=== PATIENT | female | born 1940 | race Caucasian/White ===

== ENCOUNTER → 2018-03-08 07:13 | Outpatient (CLI) | payer MEDICARE, OTHER, SELFPAY ==
--- NOTE | 2018-03-08 07:26 | CT_ITS ---
STUDY: CT CHEST WITHOUT CONTRAST REASON FOR EXAM: Female, 77 years old. COPD. Pulmonary hypertension. Elevated right hemidiaphragm. RADIATION DOSAGE (If Supplied By Facility): CTDIvol = ( 20.17 ) mGy, DLP = ( 654.20 ) mGycm TECHNIQUE: Transaxial imaging was performed without the administration of intravenous contrast material. Multiplanar coronal and sagittal images were reformatted. Individualized dose optimization techniques were used for this CT. COMPARISON: None. FINDINGS: Surgical clips are seen in the right axillary region most likely secondary to prior right axillary lymph node dissection. There are small benign-appearing left axillary lymph nodes. There is a 9.3 mm x 13.3 mm calcified nodule in the lateral aspect of the right breast. There is elevation of the right hemidiaphragm. Calcified granuloma in the right lower lobe. Increased markings in the right lower lobe suggestive of atelectasis or scarring. There is no demonstrated pleural abnormality. There are calcifications of the coronary arteries. There are multiple small lymph nodes within the mediastinum, which are normal in size and morphology most compatible with reactive lymph hyperplasia. Calcified subcarinal lymph nodes. Calcified bilateral hilar lymph nodes. Normal unenhanced pulmonary arteries. There is atherosclerotic calcification of the aortic arch with tortuosity and elongation of the aortic arch and descending thoracic aorta. There are multi-level degenerative changes of the thoracic spine. There is no demonstrated abnormality of the visualized upper abdomen. CT/Chest without Contrast IMPRESSION: Elevation of the right hemidiaphragm. Increased markings at the right lung base suggestive of linear atelectasis and/or scarring. No acute abnormality is seen. Electronically Signed: Rakesh Desai MD at 12:54 EDT Tel [phone], Service support ,
--- NOTE | 2018-03-08 07:50 | RAD_ITS ---
STUDY: SNIFF STUDY. REASON FOR EXAM: Female, 77 years old. Elevation of the right hemidiaphragm. FLUOROSCOPY TIME (if supplied): (0:25) minutes/seconds. 2 images were obtained. TECHNIQUE: Under fluoroscopic visualization, the patient performed inspiration and expiration maneuvers. COMPARISON: None. FINDINGS: There is elevation of the right hemidiaphragm. There is no movement of the right hemidiaphragm. Degenerative changes of the thoracic vertebrae. RAD/Chest Sniff Test Fluoro Only IMPRESSION: Right diaphragmatic paralysis. Electronically Signed: Rakesh Desai MD at 13:36 EDT Tel [phone], Service support ,
--- NOTE | 2018-03-08 08:00 | RAD_ITS ---
STUDY: X-RAY CHEST REASON FOR EXAM: Female, 77 years old. ELEVATED RIGHT HEMIDIAPHRAGM; COPD TECHNIQUE: Single AP portable view of the chest. COMPARISON: None. FINDINGS: There is persistent elevation of the right hemidiaphragm suggesting phrenic nerve paralysis. Calcified granulomas are seen in the right and left lung bases. There is no demonstrated pleural abnormality. Normal size heart. Normal mediastinum and parish. Normal visualized pulmonary arteries. There is atherosclerotic calcification of the aortic arch with tortuosity. There are diffuse degenerative changes and dextroscoliosis of the visualized thoracic spine. There is degenerative osteoarthritis of the bilateral shoulders. There is no demonstrated abnormality of the visualized soft tissue structures of the upper abdomen. RAD/Chest 1 View IMPRESSION: Degenerative changes, as described above. There is persistent elevation of the right hemidiaphragm suggesting phrenic nerve paralysis. Calcified granulomas are seen in the right and left lung bases. Electronically Signed: Yury Batista MD at 11:43 EDT Tel , Service support ,
[2018-03-08 08:56] LABS: Base Excess 4 mmol/L (-2 to +2); Bicarbonate 27.9 mmol/L (22-26); Blood Gas Specimen Type ART; O2 Delivery Device Room Air; PO2 57 mmHG (75-100); SITE L Brachial; SO2 90 % (95-99); Time Given 842; Total Carbon Dioxide 29 mmol/L; pCO2 41.9 mmHg (35-45); pH 7.43 (7.35-7.45)
== END ==
PROVIDERS: Family Provider Family Medicine; PCP Family Medicine; Referring Provider Internal Medicine Pulmonary Disease; Visit Provider Internal Medicine Pulmonary Disease
DX: J44.9 Chronic obstructive pulmonary disease, unspecified (principal); I27.20 Pulmonary hypertension, unspecified; J98.6 Disorders of diaphragm
CPT/HCPCS: 36600; 71045; 71250; 76000; 82803

== ENCOUNTER → 2018-06-14 13:19 | Outpatient (CLI) | payer MEDICARE, OTHER, SELFPAY | PROVIDERS: Family Provider Family Medicine; PCP Family Medicine; Referring Provider Internal Medicine Pulmonary Disease; Visit Provider Internal Medicine Pulmonary Disease | DX: R05 Cough (principal) | CPT/HCPCS: 87070; 87077; 87205 ==

== ENCOUNTER 2021-09-03 09:17 | Inpatient (IN) | payer MEDICARE, OTHER, SELFPAY ==
[2021-09-03] VITALS (15 sets, daily range): BP systolic 119–163; BP diastolic 50–104; PULSE 56–79; RESP 17–24; TEMP 36.6–37.3; O2SAT 89–97; BMI 51.5; BMI 49.9
--- NOTE | 2021-09-03 10:03 | EKG12_ITS ---
Test Reason : SOB Blood Pressure : / mmHG Vent. Rate : 061 BPM Atrial Rate : 061 BPM P-R Int : 182 ms QRS Dur : 082 ms QT Int : 400 ms P-R-T Axes : -04 008 082 degrees QTc Int : 402 ms Normal sinus rhythm Normal ECG Confirmed by ALFREDO DEVLIN, RIP ([id number]), scientific editor MILLER PEREZ ([id number]) on 09/05/2021 2:12:35 PM Referred By: AROLDO Confirmed By:JUAN FUENTES MD
--- NOTE | 2021-09-03 10:05 | NURSING ---
NO OLD EKGS
--- NOTE | 2021-09-03 10:06 | EX.ED.DYSGE1 ---
HPI History of Present Illness Chief Complaint: Shortness of Breath Informant: patient Narrative Narrative: 81-year-old female presenting shortness of breath. Patient states she has been progressively short of breath and worsened with exertion. She has increased lower extremity swelling. She normally wears home O2 4 L. She states she is very short of breath even with her home O2. She denies chest pain. She complains of subjective fever. Denies cough. Prior similar symptoms: Yes PFSH PFSH Allergy/AdvReac Type Severity Reaction Status Date / Time Unable to Assess Allergy Verified 09/03/21 09:23 Social History Smoking Status: Unknown if ever smoked ROS ROS ED Constitutional Constitutional ED: Denies fever(s) Eyes Eyes: Denies change in vision ENT ENT ED: Denies rhinorrhea or sore throat Cardiovascular Cardiovascular: Denies chest pain or palpitations Respiratory/Chest Respiratory/Chest: Reports dyspnea; Denies cough Gastrointestinal Gastrointestinal: Denies abdominal pain, diarrhea, nausea or vomiting Genitourinary Genitourinary ED: Denies dysuria Musculoskeletal Musculoskeletal: Denies myalgias Integumentary Denies rash Neurologic Neurologic: Denies headache(s) Psychiatric Psychiatric: Denies suicidal thoughts EXAM Physical Exam Const Vital Signs: 09/03/21 09:20 09/03/21 10:21 09/03/21 10:30 Temperature 99.1 F Temperature Source Oral Pulse Rate 79 Respiratory Rate 24 H Respiratory Effort Short of Breath Respiratory Depth Normal Respiratory Pattern Normal Blood Pressure 156/50 H Blood Pressure Mean 85 Pulse Ox 93 92 Oxygen Delivery Method Nasal Cannula Nasal Cannula Nasal Cannula Oxygen Flow Rate (L/min) 3 4 09/03/21 11:36 09/03/21 12:54 09/03/21 13:05 Temperature 98 F Temperature Source Temporal Pulse Rate 56 L 66 76 Respiratory Rate 24 H 21 H 17 Respiratory Effort Respiratory Depth Respiratory Pattern Blood Pressure 157/71 H 151/98 H 119/104 H Blood Pressure Mean 99 115 109 Pulse Ox 95 96 97 Oxygen Delivery Method Nasal Cannula Nasal Cannula Nasal Cannula Oxygen Flow Rate (L/min) 4 6 4 Positive well nourished and well developed General Appearance ED: well developed HEENT Reports normocephalic and head/scalp atraumatic Eyes PERRL and EOMs intact bilaterally Neck supple General: Negative for tenderness Chest Wall inspection of chest normal Resp normal respiratory effort Auscultation: diminished lung sounds Cardio regular rate and regular rhythm GI non-tender and non-distended Palpation: soft; Negative for guarding or rebound tenderness present no CVA tenderness Extremity normal to inspection Neuro oriented x3 Sensorium / Orientation: alert Psych mental status grossly normal MDM MDM MDM Narrative Medical decision making narrative: CBC normal except hemoglobin 10.5. Chemistries show potassium 5.4, BUN 37, creatinine 1.75, glucose 249. Troponin is negative. BNP 167.9. Chest x-ray read by myself and radiology shows mild degree of vascular congestion with increased markings at the lung bases slightly worse on the left side suggestive of bibasilar atelectasis and/or early infiltrates with blunting of both costophrenic angles worse on the left side. Attempted to ambulate the patient on her 4 L nasal cannula oxygen and her oxygen saturation decreased to 78%. Lasix IV was given. Discussed with hospitalist for admission. Lab Data Attestation: I reviewed the patient's lab results. Labs: Laboratory Results - last 24 hr 09/03/21 09/03/21 09/03/21 10:20 10:20 10:20 WBC 6.9 RBC 3.44 L Hgb 10.5 L Hct 35.4 L MCV 102.9 H MCH 30.5 MCHC 29.7 L RDW Std Deviation 52.9 H RDW Coeff of Lucas 14.0 Plt Count 214 MPV 10.5 Immature Gran % (Auto) 3.200 H Neut % (Auto) 83.0 H Lymph % (Auto) 6.8 L [place] % (Auto) 5.0 Eos % (Auto) 1.6 Baso % (Auto) 0.4 Absolute Neuts (auto) 5.8 Absolute Lymphs (auto) 0.47 L Nucleated RBC % 0 Differential Comment COMMENT Sodium 140 Potassium 5.4 H Chloride 106 Carbon Dioxide 34.0 H Anion Gap 0 L BUN 37 H Creatinine 1.75 H Estim Creat Clear Calc 19.35 Est GFR (MDRD) Af Amer 36 L Est GFR (MDRD) Non-Af 30 L BUN/Creatinine Ratio 21.1 H Glucose 249 H Calcium 8.7 Troponin I High Sens 24 B-Natriuretic Peptide 167.9 H Radiography Chest X-Ray - ED: 1 View, Read by ED Physician and Read by Radiologist Diagnostic Testing: Clinical Impression(s) from Imaging Studies Chest X-Ray 03/30/22 10:30 IMPRESSION: Mild degree of vascular congestion with increased markings at the lung bases slightly worse on the left side suggestive of bibasilar atelectasis and/or early infiltrates with blunting of both costophrenic angles worse on the left side. Electronically Signed: Rakesh Desai MD at 11:15 EDT , EKG Initial EKG: Attestation: I personally reviewed and interpreted this EKG as follows: Interpretation: Sinus Rhythm and No Acute Injury Pattern Discharge Plan Triage Chief Complaint: Shortness of Breath ED Provider: Mary Gao Dx/Rx/DC Orders Clinical Impression: Acute exacerbation of CHF (congestive heart failure) Primary Care Provider: Mitchell Lane Referrals: Mitchell Lane MD [Primary Care Provider] - Disposition Disposition: Acute Care Hospital [facility]
--- NOTE | 2021-09-03 10:30 | RAD_ITS ---
STUDY: X-RAY CHEST REASON FOR EXAM: Female, 81 years old. Sob TECHNIQUE: Single AP portable view of the chest. COMPARISON: Comparison is made with prior examination dated 03/08/2014. FINDINGS: EKG electrodes are seen. Surgical clips are seen in the right axillary region. Elevation of the right hemidiaphragm. Increased markings at the lung bases slightly worse on the left side suggestive of either bibasilar atelectasis and/or early infiltrates. There is blunting of both costophrenic angles slightly more prominent on the left side. Mild degree of vascular congestion. Normal size heart. Normal mediastinum and parish. Normal visualized pulmonary arteries. There is atherosclerotic calcification of the aortic arch with tortuosity. There are diffuse degenerative changes of the visualized thoracic spine. Normal visualized ribs, clavicles, and shoulders. There is no demonstrated abnormality of the visualized soft tissue structures of the upper abdomen. RAD/Chest 1 View (Portable) IMPRESSION: Mild degree of vascular congestion with increased markings at the lung bases slightly worse on the left side suggestive of bibasilar atelectasis and/or early infiltrates with blunting of both costophrenic angles worse on the left side. Electronically Signed: Rakesh Desai MD at 11:15 EDT ,
[2021-09-03 10:33] LABS: Absolute Lymphocyte Count 0.47 X10^3/uL (0.83-4.51); Absolute Neutrophil Count 5.8 X10^3/uL (2.0-7.7); Basophil# 0.03 X10^3/uL; Basophil% 0.4 % (0-1); Eosinophil# 0.11 X10^3/uL; Eosinophils% 1.6 % (0-5); Hematocrit 35.4 % (37-47); Hemoglobin 10.5 g/dL (12.0-15.0); Lymphocyte # 0.47 X10^3/ul (0.83-4.51); Lymphocyte % 6.8 % (19-41); Mean Corp Hgb Conc 29.7 g/dL (32-36); Mean Corpuscular Hgb 30.5 pg (27.0-32.0); Mean Corpuscular Volume 102.9 fL (81-99); Mean Platelet Vol. 10.5 fl (6.2-12.0); Monocyte# 0.35 X10^3/uL; NRBC Flagged by Analyzer 0 % (0-5); Neutrophil # 5.76 X10^3/uL (2.7-7.7); POSITIVE DIFFERENTIAL YES; Platelet Count 214 K/mm3 (150-450); RBC Distribution Width SD 52.9 fl (35.1-43.9); Red Blood Count 3.44 M/mm3 (4.2-5.4); White Blood Count 6.9 K/mm3 (4.4-11.0)
[2021-09-03 10:44] LABS: Differential Indicated SCAN CRITERIA MET
[2021-09-03 10:50] LABS: Anion Gap 0 (5-15); BUN 37 mg/dL (7-18); BUN/Creat Ratio 21.1 RATIO (10-20); Calcium,Total 8.7 mg/dL (8.5-10.1); Chloride 106 mmol/L (98-107); Creatinine, Serum 1.75 mg/dL (0.55-1.02); EST Glomerular Filtration Rate 30 mL/min (>60); Est Glom Filt Rate - Afr Amer 36 mL/min (>60); Estimated Creatinine Clearance 19.35 ml/min; Glucose 249 mg/dL (74-106); Potassium 5.4 mmol/L (3.5-5.1); Sodium Level 140 mmol/L (136-145); Troponin-I HS 24 pg/mL (3.0-54.0)
[2021-09-03 11:02] LABS: BNP,B-Type NATRIURETIC PEPTIDE 167.9 pg/mL (0-100)
--- NOTE | 2021-09-03 12:50 | ED.RN ---
Per Dr. Gao, Patient should be ambulated with oxygen and monitor SpO2. While ambulating with walker, patient was on 4L NC. SpO2 levels 81% on 4 LC, HR 56 bpm. While getting back into bed patients SpO2 78% on 4L NC. Patient is now on 6L NC with SpO at 97%. Dr. Gao notified of oxygen changes.
--- NOTE | 2021-09-03 13:43 | NURSING ---
CHARLY ASKEW [facility]
[2021-09-03] MEDS: Furosemide 40 MG/4 ML Vial IV ×2 (13:54→17:38)
--- NOTE | 2021-09-03 13:55 | CM.ED ---
Addendum entered by Chitra Vazquez 09/03/21 14:06: Also has a built in shower chair. ANDREW Varela Original Note: RN CM Assessment Introduced role of RN CM to patient, patient dtr Selam Arnett and Perico Lane at bedside.? Patient is alert, oriented and able?to participate in RN CM Assessment. ?Care providers, pharmacy, and demographics verified. Admit Dx: Re-Admit: No Barriers/Issues: None PCP: Mitchell Lane Specialists: Pulm- Gadiel,, Cardio- Patrice-Ana, Endo- Schubridge- Guerrero, Nephro- Virgilio Preferred Pharmacy: [facility] [place] Insurance: [facility] [place] [facility] A/B, MMO Rx Benefit:?Yes LNOK: [address] LW/HPOA: States has a LW-aware not on file at [facility] and if brought in, will scan a copy on file. HPOA- Dtr Selam Arnett #[phone] and Dtr Salma Stoner Living Arrangements: Lives with in a ranch home, 1 step inside with ramp. 2 steps to enter homw w/hand rails.? ADL?s: Ambulates independently to car but does use [employer] otherwise. Independent w/ADLs. Transportation: . Patient does drive some. DME: [employer], Home O2 4lpm continuous, [employer], Has refillable portable tanks and some portable tanks that cannot be refilled- [facility]. HHC: None SNF: None Goal: Home and does not think will have any needs, issues or concerns with going home at this time. Aware RNCM will continue to follow should any needs arise. DC PLAN: Home and no anticipated needs identified at this time. ANDREW Varela
--- NOTE | 2021-09-03 14:41 | HP.PCM.HOS_ITS ---
Documented by User: Yoanna Cat NP, KELP GATHERER-C 09/03/21 16:46 HPI - General General Date of Admission: 09/03/21 HPI Narrative SANTIAGO WILHELM, is a 81 F who presents to emergency room due to shortness of breath. Patient states she has been short of breath since 2014 however her shortness of breath acutely worsened over the past week. She denies chest pain. Reports some dizziness. Denies cough, fever, chills. States she has not weighed herself but suspects she has gained some weight. Denies significant increased swelling. Patient wears 4 L nasal cannula at baseline. She does report she increased her home oxygen due to feeling short of breath. Patient has a past medical history of chronic heart failure, CKD stage III, CAD, type 2 diabetes mellitus, COPD, hypertension, hyperlipidemia, GERD, history of breast cancer, anxiety, depression, stress incontinence. [facility] Medical History (Updated 09/03/21 @ 16:25 by Yoanna Cat NP, KELP GATHERER-C) CAD (coronary artery disease) COPD (chronic obstructive pulmonary disease) HLD (hyperlipidemia) HTN (hypertension) Home Medications Lactobacillus acidophilus [Probiotic] 10,000 mmu cells PO DAILY 09/03/21 [History Last Taken 09/03/21] amlodipine 5 mg PO DAILY 09/03/21 [History Last Taken 09/03/21] aspirin 81 mg PO QHS 09/03/21 [History Last Taken 09/02/21] budesonide-formoterol 2 puff INHALATION BID 09/03/21 [History Last Taken 09/03/21] carvedilol 25 mg PO BIDCM 09/03/21 [History Last Taken 09/03/21] cholecalciferol (vitamin D3) 25 mcg PO BID 09/03/21 [History Last Taken 09/03/21] cholestyramine (with sugar) 1 ea PO DAILY 09/03/21 [History Last Taken 09/03/21] cyanocobalamin (vitamin B-12) 1,000 mcg PO DAILY 09/03/21 [History Last Taken 09/03/21] furosemide 40 mg PO DAILY 09/03/21 [History Last Taken 09/03/21] insulin NPH isoph U-100 human [Humulin N Pen] 6 unit SUBCUT BREAKFAST 09/03/21 [ History Last Taken 09/03/21] insulin NPH isoph U-100 human [Humulin N Pen] 7 - 20 unit SUBCUT QHS 09/03/21 [History Last Taken 09/02/21] insulin aspart U-100 [Novolog Flexpen U-100 Insulin] 6 unit SUBCUT LUNCH 09/03/21 [History Last Taken 09/02/21] insulin aspart U-100 [Novolog Flexpen U-100 Insulin] 8 unit SUBCUT BREAKFAST 09/03/21 [History Last Taken 09/03/21] insulin aspart U-100 [Novolog Flexpen U-100 Insulin] 14 unit SUBCUT DINNER 09/03/21 [History Last Taken 09/02/21] losartan 100 mg PO DAILY 09/03/21 [History Last Taken 09/03/21] mirtazapine 45 mg PO QHS 09/03/21 [History Last Taken 09/02/21] pravastatin 40 mg PO DAILY 09/03/21 [History Last Taken 09/03/21] sertraline 100 mg PO BID 09/03/21 [History Last Taken 09/03/21] spironolactone 25 mg PO DAILY 09/03/21 [History Last Taken 09/03/21] sucralfate 1 g PO TIDCM 09/03/21 [History Last Taken 09/03/21] Allergy/AdvReac Type Severity Reaction Status Date / Time levofloxacin [From Levaquin] AdvReac Other Verified 09/03/21 15:05 procaine [From Novocain] AdvReac Other Verified 09/03/21 15:05 Family History (Updated 09/03/21 @ 16:26 by Yoanna Cat NP, KELP GATHERER-C) Mother No cardiac disease Father No cardiac disease Family History other other Surgical History (Updated 09/03/21 @ 16:27 by Yoanna Cat NP, KELP GATHERER-C) S/P breast lumpectomy S/P cholecystectomy Social History (Updated 09/03/21 @ 16:28 by Yoanna Cat NP, KELP GATHERER-C) household members: spouse Smoking Status: Never smoker alcohol intake: never substance use type: does not use ROS Constitutional Constitutional: Denies change in weight, chills, fatigue, fever(s) or weakness Cardiovascular Cardiovascular: Denies chest pain, edema, lightheadedness, palpitations or syncope Respiratory/Chest Respiratory/Chest: Reports shortness of breath at rest and shortness of breath with exertion; Denies cough, productive cough or wheezing Gastrointestinal Gastrointestinal: Denies abdominal pain, constipation, diarrhea, nausea or vomiting Genitourinary Genitourinary: Denies burning urination, difficulty urinating, dysuria, hematuria, urinary frequency, urinary incontinence or urinary urgency Musculoskeletal Musculoskeletal: Denies back pain, joint pain or muscle weakness Integumentary Integumentary: Denies erythema, lesions, rash or wounds Neurologic Neurologic: Reports dizziness; Denies abnormal speech, confusion, focal weakness, numbness, paresthesias, seizure-like activity or syncope Psychiatric Psychiatric: Denies anxiety or depression Hematologic/Lymphatic Hematologic/Lymphatic: Denies anemia, easy bleeding or easy bruising Allergic/Immunologic Allergic/Immunologic: Denies hives or asthma Vital Signs Vital Signs Vital Signs: 09/03/21 09:20 09/03/21 10:21 09/03/21 10:30 Temperature 99.1 F Temperature Source Oral Pulse Rate 79 Respiratory Rate 24 H Respiratory Effort Short of Breath Respiratory Depth Normal Respiratory Pattern Normal Blood Pressure 156/50 H Blood Pressure Mean 85 Pulse Ox 93 92 Oxygen Delivery Method Nasal Cannula Nasal Cannula Nasal Cannula Oxygen Flow Rate (L/min) 3 4 09/03/21 11:36 09/03/21 12:54 09/03/21 13:05 Temperature 98 F Temperature Source Temporal Pulse Rate 56 L 66 76 Respiratory Rate 24 H 21 H 17 Respiratory Effort Respiratory Depth Respiratory Pattern Blood Pressure 157/71 H 151/98 H 119/104 H Blood Pressure Mean 99 115 109 Pulse Ox 95 96 97 Oxygen Delivery Method Nasal Cannula Nasal Cannula Nasal Cannula Oxygen Flow Rate (L/min) 4 6 4 09/03/21 13:40 Temperature 98 F Temperature Source Temporal Pulse Rate 64 Respiratory Rate 22 H Respiratory Effort Respiratory Depth Respiratory Pattern Blood Pressure 163/93 H Blood Pressure Mean 116 Pulse Ox 93 Oxygen Delivery Method Nasal Cannula Oxygen Flow Rate (L/min) 4 Weight Weight: 264 lb 8.875 oz Body Mass Index (BMI) 49.9 Physical Exam Const alert, oriented x3 and no apparent distress Orientation / Consciousness: awake, oriented to person, oriented to place and oriented to time Nutritional Appearance: obese HEENT normocephalic and moist oral mucous membranes Eyes PERRL, EOMs intact bilaterally and conjunctivae normal Neck no lymphadenopathy Resp clear to auscultation bilaterally Auscultation: diminished lung sounds Cardio regular rate, regular rhythm and no murmurs Peripheral Pulses: pulses 2+ throughout GI normal to inspection, nondistended, normoactive bowel sounds, non-tender and non-distended Extremity normal to inspection General Extremity: edema bilateral lower extremity Details: mild Skin no rashes or lesions noted Lesions: no lesions Rashes: no rashes Trauma: no lacerations or abrasions Neuro CN's II-XII intact bilaterally, no focal motor deficits, no sensory deficits noted and deep tendon reflexes 2+ bilaterally Psych mental status grossly normal and affect normal Results Lab / Micro Data Result Diagrams: 09/03/21 10:20 09/03/21 10:20 Labs: Laboratory Results - last 24 hr 09/03/21 10:20: WBC 6.9, RBC 3.44 L, Hgb 10.5 L, Hct 35.4 L, MCV 102.9 H, MCH 30.5, MCHC 29.7 L, RDW Std Deviation 52.9 H, RDW Coeff of Lucas 14.0, Plt Count 214, MPV 10.5, Immature Gran % (Auto) 3.200 H, Neut % (Auto) 83.0 H, Lymph % (Auto) 6.8 L, [place] % (Auto) 5.0, Eos % (Auto) 1.6, Baso % (Auto) 0.4, Absolute Neuts (auto) 5.8, Absolute Lymphs (auto) 0.47 L, Nucleated RBC % 0, Differential Comment COMMENT 09/03/21 10:20: Sodium 140, Potassium 5.4 H, Chloride 106, Carbon Dioxide 34.0 H , Anion Gap 0 L, BUN 37 H, Creatinine 1.75 H, Estim Creat Clear Calc 19.35, Est GFR (MDRD) Af Amer 36 L, Est GFR (MDRD) Non-Af 30 L, BUN/Creatinine Ratio 21.1 H , Glucose 249 H, Calcium 8.7, Troponin I High Sens 24 09/03/21 10:20: B-Natriuretic Peptide 167.9 H Micro: Microbiology 09/03/21 10:10 Mucosa - Nose Respiratory Panel (PCR) - Final Radiology Impression Chest X-Ray 09/03/21 10:30 IMPRESSION: Mild degree of vascular congestion with increased markings at the lung bases slightly worse on the left side suggestive of bibasilar atelectasis and/or early infiltrates with blunting of both costophrenic angles worse on the left side. Electronically Signed: Rakesh Desai MD at 11:15 EDT , Assessment & Plan Assessment/Plan (1) Acute exacerbation of CHF (congestive heart failure): PLAN: 1. Increased dyspnea secondary to acute on chronic heart failure, unknown subtype, chronic hypoxic respiratory failure-on 4 L nasal cannula at baseline. BNP slightly elevated. Chest x-ray with mild failure. IV Lasix. Strict I&O. Daily weight. Obtain echo. Trend enzymes. Check TSH, mag. 2. Mild hyperkalemia- IV lasix per above. Will trend BMP. Aldactone held. 3. LINDA on CKD stage III, unclear subtype- Baseline creatinine per previous outpatient labs 1.3. LINDA likely cardiorenal. IV Lasix, trend BMP. 4. CAD-continue statin, carvedilol. 5. Type 2 diabetes [id number] with sliding scale insulin. Continue home insulin regimen. 6. Chronic COPD-as needed albuterol aerosol. 7. Hypertension-continue losartan, carvedilol, amlodipine. Hold aldactone. 8. Hyperlipidemia-on statin. 9. GERD-continue Carafate. 10. History of breast cancer (2008) 11. Anxiety/depression-on sertraline. 12. Stress incontinence-follows with urology. DVT prophylaxis-heparin sc This patient was seen by RAE Matias under the supervision of Dr. Engle. Time spent examining patient, reviewing data and subsequent management of care: 18 Minutes Documented by User: Dr. Jung Engle MD 09/03/21 18:19 HPI - General General Date of Admission: 09/03/21 [facility] Medical History (Updated 09/03/21 @ 16:25 by Yoanna Cat KELP GATHERER, KELP GATHERER-C) CAD (coronary artery disease) COPD (chronic obstructive pulmonary disease) HLD (hyperlipidemia) HTN (hypertension) Home Medications Lactobacillus acidophilus [Probiotic] 10,000 mmu cells PO DAILY 09/03/21 [History Last Taken 09/03/21] amlodipine 5 mg PO DAILY 09/03/21 [History Last Taken 09/03/21] aspirin 81 mg PO QHS 09/03/21 [History Last Taken 09/02/21] budesonide-formoterol 2 puff INHALATION BID 09/03/21 [History Last Taken 09/03/21] carvedilol 25 mg PO BIDCM 09/03/21 [History Last Taken 09/03/21] cholecalciferol (vitamin D3) 25 mcg PO BID 09/03/21 [History Last Taken 09/03/21] cholestyramine (with sugar) 1 ea PO DAILY 09/03/21 [History Last Taken 09/03/21] cyanocobalamin (vitamin B-12) 1,000 mcg PO DAILY 09/03/21 [History Last Taken 09/03/21] furosemide 40 mg PO DAILY 09/03/21 [History Last Taken 09/03/21] insulin NPH isoph U-100 human [Humulin N Pen] 6 unit SUBCUT BREAKFAST 09/03/21 [History Last Taken 09/03/21] insulin NPH isoph U-100 human [Humulin N Pen] 7 - 20 unit SUBCUT QHS 09/03/21 [History Last Taken 09/02/21] insulin aspart U-100 [Novolog Flexpen U-100 Insulin] 6 unit SUBCUT LUNCH 2 [History Last Taken 09/02/21] insulin aspart U-100 [Novolog Flexpen U-100 Insulin] 8 unit SUBCUT BREAKFAST 09/03/21 [History Last Taken 09/03/21] insulin aspart U-100 [Novolog Flexpen U-100 Insulin] 14 unit SUBCUT DINNER 09/03/21 [History Last Taken 09/02/21] losartan 100 mg PO DAILY 09/03/21 [History Last Taken 09/03/21] mirtazapine 45 mg PO QHS 09/03/21 [History Last Taken 09/02/21] pravastatin 40 mg PO DAILY 09/03/21 [History Last Taken 09/03/21] sertraline 100 mg PO BID 09/03/21 [History Last Taken 09/03/21] spironolactone 25 mg PO DAILY 09/03/21 [History Last Taken 09/03/21] sucralfate 1 g PO TIDCM 09/03/21 [History Last Taken 09/03/21] Allergy/AdvReac Type Severity Reaction Status Date / Time levofloxacin [From Levaquin] AdvReac Other Verified 09/03/21 15:05 procaine [From Novocain] AdvReac Other Verified 09/03/21 15:05 Family History (Updated 09/03/21 @ 16:26 by Yoanna Cat NP, KELP GATHERER-C) Mother No cardiac disease Father No cardiac disease Family History other Surgical History (Updated 09/03/21 @ 16:27 by Yoanna Cat NP, KELP GATHERER-C) S/P breast lumpectomy S/P cholecystectomy Social History (Updated 09/03/21 @ 16:28 by Yoanna Cat NP, KELP GATHERER-C) household members: spouse Smoking Status: Never smoker alcohol intake: never substance use type: does not use Results Lab / Micro Data Result Diagrams: 09/03/21 10:20 09/03/21 10:20 Charges/Coding Addendum Addendum: Dr. Engle: I personally reviewed the chart and examined the patient, and agree with the above findings. 81-year-old female presents to the hospital with shortness of breath. She says that she has chronic shortness of breath and generally requires 4 L of oxygen nasal cannula. She follows with pulmonology Dr. Ramesh's office but denies any known history of heart failure. She did have an elevated creatinine and we are able to see that her baseline was 1.3 clinic- sync, this is consistent with an LINDA. She does have trace bilateral pitting edema and she does state that she sleeps with 2 pillows. We will obtain an echocardiogram today and continue with IV Lasix. She did have some increased oxygen requirements when she came in she was up to 6 L but with the Lasix she is currently down to 4 L nasal cannula which is her baseline oxygen. Clinical time spent in all aspects of patient care: 40 minutes Visit Charges Inpatient E&M: 60657 Init Hosp L2
--- NOTE | 2021-09-03 14:48 | ECHOD_ITS ---
Reason For Study: CHF EXACERBATION Procedure This was a 2D Doppler, Color Flow transthoracic echocardiogram. Exam performed portable in patient room. Left Ventricle Normal LV size. The estimated ejection fraction is 60 %. No evidence for diastolic dysfunction. No regional wall motion abnormalities noted. Right Ventricle Normal RV size. Normal systolic function. Atria Normal left atrium. Normal right atrium. No doppler evidence for ASD. Mitral Valve There is mild mitral annular calcification. There is no mitral valve stenosis. No mitral valve insufficiency. Tricuspid Valve There is no tricuspid stenosis. Unable to estimate RV systolic pressure due to inadequate jet, pulmonary artery pressure probably normal. Aortic Valve Trisinus/trileaflet aortic valve. There is no aortic stenosis. No aortic valve insufficiency. Pulmonic Valve There is no pulmonic valvular stenosis. No pulmonic valve insufficiency. Great Vessels Normal aortic root. Pericardium/Pleural No pericardial effusion. MMode/2D Measurements & Calculations LVIDd: 5.3 cm IVSd: 0.84 cm Ao root diam: 3.2 cm LVIDs: 3.5 cm LVPWd: 0.95 cm RVDd: 3.6 cm FS: 33.7 % LAV(MOD-bp): 56.5 ml LVAd ap4: 36.6 cm2 SV(MOD-sp4): 87.8 ml LAV(MOD-bp) Indexed: 26.6 ml/m2 LVLd ap4: 8.1 cm LAV(MOD-sp2): 54.7 ml EDV(MOD-sp4): 135.7 ml LAV(MOD-sp4): 56.4 ml EDV(sp4-el): 139.6 ml LVAs ap4: 20.2 cm2 LVLs ap4: 7.1 cm ESV(MOD-sp4): 47.9 ml ESV(sp4-el): 48.8 ml EF(MOD-sp4): 64.7 % EF(sp4-el): 65.0 % SV(sp4-el): 90.8 ml LA A4 area: 20.1 cm2 LA dimension(2D): 3.3 cm RA A4 area: 18.4 cm2 Time Measurements MV dec time: 0.31 sec Doppler Measurements & Calculations MV E max jarad: 113.9 cm/sec Lat Peak E' Jarad: 9.3 cm/sec Med Peak E' Jarad: 8.1 cm/sec MV A max jarad: 126.5 cm/sec E/E' lat: 12.3 E/E' med: 14.1 MV E/A: 0.90 Ao V2 max: 155.5 cm/sec LV V1 max: 98.2 cm/sec PA V2 max: 98.1 cm/sec Ao max P.7 mmHg LV V1 max P.9 mmHg ECHO/Echo Complete Interpretation Summary The estimated ejection fraction is 60 %. No evidence for diastolic dysfunction. Ordering Physician: Jung Engle Referring Physician: ANNA MARIE WILHELM Performed By: Lela Castañeda RDCS
[2021-09-03 16:26] LABS: Bedside Glucose 184 mg/dL (74-106)
[2021-09-03 17:34] LABS: Magnesium 2.2 mg/dL (1.6-2.6); Thyroid Stim Hormone (TSH) 2.39 uIU/mL (0.358-3.74)
[2021-09-03] MEDS: Insulin Lispro 100 UNIT/ML INSULN.PEN 14 UNIT SC (17:37)
[2021-09-03] MEDS: Sucralfate 1 GM Tablet PO (17:37)
[2021-09-03] MEDS: 0.9% Saline Lock 10 ML Syringe IV (17:38)
[2021-09-03] MEDS: Carvedilol 25 MG Tablet PO (18:29)
[2021-09-03] MEDS: Albuterol 2.5 MG/3 ML VIAL.NEB. INHALATION (19:50)
[2021-09-03] MEDS: Budesonide Respules 0.5 MG/2 ML AMPUL.NEB. INHALATION (19:50)
[2021-09-03] MEDS: Mirtazapine 30 MG Tablet 45 MG PO (21:59)
[2021-09-03] MEDS: Aspirin 81 MG TAB.CHEW PO (21:59)
[2021-09-03] MEDS: Pravastatin 40 MG Tablet PO (22:01)
[2021-09-03] MEDS: Heparin Injection (Vial) 5,000 UNIT/ML VIAL 5000 UNIT SC (22:02)
[2021-09-03] MEDS: Insulin Glargine-YFGN 100 UNIT/ML Pen SC (22:04)
[2021-09-03 22:11] LABS: Bedside Glucose 156 mg/dL (74-106)
[2021-09-04] VITALS (17 sets, daily range): BP systolic 134–162; BP diastolic 53–89; PULSE 59–72; RESP 14–22; TEMP 36.5–37.2; O2SAT 89–95
[2021-09-04 02:10] LABS: Bedside Glucose 176 mg/dL (74-106)
[2021-09-04] MEDS: Heparin Injection (Vial) 5,000 UNIT/ML VIAL 5000 UNIT SC ×3 (06:53→22:00)
[2021-09-04] MEDS: 0.9% Saline Lock 10 ML Syringe IV ×3 (06:54→18:16)
[2021-09-04] MEDS: Ondansetron 4 MG/2 ML Vial IV (06:55)
[2021-09-04] MEDS: Sucralfate 1 GM Tablet PO ×3 (06:55→16:20)
[2021-09-04 07:16] LABS: Absolute Neutrophil Count 3.7 X10^3/uL (2.0-7.7); Basophil# 0.03 X10^3/uL; Basophil% 0.6 % (0-1); Eosinophil# 0.12 X10^3/uL; Eosinophils% 2.3 % (0-5); Hematocrit 32.7 % (37-47); Hemoglobin 9.9 g/dL (12.0-15.0); Lymphocyte % 15.4 % (19-41); Mean Corp Hgb Conc 30.3 g/dL (32-36); Mean Corpuscular Hgb 30.4 pg (27.0-32.0); Mean Corpuscular Volume 100.3 fL (81-99); Mean Platelet Vol. 10.3 fl (6.2-12.0); Monocyte# 0.48 X10^3/uL; Monocyte% 9.2 % (0-10); NRBC Flagged by Analyzer 0 % (0-5); Neutrophil # 3.67 X10^3/uL (2.7-7.7); Neutrophil % 70.6 % (47-70); Platelet Count 187 K/mm3 (150-450); RBC Distribution Width CV 13.8 % (11.6-14.6); Red Blood Count 3.26 M/mm3 (4.2-5.4); White Blood Count 5.2 K/mm3 (4.4-11.0)
[2021-09-04] MEDS: Budesonide Respules 0.5 MG/2 ML AMPUL.NEB. INHALATION ×2 (07:19→19:11)
[2021-09-04] MEDS: Albuterol 2.5 MG/3 ML VIAL.NEB. INHALATION ×3 (07:19→19:11)
[2021-09-04 07:51] LABS: Anion Gap 2 (5-15); BUN 41 mg/dL (7-18); BUN/Creat Ratio 24.8 RATIO (10-20); Calcium,Total 8.2 mg/dL (8.5-10.1); Chloride 105 mmol/L (98-107); Creatinine, Serum 1.65 mg/dL (0.55-1.02); EST Glomerular Filtration Rate 32 mL/min (>60); Est Glom Filt Rate - Afr Amer 39 mL/min (>60); Estimated Creatinine Clearance 20.52 ml/min; Glucose 234 mg/dL (74-106); Sodium Level 141 mmol/L (136-145)
[2021-09-04 08:31] LABS: Bedside Glucose 218 mg/dL (74-106)
[2021-09-04] MEDS: Insulin Lispro 100 UNIT/ML INSULN.PEN SC ×4 (08:52→22:04)
[2021-09-04] MEDS: Insulin Lispro 100 UNIT/ML INSULN.PEN 8 UNIT SC (08:53)
[2021-09-04] MEDS: Carvedilol 25 MG Tablet PO ×2 (08:57→18:14)
[2021-09-04] MEDS: Furosemide 40 MG/4 ML Vial IV ×2 (08:58→18:14)
[2021-09-04] MEDS: amLODIPine 5 MG Tablet PO (08:58)
[2021-09-04] MEDS: Cyanocobalamin 500 MCG Tablet 1000 MCG PO (08:59)
[2021-09-04] MEDS: Sertraline 100 MG Tablet 200 MG PO (08:59)
[2021-09-04] MEDS: Cholestyramine/Sucrose 4 GM/PACKET PO (10:16)
--- NOTE | 2021-09-04 10:24 | CASEMGMT ---
Call to [facility] to clarify pt's home oxygen order and they state that pt's order is for 2-4L continuous. CM to follow for increased home oxygen need. Hamilton MONTANEZ CM
[2021-09-04 11:41] LABS: Bedside Glucose 179 mg/dL (74-106)
[2021-09-04] MEDS: Insulin Lispro 100 UNIT/ML INSULN.PEN 6 UNIT SC (11:48)
--- NOTE | 2021-09-04 12:25 | PN.HOSP_ITS ---
Documented by User: Eric PATEL 09/04/21 12:41 Subjective Subjective Patient is an 81-year-old female comfortably resting in bed, alert and orient x3. Patient reports that her shortness of breath is slightly improved from admission, denies development of any new symptoms overnight. Does not appear in acute distress. Objective Data Objective Data Vital Signs: Vital Signs Temp Pulse Resp BP Pulse Ox 99.0 F 59 L 19 H 134/62 H 89 09/04/21 11:29 09/04/21 11:29 09/04/21 11:29 09/04/21 11:29 09/04/21 11:29 Oxygen Flow Rate (L/min) 5 Oxygen Delivery Method Nasal Cannula Weight: 263 lb 10.766 oz Body Mass Index (BMI) 49.9 Intake & Output: Intake and Output for Last 24 Hours 09/02/21 09/03/21 09/04/21 23:59 23:59 23:59 Intake Total 450 / 450 740 / 740 Output Total 350 / 350 500 / 500 Balance 100 / 100 240 / 240 Lab / Micro Data Result Diagrams: 09/04/21 06:42 09/04/21 06:42 Labs: Laboratory Results - last 24 hr 09/03/21 10:20: Magnesium 2.2, TSH 2.39 09/03/21 16:18: POC Glucose 184 H 09/03/21 21:51: POC Glucose 156 H 09/04/21 02:03: POC Glucose 176 H 09/04/21 06:42: WBC 5.2, RBC 3.26 L, Hgb 9.9 L, Hct 32.7 L, MCV 100.3 H, MCH 30.4, MCHC 30.3 L, RDW Std Deviation 51.0 H, RDW Coeff of [place] 13.8, Plt Count 187, MPV 10.3, Immature Gran % (Auto) 1.900 H, Neut % (Auto) 70.6 H, Lymph % (Auto) 15.4 L, [place] % (Auto) 9.2, Eos % (Auto) 2.3, Baso % (Auto) 0.6, Absolute Neuts (auto) 3.7, Absolute Lymphs (auto) 0.80 L, Nucleated RBC % 0 09/04/21 06:42: Sodium 141, Potassium 5.0, Chloride 105, Carbon Dioxide 34.0 H, Anion Gap 2 L, BUN 41 H, Creatinine 1.65 H, Estim Creat Clear Calc 20.52, Est GFR (MDRD) Af Amer 39 L, Est GFR (MDRD) Non-Af 32 L, BUN/Creatinine Ratio 24.8 H , Glucose 234 H, Calcium 8.2 L 09/04/21 08:26: POC Glucose 218 H 09/04/21 11:32: POC Glucose 179 H Micro: Microbiology 09/03/21 10:10 Mucosa - Nose Respiratory Panel (PCR) - Final Radiography Diagnostic Testing: Radiology Impression Echocardiogram 09/03/21 14:48 Interpretation Summary The estimated ejection fraction is 60 %. No evidence for diastolic dysfunction. Ordering Physician: Jung Engle Referring Physician: ANNA MARIE WILHELM Performed By: Lela Castañeda RDCS Physical Exam Const alert, oriented x3 and no apparent distress HEENT head/scalp atraumatic and moist oral mucous membranes Head and Scalp: normocephalic Eyes PERRL, EOMs intact bilaterally and conjunctivae normal Neck no lymphadenopathy, supple and no JVD Resp normal respiratory effort, no retractions and no use of accessory muscles Cardio regular rate, regular rhythm and no JVD GI normal to inspection, nondistended, normoactive bowel sounds Extremity normal to inspection Skin no rashes or lesions noted Neuro CN's II-XII intact bilaterally Psych affect normal Assessment & Plan Assessment/Plan (1) Acute exacerbation of CHF (congestive heart failure): PLAN: Day 1 Discharge planning: Discharge home when medically ready. 1) acute on chronic HFpEF exacerbation Patient is currently requiring 5 L of oxygen to sat at 90%. Baseline oxygen requirements are 4 L. Echocardiogram revealed an EF of 60% with no evidence of diastolic dysfunction. TSH and mag within normal months. High-sensitivity troponins not elevated. We will continue IV Lasix twice daily, continue supplemental oxygen as needed, continue to monitor daily weights, strict I's and O's 2) LINDA on CKD stage IIIb Creatinine currently 1.65, improved from admission. Likely cardiorenal. Plan as above, continue to monitor BMP. 3) hyperkalemia Currently 5.0, continue Lasix as above, continue to hold Aldactone and trend BMP. 4) CAD Continue statin and carvedilol. 5) DM2 Blood glucose elevated at 234. Increase long-acting insulin to 10 units nightly, continue home basal insulin regimen, continue Accu-Cheks with sliding scale insulin. 6) chronic COPD Believe patient shortness of breath is more due to #1, patient is without wheezing and chest x-ray does not demonstrate any emphysematous change. Continue as needed albuterol. 7) HTN Continue losartan, carvedilol, amlodipine. Hold Aldactone due to #2. 8) hyperlipidemia Continue statin. 9) GERD Continue Carafate. 10) depression/anxiety Continue sertraline. 9. GERD-continue Carafate. DVT prophylaxis - heparin Patient seen by Eric Del Valle PA-C, under the supervision of Dr. Alejandro. Time spent on patient care: 10 minutes. Documented by User: Dr. Abel Alejandro, DO 09/04/21 15:59 Subjective Subjective Breathing better. Has progressively gotten short of breath over the past month but got to the point where it was on very difficult to breathe. Objective Data Lab / Micro Data Result Diagrams: 09/04/21 06:42 09/04/21 06:42 Physical Exam Const alert and no apparent distress Resp normal respiratory effort, no retractions, no use of accessory muscles and clear to auscultation bilaterally Cardio regular rate, regular rhythm, S1 normal heart sound and S2 normal heart sound GI normal to inspection, nondistended, normoactive bowel sounds, soft to palpation, non-tender and non-distended Extremity normal to inspection Neuro oriented x3 Sensorium / Orientation: awake and alert Assessment & Plan Assessment/Plan (1) Acute exacerbation of CHF (congestive heart failure): PLAN: Patient seen and examined independently. Data and vitals reviewed. I agree with the above note by the physician floral assistant. 1. Acute heart failure with preserved ejection fraction * improved * on carvedilol * continue IV furosemide * hold NAS-/ARB given LINDA * EF 60% 2. LINDA * Creatinine slightly improved * monitor 3. DM2 * fair control * on prandial insulin only, NPH not ordered. will restart. Greater than 20 minutes of which greater than 50 present time was discussed with the patient reviewing data. Charges/Coding Visit Charges Inpatient E&M: 80541 Subs Hosp L2
[2021-09-04 16:16] LABS: Bedside Glucose 226 mg/dL (74-106)
[2021-09-04] MEDS: Insulin Lispro 100 UNIT/ML INSULN.PEN 14 UNIT SC (16:20)
[2021-09-04] MEDS: Mirtazapine 30 MG Tablet 45 MG PO (21:58)
[2021-09-04] MEDS: Pravastatin 40 MG Tablet PO (21:59)
[2021-09-04] MEDS: Aspirin 81 MG TAB.CHEW PO (22:00)
[2021-09-04] MEDS: Insulin Glargine-YFGN 100 UNIT/ML Pen 10 UNIT SC (22:10)
[2021-09-04 22:21] LABS: Bedside Glucose 266 mg/dL (74-106)
[2021-09-04] MEDS: Insulin NPH Human 100 UNITS/ML PEN 7 UNITS SC (22:56)
[2021-09-05] VITALS (20 sets, daily range): BP systolic 118–168; BP diastolic 50–61; PULSE 61–82; RESP 16–21; TEMP 36.9–37.3; O2SAT 91–96
[2021-09-05] MEDS: Sucralfate 1 GM Tablet PO ×3 (06:49→16:14)
[2021-09-05] MEDS: Heparin Injection (Vial) 5,000 UNIT/ML VIAL 5000 UNIT SC ×3 (06:51→22:10)
[2021-09-05 07:13] LABS: Absolute Lymphocyte Count 1.04 X10^3/uL (0.83-4.51); Basophil# 0.04 X10^3/uL; Basophil% 0.6 % (0-1); Eosinophil# 0.08 X10^3/uL; Eosinophils% 1.1 % (0-5); Hematocrit 35.2 % (37-47); Lymphocyte # 1.04 X10^3/ul (0.83-4.51); Lymphocyte % 14.7 % (19-41); Mean Corp Hgb Conc 28.4 g/dL (32-36); Mean Corpuscular Hgb 29.5 pg (27.0-32.0); Mean Corpuscular Volume 103.8 fL (81-99); Mean Platelet Vol. 10.3 fl (6.2-12.0); Monocyte# 0.59 X10^3/uL; Monocyte% 8.3 % (0-10); NRBC Flagged by Analyzer 0 % (0-5); Neutrophil # 5.04 X10^3/uL (2.7-7.7); Neutrophil % 71.3 % (47-70); Platelet Count 225 K/mm3 (150-450); RBC Distribution Width CV 13.7 % (11.6-14.6); RBC Distribution Width SD 52.4 fl (35.1-43.9); Red Blood Count 3.39 M/mm3 (4.2-5.4); White Blood Count 7.1 K/mm3 (4.4-11.0)
[2021-09-05] MEDS: Ipratropium/Albuterol Sulfate 3 ML AMPUL.NEB INHALATION ×2 (07:20→13:54)
[2021-09-05] MEDS: Budesonide Respules 0.5 MG/2 ML AMPUL.NEB. INHALATION (07:28)
[2021-09-05] MEDS: Albuterol 2.5 MG/3 ML VIAL.NEB. INHALATION (07:28)
[2021-09-05 07:35] LABS: BUN 49 mg/dL (7-18); Creatinine, Serum 1.94 mg/dL (0.55-1.02); EST Glomerular Filtration Rate 26 mL/min (>60); Estimated Creatinine Clearance 17.45 ml/min; Glucose 189 mg/dL (74-106)
[2021-09-05 07:36] LABS: Anion Gap 0 (5-15); BUN/Creat Ratio 25.3 RATIO (10-20); Calcium,Total 8.4 mg/dL (8.5-10.1); Chloride 102 mmol/L (98-107); Est Glom Filt Rate - Afr Amer 32 mL/min (>60); Potassium 5.4 mmol/L (3.5-5.1); Sodium Level 138 mmol/L (136-145)
--- NOTE | 2021-09-05 07:54 | RAD_ITS ---
STUDY: X-RAY CHEST REASON FOR EXAM: Female, 81 years old. Dyspnea TECHNIQUE: Single AP portable view of the chest. COMPARISON: Comparison is made with prior study of 09/03/2021. FINDINGS: EKG electrodes are seen. Surgical clips are once again seen in the right axillary region. Stable elevation of the right hemidiaphragm. There is evidence of vascular congestion and mild CHF. This has progressed since prior study. Blunting of both costophrenic angles. Normal size heart. Normal mediastinum and parish. Normal visualized pulmonary arteries. There is atherosclerotic calcification of the aortic arch with tortuosity. There are diffuse degenerative changes of the visualized thoracic spine. There is degenerative osteoarthritis of the bilateral shoulders. There is no demonstrated abnormality of the visualized soft tissue structures of the upper abdomen. RAD/Chest 1 View (Portable) IMPRESSION: Mild increase in the CHF with blunting of both costophrenic angles. Electronically Signed: Rakesh Desai MD at 10:11 EDT ,
[2021-09-05 08:11] LABS: Bedside Glucose 164 mg/dL (74-106)
[2021-09-05] MEDS: Insulin Lispro 100 UNIT/ML INSULN.PEN SC ×4 (09:10→22:08)
[2021-09-05] MEDS: Cyanocobalamin 500 MCG Tablet 1000 MCG PO (09:11)
[2021-09-05] MEDS: Furosemide 40 MG/4 ML Vial IV (09:11)
[2021-09-05] MEDS: Carvedilol 25 MG Tablet PO ×2 (09:11→17:27)
[2021-09-05] MEDS: Sertraline 100 MG Tablet 200 MG PO (09:11)
[2021-09-05] MEDS: Cholestyramine/Sucrose 4 GM/PACKET PO (09:11)
[2021-09-05] MEDS: amLODIPine 5 MG Tablet PO (09:11)
[2021-09-05] MEDS: Insulin NPH Human 100 UNITS/ML PEN 6 UNITS SC (09:24)
--- NOTE | 2021-09-05 11:12 | CASEMGMT ---
Addendum entered by Chitra Montenegro 09/05/21 13:40: This RN CM back to room and pt declines need for HHC at this time. Pt is aware that PCP can set up OP or HHC once home, if she changes her mind, voices understanding. Green sheet left on chart for increased home oxygen need. Hamilton MONTANEZ CM Original Note: Therapy recommending HHC for pt at discharge. This RN CM to room with list of HHC providers including quality and resource use data and consistent with the pt's preferred geographic region, medical needs, and insurance network. CM to f/u later with pt to see if she is agreeable to HHC and if she has picked agency. Pt is currently on phone at this time. Hamilton MONTANEZ CM
[2021-09-05] MEDS: Insulin Lispro 100 UNIT/ML INSULN.PEN 6 UNIT SC (11:26)
[2021-09-05 11:41] LABS: Bedside Glucose 225 mg/dL (74-106)
--- NOTE | 2021-09-05 11:52 | PN.HOSP_ITS ---
Documented by User: Eric PATEL 09/05/21 12:18 Subjective Subjective Patient is an 81-year-old female comfortably resting in a chair, alert and orient x3. Patient denies development of any new symptoms overnight. Does not appear in acute distress. Objective Data Objective Data Vital Signs: Vital Signs Temp Pulse Resp BP Pulse Ox 99.1 F 62 16 118/50 L 93 09/05/21 10:59 09/05/21 10:59 09/05/21 10:59 09/05/21 10:59 09/05/21 11:00 Oxygen Flow Rate (L/min) 8 Oxygen Delivery Method Nasal Cannula Weight: 265 lb 14.04 oz Body Mass Index (BMI) 49.9 Intake & Output: Intake and Output for Last 24 Hours 09/03/21 09/04/21 09/05/21 23:59 23:59 23:59 Intake Total 450 / 450 1240 / 1240 720 / 720 Output Total 350 / 350 1050 / 1050 1000 / 1000 Balance 100 / 100 190 / 190 -280 / -280 Lab / Micro Data Result Diagrams: 09/05/21 06:50 09/05/21 06:50 Labs: Laboratory Results - last 24 hr 09/04/21 16:11: POC Glucose 226 H 09/04/21 21:52: POC Glucose 266 H 09/05/21 06:50: WBC 7.1, RBC 3.39 L, Hgb 10.0 L, Hct 35.2 L, MCV 103.8 H, MCH 29.5, MCHC 28.4 L D, RDW Std Deviation 52.4 H, RDW Coeff of Lucas 13.7, Plt Count 225, MPV 10.3, Immature Gran % (Auto) 4.000 H, Neut % (Auto) 71.3 H, Lymph % (Auto) 14.7 L, [place] % (Auto) 8.3, Eos % (Auto) 1.1, Baso % (Auto) 0.6, Absolute Neuts (auto) 5.0, Absolute Lymphs (auto) 1.04, Nucleated RBC % 0 09/05/21 06:50: Sodium 138, Potassium 5.4 H, Chloride 102, Carbon Dioxide 36.0 H , Anion Gap 0 L, BUN 49 H, Creatinine 1.94 H, Estim Creat Clear Calc 17.45, Est GFR (MDRD) Af Amer 32 L, Est GFR (MDRD) Non-Af 26 L, BUN/Creatinine Ratio 25.3 H , Glucose 189 H, Calcium 8.4 L 09/05/21 08:06: POC Glucose 164 H 09/05/21 11:24: POC Glucose 225 H Micro: Microbiology 09/03/21 10:10 Mucosa - Nose Respiratory Panel (PCR) - Final Radiography Diagnostic Testing: Radiology Impression Chest X-Ray 09/03/21 10:30 IMPRESSION: Mild degree of vascular congestion with increased markings at the lung bases slightly worse on the left side suggestive of bibasilar atelectasis and/or early infiltrates with blunting of both costophrenic angles worse on the left side. Electronically Signed: Rakesh Desai MD at 11:15 EDT , Chest X-Ray 09/05/21 07:54 IMPRESSION: Mild increase in the CHF with blunting of both costophrenic angles. Electronically Signed: Rakesh Desai MD at 10:11 EDT , Physical Exam Const alert, oriented x3 and no apparent distress HEENT head/scalp atraumatic and moist oral mucous membranes Head and Scalp: normocephalic Eyes PERRL, EOMs intact bilaterally and conjunctivae normal Neck no lymphadenopathy, supple and no JVD Resp Resp Narrative: Currently requiring 9 L to sat at 95%. Auscultation: wheezes and diminished lung sounds Cardio regular rate, regular rhythm and no JVD GI normal to inspection, nondistended, normoactive bowel sounds Extremity normal to inspection Skin no rashes or lesions noted Neuro CN's II-XII intact bilaterally Psych affect normal Assessment & Plan Assessment/Plan (1) Acute exacerbation of CHF (congestive heart failure): PLAN: Day 2 Discharge planning: Discharge home when medically ready. 1) acute hypoxic respiratory failure secondary to acute on chronic HFpEF exacerbation Patient is currently requiring 9 L of oxygen to sat at 95%. Baseline oxygen requirements are 4 L. Echocardiogram revealed an EF of 60% with no evidence of diastolic dysfunction. Repeat chest x-ray obtained, pulmonary vascular congestion and blunting of the costophrenic able appear improved on my e xamination, which is different from the reading of the radiologist. Patient's respiratory failure could be the result of a combined COPD flare-up. We will decrease Lasix to 40 p.o. twice daily, trial bronchodilators and chest physiotherapy, continue supplemental oxygen as needed, continue to monitor daily weights, strict I's and O's 2) LINDA on CKD stage IIIb Creatinine currently 1.94, worse from yesterday. Will decrease Lasix as above and continue to monitor. 3) hyperkalemia Currently 5.4, continue Lasix as above, continue to hold Aldactone and trend BMP. 4) CAD Continue statin and carvedilol. 5) DM2 Home basal insulin regimen adjusted, continue Accu-Cheks with sliding scale insulin. 6) chronic COPD Could be complicating #1. Will initiate duo nebs and as needed albuterol, chest physiotherapy ordered. 7) HTN Continue losartan, carvedilol, amlodipine. Hold Aldactone due to #2. 8) hyperlipidemia Continue statin. 9) GERD Continue Carafate. 10) depression/anxiety Continue sertraline. 9. GERD-continue Carafate. DVT prophylaxis - heparin Patient seen by Eric Del Valle PA-C, under the supervision of Dr. Alejandro. Time spent on patient care: 9 minutes. Documented by User: Dr. Abel Alejandro DO 09/05/21 13:00 Subjective Subjective Increased oxygen requirements overnight but that has improved throughout the day today. Objective Data Lab / Micro Data Result Diagrams: 09/05/21 06:50 09/05/21 06:50 Physical Exam Const alert and no apparent distress Resp normal respiratory effort, no retractions, no use of accessory muscles and clear to auscultation bilaterally Cardio regular rate, regular rhythm, S1 normal heart sound and S2 normal heart sound GI normal to inspection, nondistended, normoactive bowel sounds, soft to palpation, non-tender and non-distended Extremity normal to inspection Assessment & Plan Assessment/Plan (1) Acute exacerbation of CHF (congestive heart failure): (2) LINDA (acute kidney injury): PLAN: Patient seen and examined independently. Data and vitals reviewed. I agree with the above note by the physician instructional assistant. 1. Acute heart failure with preserved ejection fraction Ongoing on carvedilol hold NAS-/ARB given LINDA EF 60% 2. LINDA Creatinine slightly worse DC furosemide 3. Acute hypoxic respiratory failure Chest x-ray performed today shows improvement of aeration and pulmonary vascular congestion. Wean oxygen as tolerated Bronchodilators Pulmonary toilet 4. DM2 fair control on prandial insulin only, NPH not ordered. will restart. Greater than 20 minutes of which greater than 50 present time was discussed with the patient reviewing data. Charges/Coding Visit Charges Inpatient E&M: 29536 Subs Hosp L2
--- NOTE | 2021-09-05 15:57 | NURSING ---
Agree with Yesika ELIZABETH documentation for 09/04 and 09/05 this nurse with student during medications and assessments
[2021-09-05] MEDS: Insulin Lispro 100 UNIT/ML INSULN.PEN 14 UNIT SC (16:14)
[2021-09-05 16:16] LABS: Bedside Glucose 241 mg/dL (74-106)
[2021-09-05] MEDS: Furosemide 40 MG Tablet PO (17:27)
[2021-09-05] MEDS: Mirtazapine 30 MG Tablet 45 MG PO (22:07)
[2021-09-05] MEDS: Aspirin 81 MG TAB.CHEW PO (22:07)
[2021-09-05] MEDS: Insulin NPH Human 100 UNITS/ML PEN 7 UNITS SC (22:07)
[2021-09-05] MEDS: Pravastatin 40 MG Tablet PO (22:07)
[2021-09-05] MEDS: Insulin Glargine-YFGN 100 UNIT/ML Pen 10 UNIT SC (22:09)
[2021-09-05 22:46] LABS: Bedside Glucose 250 mg/dL (74-106)
[2021-09-06] VITALS (15 sets, daily range): BP systolic 143–158; BP diastolic 45–61; PULSE 58–106; RESP 18–20; TEMP 36.7–37.2; O2SAT 89–97
[2021-09-06 06:32] LABS: Absolute Lymphocyte Count 0.79 X10^3/uL (0.83-4.51); Basophil# 0.03 X10^3/uL; Basophil% 0.4 % (0-1); Eosinophil# 0.16 X10^3/uL; Eosinophils% 2.3 % (0-5); Hematocrit 31.6 % (37-47); Hemoglobin 9.7 g/dL (12.0-15.0); Lymphocyte # 0.79 X10^3/ul (0.83-4.51); Lymphocyte % 11.4 % (19-41); Mean Corp Hgb Conc 30.7 g/dL (32-36); Mean Corpuscular Hgb 30.2 pg (27.0-32.0); Mean Corpuscular Volume 98.4 fL (81-99); Mean Platelet Vol. 10.4 fl (6.2-12.0); Monocyte# 0.62 X10^3/uL; NRBC Flagged by Analyzer 0 % (0-5); Neutrophil # 5.02 X10^3/uL (2.7-7.7); Neutrophil % 72.7 % (47-70); Platelet Count 194 K/mm3 (150-450); RBC Distribution Width CV 13.4 % (11.6-14.6); RBC Distribution Width SD 49.1 fl (35.1-43.9); Red Blood Count 3.21 M/mm3 (4.2-5.4); White Blood Count 6.9 K/mm3 (4.4-11.0)
[2021-09-06] MEDS: Sucralfate 1 GM Tablet PO ×2 (06:34→15:26)
[2021-09-06] MEDS: Heparin Injection (Vial) 5,000 UNIT/ML VIAL 5000 UNIT SC ×3 (06:34→21:47)
[2021-09-06 06:46] LABS: Bedside Glucose 136 mg/dL (74-106)
[2021-09-06 06:50] LABS: Anion Gap -1 (5-15); BUN 44 mg/dL (7-18); BUN/Creat Ratio 27.3 RATIO (10-20); Calcium,Total 8.4 mg/dL (8.5-10.1); Chloride 105 mmol/L (98-107); Creatinine, Serum 1.61 mg/dL (0.55-1.02); EST Glomerular Filtration Rate 33 mL/min (>60); Est Glom Filt Rate - Afr Amer 40 mL/min (>60); Estimated Creatinine Clearance 21.03 ml/min; Glucose 131 mg/dL (74-106); Potassium 4.7 mmol/L (3.5-5.1); Sodium Level 140 mmol/L (136-145)
[2021-09-06] MEDS: Ipratropium/Albuterol Sulfate 3 ML AMPUL.NEB INHALATION ×3 (07:03→19:44)
[2021-09-06] MEDS: Furosemide 40 MG Tablet PO (08:54)
[2021-09-06] MEDS: amLODIPine 5 MG Tablet PO (08:55)
[2021-09-06] MEDS: Cyanocobalamin 500 MCG Tablet 1000 MCG PO (08:55)
[2021-09-06] MEDS: Carvedilol 25 MG Tablet PO ×2 (08:55→17:24)
[2021-09-06] MEDS: Sertraline 100 MG Tablet 200 MG PO (08:56)
[2021-09-06] MEDS: Insulin NPH Human 100 UNITS/ML PEN 6 UNITS SC (08:57)
[2021-09-06] MEDS: Insulin Lispro 100 UNIT/ML INSULN.PEN 6 UNIT SC (11:49)
[2021-09-06] MEDS: Insulin Lispro 100 UNIT/ML INSULN.PEN SC ×2 (11:49→16:47)
[2021-09-06 12:01] LABS: Bedside Glucose 297 mg/dL (74-106)
--- NOTE | 2021-09-06 13:11 | PCM.PN.HOSP ---
Documented by User: Eric PATEL 09/06/21 13:33 Subjective Subjective Patient is an 81-year-old female resting in bed, alert and oriented x3. Patient denies development of any new symptoms overnight. Does not appear in acute distress. Objective Data Objective Data Vital Signs: Vital Signs Temp Pulse Resp BP Pulse Ox 98.3 F 70 19 H 147/50 H 94 09/06/21 09:25 09/06/21 09:25 09/06/21 09:25 09/06/21 09:25 09/06/21 11:56 Oxygen Flow Rate (L/min) 4 Oxygen Delivery Method Nasal Cannula Weight: 265 lb 6.985 oz Body Mass Index (BMI) 49.9 Intake & Output: Intake and Output for Last 24 Hours 09/04/21 09/05/21 09/06/21 23:59 23:59 23:59 Intake Total 1240 / 1240 960 / 1320 600 / 600 Output Total 1050 / 1050 1300 / 1450 1250 / 1250 Balance 190 / 190 -340 / -130 -650 / -650 Lab / Micro Data Result Diagrams: 09/06/21 05:50 09/06/21 05:50 Labs: Laboratory Results - last 24 hr 09/05/21 16:07: POC Glucose 241 H 09/05/21 22:06: POC Glucose 250 H 09/06/21 05:50: WBC 6.9, RBC 3.21 L, Hgb 9.7 L, Hct 31.6 L, MCV 98.4 D, MCH 30.2, MCHC 30.7 L D, RDW Std Deviation 49.1 H, RDW Coeff of Lucas 13.4, Plt Count 194, MPV 10.4, Immature Gran % (Auto) 4.200 H, Neut % (Auto) 72.7 H, Lymph % (Auto) 11.4 L, [place] % (Auto) 9.0, Eos % (Auto) 2.3, Baso % (Auto) 0.4, Absolute Neuts (auto) 5.0, Absolute Lymphs (auto) 0.79 L, Nucleated RBC % 0 09/06/21 05:50: Sodium 140, Potassium 4.7, Chloride 105, Carbon Dioxide 36.0 H, Anion Gap -1 L, BUN 44 H, Creatinine 1.61 H, Estim Creat Clear Calc 21.03, Est GFR (MDRD) Af Amer 40 L, Est GFR (MDRD) Non-Af 33 L, BUN/Creatinine Ratio 27.3 H, Glucose 131 H, Calcium 8.4 L 09/06/21 06:31: POC Glucose 136 H 09/06/21 11:47: POC Glucose 297 H Micro: Microbiology 09/03/21 10:10 Mucosa - Nose Respiratory Panel (PCR) - Final Physical Exam Const alert, oriented x3 and no apparent distress HEENT head/scalp atraumatic and moist oral mucous membranes Head and Scalp: normocephalic Eyes PERRL and conjunctivae normal Neck no lymphadenopathy, supple and no JVD Resp Effort and Inspection: labored Auscultation: diminished lung sounds Cardio regular rate, regular rhythm and no JVD GI normal to inspection, nondistended, normoactive bowel sounds, soft to palpation and non-tender Extremity normal to inspection Skin no rashes or lesions noted Neuro CN's II-XII intact bilaterally Psych affect normal Assessment & Plan Assessment/Plan (1) Acute exacerbation of CHF (congestive heart failure): PLAN: Day 3 Discharge planning: Discharge home when medically ready. 1) acute hypoxic respiratory failure secondary to acute on chronic HFpEF exacerbation Patient is currently requiring 4 L of oxygen to sat at 95%, baseline oxygen requirements are 4 L. Patient dropped to 79% on 6 L with ambulation. We will continue to diurese patient with a x1 IV dose at 40 mg and then transition back to oral in a.m. Continue bronchodilators and chest physiotherapy. Continue supplemental oxygen as needed. Obtain new amatory pulse ox in a.m. 2) LINDA on CKD stage IIIb Creatinine currently 1.61, improved. Baseline appears around 1.6. We will continue to monitor. 3) hyperkalemia Currently 4.7, continue Lasix as above, continue to hold Aldactone and trend BMP. 4) CAD Continue statin and carvedilol. 5) DM2 Home basal insulin regimen adjusted, continue Accu-Cheks with sliding scale insulin. 6) chronic COPD Could be complicating #1. Will initiate duo nebs and as needed albuterol, chest physiotherapy ordered. 7) HTN Continue losartan, carvedilol, amlodipine. Hold Aldactone due to #2. 8) hyperlipidemia Continue statin. 9) GERD Continue Carafate. 10) depression/anxiety Continue sertraline. 9. GERD-continue Carafate. DVT prophylaxis - Heparin Patient seen by Eric Del Valle PA-C, under the supervision of Dr. Alejandro. Time spent on patient care: 8 minutes. Documented by User: Dr. Abel Alejandro, DO 09/06/21 14:11 Subjective Subjective Feels better. Objective Data Lab / Micro Data Result Diagrams: 09/06/21 05:50 09/06/21 05:50 Physical Exam Const alert and no apparent distress Resp normal respiratory effort and no retractions Resp Narrative: Coarse breath sounds bilaterally Cardio regular rate, regular rhythm, S1 normal heart sound and S2 normal heart sound GI normal to inspection, nondistended, normoactive bowel sounds, soft to palpation, non-tender and non-distended Extremity normal to inspection Assessment & Plan Assessment/Plan (1) Acute exacerbation of CHF (congestive heart failure): (2) LINDA (acute kidney injury): PLAN: Patient seen and examined independently. Data and vitals reviewed. I agree with the above note by the physician assistant professor of marine biology. 1. Acute heart failure with preserved ejection fraction Ongoing on carvedilol hold NAS-/ARB given LINDA EF 60% We will give an additional dose of furosemide. 2. LINDA Creatinine slightly improved. 3. Acute hypoxic respiratory failure Chest x-ray performed today shows improvement of aeration and pulmonary vascular congestion. Wean oxygen as tolerated Bronchodilators Pulmonary toilet Secondary to underlying COPD and is patient is on oxygen 4 L continuous. Patient was ambulated and required more than 6 L of oxygen with activity so is not ready for discharge today. 4. DM2 fair control on prandial insulin only, NPH not ordered. will restart. Greater than 20 minutes of which greater than 50 present time was discussed with the patient reviewing data. Charges/Coding Visit Charges Inpatient E&M: 27882 Subs Hosp L2
[2021-09-06] MEDS: Insulin Lispro 100 UNIT/ML INSULN.PEN 14 UNIT SC (16:46)
[2021-09-06 16:56] LABS: Bedside Glucose 174 mg/dL (74-106)
[2021-09-06] MEDS: Furosemide 40 MG/4 ML Vial IV (17:24)
[2021-09-06] MEDS: 0.9% Saline Lock 10 ML Syringe IV (17:24)
[2021-09-06] MEDS: Ondansetron 4 MG/2 ML Vial IV (21:47)
[2021-09-06] MEDS: Aspirin 81 MG TAB.CHEW PO (21:47)
[2021-09-06] MEDS: Pravastatin 40 MG Tablet PO (21:47)
[2021-09-06] MEDS: Mirtazapine 30 MG Tablet 45 MG PO (21:47)
[2021-09-06] MEDS: Insulin Glargine-YFGN 100 UNIT/ML Pen 10 UNIT SC (21:48)
[2021-09-06 22:26] LABS: Bedside Glucose 106 mg/dL (74-106)
[2021-09-07] VITALS (18 sets, daily range): BP systolic 141–166; BP diastolic 45–96; PULSE 62–77; RESP 16–22; TEMP 36.4–37.2; O2SAT 79–96
[2021-09-07 00:16] LABS: Bedside Glucose 144 mg/dL (74-106)
[2021-09-07] MEDS: Sucralfate 1 GM Tablet PO ×3 (06:41→16:07)
[2021-09-07] MEDS: 0.9% Saline Lock 10 ML Syringe IV (06:42)
[2021-09-07] MEDS: Heparin Injection (Vial) 5,000 UNIT/ML VIAL 5000 UNIT SC ×3 (06:42→21:52)
[2021-09-07] MEDS: Insulin Lispro 100 UNIT/ML INSULN.PEN SC ×4 (06:42→21:56)
[2021-09-07 06:51] LABS: Bedside Glucose 210 mg/dL (74-106)
[2021-09-07] MEDS: Ipratropium/Albuterol Sulfate 3 ML AMPUL.NEB INHALATION ×3 (07:17→19:20)
[2021-09-07 07:24] LABS: Anion Gap 2 (5-15); BUN 40 mg/dL (7-18); BUN/Creat Ratio 26.3 RATIO (10-20); Calcium,Total 8.6 mg/dL (8.5-10.1); Chloride 101 mmol/L (98-107); Creatinine, Serum 1.52 mg/dL (0.55-1.02); EST Glomerular Filtration Rate 35 mL/min (>60); Est Glom Filt Rate - Afr Amer 42 mL/min (>60); Estimated Creatinine Clearance 22.28 ml/min; Glucose 234 mg/dL (74-106); Potassium 4.7 mmol/L (3.5-5.1); Sodium Level 139 mmol/L (136-145)
[2021-09-07 07:56] LABS: Bedside Glucose 217 mg/dL (74-106)
[2021-09-07] MEDS: Furosemide 40 MG Tablet PO ×2 (09:16→17:08)
[2021-09-07] MEDS: Insulin NPH Human 100 UNITS/ML PEN 6 UNITS SC (09:16)
[2021-09-07] MEDS: Sertraline 100 MG Tablet 200 MG PO (09:16)
[2021-09-07] MEDS: Carvedilol 25 MG Tablet PO ×2 (09:16→17:08)
[2021-09-07] MEDS: Cyanocobalamin 500 MCG Tablet 1000 MCG PO (09:16)
[2021-09-07] MEDS: amLODIPine 5 MG Tablet PO (09:16)
[2021-09-07] MEDS: Cholestyramine/Sucrose 4 GM/PACKET PO (10:49)
[2021-09-07 12:11] LABS: Bedside Glucose 306 mg/dL (74-106)
[2021-09-07] MEDS: predniSONE 20 MG Tablet 40 MG PO (12:32)
[2021-09-07] MEDS: Insulin Lispro 100 UNIT/ML INSULN.PEN 6 UNIT SC (12:32)
--- NOTE | 2021-09-07 12:32 | PN.HOSP_ITS ---
Documented by User: Eric PATEL 09/07/21 12:35 Subjective Subjective Patient is an 81-year-old female comfortably resting in bed, alert and oriented x3. Denies development of any new symptoms overnight. Does not appear in acute distress. Objective Data Objective Data Vital Signs: Vital Signs Temp Pulse Resp BP Pulse Ox 98.9 F 64 18 146/96 H 94 09/07/21 09:12 09/07/21 09:12 09/07/21 09:12 09/07/21 09:12 09/07/21 09:12 Oxygen Flow Rate (L/min) 6 Oxygen Delivery Method Nasal Cannula Weight: 261 lb 0.437 oz Body Mass Index (BMI) 49.9 Intake & Output: Intake and Output for Last 24 Hours 09/05/21 09/06/21 09/07/21 23:59 23:59 23:59 Intake Total 960 / 1320 840 / 960 120 / 120 Output Total 1300 / 1450 1250 / 2375 1325 / 1325 Balance -340 / -130 -410 / -1415 -1205 / -1205 Lab / Micro Data Result Diagrams: 09/06/21 05:50 09/07/21 05:55 Labs: Laboratory Results - last 24 hr 09/06/21 16:44: POC Glucose 174 H 09/06/21 21:38: POC Glucose 106 09/07/21 00:07: POC Glucose 144 H 09/07/21 05:55: Sodium 139, Potassium 4.7, Chloride 101, Carbon Dioxide 36.0 H, Anion Gap 2 L, BUN 40 H, Creatinine 1.52 H, Estim Creat Clear Calc 22.28, Est GFR (MDRD) Af Amer 42 L, Est GFR (MDRD) Non-Af 35 L, BUN/Creatinine Ratio 26.3 H , Glucose 234 H, Calcium 8.6 09/07/21 06:38: POC Glucose 210 H 09/07/21 07:44: POC Glucose 217 H 09/07/21 11:37: POC Glucose 306 H Micro: Microbiology 09/03/21 10:10 Mucosa - Nose Respiratory Panel (PCR) - Final Physical Exam Const alert, oriented x3 and no apparent distress HEENT head/scalp atraumatic and moist oral mucous membranes Head and Scalp: normocephalic Eyes PERRL, EOMs intact bilaterally and conjunctivae normal Neck no lymphadenopathy, supple and no JVD Resp normal respiratory effort, no retractions and no use of accessory muscles Cardio regular rate, regular rhythm and no JVD GI normal to inspection, nondistended, normoactive bowel sounds and soft to palpation Extremity normal to inspection Skin no rashes or lesions noted Neuro CN's II-XII intact bilaterally Psych affect normal Assessment & Plan Assessment/Plan (1) LINDA (acute kidney injury): (2) Acute exacerbation of CHF (congestive heart failure): PLAN: Day 4 Discharge planning: Discharge home when medically ready. 1) acute hypoxic respiratory failure secondary to acute on chronic HFpEF exacerbation Patient is currently requiring 6 L of oxygen to sat at 95%, baseline oxygen requirements are 4 L. Patient dropped to 79% on 6 L with ambulation again today while working with PT/OT, required 9L to maintain saturtions. We will initially oral prednisone 40 mg daily for 5 days, continue oral diuretics, bronchodilators and chest physiotherapy. Wean supplemental oxygen as tolerated. 2) LINDA on CKD stage IIIb Creatinine currently 1.52, improved, at baseline. We will continue to monitor. 3) hyperkalemia Currently 4.7, continue Lasix as above, continue to hold Aldactone and trend BMP. 4) CAD Continue statin and carvedilol. 5) DM2 Home basal insulin regimen adjusted, continue Accu-Cheks with sliding scale insulin. 6) chronic COPD Could be complicating #1. Will initiate duo nebs and as needed albuterol, chest physiotherapy ordered. 7) HTN Continue losartan, carvedilol, amlodipine. Hold Aldactone due to #2. 8) hyperlipidemia Continue statin. 9) GERD Continue Carafate. 10) depression/anxiety Continue sertraline. 9. GERD-continue Carafate. DVT prophylaxis - Heparin Patient seen by Eric Del Valle PA-C, under the supervision of Dr. Alejandro. Time spent on patient care: 7 minutes. Documented by User: Dr. Abel Alejandro, 09/07/21 15:59 Subjective Subjective Breathing better. Still requiring oxygen. Objective Data Lab / Micro Data Result Diagrams: 09/06/21 05:50 09/07/21 05:55 Physical Exam Resp normal respiratory effort, no use of accessory muscles and clear to auscultation bilaterally Cardio regular rate, regular rhythm, S1 normal heart sound and S2 normal heart sound GI normal to inspection, nondistended, normoactive bowel sounds, soft to palpation, non-tender and non-distended Assessment & Plan Assessment/Plan (1) LINDA (acute kidney injury): (2) Acute exacerbation of CHF (congestive heart failure): PLAN: Patient seen and examined independently. Data and vitals reviewed. I agree with the above note by the physician regulatory assistant. 1. Acute heart failure with preserved ejection fraction Ongoing on carvedilol hold NAS-/ARB given LINDA EF 60% We will give an additional dose of furosemide. 2. LINDA Creatinine slightly improved. 3. Acute hypoxic respiratory failure Chest x-ray performed today shows improvement of aeration and pulmonary vascular congestion. Wean oxygen as tolerated Bronchodilators Pulmonary toilet Secondary to underlying COPD and is patient is on oxygen 4 L continuous. Patient was ambulated and required more than 6 L of oxygen with activity so is not ready for discharge today. 4. DM2 fair control on prandial insulin only, NPH not ordered. will restart. Greater than 20 minutes of which greater than 50 present time was discussed with the patient reviewing data. Charges/Coding Visit Charges Inpatient E&M: 66369 Subs Hosp L2
[2021-09-07 16:16] LABS: Magnesium 1.7 mg/dL (1.6-2.6)
[2021-09-07 16:21] LABS: Bedside Glucose 217 mg/dL (74-106)
[2021-09-07] MEDS: Insulin Lispro 100 UNIT/ML INSULN.PEN 14 UNIT SC (17:10)
[2021-09-07] MEDS: Aspirin 81 MG TAB.CHEW PO (21:52)
[2021-09-07] MEDS: Pravastatin 40 MG Tablet PO (21:52)
[2021-09-07] MEDS: Mirtazapine 30 MG Tablet 45 MG PO (21:52)
[2021-09-07] MEDS: Insulin NPH Human 100 UNITS/ML PEN 7 UNITS SC (21:58)
[2021-09-07] MEDS: Insulin Glargine-YFGN 100 UNIT/ML Pen 10 UNIT SC (21:58)
[2021-09-07 22:06] LABS: Bedside Glucose 415 mg/dL (74-106)
[2021-09-08] VITALS (9 sets, daily range): BP systolic 153–163; BP diastolic 52–79; PULSE 57–74; RESP 16; TEMP 36.6–37.7; O2SAT 86–100
[2021-09-08 05:48] LABS: Magnesium 1.9 mg/dL (1.6-2.6)
[2021-09-08] MEDS: Heparin Injection (Vial) 5,000 UNIT/ML VIAL 5000 UNIT SC (06:00)
[2021-09-08] MEDS: Sucralfate 1 GM Tablet PO ×2 (06:00→10:55)
[2021-09-08] MEDS: Ipratropium/Albuterol Sulfate 3 ML AMPUL.NEB INHALATION (07:43)
[2021-09-08] MEDS: Insulin Lispro 100 UNIT/ML INSULN.PEN SC ×2 (08:11→12:14)
[2021-09-08] MEDS: Sertraline 100 MG Tablet 200 MG PO (08:14)
[2021-09-08] MEDS: Cyanocobalamin 500 MCG Tablet 1000 MCG PO (08:15)
[2021-09-08] MEDS: Carvedilol 25 MG Tablet PO (08:15)
[2021-09-08] MEDS: Cholestyramine/Sucrose 4 GM/PACKET PO (08:15)
[2021-09-08] MEDS: Furosemide 40 MG Tablet PO (08:15)
[2021-09-08] MEDS: amLODIPine 5 MG Tablet PO (08:15)
[2021-09-08] MEDS: predniSONE 20 MG Tablet 40 MG PO (08:15)
[2021-09-08] MEDS: Insulin NPH Human 100 UNITS/ML PEN 6 UNITS SC (08:16)
[2021-09-08 08:31] LABS: Bedside Glucose 195 mg/dL (74-106)
--- NOTE | 2021-09-08 11:15 | DCINST_ITS ---
Discharge Instructions Diet Discharge Diet: No restrictions Activity Discharge Activity: Return to Normal Activity Weight Bearing Status: Weight bearing as tolerated Dressing / Incision Call your doctor if you observe: Fever of 101 or Higher, Numbness or Tingling, Shortness of breath, Dizziness, Chest pain, Increased palpitations (irregular heartbeat) and Calf discomfort Follow Up Care Please Follow Up With: Primary care provider When: Within the next two weeks. Test Results: Test results from this visit will be discussed in further detail at your follow-up appointment, if applicable. Discharge Plan Admission Admit Date/Time: 09/03/21 14:06 Primary Reason for Your Visit: Shortness of breath Attending Provider: James Soriano Primary Care Provider: Mitchell Lane Instructions Additional Instructions / Restrictions: * Your home oxygen prescription has been increased from 4 liters to 6 liters. Discharge Orders/Prescriptions Prescriptions: New prednisone 20 mg tablet 40 mg PO DAILY Qty: 6 RF: 0 Continued carvedilol 25 mg tablet 25 mg PO BIDCM RF: 0 pravastatin 40 mg tablet 40 mg PO DAILY RF: 0 sucralfate 1 gram tablet 1 g PO TIDCM RF: 0 sertraline 100 mg tablet 100 mg PO BID RF: 0 cyanocobalamin (vitamin B-12) 1,000 mcg Tablet 1,000 mcg PO DAILY RF: 0 amlodipine 5 mg tablet 5 mg PO DAILY RF: 0 spironolactone 25 mg tablet 25 mg PO DAILY RF: 0 mirtazapine 45 mg tablet 45 mg PO QHS RF: 0 losartan 100 mg tablet 100 mg PO DAILY RF: 0 cholecalciferol (vitamin D3) 25 mcg (1,000 unit) Capsule 25 mcg PO BID RF: 0 insulin NPH isoph U-100 human 100 unit/mL (3 mL) Insulin Pen 6 unit SUBCUT BREAKFAST RF: 0 insulin NPH isoph U-100 human 100 unit/mL (3 mL) Insulin Pen 7 - 20 unit SUBCUT QHS RF: 0 insulin aspart U-100 [Novolog Flexpen U-100 Insulin] 100 unit/mL (3 mL) insulin pen 8 unit SUBCUT BREAKFAST RF: 0 insulin aspart U-100 [Novolog Flexpen U-100 Insulin] 100 unit/mL (3 mL) insu zara pen 6 unit SUBCUT LUNCH RF: 0 insulin aspart U-100 [Novolog Flexpen U-100 Insulin] 100 unit/mL (3 mL) insulin pen 14 unit SUBCUT DINNER RF: 0 cholestyramine (with sugar) 4 gram powder in packet 1 ea PO DAILY RF: 0 budesonide-formoterol 160-4.5 mcg/actuation HFA aerosol inhaler 2 puff INHALATION BID RF: 0 Probiotic 10 billion cell Capsule 10,000 mmu cells PO DAILY RF: 0 aspirin 81 mg Tablet 81 mg PO QHS RF: 0 Changed furosemide 20 mg tablet 40 mg PO BIDCM Qty: 120 RF: 0 Referrals / Follow Up: Mitchell Lane MD [Primary Care Provider] - Within 2 Weeks Disposition Disposition (needs filled in before D/C Order can be placed): Home, Self Care
--- NOTE | 2021-09-08 11:26 | CASEMGMT ---
Per Yocasta MONTANEZ, pt qualifies for her 4L at rest and 6L now with exertion. New order faxed to [facility] at this time as pt's previous order for was for 2-4L continuous. This RN CM to room to discuss d/c plan and pt still declines need for HHC or OP therapy at this time. Pt is updated on oxygen order and that new order faxed, voices understanding. Pt believes that her home concentrator is 10L at home. Pt voices no further questions/concerns/needs. SStaida MONTANEZ CM
[2021-09-08] MEDS: Insulin Lispro 100 UNIT/ML INSULN.PEN 6 UNIT SC (12:14)
--- NOTE | 2021-09-08 12:17 | DS.PCM_ITS ---
Documented by User: Eric PATEL 09/08/21 12:27 Providers Date of Admission: 09/03/21 Date of Discharge: 09/08/21 Primary Care Physician: Mitchell Lane MD Reason For Visit: CHF EXACERBATION Diagnosis Discharge Diagnosis (1) LINDA (acute kidney injury): Status: Acute Code(s): N17.9 - Acute kidney failure, unspecified (2) Acute exacerbation of CHF (congestive heart failure): Status: Chronic Code(s): I50.9 - Heart failure, unspecified Medications at Discharge Home Medications Probiotic 10,000 mmu cells PO DAILY 09/03/21 amlodipine 5 mg PO DAILY 09/03/21 aspirin 81 mg PO QHS 09/03/21 budesonide-formoterol 2 puff INHALATION BID 09/03/21 carvedilol 25 mg PO BIDCM 09/03/21 cholecalciferol (vitamin D3) 25 mcg PO BID 09/03/21 cholestyramine (with sugar) 1 ea PO DAILY 09/03/21 cyanocobalamin (vitamin B-12) 1,000 mcg PO DAILY 09/03/21 insulin NPH isoph U-100 human 6 unit SUBCUT BREAKFAST 09/03/21 insulin NPH isoph U-100 human 7 - 20 unit SUBCUT QHS 09/03/21 insulin aspart U-100 [Novolog Flexpen U-100 Insulin] 6 unit SUBCUT LUNCH 09/03/21 insulin aspart U-100 [Novolog Flexpen U-100 Insulin] 8 unit SUBCUT BREAKFAST 09/03/21 insulin aspart U-100 [Novolog Flexpen U-100 Insulin] 14 unit SUBCUT DINNER 09/03/21 losartan 100 mg PO DAILY 09/03/21 mirtazapine 45 mg PO QHS 09/03/21 pravastatin 40 mg PO DAILY 09/03/21 sertraline 100 mg PO BID 09/03/21 spironolactone 25 mg PO DAILY 09/03/21 sucralfate 1 g PO TIDCM 09/03/21 furosemide 40 mg PO BIDCM #120 tab 09/08/21 prednisone 40 mg PO DAILY #6 tab 09/08/21 Hospital Course Procedures 2-D Echocardiogram and Transthoracic echo Summary of Care Provided Minutes Spent on Discharge: 25 Hospital Course: Patient is a 81-year-old female who was admitted to [facility] on 09/03/2021 for evaluation management of shortness of breath. Hospital course and management as below. 1) acute on chronic hypoxic respiratory failure secondary to acute on chronic HFpEF exacerbation Home oxygen prescription increased from 4 to 6 L as patient required 6 L to main tain O2 saturations with ambulation. Echocardiogram obtained on 09/03 demonstrated an EF of 60% with no evidence of diastolic dysfunction. Home Lasix prescription increased from 40 mg daily to 40 mg twice daily. Patient was also provided 3 more days of prednisone as her breathing status improved when prednisone was initiated. 2) LINDA on CKD stage IIIb Resolved, creatinine currently 1.52, at baseline. 3) hyperkalemia Resolved. 4) CAD Continue statin and carvedilol. 5) DM2 Continue home insulin regimen. 6) chronic COPD Could be complicating #1. Home COPD regimen continued on discharge, 3 more days of prednisone provided on discharge as above. Bronchodilators given throughout admission, 7) HTN Continue losartan, carvedilol, amlodipine and Aldactone. 8) hyperlipidemia Continue statin. 9) GERD Continue Carafate. 10) depression/anxiety Continue sertraline. 9. GERD-continue Carafate. Patient seen by Eric Del Valle PA-C, under the supervision of Dr. Soriano. time spent on patient care: 20 minutes. Physical Exam Narrative Patient is an 81-year-old female comfortably resting in bed, alert and oriented x3. Shortness of breath has resolved from admission and patient denies development of any new symptoms overnight. Const alert, oriented x3 and no apparent distress HEENT normocephalic, head/scalp atraumatic and hearing grossly normal bilaterally Eyes PERRL, EOMs intact bilaterally and conjunctivae normal Neck no lymphadenopathy, supple and no JVD Resp normal respiratory effort, no retractions and no use of accessory muscles Resp Narrative: Satting at least 90% or greater on 6 L with ambulation. Cardio regular rate, regular rhythm and no JVD GI normal to inspection, nondistended, normoactive bowel sounds and soft to palpation Extremity normal to inspection, full ROM and no clubbing, cyanosis or edema Skin no rashes or lesions noted Neuro CN's II-XII intact bilaterally Psych affect normal Weight / BMI Weight Weight: 262 lb 2.074 oz Body Mass Index (BMI) 49.9 ABG / Lab / Microbiology Data Result Diagrams: 09/06/21 05:50 09/07/21 05:55 Laboratory: Laboratory Results - last 24 hr 09/07/21 15:54: Magnesium 1.7 09/07/21 16:05: POC Glucose 217 H 09/07/21 21:44: POC Glucose 415 H 09/08/21 04:58: Magnesium 1.9 09/08/21 08:09: POC Glucose 195 H Microbiology: Microbiology 09/03/21 10:10 Mucosa - Nose Respiratory Panel (PCR) - Final D/C Instructions Discharge Diet: No restrictions Weight Bearing Status: Weight bearing as tolerated Call your doctor if you observe: Fever of 101 or Higher, Numbness or Tingling, Shortness of breath, Dizziness, Chest pain, Increased palpitations (irregular heartbeat) and Calf discomfort Please Follow Up With: Primary care provider When: Within the next two weeks. Meaningful Use Info Meaningful Use Diagnoses (Choose all that apply): CHF CHF NAS/ARB ordered at discharge?: No Reason NAS/ARB not ordered?: Normal EF Documented LVEF (%): 60 Discharge Plan Admission Admit Date/Time: 09/03/21 14:06 Primary Reason for Your Visit: Shortness of breath Attending Provider: James Soriano Primary Care Provider: Mitchell Lane Instructions Additional Instructions / Restrictions: * Your home oxygen prescription has been increased from 4 liters to 6 liters. Discharge Orders/Prescriptions Prescriptions: New prednisone 20 mg tablet 40 mg PO DAILY Qty: 6 RF: 0 Continued carvedilol 25 mg tablet 25 mg PO BIDCM RF: 0 pravastatin 40 mg tablet 40 mg PO DAILY RF: 0 sucralfate 1 gram tablet 1 g PO TIDCM RF: 0 sertraline 100 mg tablet 100 mg PO BID RF: 0 cyanocobalamin (vitamin B-12) 1,000 mcg Tablet 1,000 mcg PO DAILY RF: 0 amlodipine 5 mg tablet 5 mg PO DAILY RF: 0 spironolactone 25 mg tablet 25 mg PO DAILY RF: 0 mirtazapine 45 mg tablet 45 mg PO QHS RF: 0 losartan 100 mg tablet 100 mg PO DAILY RF: 0 cholecalciferol (vitamin D3) 25 mcg (1,000 unit) Capsule 25 mcg PO BID RF: 0 insulin NPH isoph U-100 human 100 unit/mL (3 mL) Insulin Pen 6 unit SUBCUT BREAKFAST RF: 0 insulin NPH isoph U-100 human 100 unit/mL (3 mL) Insulin Pen 7 - 20 unit SUBCUT QHS RF: 0 insulin aspart U-100 [Novolog Flexpen U-100 Insulin] 100 unit/mL (3 mL) insulin pen 8 unit SUBCUT BREAKFAST RF: 0 insulin aspart U-100 [Novolog Flexpen U-100 Insulin] 100 unit/mL (3 mL) insulin pen 6 unit SUBCUT LUNCH RF: 0 insulin aspart U-100 [Novolog Flexpen U-100 Insulin] 100 unit/mL (3 mL) insulin pen 14 unit SUBCUT DINNER RF: 0 cholestyramine (with sugar) 4 gram powder in packet 1 ea PO DAILY RF: 0 budesonide-formoterol 160-4.5 mcg/actuation HFA aerosol inhaler 2 puff INHALATION BID RF: 0 Probiotic 10 billion cell Capsule 10,000 mmu cells PO DAILY RF: 0 aspirin 81 mg Tablet 81 mg PO QHS RF: 0 Changed furosemide 20 mg tablet 40 mg PO BIDCM Qty: 120 RF: 0 Referrals / Follow Up: Mitchell Lane MD [Primary Care Provider] - 09/11/21 1:30 pm Disposition Disposition (needs filled in before D/C Order can be placed): Home, Self Care Documented by User: Dr. James Soriano MD 09/08/21 15:37 Providers Date of Admission: 09/03/21 Reason For Visit: CHF EXACERBATION Medications at Discharge Home Medications Probiotic 10,000 mmu cells PO DAILY 09/03/21 amlodipine 5 mg PO DAILY 09/03/21 aspirin 81 mg PO QHS 09/03/21 budesonide-formoterol 2 puff INHALATION BID 09/03/21 carvedilol 25 mg PO BIDCM 09/03/21 cholecalciferol (vitamin D3) 25 mcg PO BID 09/03/21 cholestyramine (with sugar) 1 ea PO DAILY 09/03/21 cyanocobalamin (vitamin B-12) 1,000 mcg PO DAILY 09/03/21 insulin NPH isoph U-100 human 6 unit SUBCUT BREAKFAST 09/03/21 insulin NPH isoph U-100 human 7 - 20 unit SUBCUT QHS 09/03/21 insulin aspart U-100 [Novolog Flexpen U-100 Insulin] 6 unit SUBCUT LUNCH 09/03/21 insulin aspart U-100 [Novolog Flexpen U-100 Insulin] 8 unit SUBCUT BREAKFAST 09/03/21 insulin aspart U-100 [Novolog Flexpen U-100 Insulin] 14 unit SUBCUT DINNER 09/03/21 losartan 100 mg PO DAILY 09/03/21 mirtazapine 45 mg PO QHS 09/03/21 pravastatin 40 mg PO DAILY 09/03/21 sertraline 100 mg PO BID 09/03/21 spironolactone 25 mg PO DAILY 09/03/21 sucralfate 1 g PO TIDCM 09/03/21 furosemide 40 mg PO BIDCM #120 tab 09/08/21 prednisone 40 mg PO DAILY #6 tab 09/08/21 Hospital Course Summary of Care Provided Hospital Course: Gross this patient was seen in conjunction with JORGE Herbert. I have independently interviewed and examined the patient and reviewed pertinent history, examination findings, laboratory and plan of management. I have reviewed the note and agree with the documented findings with the few additional points. In brief, patient is 81-year-old female was admitted for shortness of breath, hypoxia and leg suggestive of acute on chronic HFpEF. 2D echo on 09/03 shows EF 60% with no evidence of diastolic dysfunction. Patient home dose of Lasix 40 mg daily increased to 40 mg twice daily. Patient on his spironolactone. Patient on losartan. 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 Olivas. Patient also had LINDA on CKD stage IIIb most likely due to heart failure exacerbation. Creatinine on baseline 1.52. Monitor BMP as an outpatient in 1 week with PCP. Hyperkalemia resolved. Other comorbidities include coronary artery disease diabetes mellitus type 2, COPD hypertension and dyslipidemia. Discharge medication reconciliation done. Discharge follow-up instructions completed. Discharge process discussed with the patient and all questions were answered to patient's satisfaction. Total time spent, exact 35 minutes on discharge meds reconciliation, examination, coordination of care with nurses and ancillary staff, review of imaging and blood test and discussion with the patient on follow-up shayan acevedo. I have discussed my assessment with JORGE Herbert and orders have been reviewed. Physical Exam Narrative Seen and examined. Shortness of breath is improved. Denies any chest pain or pressure. Leg edema has improved. On 4 L of oxygen. General: Alert, Oriented x3, Cooperative HEENT: Atraumatic, PERRLA, EOMI, Normocephalic Oral: No Gingival or Mucosal Lesions/ Ulcerations Neck: Supple, No JVD, Negative Carotid Bruits Lungs: Air entry diminished in bilateral lung bases. No crepitation/rhonchi. No tachypnea. Cardiovascular: Regular rate, Regular Rhythm, Normal S1, Normal S2, No murmurs Abdomen: Bowel Sounds Present, Soft, Non Tender, Non-Distended : No renal angle tenderness. No suprapubic tenderness. Extremities: Mild bilateral ankle edema, Capillary Refill Less than 3 Seconds Skin: No rashes, No breakdown Musculoskeletal: No Tenderness to Palpation of Joints or Extremities Neurological: Cranial nerves II-XII grossly intact, DTR 2+/4 and Symmetrical, Neuro grossly intact Psych/Mental Status: Normal Affect, Appropriate ABG / Lab / Microbiology Data Result Diagrams: 09/06/21 05:50 09/07/21 05:55 Discharge Plan Admission Admit Date/Time: 09/03/21 14:06 Primary Reason for Your Visit: Shortness of breath Attending Provider: James Soriano Primary Care Provider: Mitchell Lane Instructions Additional Instructions / Restrictions: * Your home oxygen prescription has been increased from 4 liters to 6 liters. Discharge Orders/Prescriptions Prescriptions: New prednisone 20 mg tablet 40 mg PO DAILY Qty: 6 RF: 0 Continued carvedilol 25 mg tablet 25 mg PO BIDCM RF: 0 pravastatin 40 mg tablet 40 mg PO DAILY RF: 0 sucralfate 1 gram tablet 1 g PO TIDCM RF: 0 sertraline 100 mg tablet 100 mg PO BID RF: 0 cyanocobalamin (vitamin B-12) 1,000 mcg Tablet 1,000 mcg PO DAILY RF: 0 amlodipine 5 mg tablet 5 mg PO DAILY RF: 0 spironolactone 25 mg tablet 25 mg PO DAILY RF: 0 mirtazapine 45 mg tablet 45 mg PO QHS RF: 0 losartan 100 mg tablet 100 mg PO DAILY RF: 0 cholecalciferol (vitamin D3) 25 mcg (1,000 unit) Capsule 25 mcg PO BID RF: 0 insulin NPH isoph U-100 human 100 unit/mL (3 mL) Insulin Pen 6 unit SUBCUT BREAKFAST RF: 0 insulin NPH isoph U-100 human 100 unit/mL (3 mL) Insulin Pen 7 - 20 unit SUBCUT QHS RF: 0 insulin aspart U-100 [Novolog Flexpen U-100 Insulin] 100 unit/mL (3 mL) insulin pen 8 unit SUBCUT BREAKFAST RF: 0 insulin aspart U-100 [Novolog Flexpen U-100 Insulin] 100 unit/mL (3 mL) insu zara pen 6 unit SUBCUT LUNCH RF: 0 insulin aspart U-100 [Novolog Flexpen U-100 Insulin] 100 unit/mL (3 mL) insulin pen 14 unit SUBCUT DINNER RF: 0 cholestyramine (with sugar) 4 gram powder in packet 1 ea PO DAILY RF: 0 budesonide-formoterol 160-4.5 mcg/actuation HFA aerosol inhaler 2 puff INHALATION BID RF: 0 Probiotic 10 billion cell Capsule 10,000 mmu cells PO DAILY RF: 0 aspirin 81 mg Tablet 81 mg PO QHS RF: 0 Changed furosemide 20 mg tablet 40 mg PO BIDCM Qty: 120 RF: 0 Referrals / Follow Up: Mitchell Lane MD [Primary Care Provider] - 09/11/21 1:30 pm Disposition Disposition (needs filled in before D/C Order can be placed): Home, Self Care Charges/Coding Visit Charges Inpatient E&M: 85035 Disch Hosp
[2021-09-08 12:36] LABS: Bedside Glucose 298 mg/dL (74-106)
== END 2021-09-08 14:09 | disposition home or self-care (01) | DRG 291 ==
LOC: ED 13:32 → PCU 14:20
PROVIDERS: Hospitalist; Nurse Practitioner Family; Physician Assistant; Admitting Provider Family Medicine; Emergency Provider Emergency Medicine; PCP Family Medicine; Visit Provider Internal Medicine
DX: I13.0 Hypertensive heart and chronic kidney disease with heart failure and stage 1 through stage 4 chronic kidney disease, or unspecified chronic kidney disease (principal); J96.21 Acute and chronic respiratory failure with hypoxia; I50.33 Acute on chronic diastolic (congestive) heart failure; N17.9 Acute kidney failure, unspecified; Z68.42 Body mass index [BMI] 45.0-49.9, adult; E11.22 Type 2 diabetes mellitus with diabetic chronic kidney disease; Z79.4 Long term (current) use of insulin; J44.9 Chronic obstructive pulmonary disease, unspecified; N18.32 Chronic kidney disease, stage 3b; I25.10 Atherosclerotic heart disease of native coronary artery without angina pectoris; E78.5 Hyperlipidemia, unspecified; F41.9 Anxiety disorder, unspecified; K21.9 Gastro-esophageal reflux disease without esophagitis; E87.5 Hyperkalemia; F32.A Depression, unspecified; N39.3 Stress incontinence (female) (male); Z79.51 Long term (current) use of inhaled steroids; Z79.82 Long term (current) use of aspirin; Z79.899 Other long term (current) drug therapy; Z99.81 Dependence on supplemental oxygen; Z85.3 Personal history of malignant neoplasm of breast; E66.9 Obesity, unspecified
CPT/HCPCS: 36415; 71045; 80048; 82962; 83735; 83880; 84443; 84484; 85025; 87633; 93005; 93306; 94640; 94667; 94668; 97110; 97162; 97166; 97530; 97535; 97802; 99285; A4216; J1940; J2405

== ENCOUNTER 2022-10-20 16:01 | Inpatient (IN) | payer MEDICARE, OTHER, SELFPAY ==
[2022-10-20 16:02] VITALS: BP 127/77; PULSE 78; RESP 16; TEMP 36.4; O2SAT 96; BMI 47.6
--- NOTE | 2022-10-20 16:10 | RAD_ITS ---
STUDY: X-RAY CHEST REASON FOR EXAM: Female, 82 years old. chest pain TECHNIQUE: Single AP portable view of the chest. COMPARISON: 09/05/2021. FINDINGS: The lungs are clear and expanded. Elevated right hemidiaphragm, stable. There is no demonstrated pleural abnormality. Normal size heart. Normal mediastinum and parish. Normal visualized pulmonary arteries. Normal visualized aortic arch and descending thoracic aorta. Normal visualized thoracic spine. Normal visualized ribs, clavicles, and shoulders. There is no demonstrated abnormality of the visualized soft tissue structures of the upper abdomen. There are clips in the right axilla consistent with lymphadenectomy for breast cancer. RAD/Chest 1 View (Portable) IMPRESSION: No definite acute or significant abnormality seen. Electronically Signed: Sridhar Goldberg MD at 17:01 EDT ,
[2022-10-20 16:16] VITALS: BP 180/51; PULSE 62; RESP 18; O2SAT 97
--- NOTE | 2022-10-20 16:30 | EKG12_ITS ---
Test Reason : CHEST PAIN Blood Pressure : / mmHG Vent. Rate : 061 BPM Atrial Rate : 061 BPM P-R Int : 200 ms QRS Dur : 080 ms QT Int : 430 ms P-R-T Axes : 017 046 090 degrees QTc Int : 432 ms Normal sinus rhythm Low voltage QRS Borderline ECG Confirmed by DECLAN DEVLIN, MARCO ([id number]), web editor MILLER PEREZ ([id number]) on 10/22/2022 9:52:18 AM Referred By: KOURTNEY Confirmed By:MARCO MANRIQUEZ MD
[2022-10-20 17:08] LABS: Absolute Lymphocyte Count 0.84 X10^3/uL (0.83-4.51); Absolute Neutrophil Count 3.7 X10^3/uL (2.0-7.7); Basophil# 0.02 X10^3/uL; Basophil% 0.4 % (0-1); Eosinophil# 0.15 X10^3/uL; Eosinophils% 2.9 % (0-5); Hematocrit 35.7 % (37-47); Lymphocyte # 0.84 X10^3/ul (0.83-4.51); Lymphocyte % 16.1 % (19-41); Mean Corp Hgb Conc 30.8 g/dL (32-36); Mean Corpuscular Hgb 30.7 pg (27.0-32.0); Mean Corpuscular Volume 99.7 fL (81-99); Mean Platelet Vol. 10.2 fl (6.2-12.0); Monocyte# 0.42 X10^3/uL; NRBC Flagged by Analyzer 0 % (0-5); Neutrophil # 3.72 X10^3/uL (2.7-7.7); Neutrophil % 71.3 % (47-70); Platelet Count 175 K/mm3 (150-450); RBC Distribution Width CV 13.5 % (11.6-14.6); Red Blood Count 3.58 M/mm3 (4.2-5.4); White Blood Count 5.2 K/mm3 (4.4-11.0)
[2022-10-20 17:24] LABS: Anion Gap 4 (5-15); BUN 41 mg/dL (7-18); BUN/Creat Ratio 23.4 RATIO (10-20); Calcium,Total 8.4 mg/dL (8.5-10.1); Chloride 106 mmol/L (98-107); Creatinine, Serum 1.75 mg/dL (0.55-1.02); EST Glomerular Filtration Rate 30 mL/min (>60); Est Glom Filt Rate - Afr Amer 36 mL/min (>60); Estimated Creatinine Clearance 19.03 ml/min; Glucose 182 mg/dL (74-106); Sodium Level 144 mmol/L (136-145); Troponin-I HS (w/2H Reflex) 17 pg/mL (3.0-54.0)
[2022-10-20 17:56] VITALS: BP 163/74; PULSE 67; RESP 18; TEMP 36.4; O2SAT 98
--- NOTE | 2022-10-20 18:18 | EDS_ITS ---
HPI History of Present Illness Chief Complaint: Shortness of Breath Narrative Narrative: 82-year-old female with a reported history of CHF, COPD, hypertension, hyperlipidemia. 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 She states has been short of breath for the last 3 weeks. She is wearing her baseline oxygen of 4 L. Patient reports no fevers, chills. She states only able to walk short distances. She denies chest pain. She does believe she has some lower extremity edema. She reports that her weight has not changed. She states that she had to be admitted here previously to have water removed. [facility] Medical History CAD (coronary artery disease) COPD (chronic obstructive pulmonary disease) HLD (hyperlipidemia) HTN (hypertension) Home Medications Lactobacillus acidophilus 10 billion cell capsule (Probiotic) 10,000 mmu cells PO DAILY immune health 09/03/21 [History Last Taken 09/03/21] amlodipine 5 mg tablet 5 mg PO DAILY bp 09/03/21 [History Last Taken 09/03/21] aspirin 81 mg tablet 81 mg PO QHS heart health 09/03/21 [History Last Taken 09/02/21] budesonide-formoterol HFA 160 mcg-4.5 mcg/actuation aerosol inhaler 2 puff inhalation BID sob 09/03/21 [History Last Taken 09/03/21] carvedilol 25 mg tablet 25 mg PO BID heart 09/03/21 [History Last Taken ] cholecalciferol (vitamin D3) 25 mcg (1,000 unit) capsule 25 mcg PO BID supplement 09/03/21 [History Last Taken 09/03/21] cholestyramine (with sugar) 4 gram powder for susp in a packet 1 ea PO DAILY cholesterol 09/03/21 [History Last Taken 09/03/21] cyanocobalamin (vitamin B-12) 1,000 mcg tablet 1,000 mcg PO DAILY supplement 09/03/21 [History Last Taken 09/03/21] insulin NPH isoph U-100 human 100 unit/mL (3 mL) subcutaneous pen 6 unit subcut BREAKFAST dm 09/03/21 [History Last Taken 09/03/21] insulin NPH isoph U-100 human 100 unit/mL (3 mL) subcutaneous pen 7 - 20 unit subcut QHS dm 09/03/21 [History Last Taken 09/02/21] insulin aspart U-100 100 unit/mL (3 mL) subcutaneous pen (Novolog FlexPen U-100 Insulin aspart) 6 unit subcut LUNCH dm 09/03/21 [History Last Taken 09/02/21] insulin aspart U-100 100 unit/mL (3 mL) subcutaneous pen (Novolog FlexPen U-100 Insulin aspart) 8 unit subcut BREAKFAST dm 09/03/21 [History Last Taken 09/03/21] insulin aspart U-100 100 unit/mL (3 mL) subcutaneous pen (Novolog FlexPen U-100 Insulin aspart) 14 unit subcut DINNER dm 09/03/21 [History Last Taken 09/02/21] losartan 100 mg tablet 100 mg PO DAILY heart 09/03/21 [History Last Taken 09/03/21] mirtazapine 45 mg tablet 45 mg PO QHS sleep 09/03/21 [History Last Taken 09/02/21] pravastatin 40 mg tablet 40 mg PO DAILY cholesterol 09/03/21 [History Last Taken 09/03/21] sertraline 100 mg tablet 100 mg PO BID depression 09/03/21 [History Last Taken 09/03/21] spironolactone 25 mg tablet 25 mg PO DAILY fluid 09/03/21 [History Last Taken 09/03/21] sucralfate 1 gram tablet 1 g PO TIDCM stomach 09/03/21 [History Last Taken 09/03/21] furosemide 20 mg tablet 40 mg PO BIDCM fluid #120 tabs 09/08/21 [Rx Last Taken Unknown] prednisone 20 mg tablet 40 mg PO DAILY #6 tabs 09/08/21 [Rx Last Taken Unknown] Allergy/AdvReac Type Severity Reaction Status Date / Time levofloxacin [From Levaquin] AdvReac Other Verified 10/20/22 16:01 procaine [From Novocain] AdvReac Other Verified 10/20/22 16:01 Family History Mother No cardiac disease Father No cardiac disease Surgical History S/P breast lumpectomy S/P cholecystectomy Social History household members: spouse Smoking Status: Never smoker alcohol intake: never substance use type: does not use ROS ROS ED Constitutional Constitutional ED: Denies chills, fever(s) or sweats Eyes Eyes: Denies blurry vision or change in vision ENT ENT ED: Denies ear pain or sore throat Cardiovascular Cardiovascular: Denies chest pain, palpitations or racing heartbeat Respiratory/Chest Respiratory/Chest: Reports dyspnea and dyspnea on exertion; Denies sputum Gastrointestinal Gastrointestinal: Denies abdominal pain, constipation, diarrhea, nausea or vomiting Genitourinary Genitourinary ED: Denies dysuria, hematuria or urinary frequency Musculoskeletal Musculoskeletal: Denies arthralgias, myalgias or neck pain Integumentary Denies abscess, Abrasions or rash Neurologic Neurologic: Denies headache(s), paresthesias or weakness Psychiatric Psychiatric: Denies anxiety, depression, suicidal ideation or suicidal thoughts Endocrine Endocrinology: Denies polydipsia or polyuria EXAM Physical Exam Const Vital Signs: 10/20/22 16:02 10/20/22 16:16 10/20/22 16:16 Temperature 97.6 F L Temperature Source Temporal Pulse Rate 78 62 Respiratory Rate 16 18 Respiratory Effort Short of Breath Labored Respiratory Depth Shallow Respiratory Pattern Irregular Blood Pressure 127/77 H 180/51 H Blood Pressure Mean 93 94 Pulse Ox 96 97 Oxygen Delivery Method Nasal Cannula Nasal Cannula Nasal Cannula Oxygen Flow Rate (L/min) 4 4 4 10/20/22 17:56 Temperature 97.6 F L Temperature Source Temporal Pulse Rate 67 Respiratory Rate 18 Respiratory Effort Respiratory Depth Respiratory Pattern Blood Pressure 163/74 H Blood Pressure Mean 103 Pulse Ox 98 Oxygen Delivery Method Nasal Cannula Oxygen Flow Rate (L/min) 4 Positive well nourished General Appearance ED: NAD; Negative for pallor HEENT Reports moist mucous membranes Eyes PERRL and EOMs intact bilaterally Resp normal respiratory effort and clear to auscultation bilaterally Auscultation: Negative for rales, rhonchi or wheezes Cardio regular rate and regular rhythm Extremity normal to inspection Neuro oriented x3 and CN's II-XII intact bilaterally Sensorium / Orientation: alert Motor Exam: strength 5/5 throughout Psych mental status grossly normal Skin no wounds and skin turgor normal General Skin Exam: Negative for jaundice or pallor MDM MDM MDM Narrative Medical decision making narrative: Patient presenting dyspnea differential includes pneumonia, viral syndrome, anemia, CHF. Low suspicion for PE given patient's normal vital signs except for hypoxia which she has had in the past. She not tachycardic or tachypneic she is on her baseline. CBC to assess white blood cell count, hemoglobin, differential. BMP to assess renal function, electrolytes, glucose, anion gap. BNP to assess for CHF, high-sensitivity troponin and EKG will also be obtained to rule out cardiac etiology. Chest x-ray to rule out pneumonia versus CHF. CBC shows a normal white blood cell count. Hemoglobin stable 11.0. Platelets are normal at 175. Creatinine is 1.75 near baseline. Glucose lightly elevated at 182 without anion gap. High-sensitivity troponin is 17 BNP is 193. EKG on my interpretation shows a normal sinus rhythm with a ventricular rate of 61 bpm without sign of ischemic change or ectopy. Chest x-ray on my interpretation shows no acute cardiopulmonary process. Radiologist services and agrees. Patient noted to have a drop in her oxygen while she is walking and dropped to 86. Patient did not make it more than a few feet. Obtain a CT of the chest without contrast does not show anything acute. Given the patient's hypoxia I discussed with the hospitalist for admission. She is admitted in stabilized condition. Impression: 1. Dyspnea 2. Hypoxia Lab Data Attestation: I reviewed the patient's lab results. Labs: Laboratory Results - last 24 hr 10/20/22 10/20/22 10/20/22 16:43 16:43 16:43 WBC 5.2 RBC 3.58 L Hgb 11.0 L Hct 35.7 L MCV 99.7 H MCH 30.7 MCHC 30.8 L RDW Std Deviation 50.0 H RDW Coeff of Lucas 13.5 Plt Count 175 MPV 10.2 Immature Gran % (Auto) 1.300 H Neut % (Auto) 71.3 H Lymph % (Auto) 16.1 L Schuyler % (Auto) 8.0 Eos % (Auto) 2.9 Baso % (Auto) 0.4 Absolute Neuts (auto) 3.7 Absolute Lymphs (auto) 0.84 Nucleated RBC % 0 Sodium 144 Potassium 4.0 Chloride 106 Carbon Dioxide 34.0 H Anion Gap 4 L BUN 41 H Creatinine 1.75 H Estim Creat Clear Calc 19.03 Est GFR (MDRD) Af Amer 36 L Est GFR (MDRD) Non-Af 30 L BUN/Creatinine Ratio 23.4 H Glucose 182 H Calcium 8.4 L Troponin I High Sens 17 B-Natriuretic Peptide 193.1 H 10/20/22 18:56 WBC RBC Hgb Hct MCV MCH MCHC RDW Std Deviation RDW Coeff of Lucas Plt Count MPV Immature Gran % (Auto) Neut % (Auto) Lymph % (Auto) Schuyler % (Auto) Eos % (Auto) Baso % (Auto) Absolute Neuts (auto) Absolute Lymphs (auto) Nucleated RBC % Sodium Potassium Chloride Carbon Dioxide Anion Gap BUN Creatinine Estim Creat Clear Calc Est GFR (MDRD) Af Amer Est GFR (MDRD) Non-Af BUN/Creatinine Ratio Glucose Calcium Troponin I High Sens 15 B-Natriuretic Peptide Radiography Diagnostic Testing: Clinical Impression(s) from Imaging Studies Chest X-Ray 10/20/22 16:10 IMPRESSION: No definite acute or significant abnormality seen. Electronically Signed: Sridhar Goldberg MD at 17:01 EDT , Chest CT 10/20/22 18:53 IMPRESSION: 1. No definite acute abnormality. No infiltrates or effusions. 2. Scarring and/or atelectasis in both lung bases. Electronically Signed: Sridhar Goldberg MD at 20:24 EDT , Discharge Plan Triage Chief Complaint: Shortness of Breath ED Provider: Chris Camara Dx/Rx/DC Orders Primary Care Provider: Mitchell Lane
[2022-10-20 18:48] VITALS: O2SAT 94
[2022-10-20 18:49] LABS: Reflex Troponin-HS? (from REC) Y
--- NOTE | 2022-10-20 18:53 | CT_ITS ---
EXAM: CT CHEST WITHOUT INTRAVENOUS CONTRAST CLINICAL INDICATION: hypoxia TECHNIQUE: Helically acquired images were obtained of the chest without intravenous contrast. This CT exam was performed using one or more of the following dose reduction techniques: automated exposure control, adjustment of the mA and/or kV according to patient size, and/or use of iterative reconstruction technique. RADIATION DOSE: CTDIvol = 19.07 mGy, DLP = 633.85 mGy-cm COMPARISON: 03/08/2018 FINDINGS: LUNGS AND PLEURAL SPACES: Stable mild probable scarring in the left lung base. Thickening of both posterior costophrenic angles. Atelectasis and/or scarring in the right lung base, worse than prior study. No mass. No pleural effusion. No pneumothorax. Normal lung volumes. HEART: Mild cardiomegaly. Heavily calcified coronary arteries. No pericardial effusion. MEDIASTINUM: Calcified granulomas in the subcarinal space and both parish. No mediastinal or hilar adenopathy. Esophagus is unremarkable. No hiatal hernia. THYROID: Unremarkable. No thyroid lesions. BONES/JOINTS: Marked degenerative changes of the spine. Anterior fusion of the thoracolumbar spine. No suspicious lytic or blastic abnormality. VASCULATURE: Heavily calcified aorta. No aneurysm. OTHER FINDINGS: Bilateral calcified granulomas. CT/Chest without Contrast IMPRESSION: 1. No definite acute abnormality. No infiltrates or effusions. 2. Scarring and/or atelectasis in both lung bases. Electronically Signed: Sridhar Goldberg MD at 20:24 EDT ,
--- NOTE | 2022-10-20 19:04 | HP.PCM.HOS_ITS ---
HPI - General General Date of Admission: 10/20/22 Date of Service: 10/20/22 Chief Complaint: shortness of breath HPI Narrative SANTIAGO WILHELM, is a 82 F with a PMH as outlined who presents via the ED on 10/20/2022 with a complaint of shortness of breath. She has been short of breath for 3 weeks prior to admission. She wears oxygen at home and says she hasnt required increased oxygen. SHe wears 4L of oxygen at home.S he dnied any chest pain but admitted to some lower extremity edema. She denied any fever, chills, palpitations, nausea, vomiting or diarrhea. Review of systems is otherwise negative. Vitals in the ED were blood pressure of 163/74, pulse rate of 67, respiratory rate of 18 and temperature of 97.6 Fahrenheit. She was saturating at 98% on her baseline 4 L of oxygen. CBC showed hemoglobin of 11 with WBC of 5.2 and plate lets of 175. Chemistry showed creatinine of 1.75 with bicarb of 34, sodium of 144 and potassium of 4. Chest x-ray showed no acute cardiopulmonary abnormality. BNP was pending at time of review and initial troponin was not elevated. She has been admitted to be managed for hypoxia with unclear jacque ology. [facility] Medical History (Updated 10/20/22 @ 19:[address] Laverne Bello MD) CAD (coronary artery disease) COPD (chronic obstructive pulmonary disease) HLD (hyperlipidemia) HTN (hypertension) Home Medications Lactobacillus acidophilus 10 billion cell capsule (Probiotic) 10,000 mmu cells P O DAILY immune health 09/03/21 [History Last Taken 09/03/21] amlodipine 5 mg tablet 5 mg PO DAILY bp 09/03/21 [History Last Taken 09/03/21] aspirin 81 mg tablet 81 mg PO QHS heart health 09/03/21 [History Last Taken 09/02/21] budesonide-formoterol HFA 160 mcg-4.5 mcg/actuation aerosol inhaler 2 puff inhalation BID sob 09/03/21 [History Last Taken 09/03/21] carvedilol 25 mg tablet 25 mg PO BIDCM heart 09/03/21 [History Last Taken 09/03/21] cholecalciferol (vitamin D3) 25 mcg (1,000 unit) capsule 25 mcg PO BID supplement 09/03/21 [History Last Taken 09/03/21] cholestyramine (with sugar) 4 gram powder for susp in a packet 1 ea PO DAILY cholesterol 09/03/21 [History Last Taken 09/03/21] cyanocobalamin (vitamin B-12) 1,000 mcg tablet 1,000 mcg PO DAILY supplement 09/03/21 [History Last Taken 09/03/21] insulin NPH isoph U-100 human 100 unit/mL (3 mL) subcutaneous pen 6 unit subcut BREAKFAST dm 09/03/21 [History Last Taken 09/03/21] insulin NPH isoph U-100 human 100 unit/mL (3 mL) subcutaneous pen 7 - 20 unit subcut QHS dm 09/03/21 [History Last Taken 09/02/21] insulin aspart U-100 100 unit/mL (3 mL) subcutaneous pen (Novolog FlexPen U-100 Insulin aspart) 6 unit subcut LUNCH dm 09/03/21 [History Last Taken 09/02/21] insulin aspart U-100 100 unit/mL (3 mL) subcutaneous pen (Novolog FlexPen U-100 Insulin aspart) 8 unit subcut BREAKFAST dm 09/03/21 [History Last Taken 09/03/21] insulin aspart U-100 100 unit/mL (3 mL) subcutaneous pen (Novolog FlexPen U-100 Insulin aspart) 14 unit subcut DINNER dm 09/03/21 [History Last Taken 09/02/21] losartan 100 mg tablet 100 mg PO DAILY heart 09/03/21 [History Last Taken 09/03/21] mirtazapine 45 mg tablet 45 mg PO QHS sleep 09/03/21 [History Last Taken 09/02/21] pravastatin 40 mg tablet 40 mg PO DAILY cholesterol 09/03/21 [History Last Taken 09/03/21] sertraline 100 mg tablet 100 mg PO BID depression 09/03/21 [History Last Taken 09/03/21] spironolactone 25 mg tablet 25 mg PO DAILY fluid 09/03/21 [History Last Taken 09/03/21] sucralfate 1 gram tablet 1 g PO TIDCM stomach 09/03/21 [History Last Taken 09/03/21] furosemide 20 mg tablet 40 mg PO BIDCM fluid #120 tabs 09/08/21 [Rx Last Taken Unknown] prednisone 20 mg tablet 40 mg PO DAILY #6 tabs 09/08/21 [Rx Last Taken Unknown] Allergy/AdvReac Type Severity Reaction Status Date / Time levofloxacin [From Levaquin] AdvReac Other Verified 10/20/22 16:01 procaine [From Novocain] AdvReac Other Verified 10/20/22 16:01 Family History Mother No cardiac disease Father No cardiac disease Surgical History S/P breast lumpectomy S/P cholecystectomy Social History household members: spouse Smoking Status: Never smoker alcohol intake: never substance use type: does not use ROS Constitutional Constitutional: Denies anorexia, chills, fatigue, fever(s), malaise or weakness ENT HEENT: Denies dysphagia or headache(s) Cardiovascular Cardiovascular: Reports dyspnea on exertion and edema; Denies chest pain, lightheadedness, orthopnea, palpitations, paroxysmal nocturnal dyspnea, rapid heart rate or syncope Respiratory/Chest Respiratory/Chest: Reports dyspnea, shortness of breath at rest and shortness of breath with exertion; Denies cough, productive cough or wheezing Gastrointestinal Gastrointestinal: Denies abdominal pain, constipation, diarrhea, nausea or vomiting Genitourinary Genitourinary: Denies dysuria Musculoskeletal Musculoskeletal: Denies back pain or joint pain Neurologic Neurologic: Denies confusion, dizziness or seizures Psychiatric Psychiatric: Denies anxiety or depression Endocrine Endocrinology: Denies change in body appearance Hematologic/Lymphatic Hematologic/Lymphatic: Denies anemia Vital Signs Vital Signs Vital Signs: 10/20/22 16:02 10/20/22 16:16 10/20/22 16:16 Temperature 97.6 F L Temperature Source Temporal Pulse Rate 78 62 Respiratory Rate 16 18 Respiratory Effort Short of Breath Labored Respiratory Depth Shallow Respiratory Pattern Irregular Blood Pressure 127/77 H 180/51 H Blood Pressure Mean 93 94 Pulse Ox 96 97 Oxygen Delivery Method Nasal Cannula Nasal Cannula Nasal Cannula Oxygen Flow Rate (L/min) 4 4 4 10/20/22 17:56 Temperature 97.6 F L Temperature Source Temporal Pulse Rate 67 Respiratory Rate 18 Respiratory Effort Respiratory Depth Respiratory Pattern Blood Pressure 163/74 H Blood Pressure Mean 103 Pulse Ox 98 Oxygen Delivery Method Nasal Cannula Oxygen Flow Rate (L/min) 4 Weight Weight: 252 lb Body Mass Index (BMI) 47.6 Physical Exam Const alert, oriented x3 and no apparent distress General Appearance: cooperative HEENT normocephalic, head/scalp atraumatic, hearing grossly normal bilaterally and moist oral mucous membranes Mouth: oral and palatal mucosa normal Eyes PERRL, EOMs intact bilaterally and conjunctivae normal Neck no lymphadenopathy and supple Resp Resp Narrative: moderately diminished breath sounds bibasally, no wheezes or crackles. on 4L of oxygen by nasal canula, which is her baseline Cardio regular rate, regular rhythm, S1 normal heart sound, S2 normal heart sound and no murmurs GI normal to inspection, nondistended, normoactive bowel sounds, soft to palpation, non-tender and non-distended Extremity normal to inspection, full ROM and no clubbing, cyanosis or edema Neuro oriented x3, CN's II-XII intact bilaterally and moves all extremities Sensorium / Orientation: awake and alert Motor Exam: strength 5/5 throughout Psych affect normal Results Lab / Micro Data Result Diagrams: 10/20/22 16:43 10/20/22 16:43 Labs: Laboratory Results - last 24 hr 10/20/22 16:43: WBC 5.2, RBC 3.58 L, Hgb 11.0 L, Hct 35.7 L, MCV 99.7 H, MCH 30.7, MCHC 30.8 L, RDW Std Deviation 50.0 H, RDW Coeff of Lucas 13.5, Plt Count 175, MPV 10.2, Immature Gran % (Auto) 1.300 H, Neut % (Auto) 71.3 H, Lymph % (Auto) 16.1 L, Charles % (Auto) 8.0, Eos % (Auto) 2.9, Baso % (Auto) 0.4, Absolute Neuts (auto) 3.7, Absolute Lymphs (auto) 0.84, Nucleated RBC % 0 10/20/22 16:43: Sodium 144, Potassium 4.0, Chloride 106, Carbon Dioxide 34.0 H, Anion Gap 4 L, BUN 41 H, Creatinine 1.75 H, Estim Creat Clear Calc 19.03, Est GFR (MDRD) Af Amer 36 L, Est GFR (MDRD) Non-Af 30 L, BUN/Creatinine Ratio 23.4 H , Glucose 182 H, Calcium 8.4 L, Troponin I High Sens 17 Radiology Impression Chest X-Ray 10/20/22 16:10 IMPRESSION: No definite acute or significant abnormality seen. Electronically Signed: Sridhar Goldberg MD at 17:01 EDT , Assessment & Plan Assessment/Plan (1) Hypoxia: PLAN: Plan #Hypoxia in the setting of chronic respiratory failure due to COPD and CHF * Patient has been feeling short of breath and was hypoxic in the ED. She is on her baseline 4 L of oxygen. * Chest x-ray showed acute no acute cardiopulmonary abnormality. * EKG showed no acute ST changes. Initial elevated. * We will cycle troponins. * Breathing treatments of bronchodilators. Titrate oxygen to maintain saturation above 90%. * BNP is pending. If it is elevated we will diurese with IV Lasix. * Placed on IV Solu-Medrol to treat for probable COPD exacerbation. * #Type 2 diabetes mellitus: On NPH insulin twice daily. Insulin sliding scale. Accu-Cheks ACHS. #Hypertension: On losartan and amlodipine. IV hydralazine as needed. #Hyperlipidemia: On pravastatin #Depression: On mirtazapine DVT prophylaxis: Lovenox CODE STATUS: full code * Patient counseled extensively about different types of CODE STATUS including full code, DNR CCA and DNR CCA. Patient elects to be full code. Total [id number] time 17 minutes. * Total time spent on evaluation and management of patient, reviewing chart and specialist notes, discussing plan with patient, discussion with nursing and ancillary staff as well as documentation: 76 mins Charges/Coding Visit Charges Inpatient E&M: 83223 Init Hosp L3 Procedures Hospitalists Procedures: 90288 Advncd Care Plan 30 Min
--- NOTE | 2022-10-20 19:17 | ED.RN ---
called lab to inquire about pt's pending BNP
[2022-10-20 19:24] LABS: BNP,B-Type NATRIURETIC PEPTIDE 193.1 pg/mL (0-100)
[2022-10-20 19:34] LABS: Troponin-I HS 15 pg/mL (3.0-54.0)
[2022-10-20 20:01] VITALS: BP 188/82; PULSE 62; RESP 14; TEMP 36.3; O2SAT 99
[2022-10-20 21:43] VITALS: BMI 48.3
[2022-10-20] MEDS: 0.9% Saline Lock 10 ML Syringe IV (22:16)
[2022-10-20] MEDS: Furosemide 40 MG/4 ML Vial IV (22:16)
[2022-10-20 23:27] LABS: Troponin-I HS 18 pg/mL (3.0-54.0)
[2022-10-21] VITALS (12 sets, daily range): BP systolic 139–192; BP diastolic 55–98; PULSE 58–79; RESP 16–20; TEMP 36.1–36.9; O2SAT 91–100
[2022-10-21 01:45] LABS: Troponin-I HS 18 pg/mL (3.0-54.0)
[2022-10-21] MEDS: 0.9% Saline Lock 10 ML Syringe IV ×2 (05:02→17:21)
[2022-10-21] MEDS: Methylprednisolone Sod Succ 40 MG/ML VIAL IV ×2 (05:02→14:56)
[2022-10-21 05:54] LABS: Absolute Neutrophil Count 3.6 X10^3/uL (2.0-7.7); Basophil# 0.03 X10^3/uL; Basophil% 0.5 % (0-1); Eosinophil# 0.13 X10^3/uL; Eosinophils% 2.3 % (0-5); Hemoglobin 10.8 g/dL (12.0-15.0); Lymphocyte % 22.7 % (19-41); Mean Corpuscular Hgb 30.1 pg (27.0-32.0); Mean Corpuscular Volume 100.3 fL (81-99); Mean Platelet Vol. 9.8 fl (6.2-12.0); Monocyte# 0.57 X10^3/uL; Monocyte% 9.9 % (0-10); NRBC Flagged by Analyzer 0 % (0-5); Neutrophil # 3.62 X10^3/uL (2.7-7.7); Neutrophil % 63.2 % (47-70); Platelet Count 170 K/mm3 (150-450); RBC Distribution Width CV 13.4 % (11.6-14.6); RBC Distribution Width SD 50.1 fl (35.1-43.9); Red Blood Count 3.59 M/mm3 (4.2-5.4); White Blood Count 5.7 K/mm3 (4.4-11.0)
[2022-10-21 06:39] LABS: Anion Gap 3 (5-15); BUN 41 mg/dL (7-18); BUN/Creat Ratio 25.5 RATIO (10-20); Calcium,Total 8.4 mg/dL (8.5-10.1); Chloride 111 mmol/L (98-107); Creatinine, Serum 1.61 mg/dL (0.55-1.02); EST Glomerular Filtration Rate 33 mL/min (>60); Est Glom Filt Rate - Afr Amer 40 mL/min (>60); Estimated Creatinine Clearance 20.68 ml/min; Glucose 149 mg/dL (74-106); Potassium 4.1 mmol/L (3.5-5.1); Sodium Level 147 mmol/L (136-145)
[2022-10-21] MEDS: Ipratropium/Albuterol Sulfate 3 ML AMPUL.NEB INHALATION ×3 (07:17→19:41)
--- NOTE | 2022-10-21 09:45 | PN.HOSP_ITS ---
Objective Data Objective Data Vital Signs: Vital Signs Temp Pulse Resp BP Pulse Ox O2 Del Method O2 Flow Rate 97.0 F L 77 16 141/71 H 100 Nasal Cannula 4 10/21/22 05:00 10/21/22 07:17 10/21/22 07:17 10/21/22 05:00 10/21/22 05:00 10/21/22 07:17 10/21/22 05:00 Oxygen Flow Rate (L/min) 4 Oxygen Delivery Method Nasal Cannula Weight: 255 lb 15.307 oz Body Mass Index (BMI) 48.3 Intake & Output: Intake and Output for Last 24 Hours 10/19/22 10/20/22 10/21/22 23:59 23:59 23:59 Intake Total 60 / 60 120 / 120 Output Total 350 / 350 400 / 400 Balance -290 / -290 -280 / -280 Lab / Micro Data Result Diagrams: 10/21/22 05:32 10/21/22 05:32 Labs: Laboratory Results - last 24 hr 10/20/22 16:43: WBC 5.2, RBC 3.58 L, Hgb 11.0 L, Hct 35.7 L, MCV 99.7 H, MCH 30.7, MCHC 30.8 L, RDW Std Deviation 50.0 H, RDW Coeff of Lucas 13.5, Plt Count 175, MPV 10.2, Immature Gran % (Auto) 1.300 H, Neut % (Auto) 71.3 H, Lymph % (Auto) 16.1 L, Major % (Auto) 8.0, Eos % (Auto) 2.9, Baso % (Auto) 0.4, Absolute Neuts (auto) 3.7, Absolute Lymphs (auto) 0.84, Nucleated RBC % 0 10/20/22 16:43: Sodium 144, Potassium 4.0, Chloride 106, Carbon Dioxide 34.0 H, Anion Gap 4 L, BUN 41 H, Creatinine 1.75 H, Estim Creat Clear Calc 19.03, Est GFR (MDRD) Af Amer 36 L, Est GFR (MDRD) Non-Af 30 L, BUN/Creatinine Ratio 23.4 H , Glucose 182 H, Calcium 8.4 L, Troponin I High Sens 17 10/20/22 16:43: B-Natriuretic Peptide 193.1 H 10/20/22 18:56: Troponin I High Sens 15 10/20/22 22:53: Troponin I High Sens 18 10/21/22 01:20: Troponin I High Sens 18 10/21/22 05:32: WBC 5.7, RBC 3.59 L, Hgb 10.8 L, Hct 36.0 L, MCV 100.3 H, MCH 30.1, MCHC 30.0 L, RDW Std Deviation 50.1 H, RDW Coeff of Lucas 13.4, Plt Count 170, MPV 9.8, Immature Gran % (Auto) 1.400 H, Neut % (Auto) 63.2, Lymph % (Auto) 22.7, Major % (Auto) 9.9, Eos % (Auto) 2.3, Baso % (Auto) 0.5, Absolute Neuts (auto) 3.6, Absolute Lymphs (auto) 1.30, Nucleated RBC % 0 10/21/22 05:32: Sodium 147 H, Potassium 4.1, Chloride 111 H, Carbon Dioxide 33.0 H, Anion Gap 3 L, BUN 41 H, Creatinine 1.61 H, Estim Creat Clear Calc 20.68, Est GFR (MDRD) Af Amer 40 L, Est GFR (MDRD) Non-Af 33 L, BUN/Creatinine Ratio 25.5 H , Glucose 149 H, Calcium 8.4 L Radiography Diagnostic Testing: Radiology Impression Chest X-Ray 10/20/22 16:10 IMPRESSION: No definite acute or significant abnormality seen. Electronically Signed: Sridhar Goldberg MD at 17:01 EDT , Chest CT 10/20/22 18:53 IMPRESSION: 1. No definite acute abnormality. No infiltrates or effusions. 2. Scarring and/or atelectasis in both lung bases. Electronically Signed: Sridhar Goldberg MD at 20:24 EDT , Physical Exam Narrative Seen and examined. Patient is not acutely short of breath. Dyspnea on exertion. Bilateral leg swelling. General: Alert, Oriented x3, Cooperative morbid obesity BMI 48.4 kg/m? HEENT: Atraumatic, PERRLA, EOMI, Normocephalic Oral: Oral mucosa moist. No Gingival or Mucosal Lesions/ Ulcerations Neck: Supple, No JVD, Negative Carotid Bruits Lungs: Air entry diminished in bilateral lung bases. No crepitation/rhonchi Cardiovascular: Regular rate, Regular Rhythm, Normal S1, Normal S2, systolic murmur right second ICS Abdomen: Normal affect, umbilical hernia. Bowel Sounds Present, Soft, Non Tender, Non-Distended : No renal angle tenderness. No suprapubic tenderness. Extremities: Mild 2+ pitting edema, Capillary Refill Less than 3 Seconds Skin: No rashes, No breakdown Musculoskeletal: No Tenderness to Palpation of Joints or Extremities. Bilateral knee and hip joints arthritis. Neurological: Cranial nerves II-XII grossly intact, DTR 2+/4 and Symmetrical, muscle strength 4+/5 at knee and hip joints. Psych/Mental Status: Flat affect. Assessment & Plan Assessment/Plan (1) Hypoxia: PLAN: Plan 82-year-old female admitted with shortness of breath for 3 weeks prior to admission. On 4 L of home oxygen. No chest pain or tightness but mild lower extremity edema. Denies fever or URI symptoms nausea vomiting diarrhea #1. Chronic respiratory failure due to CHF exacerbation and COPD exacerbation with chronic hypoxic * Patient has been feeling short of breath and was hypoxic in the ED. She is on her baseline 4 L of oxygen. Her oxygen requirement remains same therefore does not qualify for acute on chronic hypoxic respiratory failure. * Chest x-ray showed acute no acute cardiopulmonary abnormality. * EKG showed no acute ST changes. Patient does not have chest pain. * Serial troponin is negative. * Breathing treatments of bronchodilators. Titrate oxygen to maintain saturation above 90%. * BNP is elevated. * Placed on IV Solu-Medrol to treat for probable COPD exacerbation. 2D echo in August 2021 shows EF 60% with no significant valvular abnormality. Electrolyte abnormality with CKD stage IV: Patient has hypernatremia, hyperchloremia, metabolic alkalosis. Her baseline creatinine runs around 1.6- 1.75. Admitted with creatinine 1.75 most recent 1.6. Gradual worsening of kidney function. She was last admitted in September 2021 for CHF exacerbation. At that time she had CKD stage IIIb. #Type 2 diabetes mellitus: On NPH insulin twice daily. Insulin sliding scale. Glucoses reasonably controlled about 1 50-1 80. Sent on NPH insulin twice daily and lispro insulin. Home medication reconciliation done. #Hypertension: On losartan and amlodipine. IV hydralazine as needed. #Hyperlipidemia: On pravastatin #Depression: On mirtazapine DVT prophylaxis: Lovenox CODE STATUS: full code * Patient counseled extensively about different types of CODE STATUS including full code, DNR CCA and DNR CCA. Patient elects to be full code. * Laboratory Results 10/20/22 16:43: WBC 5.2, RBC 3.58 L, Hgb 11.0 L, Hct 35.7 L, MCV 99.7 H, MCH 30.7, MCHC 30.8 L, RDW Std Deviation 50.0 H, RDW Coeff of Lucas 13.5, Plt Count 175, MPV 10.2, Immature Gran % (Auto) 1.300 H, Neut % (Auto) 71.3 H, Lymph % (Auto) 16.1 L, Major % (Auto) 8.0, Eos % (Auto) 2.9, Baso % (Auto) 0.4, Absolute Neuts (auto) 3.7, Absolute Lymphs (auto) 0.84, Nucleated RBC % 0 10/20/22 16:43: Sodium 144, Potassium 4.0, Chloride 106, Carbon Dioxide 34.0 H, Anion Gap 4 L, BUN 41 H, Creatinine 1.75 H, Estim Creat Clear Calc 19.03, Est GFR (MDRD) Af Amer 36 L, Est GFR (MDRD) Non-Af 30 L, BUN/Creatinine Ratio 23.4 H , Glucose 182 H, Calcium 8.4 L, Troponin I High Sens 10/20/22 16:43: B-Natriuretic Peptide 193.1 H 10/20/22 18:56: Troponin I High Sens 10/20/22 22:53: Troponin I High Sens 10/21/22 01:20: Troponin I High Sens 10/21/22 05:32: WBC 5.7, RBC 3.59 L, Hgb 10.8 L, Hct 36.0 L, MCV 100.3 H, MCH 30.1, MCHC 30.0 L, RDW Std Deviation 50.1 H, RDW Coeff of Lucas 13.4, Plt Count 170, MPV 9.8, Immature Gran % (Auto) 1.400 H, Neut % (Auto) 63.2, Lymph % (Auto) 22.7, Major % (Auto) 9.9, Eos % (Auto) 2.3, Baso % (Auto) 0.5, Absolute Neuts (auto) 3.6, Absolute Lymphs (auto) 1.30, Nucleated RBC % 0 10/21/22 05:32: Sodium 147 H, Potassium 4.1, Chloride 111 H, Carbon Dioxide 33.0 H, Anion Gap 3 L, BUN 41 H, Creatinine 1.61 H, Estim Creat Clear Calc 20.68, Est GFR (MDRD) Af Amer 40 L, Est GFR (MDRD) Non-Af 33 L, BUN/Creatinine Ratio 25.5 H , Glucose 149 H, Calcium 8.4 L Charges/Coding Visit Charges Inpatient E&M: 44617 Subs Hosp L2
[2022-10-21] MEDS: Furosemide 40 MG/4 ML Vial IV ×2 (10:34→17:21)
[2022-10-21] MEDS: Enoxaparin 30 MG/0.3 ML Syringe SC (10:34)
[2022-10-21] MEDS: amLODIPine 5 MG Tablet PO (11:39)
[2022-10-21] MEDS: Carvedilol 25 MG Tablet PO ×2 (11:39→17:21)
[2022-10-21] MEDS: Sucralfate 1 GM Tablet PO ×2 (11:39→17:22)
[2022-10-21] MEDS: Losartan Potassium 50 MG Tablet PO (11:40)
[2022-10-21] MEDS: Insulin Lispro 100 UNIT/ML INSULN.PEN 6 UNIT SC (11:49)
[2022-10-21 12:01] LABS: Bedside Glucose 346 mg/dL (74-106)
[2022-10-21 14:00] LABS: Allen Test Positive; Base Excess 6 mmol/L (-2 to +2); Bicarbonate 30.7 mmol/L (22-26); Blood Gas Specimen Type ART; O2 Delivery Device Cannula; PO2 68 mmHG (75-100); SITE L Radial; SO2 92 % (95-99); Total Carbon Dioxide 32 mmol/L; pCO2 52.8 mmHg (35-45); pH 7.37 (7.35-7.45)
[2022-10-21] MEDS: Cholestyramine/Sucrose 4 GM/PACKET PO (14:53)
--- NOTE | 2022-10-21 16:15 | CHAPLAIN ---
Type of Pastoral Visit _x__ Initial Visit ___ Follow-up Visit ___ On-call Visit ___ General Patient Visit ___ Spiritual Assessment ___ Family Conference ___ Bereavement ___ Rapid Response ___ Code Blue ___ Other (describe below) Pastoral Care Referral From _x__ Patient ___ Family ___ Nurse ___ Physician ___ Cook Relief ___ Computer Analyst ___ Other (describe below) Sacrament/Intervention _x__ Active listening ___ Anointing ___ Christianity ___ Bereavement ___ Communion _x__ Yolanda exploration ___ _x__ Life review _x__ Prayer ___ Reconciliation ___ Sacrament of Sick _x__ Supportive presence ___ Wedding ___ Other (describe below) Pastoral Comments patient and spouse in room together and relaxing; pt reports getting good care and seeing some improvements; pt reports about her yolanda community and concerns with that; pt and spouse talk about the many people in their family that works in healthcare; pt welcomes presence and prayers for support; no other needs
[2022-10-21] MEDS: Cholecalciferol (VIT D3) 25 MCG TABLET (1,000 UNITS) PO (17:21)
[2022-10-21] MEDS: Pantoprazole Sodium 40 MG Tablet PO (17:32)
[2022-10-21] MEDS: Insulin Lispro 100 UNIT/ML INSULN.PEN 14 UNIT SC (17:36)
[2022-10-21] MEDS: hydrALAZINE 20 MG/ML Vial 10 MG IV (19:01)
[2022-10-21 19:16] LABS: Bedside Glucose 338 mg/dL (74-106)
[2022-10-21] MEDS: Pravastatin 40 MG Tablet PO (23:03)
[2022-10-21] MEDS: Aspirin 81 MG TAB.CHEW PO (23:03)
[2022-10-21] MEDS: Sertraline 100 MG Tablet PO (23:03)
[2022-10-21] MEDS: Mirtazapine 15 MG Tablet PO (23:03)
[2022-10-21] MEDS: Insulin NPH Human 100 UNITS/ML PEN 12 UNITS SC (23:08)
[2022-10-22] VITALS (8 sets, daily range): BP systolic 140–179; BP diastolic 53–72; PULSE 65–70; RESP 16–18; TEMP 36.6–36.7; O2SAT 87–100
[2022-10-22 00:26] LABS: Bedside Glucose 374 mg/dL (74-106)
[2022-10-22 06:16] LABS: Absolute Lymphocyte Count 0.82 X10^3/uL (0.83-4.51); Absolute Neutrophil Count 4.9 X10^3/uL (2.0-7.7); Basophil# 0.02 X10^3/uL; Basophil% 0.3 % (0-1); Hematocrit 33.4 % (37-47); Hemoglobin 10.2 g/dL (12.0-15.0); Lymphocyte # 0.82 X10^3/ul (0.83-4.51); Lymphocyte % 12.7 % (19-41); Mean Corp Hgb Conc 30.5 g/dL (32-36); Mean Corpuscular Hgb 29.7 pg (27.0-32.0); Mean Corpuscular Volume 97.4 fL (81-99); Mean Platelet Vol. 9.9 fl (6.2-12.0); Monocyte# 0.55 X10^3/uL; Monocyte% 8.5 % (0-10); NRBC Flagged by Analyzer 0 % (0-5); Neutrophil # 4.87 X10^3/uL (2.7-7.7); Neutrophil % 75.7 % (47-70); Platelet Count 177 K/mm3 (150-450); RBC Distribution Width CV 13.6 % (11.6-14.6); RBC Distribution Width SD 48.7 fl (35.1-43.9); Red Blood Count 3.43 M/mm3 (4.2-5.4); White Blood Count 6.4 K/mm3 (4.4-11.0)
[2022-10-22] MEDS: Sucralfate 1 GM Tablet PO ×2 (06:33→11:02)
[2022-10-22 06:44] LABS: Anion Gap 4 (5-15); BUN 49 mg/dL (7-18); Calcium,Total 8.3 mg/dL (8.5-10.1); Chloride 107 mmol/L (98-107); Cholesterol 144 mg/dL (200); Creatinine, Serum 1.96 mg/dL (0.55-1.02); EST Glomerular Filtration Rate 26 mL/min (>60); Est Glom Filt Rate - Afr Amer 32 mL/min (>60); Estimated Creatinine Clearance 16.99 ml/min; Glucose 269 mg/dL (74-106); High Density Lipoprotein 55 mg/dL; Potassium 4.3 mmol/L (3.5-5.1); Sodium Level 143 mmol/L (136-145); Triglycerides 120 mg/dL; Very Low Density Lipoprotein 24 mg/dL (5-40)
[2022-10-22 07:00] LABS: Bedside Glucose 238 mg/dL (74-106)
--- NOTE | 2022-10-22 07:15 | PCM.DC ---
Discharge Instructions Diet Discharge Diet: Low fat / Low cholesterol, 1800 Calorie Control Diet and 2000 mg Sodium Diet Activity Discharge Activity: May Not Drive Weight Bearing Status: Weight bearing as tolerated Dressing / Incision Call your doctor if you observe: Fever of 101 or Higher, Coldness, Increased Pain, Numbness or Tingling, Change in Color, Inability to urinate, Inability to have a bowel movement, Shortness of breath, Dizziness, Fainting spells, Swelling in the ankles, Chest pain, Prolonged hiccupping, Increased palpitations (irregular heartbeat) and Calf discomfort Follow Up Care When: IN 2 WEEKS Test Results: Test results from this visit will be discussed in further detail at your follow-up appointment, if applicable. Discharge Plan Admission Admit Date/Time: 10/21/22 16:20 Primary Reason for Your Visit: HF exacerbation Attending Provider: James Soriano Primary Care Provider: Mitchell Lane Consulting Providers: Laverne Bello Instructions Additional Instructions / Restrictions: BMP in 2 days and follow-up with senior media director Dr. Poole in [place]. Patient also follows outside production cloth cutter Dr. Martin and his colic. Discharge Orders/Prescriptions Prescriptions: New hydralazine 50 mg Tablet 50 mg PO TID 30 Days Qty: 90 0RF Rx Instructions: Hold for SBP less than 130 mmHg albuterol sulfate 90 mcg/actuation HFA aerosol inhaler 2 inh inhalation Q6H PRN (Reason: shortness of breath or wheezing) Qty: 8.5 0RF prednisone 20 mg tablet 40 mg PO DAILY 4 Days Qty: 8 0RF Continued carvedilol 25 mg tablet 25 mg PO BIDCM Label Comments: TAKE 1 TABLET BY MOUTH TWICE A DAY WITH MEALS pravastatin 40 mg tablet 40 mg PO DAILY Label Comments: TAKE 1 TABLET BY MOUTH EVERY DAY sucralfate 1 gram tablet 1 g PO TIDCM Label Comments: TAKE 1 TABLET BY MOUTH 3 TIMES A DAY BEFORE MEALS sertraline 100 mg tablet 100 mg PO BID Label Comments: TAKE 1 TABLET BY MOUTH TWICE A DAY cyanocobalamin (vitamin B-12) 1,000 mcg Tablet 1,000 mcg PO DAILY amlodipine 5 mg tablet 5 mg PO DAILY Label Comments: TAKE 1 TABLET BY MOUTH EVERY DAY mirtazapine 45 mg tablet 45 mg PO QHS Label Comments: TAKE 1 TABLET BY MOUTH NIGHTLY cholecalciferol (vitamin D3) 25 mcg (1,000 unit) Capsule 25 mcg PO BID insulin NPH isoph U-100 human 100 unit/mL (3 mL) Insulin Pen 6 unit SUBCUT BREAKFAST insulin NPH isoph U-100 human 100 unit/mL (3 mL) Insulin Pen 7 - 20 unit SUBCUT QHS insulin aspart U-100 [Novolog FlexPen U-100 Insulin] 100 unit/mL (3 mL) insulin pen 8 unit SUBCUT BREAKFAST Label Comments: INJECT SUBCUTANEOUSLY 8 UNITS EVERY MORNING, 4 UNITS AT LUNCH, 12 UNITS AT DINNER insulin aspart U-100 [Novolog FlexPen U-100 Insulin] 100 unit/mL (3 mL) insulin pen 6 unit SUBCUT LUNCH Label Comments: INJECT SUBCUTANEOUSLY 8 UNITS EVERY MORNING, 4 UNITS AT LUNCH, 12 UNITS AT DINNER insulin aspart U-100 [Novolog FlexPen U-100 Insulin] 100 unit/mL (3 mL) insulin pen 14 unit SUBCUT DINNER Label Comments: INJECT SUBCUTANEOUSLY 8 UNITS EVERY MORNING, 4 UNITS AT LUNCH, 12 UNITS AT DINNER cholestyramine (with sugar) 4 gram powder in packet 1 ea PO DAILY budesonide-formoterol 160-4.5 mcg/actuation HFA aerosol inhaler 2 puff INHALATION BID Label Comments: INHALE 2 PUFFS INTO THE LUNGS TWICE DAILY Probiotic 10 billion cell Capsule 10,000 mmu cells PO DAILY Rx Instructions: takes at lunch time aspirin 81 mg Tablet 81 mg PO QHS Held losartan 100 mg tablet 100 mg PO DAILY Hold Instructions: Hold for 3 days. Label Comments: TAKE 1 TABLET BY MOUTH EVERY DAY furosemide 20 mg tablet 40 mg PO BIDCM Qty: 120 0RF Hold Instructions: Hold for 3 days and then check BMP and follow-up with senior media director. Label Comments: TAKE 2 TABLETS BY MOUTH EVERY DAY Rx Instructions: pt takes at supper time Referrals / Follow Up: Mitchell Lane MD [Primary Care Provider] - Randy Ramesh MD [Med Staff - Active Staff] - Within 1 Month (for COPD) Disposition Disposition (needs filled in before D/C Order can be placed): Home, Self Care
[2022-10-22] MEDS: hydrALAZINE 50 MG Tablet PO (09:07)
[2022-10-22] MEDS: Sertraline 100 MG Tablet PO (09:09)
[2022-10-22] MEDS: Pantoprazole Sodium 40 MG Tablet PO (09:09)
[2022-10-22] MEDS: Carvedilol 25 MG Tablet PO (09:09)
[2022-10-22] MEDS: Cyanocobalamin 500 MCG Tablet 1000 MCG PO (09:09)
[2022-10-22] MEDS: Enoxaparin 30 MG/0.3 ML Syringe SC (09:09)
--- NOTE | 2022-10-22 09:09 | DS.PCM_ITS ---
Providers Date of Admission: 10/21/22 Date of Discharge: 10/22/22 Primary Care Physician: Dr. Mitchell Lane MD Reason For Visit: HYPOXIA Diagnosis Discharge Diagnosis (1) Hypoxia: Status: Acute Code(s): R09.02 - Hypoxemia Plan 82-year-old female admitted with shortness of breath for 3 weeks prior to admission. On 4 L of home oxygen. No chest pain or tightness but mild lower extremity edema. Denies fever or URI symptoms nausea vomiting diarrhea #1. Chronic respiratory failure due to CHF exacerbation and COPD exacerbation with chronic hypoxic * Patient has been feeling short of breath and was hypoxic in the ED. She is on her baseline 4 L of oxygen. Her oxygen requirement remains same therefore does not qualify for acute on chronic hypoxic respiratory failure. * Chest x-ray showed acute no acute cardiopulmonary abnormality. * EKG showed no acute ST changes. Patient does not have chest pain. * Serial troponin is negative. * Breathing treatments of bronchodilators. Titrate oxygen to maintain saturation above 90%. * BNP is elevated. * Placed on IV Solu-Medrol to treat for probable COPD exacerbation. 2D echo in August 2021 shows EF 60% with no significant valvular abnormality. 10/22: Currently patient pulse ox is 2 L. Since patient overdiuresed. Lasix held because of increasing creatinine. Hold losartan. Patient given prescription for burst therapy of prednisone and albuterol. She has maintenance inhaler at home. Patient has history of heart failure and is on Farxiga and Oz empic at home to prevent recurrent heart failure hospitalization and major cardiovascular events. Electrolyte abnormality: Patient has hypernatremia, hyperchloremia, metabolic alkalosis. Her baseline creatinine runs around 1.6-1.75. Admitted with creatinine 1.75 most recent 1.6. Gradual worsening of kidney function. She was last admitted in September 2021 for CHF exacerbation. At that time she had CKD stage IIIb. 10/17: LINDA on CKD Stage IV: Patient creatinine went up from 1.61-1.96 on Lasix. Lasix held. Hold losartan. Advised to repeat BMP in 2 days and follow-up with her bindery machine operator Dr. Poole to titrate the dose of Lasix and losartan. Patient has history of CKD stage IV. #Type 2 diabetes mellitus: On NPH insulin twice daily. Insulin sliding scale. Glucoses reasonably controlled about 1 50-1 80. Sent on NPH insulin twice daily and lispro insulin. Home medication reconciliation done. 10/22: Besides NPH insulin, patient is also on Ozempic and Farxiga. #Hypertension: On losartan and amlodipine. IV hydralazine as needed. 10/22: Blood pressure was very high yesterday systolic 196. Hydralazine oral 50 mg 3 times daily started. Hold Lasix and losartan. Continue amlodipine. H ydralazine temporarily until patient can resume losartan and Lasix as it further can give leg edema because of vasodilatory properties #Hyperlipidemia: On pravastatin #Depression: On mirtazapine DVT prophylaxis: Lovenox CODE STATUS: full code * Patient counseled extensively about different types of CODE STATUS including full code, DNR CCA and DNR CCA. Patient elects to be full code. * Laboratory Results 10/21/22 11:35: POC Glucose 346 H 10/21/22 13:55: Specimen Type ART, Sample Site L Radial, pH 7.37, Bicarbonate Actual 30.7 H, Total CO2 32, Base Excess 6 H, O2 Saturation 92 L, ABG pCO2 52.8 H, ABG pO2 68 L, Cristian Test Positive, O2 Delivery Device Cannula, Liter Flow 3.0 10/21/22 17:35: POC Glucose 338 H 10/21/22 23:05: POC Glucose 374 H 10/22/22 05:50: WBC 6.4, RBC 3.43 L, Hgb 10.2 L, Hct 33.4 L, MCV 97.4, MCH 29.7, MCHC 30.5 L, RDW Std Deviation 48.7 H, RDW Coeff of Lucas 13.6, Plt Count 177, MPV 9.9, Immature Gran % (Auto) 2.800 H, Neut % (Auto) 75.7 H, Lymph % (Auto) 12.7 L , [place] % (Auto) 8.5, Eos % (Auto) 0.0, Baso % (Auto) 0.3, Absolute Neuts (auto) 4.9, Absolute Lymphs (auto) 0.82 L, Nucleated RBC % 0 10/22/22 05:50: Sodium 143, Potassium 4.3, Chloride 107, Carbon Dioxide 32.0, Anion Gap 4 L, BUN 49 H, Creatinine 1.96 H, Estim Creat Clear Calc 16.99, Est GFR (MDRD) Af Amer 32 L, Est GFR (MDRD) Non-Af 26 L, BUN/Creatinine Ratio 25.0 H , Glucose 269 H, Calcium 8.3 L, Triglycerides 120, Cholesterol 144, LDL Cholesterol 65, VLDL Cholesterol 24, HDL Cholesterol 55 10/22/22 06:31: POC Glucose 238 H Discharge medication reconciliation done. Discharge follow-up instructions completed. Discharge process discussed with the patient and all questions were answered to patient's satisfaction. Total time spent, exact 35 minutes on discharge meds reconciliation, examination, coordination of care with nurses and ancillary staff, review of imaging and blood test and discussion with the patient on follow-up instruc tions. Medications at Discharge Home Medications Lactobacillus acidophilus 10 billion cell capsule (Probiotic) 10,000 mmu cells PO DAILY immune health 09/03/21 amlodipine 5 mg tablet 5 mg PO DAILY bp 09/03/21 aspirin 81 mg tablet 81 mg PO QHS heart health 09/03/21 budesonide-formoterol HFA 160 mcg-4.5 mcg/actuation aerosol inhaler 2 puff inhalation BID sob 09/03/21 carvedilol 25 mg tablet 25 mg PO BIDCM heart 09/03/21 cholecalciferol (vitamin D3) 25 mcg (1,000 unit) capsule 25 mcg PO BID supplement 09/03/21 cholestyramine (with sugar) 4 gram powder for susp in a packet 1 ea PO DAILY 09/03/21 cyanocobalamin (vitamin B-12) 1,000 mcg tablet 1,000 mcg PO DAILY supplement 09/03/21 insulin NPH isoph U-100 human 100 unit/mL (3 mL) subcutaneous pen 6 unit subcut BREAKFAST dm 09/03/21 insulin NPH isoph U-100 human 100 unit/mL (3 mL) subcutaneous pen 7 - 20 unit subcut QHS dm 09/03/21 insulin aspart U-100 100 unit/mL (3 mL) subcutaneous pen (Novolog FlexPen U-100 Insulin aspart) 6 unit subcut LUNCH dm 09/03/21 insulin aspart U-100 100 unit/mL (3 mL) subcutaneous pen (Novolog FlexPen U-100 Insulin aspart) 8 unit subcut BREAKFAST dm 09/03/21 insulin aspart U-100 100 unit/mL (3 mL) subcutaneous pen (Novolog FlexPen U-100 Insulin aspart) 14 unit subcut DINNER dm 09/03/21 losartan 100 mg tablet 100 mg PO DAILY heart 09/03/21 mirtazapine 45 mg tablet 45 mg PO QHS sleep 09/03/21 pravastatin 40 mg tablet 40 mg PO DAILY cholesterol 09/03/21 sertraline 100 mg tablet 100 mg PO BID depression 09/03/21 sucralfate 1 gram tablet 1 g PO TIDCM stomach 09/03/21 furosemide 20 mg tablet 40 mg PO BIDCM fluid #120 tabs 09/08/21 albuterol sulfate 90 mcg/actuation aerosol inhaler 2 inh inhalation Q6H PRN shortness of breath or wheezing #8.5 grams 10/22/22 hydralazine 50 mg tablet 50 mg PO TID 30 days #90 tabs 10/22/22 prednisone 20 mg tablet 40 mg PO DAILY 4 days #8 tabs 10/22/22 Physical Exam Narrative Seen and examined. Patient is not acutely short of breath. No dyspnea at rest. Leg swelling is much improved. On 2 L of oxygen. Physical exam General: Alert, Oriented x3, Cooperative morbid obesity BMI 48.4 kg/m? HEENT: Atraumatic, PERRLA, EOMI, Normocephalic Oral: Oral mucosa moist. No Gingival or Mucosal Lesions/ Ulcerations Neck: Supple, No JVD, Negative Carotid Bruits Lungs: Air entry diminished in bilateral lung bases. No crepitat ion/rhonchi/wheezing. Cardiovascular: Regular rate, Regular Rhythm, Normal S1, Normal S2, systolic m urmur right second ICS Abdomen: Flat abdomen, umbilical hernia. Bowel Sounds Present, Soft, Non [place], Non-Distended : No renal angle tenderness. No suprapubic tenderness. Extremities: Mild 1+ pitting edema, Capillary Refill Less than 3 Seconds Skin: No rashes, No breakdown Musculoskeletal: No Tenderness to Palpation of Joints or Extremities. Bilateral knee and hip joints arthritis. Neurological: Cranial nerves II-XII grossly intact, DTR 2+/4 and Symmetrical, muscle strength 4+/5 at knee and hip joints. Psych/Mental Status: Flat affect. Weight / BMI Weight Weight: 255 lb 15.307 oz Body Mass Index (BMI) 48.3 ABG / Lab / Microbiology Data Result Diagrams: 10/22/22 05:50 10/22/22 05:50 Laboratory: Laboratory Results - last 24 hr 10/21/22 11:35: POC Glucose 346 H 10/21/22 17:35: POC Glucose 338 H 10/21/22 23:05: POC Glucose 374 H 10/22/22 05:50: WBC 6.4, RBC 3.43 L, Hgb 10.2 L, Hct 33.4 L, MCV 97.4, MCH 29.7, MCHC 30.5 L, RDW Std Deviation 48.7 H, RDW Coeff of Lucas 13.6, Plt Count 177, MPV 9.9, Immature Gran % (Auto) 2.800 H, Neut % (Auto) 75.7 H, Lymph % (Auto) 12.7 L , [place] % (Auto) 8.5, Eos % (Auto) 0.0, Baso % (Auto) 0.3, Absolute Neuts (auto) 4.9, Absolute Lymphs (auto) 0.82 L, Nucleated RBC % 0 10/22/22 05:50: Sodium 143, Potassium 4.3, Chloride 107, Carbon Dioxide 32.0, Anion Gap 4 L, BUN 49 H, Creatinine 1.96 H, Estim Creat Clear Calc 16.99, Est GFR (MDRD) Af Amer 32 L, Est GFR (MDRD) Non-Af 26 L, BUN/Creatinine Ratio 25.0 H , Glucose 269 H, Calcium 8.3 L, Triglycerides 120, Cholesterol 144, LDL Cholesterol 65, VLDL Cholesterol 24, HDL Cholesterol 55 10/22/22 06:31: POC Glucose 238 H ABG: ABG 10/21/22 13:55 Specimen Type ART Sample Site L Radial pH 7.37 Bicarbonate Actual 30.7 H Total CO2 32 Base Excess 6 H O2 Saturation 92 L ABG pCO2 52.8 H ABG pO2 68 L Cristian Test Positive O2 Delivery Device Cannula Liter Flow 3.0 D/C Instructions Discharge Diet: Low fat / Low cholesterol, 1800 Calorie Control Diet and 2000 mg Sodium Diet Weight Bearing Status: Weight bearing as tolerated Call your doctor if you observe: Fever of 101 or Higher, Coldness, Increased Pain, Numbness or Tingling, Change in Color, Inability to urinate, Inability to have a bowel movement, Shortness of breath, Dizziness, Fainting spells, Swelling in the ankles, Chest pain, Prolonged hiccupping, Increased palpitations (irregular heartbeat) and Calf discomfort When: IN 2 WEEKS Meaningful Use Info Meaningful Use Diagnoses (Choose all that apply): CHF CHF NAS/ARB ordered at discharge?: No Reason NAS/ARB not ordered?: Worsening renal disease and Worsening renal dysfunctn Documented LVEF (%): 60 Discharge Plan Admission Admit Date/Time: 10/21/22 16:20 Primary Reason for Your Visit: HF exacerbation Attending Provider: James Soriano Primary Care Provider: Mitchell Lane Consulting Providers: Laverne Bello Instructions Additional Instructions / Restrictions: BMP in 2 days and follow-up with bindery machine operator Dr. Poole in [place]. Patient also follows outside wafer abrading machine tender Dr. Martin and his colic. Discharge Orders/Prescriptions Prescriptions: New hydralazine 50 mg Tablet 50 mg PO TID 30 Days Qty: 90 0RF Rx Instructions: Hold for SBP less than 130 mmHg albuterol sulfate 90 mcg/actuation HFA aerosol inhaler 2 inh inhalation Q6H PRN (Reason: shortness of breath or wheezing) Qty: 8.5 0RF prednisone 20 mg tablet 40 mg PO DAILY 4 Days Qty: 8 0RF Continued carvedilol 25 mg tablet 25 mg PO BIDCM Label Comments: TAKE 1 TABLET BY MOUTH TWICE A DAY WITH MEALS pravastatin 40 mg tablet 40 mg PO DAILY Label Comments: TAKE 1 TABLET BY MOUTH EVERY DAY sucralfate 1 gram tablet 1 g PO TIDCM Label Comments: TAKE 1 TABLET BY MOUTH 3 TIMES A DAY BEFORE MEALS sertraline 100 mg tablet 100 mg PO BID Label Comments: TAKE 1 TABLET BY MOUTH TWICE A DAY cyanocobalamin (vitamin B-12) 1,000 mcg Tablet 1,000 mcg PO DAILY amlodipine 5 mg tablet 5 mg PO DAILY Label Comments: TAKE 1 TABLET BY MOUTH EVERY DAY mirtazapine 45 mg tablet 45 mg PO QHS Label Comments: TAKE 1 TABLET BY MOUTH NIGHTLY cholecalciferol (vitamin D3) 25 mcg (1,000 unit) Capsule 25 mcg PO BID insulin NPH isoph U-100 human 100 unit/mL (3 mL) Insulin Pen 6 unit SUBCUT BREAKFAST insulin NPH isoph U-100 human 100 unit/mL (3 mL) Insulin Pen 7 - 20 unit SUBCUT QHS insulin aspart U-100 [Novolog FlexPen U-100 Insulin] 100 unit/mL (3 mL) insulin pen 8 unit SUBCUT BREAKFAST Label Comments: INJECT SUBCUTANEOUSLY 8 UNITS EVERY MORNING, 4 UNITS AT LUNCH, 12 UNITS AT DINNER insulin aspart U-100 [Novolog FlexPen U-100 Insulin] 100 unit/mL (3 mL) insulin pen 6 unit SUBCUT LUNCH Label Comments: INJECT SUBCUTANEOUSLY 8 UNITS EVERY MORNING, 4 UNITS AT LUNCH, 12 UNITS AT DINNER insulin aspart U-100 [Novolog FlexPen U-100 Insulin] 100 unit/mL (3 mL) i nsulin pen 14 unit SUBCUT DINNER Label Comments: INJECT SUBCUTANEOUSLY 8 UNITS EVERY MORNING, 4 UNITS AT LUNCH, 12 UNITS AT DINNER cholestyramine (with sugar) 4 gram powder in packet 1 ea PO DAILY budesonide-formoterol 160-4.5 mcg/actuation HFA aerosol inhaler 2 puff INHALATION BID Label Comments: INHALE 2 PUFFS INTO THE LUNGS TWICE DAILY Probiotic 10 billion cell Capsule 10,000 mmu cells PO DAILY Rx Instructions: takes at lunch time aspirin 81 mg Tablet 81 mg PO QHS Held losartan 100 mg tablet 100 mg PO DAILY Hold Instructions: Hold for 3 days. Label Comments: TAKE 1 TABLET BY MOUTH EVERY DAY furosemide 20 mg tablet 40 mg PO BIDCM Qty: 120 0RF Hold Instructions: Hold for 3 days and then check BMP and follow-up with bindery machine operator. Label Comments: TAKE 2 TABLETS BY MOUTH EVERY DAY Rx Instructions: pt takes at supper time Referrals / Follow Up: Mitchell Lane MD [Primary Care Provider] - Randy Ramesh MD [Med Staff - Active Staff] - Within 1 Month (for COPD) Disposition Disposition (needs filled in before D/C Order can be placed): Home, Self Care Charges/Coding Visit Charges Inpatient E&M: 63375 Disch Hosp >30min
[2022-10-22] MEDS: Cholecalciferol (VIT D3) 25 MCG TABLET (1,000 UNITS) PO (09:10)
[2022-10-22] MEDS: predniSONE 20 MG Tablet 40 MG PO (09:10)
[2022-10-22] MEDS: Insulin Lispro 100 UNIT/ML INSULN.PEN 8 UNIT SC (09:12)
[2022-10-22] MEDS: Insulin NPH Human 100 UNITS/ML PEN 6 UNITS SC (09:14)
[2022-10-22 09:15] LABS: Bedside Glucose 195 mg/dL (74-106)
--- NOTE | 2022-10-22 10:15 | CASEMGMT ---
LISSETH FERRER Face to Face with patient for initial transition planning/care coordination assessment. RN CM introduced self and role at [facility]. Patient sitting in chair, alert and oriented. Patient willing to participate in assessment and is able to answer all questions appropriately. Care providers, pharmacy, and demographics verified. Patient wishes to discharge home, denies need for home health at this time. Patient states she has no further needs or concerns at this time. CM to follow for discharge planning needs that may arise. PCP: [facility] Specialists: Gadiel, control room tender; Patrice, screen repairer crusher Ana; Virgilio, a r collections rep Jarred Preferred Pharmacy: [facility]: [facility] [place] Benefit: yes Living Will/HPOA: yes, Lamar Domingo LNOK: Living Arrangements: Patient lives with in a single story home with 1 step to enter the home. Patient is independent at home. Transportation: DME/HHC: Patient has shower chair, grab bars, walker, pulse ox, and home oxygen through [facility] 4-6 lpm. No previous HHC or SNF Disposition Plan: Patient to discharge home with family support and follow-up plans in place. Chitra IRVIN, RN, CM
[2022-10-22] MEDS: Losartan Potassium 50 MG Tablet PO (11:02)
[2022-10-22] MEDS: amLODIPine 10 MG Tablet PO (11:02)
[2022-10-22] MEDS: Cholestyramine/Sucrose 4 GM/PACKET PO (11:58)
[2022-10-22] MEDS: Insulin Lispro 100 UNIT/ML INSULN.PEN 6 UNIT SC (11:59)
[2022-10-22] MEDS: Ipratropium/Albuterol Sulfate 3 ML AMPUL.NEB INHALATION (12:11)
[2022-10-22 12:20] LABS: Bedside Glucose 253 mg/dL (74-106)
== END 2022-10-22 13:31 | disposition home or self-care (01) | DRG 291 ==
LOC: ED 19:18 → PCU 20:10
PROVIDERS: Admitting Provider Student in an Organized Health Care Education/Training Program; Emergency Provider Student in an Organized Health Care Education/Training Program; PCP Family Medicine; Visit Provider Internal Medicine
DX: I13.0 Hypertensive heart and chronic kidney disease with heart failure and stage 1 through stage 4 chronic kidney disease, or unspecified chronic kidney disease (principal); I50.33 Acute on chronic diastolic (congestive) heart failure; E87.0 Hyperosmolality and hypernatremia; N17.9 Acute kidney failure, unspecified; J96.11 Chronic respiratory failure with hypoxia; N18.4 Chronic kidney disease, stage 4 (severe); J44.1 Chronic obstructive pulmonary disease with (acute) exacerbation; Z68.42 Body mass index [BMI] 45.0-49.9, adult; E11.22 Type 2 diabetes mellitus with diabetic chronic kidney disease; E66.01 Morbid (severe) obesity due to excess calories; Z79.4 Long term (current) use of insulin; E78.5 Hyperlipidemia, unspecified; E87.8 Other disorders of electrolyte and fluid balance, not elsewhere classified; I25.10 Atherosclerotic heart disease of native coronary artery without angina pectoris; Z79.82 Long term (current) use of aspirin; Z79.899 Other long term (current) drug therapy; Z99.81 Dependence on supplemental oxygen; F32.A Depression, unspecified
CPT/HCPCS: 36415; 36600; 71045; 71250; 80048; 80061; 82803; 82962; 83880; 84484; 85025; 93005; 94640; 97162; 97166; 97535; 97802; 99284; A4216; J1940

== ENCOUNTER 2022-12-05 13:06 | Inpatient (IN) | payer MEDICARE, OTHER, SELFPAY ==
[2022-12-05] VITALS (12 sets, daily range): BP systolic 142–194; BP diastolic 45–68; PULSE 60–76; RESP 17–22; TEMP 35.9–37.1; O2SAT 91–100; BMI 47.2; BMI 50.3
--- NOTE | 2022-12-05 13:22 | EKG12_ITS ---
Test Reason : SOB Blood Pressure : / mmHG Vent. Rate : 070 BPM Atrial Rate : 070 BPM P-R Int : 246 ms QRS Dur : 082 ms QT Int : 380 ms P-R-T Axes : 030 020 083 degrees QTc Int : 410 ms Sinus rhythm with 1st degree A-V block Low voltage QRS Borderline ECG Confirmed by DECLAN DEVLIN, MARCO ([id number]), acquisition editor MILLER PEREZ ([id number]) on 12/07/2022 12:36:05 PM Referred By: Confirmed By:MARCO MANRIQUEZ MD
--- NOTE | 2022-12-05 13:22 | RAD_ITS ---
INDICATION: sob EXAMINATION/TECHNIQUE: X-RAY - XR Chest 2 Views COMPARISON: 10/20/2022. FINDINGS: LINES/DEVICES: None. LUNGS: Mild elevation of the right hemidiaphragm. Hypoventilatory changes. No focal infiltrate is definitely seen. No evidence of pleural effusions. MEDIASTINUM AND CARDIOVASCULAR STRUCTURES: Borderline cardiac silhouette. Surgical clips in right axilla. BONES AND SOFT TISSUES: Degenerative changes of the thoracic spine. RAD/Chest PA and Lateral IMPRESSION: No radiographic evidence of acute cardiopulmonary disease. Electronically Signed: Justin Brush MD at 14:15 EDT ,
--- NOTE | 2022-12-05 13:26 | EDS_ITS ---
<Statement entered by Sloane Strange MD - 12/05/22 17:35> Pt seen & evaluated w/SIMÓN. I personally interviewed & exam the pt. I was involved in all aspects of pt's orders, interpretation of results & treatment Patient presents secondary to shortness of breath. She does have a history of COPD and CHF. She reports increasing shortness of breath for the past week. She has had to increase her home oxygen, especially with any ambulation. She states even then her oxygen levels dropped low. Patient sitting upright in bed no acute distress. Head and neck examination is unremarkable. Heart is regular rate and rhythm. Lung sounds are slightly diminished at the bases. No wheezing appreciated. Abdomen is soft, obese, nontender. Lower extremity examination reveals 3-4+ bilateral symmetric edema. EKG reveals no acute ischemia. Chest x-ray per my interpretation reveals mild fluid overload. No infiltrate. Lab work consistent with acute kidney injury and hyperkalemia. Medication for hyperkalemia is ordered. Patient is discussed with hospitalist and plan will be admission. HPI History of Present Illness Chief Complaint: Shortness of Breath Narrative Narrative: Patient is an 82-year-old female with history of obesity, CHF, COPD who wears anywhere from 2 to 4 L of nasal cannula oxygen daily at home. Over the last week, she states that anytime she gets up she cranks her oxygen up to 7-8. Patient states she will only take a couple steps that she drops into the 80s. She states she is having difficulty getting around at home. She denies any recent fevers or chills. She does feel that she is holding onto fluid because she feels heavier however she had not weighed herself. She does come here with her , patient's last admission for hypoxia was in October 2022. [facility] Medical History CAD (coronary artery disease) COPD (chronic obstructive pulmonary disease) HLD (hyperlipidemia) HTN (hypertension) Home Medications Lactobacillus acidophilus 10 billion cell capsule (Probiotic) 10,000 mmu cells PO DAILY immune health 09/03/21 [History Last Taken 09/03/21] amlodipine 5 mg tablet 5 mg PO DAILY bp 09/03/21 [History Last Taken 09/03/21] aspirin 81 mg tablet 81 mg PO QHS heart health 09/03/21 [History Last Taken 09/02/21] budesonide-formoterol HFA 160 mcg-4.5 mcg/actuation aerosol inhaler 2 puff inhalation BID sob 09/03/21 [History Last Taken 09/03/21] carvedilol 25 mg tablet 25 mg PO BIDCM heart 09/03/21 [History Last Taken 09/03/21] cholecalciferol (vitamin D3) 25 mcg (1,000 unit) capsule 25 mcg PO BID supplement 09/03/21 [History Last Taken 09/03/21] cholestyramine (with sugar) 4 gram powder for susp in a packet 1 ea PO DAILY 09/03/21 [History Last Taken 09/03/21] cyanocobalamin (vitamin B-12) 1,000 mcg tablet 1,000 mcg PO DAILY supplement 09/03/21 [History Last Taken 09/03/21] insulin NPH isoph U-100 human 100 unit/mL (3 mL) subcutaneous pen 6 unit subcut BREAKFAST dm 09/03/21 [History Last Taken 09/03/21] insulin NPH isoph U-100 human 100 unit/mL (3 mL) subcutaneous pen 7 - 20 unit subcut QHS dm 09/03/21 [History Last Taken 09/02/21] insulin aspart U-100 100 unit/mL (3 mL) subcutaneous pen (Novolog FlexPen U-100 Insulin aspart) 6 unit subcut LUNCH dm 09/03/21 [History Last Taken 09/02/21] insulin aspart U-100 100 unit/mL (3 mL) subcutaneous pen (Novolog FlexPen U-100 Insulin aspart) 8 unit subcut BREAKFAST dm 09/03/21 [History Last Taken 09/03/21] insulin aspart U-100 100 unit/mL (3 mL) subcutaneous pen (Novolog FlexPen U-100 Insulin aspart) 14 unit subcut DINNER dm 09/03/21 [History Last Taken 09/02/21] losartan 100 mg tablet 100 mg PO DAILY heart 09/03/21 [History Last Taken 09/03/21] mirtazapine 45 mg tablet 45 mg PO QHS sleep 09/03/21 [History Last Taken 09/02/21] pravastatin 40 mg tablet 40 mg PO DAILY cholesterol 09/03/21 [History Last Taken 09/03/21] sertraline 100 mg tablet 100 mg PO BID depression 09/03/21 [History Last Taken 09/03/21] sucralfate 1 gram tablet 1 g PO TIDCM stomach 09/03/21 [History Last Taken 09/03/21] furosemide 20 mg tablet 40 mg (2 x 20 mg) PO BIDCM fluid #120 tabs 09/08/21 [Rx Last Taken Unknown] albuterol sulfate 90 mcg/actuation aerosol inhaler 2 inh inhalation Q6H PRN shortness of breath or wheezing #8.5 grams 10/22/22 [Rx Last Taken Unknown] hydralazine 50 mg tablet 50 mg PO TID 30 days #90 tabs 10/22/22 [Rx Last Taken Unknown] prednisone 20 mg tablet 40 mg (2 x 20 mg) PO DAILY 4 days #8 tabs 10/22/22 [Rx Last Taken Unknown] Allergy/AdvReac Type Severity Reaction Status Date / Time levofloxacin [From Levaquin] AdvReac Other Verified 12/05/22 13:10 procaine [From Novocain] AdvReac Other Verified 12/05/22 13:10 Family History (Updated 10/20/22 @ 21:52 by Citlaly Munoz) Mother No cardiac disease Diabetes Father No cardiac disease Daughter Breast cancer Surgical History S/P breast lumpectomy S/P cholecystectomy Social History (Updated 10/20/22 @ 21:52 by Citlaly Munoz) household members: spouse number of children: 2 current occupational status: retired Smoking Status: Never smoker alcohol intake: never substance use type: does not use ROS ROS ED ROS Narrative Constitutional: Negative for fever, chills, weight loss,. Positive generalized weakness Eyes: Negative for vision loss, vision change, double vision ENT: Negative for any sore throat, ear pain, congestion Cardiovascular: Negative for any chest pain, tightness, palpitations Respiratory: Negative for any cough, sputum production, hemoptysis. Positive for dyspnea, dyspnea on exertion, orthopnea Gastrointestinal: Negative for any abdominal pain, nausea, vomiting, diarrhea, constipation, blood in stool, blood in vomit : Negative for any urinary frequency, dysuria, retention, blood in urine Muscle skeletal: Negative for any muscle joint pain, stiffness, myalgias, arthralgias, neck pain, back pain. Positive bilateral leg swelling Neurological: Negative for any headache, syncope, numbness or tingling, dizziness Skin: Negative for any rashes, lumps, itching, abrasions, lacerations Psychiatric: Negative for any depression, anxiety, stress, suicidal ideation, homicidal ideation Hematologic: Negative for any easy bruising, excessive bruising, easy bleeding Allergies: Negative for any eczema, hives, rash EXAM Physical Exam Narrative Exam Narrative: Vital signs reviewed. Patient at rest on 4 L nasal cannula oxygen is at 91%. Patient does have some conversational dyspnea. HEET: Head normocephalic atraumatic, TMs clear bilaterally. Posterior pharynx is clear, moist mucous membranes. Nares clear bilaterally. Neck: Supple with no lymphadenopathy or tenderness. No signs of meningismus, negative jolt sign. Cardiac: Regular rate and rhythm no murmurs gallops or rubs, equal peripheral pulses bilaterally. Respiratory: Due to the large body habitus, examination is difficult however patient does have diminished lung sounds with bilateral expiratory wheezes at the bases.. No chest tenderness. Abdomen: Soft, nontender, nondistended. No abdominal bruit or pulsatile masses. No hepatosplenomegaly. Abdomen is large Extremities: patient does have +2-3 pitting edema she states that her legs are normally swollen however not this severe, no signs of gross trauma or deformity. Active full range of motion of all extremities. Neuro: Cranial nerves II through XII intact, no focal neurological deficits. Skin: Clean dry and intact with no rash, purpura, petechiae, vesicles or pustules. Backs/flank: No CVA tenderness, no midline spinal tenderness, no deformity. Psych: Normal mood and affect. No SI, HI or acute psychosis. Const Vital Signs: 12/05/22 13:07 12/05/22 13:20 12/05/22 13:25 Temperature 98 F Temperature Source Temporal Pulse Rate 76 Respiratory Rate 18 Respiratory Effort Labored Respiratory Depth Normal Respiratory Pattern Normal Blood Pressure 194/55 H Blood Pressure Mean 101 Pulse Ox 100 91 Oxygen Delivery Method Nasal Cannula Nasal Cannula Oxygen Flow Rate (L/min) 7 4 12/05/22 13:36 12/05/22 14:23 Temperature 98 F Temperature Source Temporal Pulse Rate 67 70 Respiratory Rate 17 20 H Respiratory Effort Respiratory Depth Respiratory Pattern Normal Blood Pressure 154/52 H Blood Pressure Mean 86 Pulse Ox 94 Oxygen Delivery Method Nasal Cannula Oxygen Flow Rate (L/min) 4 Positive well nourished, well developed and obese General Appearance ED: well developed Nutritional Appearance: obese MDM MDM Lab Data Labs: Laboratory Results - last 24 hr 12/05/22 13:48 WBC 7.3 RBC 3.28 L Hgb 10.0 L Hct 32.0 L MCV 97.6 MCH 30.5 MCHC 31.3 L RDW Std Deviation 46.4 H RDW Coeff of Lucas 13.0 Plt Count 213 MPV 10.2 Neut % (Auto) Not Reportable Absolute Neuts (auto) 6.1 Absolute Lymphs (auto) 0.51 L Total Counted 100 Neutrophils % (Manual) 80 H Band Neutrophils % 3 Lymphocytes % (Manual) 7 L Monocytes % (Manual) 6 Myelocytes % 4 H Diff Path Review May foll Platelet Estimate ADEQUATE RBC Morphology NORM C+C Sodium 129 L Potassium 5.9 H Chloride 101 Carbon Dioxide 20.0 L Anion Gap 8 BUN 107 H* Creatinine 4.28 H Estim Creat Clear Calc 7.78 Est GFR (MDRD) Af Amer 13 L Est GFR (MDRD) Non-Af 11 L BUN/Creatinine Ratio 25.0 H Glucose 233 H Calcium 8.6 Troponin I High Sens 20 B-Natriuretic Peptide 296.3 H Radiography Diagnostic Testing: Clinical Impression(s) from Imaging Studies Chest X-Ray 12/05/22 13:22 IMPRESSION: No radiographic evidence of acute cardiopulmonary disease. Electronically Signed: Justin Brush MD at 14:15 EDT , EKG Sinus rhythm with first-degree AV block,: Attestation: I personally reviewed and interpreted this EKG as follows: Interpretation: Sinus Rhythm Comments: Sinus rhythm with first-degree AV block, rate of 70 bpm, AK interval 256 ms, QRS duration 82 ms, no acute ST elevation, no acute infarct noted. Treatment and Re-Evaluation :: Patient arrives in mild respiratory distress, patient at rest on 4 L is 91%. Patient does show some exertional/conversational dyspnea. Differential diagnose includes COPD exacerbation, CHF exacerbation, pneumonia. Patient has no signs or symptoms of cough or infectious process. Patient will receive a respiratory work-up including a troponin, two-view chest x-ray, breathing treatments. All radiologic examinations were read, reviewed by the emergency department attending. From these reads, a plan of care will be put in place. Patient remained stable on 4 L nasal cannula. Patient did have multiple abnormal lab values, patient I do believe is in CHF exacerbation, patient had slight patient is on her chest x-ray however it showed no acute infiltrate. Patient's BNP was elevated at 296.3. Patient does appear to be in acute renal failure with a creatinine of 4.28, BUN of 107 which is critical high. Patient's potassium was 5.9 with a sodium of 129. Patient will receive 500 cc of normal saline because I do believe the patient is third spacing. Patient repeat EKG was unremarkable, she will receive medications to decrease her potassium. A Buchanan catheter was ordered however patient was a difficult candidate for a Buchanan catheter, a pure wick was applied. Patient will need to be admitted to the hospital, I spoke with hospitalist who will accept this patient. At this time, patient be diagnosed with CHF exacerbation, acute renal failure, hyperkalemia, fluid overload. Patient stable for admission Discharge Plan Dx/Rx/DC Orders Clinical Impression: Acute exacerbation of congestive heart failure, Acute renal failure, Hypoxia, Acute hyponatremia, Fluid overload, Acute hyperkalemia Disposition Disposition: [facility]
[2022-12-05] MEDS: Ipratropium/Albuterol Sulfate 3 ML AMPUL.NEB INHALATION ×2 (13:35→20:11)
[2022-12-05] MEDS: Albuterol 2.5 MG/3 ML VIAL.NEB. INHALATION (13:35)
[2022-12-05 13:56] LABS: Mean Corp Hgb Conc 31.3 g/dL (32-36); Mean Corpuscular Hgb 30.5 pg (27.0-32.0); Mean Corpuscular Volume 97.6 fL (81-99); Mean Platelet Vol. 10.2 fl (6.2-12.0); POSITIVE COUNT YES; POSITIVE DIFFERENTIAL YES; POSITIVE MORPHOLOGY YES; Platelet Count 213 K/mm3 (150-450); RBC Distribution Width SD 46.4 fl (35.1-43.9); Red Blood Count 3.28 M/mm3 (4.2-5.4); White Blood Count 7.3 K/mm3 (4.4-11.0)
[2022-12-05 13:58] LABS: Differential Indicated MANUAL DIFF
[2022-12-05 14:21] LABS: Lymphocyte 7 % (19-41); Monocyte 6 % (0-10); Myelocyte 4 % (0-0); Neutrophil-Band 3 % (0-5); Neutrophil-Segmented 80 % (47-70); Total Cells Counted 100 (MANUAL DIFF)
[2022-12-05 14:22] LABS: Platelet Estimate ADEQUATE (ADEQ); Red Cell Morphology NORM C+C NORMAL (NORM C&C)
[2022-12-05 14:23] LABS: BNP,B-Type NATRIURETIC PEPTIDE 296.3 pg/mL (0-100)
[2022-12-05 14:24] LABS: Absolute Lymphocyte Count 0.51 X10^3/uL (0.83-4.51); Absolute Neutrophil Count 6.1 X10^3/uL (2.0-7.7)
[2022-12-05 14:34] LABS: Anion Gap 8 (5-15); BUN 107 mg/dL (7-18); Calcium,Total 8.6 mg/dL (8.5-10.1); Chloride 101 mmol/L (98-107); Creatinine, Serum 4.28 mg/dL (0.55-1.02); EST Glomerular Filtration Rate 11 mL/min (>60); Est Glom Filt Rate - Afr Amer 13 mL/min (>60); Estimated Creatinine Clearance 7.78 ml/min; Glucose 233 mg/dL (74-106); Potassium 5.9 mmol/L (3.5-5.1); Sodium Level 129 mmol/L (136-145); Troponin-I HS 20 pg/mL (3.0-54.0)
--- NOTE | 2022-12-05 14:39 | EKG12_ITS ---
Test Reason : REPEAT Blood Pressure : / mmHG Vent. Rate : 066 BPM Atrial Rate : 066 BPM P-R Int : 238 ms QRS Dur : 078 ms QT Int : 386 ms P-R-T Axes : 015 021 077 degrees QTc Int : 404 ms Sinus rhythm with 1st degree A-V block Low voltage QRS Borderline ECG Confirmed by DECLAN DEVLIN, MARCO ([id number]), restaurant expeditor MILLER PEREZ ([id number]) on 12/07/2022 12:36:34 PM Referred By: Confirmed By:MARCO MANRIQUEZ MD
[2022-12-05] MEDS: Albuterol 2.5 MG/3 ML VIAL.NEB. 10 MG INHALATION (15:18)
--- NOTE | 2022-12-05 15:29 | ED.RN ---
multiple attempts to place catheter. unable. purewick placed. Dr Strange notified.
--- NOTE | 2022-12-05 15:34 | NURSING ---
PCU [facility] ACUTE RENAL FAILURE, HYPERKALEMIA
--- NOTE | 2022-12-05 15:34 | PCM.HP.STD ---
HPI - General General Date of Admission: 12/05/22 Date of Service: 12/05/22 Chief Complaint: Worsening SOB HPI Narrative Cristin Lane is an 82-year-old female with history of COPD with chronic hypoxia on 4 L O2 at baseline, CKD stage IV, type 2 diabetes mellitus, hypertension, depression who presented to [facility] 12/05/2022 for shortness of breath and requiring increasing O2 amounts at home. She reports she was in her usual health until about a week ago when she has had increased breath primarily on exertion and has had to increase her O2 intermittently to 7 or 8 L when moving around. Denies cough, does feel her legs have been somewhat more swollen and she does not weigh herself but she suspect she has probably gained weight. Does report recently having some increased anxiety and was prescribed hydroxyzine 3 times a day which she just filled yesterday, also notes she has been off Ozempic for 1 week because she was not feeling well on it. Does note she is taking Lasix 60 mg in the morning and 40 mg in the evening and has been doing so for the last couple months, follows with Dr. Poole in [place] for her nephrology and does not note any recent problems or changes. Did have diarrhea for couple days as well and had 1 episode of nausea when she was in the car on her way here however has not had any further nausea and did not have any vomiting. No abdominal pain. Denies chest pain. No known sick contacts or fevers or chills. Feels somewhat tired and weak overall. Reports she does not feel she has increased shortness of breath while just sitting there but if she got up and moved around she thinks she would continue to have increased shortness of breath. [facility] Medical History (Updated 12/05/22 @ 16:[address] Silvia Henry MD) CAD (coronary artery disease) CKD (chronic kidney disease), stage IV COPD (chronic obstructive pulmonary disease) Diabetes mellitus, type 2 HLD (hyperlipidemia) HTN (hypertension) Home Medications Lactobacillus acidophilus 10 billion cell capsule (Probiotic) 10,000 mmu cells PO DAILY immune health 09/03/21 [History Last Taken 09/03/21] amlodipine 5 mg tablet 5 mg PO DAILY bp 09/03/21 [History Last Taken 09/03/21] aspirin 81 mg tablet 81 mg PO QHS heart health 09/03/21 [History Last Taken 09/02/21] budesonide-formoterol HFA 160 mcg-4.5 mcg/actuation aerosol inhaler 2 puff inhalation BID sob 09/03/21 [History Last Taken 09/03/21] carvedilol 25 mg tablet 25 mg PO BIDCM heart 09/03/21 [History Last Taken 09/03/21] cholecalciferol (vitamin D3) 25 mcg (1,000 unit) capsule 25 mcg PO BID supplement 09/03/21 [History Last Taken 09/03/21] cholestyramine (with sugar) 4 gram powder for susp in a packet 1 ea PO DAILY 09/03/21 [History Last Taken 09/03/21] cyanocobalamin (vitamin B-12) 1,000 mcg tablet 1,000 mcg PO DAILY supplement 09/03/21 [History Last Taken 09/03/21] insulin NPH isoph U-100 human 100 unit/mL (3 mL) subcutaneous pen 6 unit subcut BREAKFAST dm 09/03/21 [History Last Taken 09/03/21] insulin NPH isoph U-100 human 100 unit/mL (3 mL) subcutaneous pen 7 - 20 unit subcut QHS dm 09/03/21 [History Last Taken 09/02/21] insulin aspart U-100 100 unit/mL (3 mL) subcutaneous pen (Novolog FlexPen U-100 Insulin aspart) 6 unit subcut LUNCH dm 09/03/21 [History Last Taken 09/02/21] insulin aspart U-100 100 unit/mL (3 mL) subcutaneous pen (Novolog FlexPen U-100 Insulin aspart) 8 unit subcut BREAKFAST dm 09/03/21 [History Last Taken 09/03/21] insulin aspart U-100 100 unit/mL (3 mL) subcutaneous pen (Novolog FlexPen U-100 Insulin aspart) 14 unit subcut DINNER dm 09/03/21 [History Last Taken 09/02/21] losartan 100 mg tablet 50 mg PO DAILY heart 09/03/21 [History Last Taken 09/03/21] mirtazapine 45 mg tablet 45 mg PO QHS sleep 09/03/21 [History Last Taken 09/02/21] pravastatin 40 mg tablet 40 mg PO DAILY cholesterol 09/03/21 [History Last Taken 09/03/21] sertraline 100 mg tablet 100 mg PO BID depression 09/03/21 [History Last Taken 09/03/21] sucralfate 1 gram tablet 1 g PO TIDCM stomach 09/03/21 [History Last Taken 09/03/21] albuterol sulfate 90 mcg/actuation aerosol inhaler 2 inh inhalation Q6H PRN shortness of breath or wheezing #8.5 grams 10/22/22 [Rx Last Taken Unknown] hydralazine 50 mg tablet 50 mg PO TID 30 days #90 tabs 10/22/22 [Rx Last Taken Unknown] prednisone 20 mg tablet 40 mg (2 x 20 mg) PO DAILY 4 days #8 tabs 10/22/22 [Rx Last Taken Unknown] furosemide 20 mg tablet 40 mg PO DINNER fluid 12/05/22 [History Last Taken Unknown] furosemide 40 mg tablet 60 mg PO DAILY 12/05/22 [History Last Taken Unknown] Allergy/AdvReac Type Severity Reaction Status Date / Time levofloxacin [From Levaquin] AdvReac Other Verified 12/05/22 13:10 procaine [From Novocain] AdvReac Other Verified 12/05/22 13:10 Family History (Updated 10/20/22 @ 21:52 by Citlaly Munoz) Mother No cardiac disease Diabetes Father No cardiac disease Daughter Breast cancer Surgical History S/P breast lumpectomy S/P cholecystectomy Social History (Updated 10/20/22 @ 21:52 by Citlaly Munoz) household members: spouse number of children: 2 current occupational status: retired Smoking Status: Never smoker alcohol intake: never substance use type: does not use ROS ROS Narrative General: Denies fever/chills HENT: Denies headache, denies stuffy nose, denies sore throat EYES: Chronic changes in vision over time Resp: Denies cough, has had increasing shortness of breath on exertion Cardiac: Denies chest pain GI: Denies abdominal pain, has had several episodes of diarrhea, has had 1 episode of nausea that is resolved : Has had some decreased urination recently Extremity: Increased swelling in lower extremities MSK: Feels generally weak Neuro: Some chronic right finger tingling Heme: Denies any bleeding or bruising Skin: Denies rashes Psychiatric: Has been more anxious lately Vital Signs Vital Signs Vital Signs: 12/05/22 13:07 12/05/22 13:20 12/05/22 13:25 Temperature 98 F Temperature Source Temporal Pulse Rate 76 Respiratory Rate 18 Respiratory Effort Labored Respiratory Depth Normal Respiratory Pattern Normal Blood Pressure 194/55 H Blood Pressure Mean 101 Pulse Ox 100 91 Oxygen Delivery Method Nasal Cannula Nasal Cannula Oxygen Flow Rate (L/min) 7 4 12/05/22 13:36 12/05/22 14:23 Temperature 98 F Temperature Source Temporal Pulse Rate 67 70 Respiratory Rate 17 20 H Respiratory Effort Respiratory Depth Respiratory Pattern Normal Blood Pressure 154/52 H Blood Pressure Mean 86 Pulse Ox 94 Oxygen Delivery Method Nasal Cannula Oxygen Flow Rate (L/min) 4 Weight Weight: 113.398 kg Body Mass Index (BMI) 47.2 Physical Exam Narrative General: Alert, no apparent distress HEENT: Atraumatic, normocephalic Eyes: Anicteric, normal conjunctiva, extraocular movements grossly intact Neck: Supple Respiratory: Normal respiratory effort when sitting and resting comfortably, not conversationally dyspneic, is diminished bilaterally with some crackles at the bases Cardiovascular: Regular rate and rhythm GI: Soft, nontender, nondistended Extremities: 1+ bilateral lower extremity pitting edema Musculoskeletal: Moving all extremities Neuro: No overt focal neurological deficits Skin: No rashes appreciated Psych: Cooperative Results Lab / Micro Data 12/05/22 13:48 12/05/22 13:48 Labs: Laboratory Results - last 24 hr 12/05/22 13:48: WBC 7.3, RBC 3.28 L, Hgb 10.0 L, Hct 32.0 L, MCV 97.6, MCH 30.5, MCHC 31.3 L, RDW Std Deviation 46.4 H, RDW Coeff of Lucas 13.0, Plt Count 213, MPV 10.2, Neut % (Auto) Not Reportable, Absolute Neuts (auto) 6.1, Absolute Lymphs (auto) 0.51 L, Total Counted 100, Neutrophils % (Manual) 80 H, Band Neutrophils % 3, Lymphocytes % (Manual) 7 L, Monocytes % (Manual) 6, Myelocytes % 4 H, Diff Path Review October, Platelet Estimate ADEQUATE, RBC Morphology NORM C+C, Sodium 129 L, Potassium 5.9 H, Chloride 101, Carbon Dioxide 20.0 L, Anion Gap 8, BUN 107 H*, Creatinine 4.28 H, Estim Creat Clear Calc 7.78, Est GFR (MDRD) Af Amer 13 L, Est GFR (MDRD) Non-Af 11 L, BUN/Creatinine Ratio 25.0 H, Glucose 233 H, Calcium 8.6, Troponin I High Sens 20, B-Natriuretic Peptide 296.3 H Radiology Impression Chest X-Ray 12/05/22 13:22 IMPRESSION: No radiographic evidence of acute cardiopulmonary disease. Electronically Signed: Justin Brush MD at 14:15 EDT , Assessment & Plan Assessment/Plan (1) Hypoxia: (2) Acute hyponatremia: (3) Acute hyperkalemia: (4) Diabetes mellitus, type 2: QUALIFIERS: Diabetes mellitus terminal carman insulin use: with terminal carman use Diabetes mellitus complication status: with kidney complications Diabetes mellitus complication detail: with chronic kidney disease Chronic kidney disease stage: stage 4 (severe) Qualified Code(s): E11.22 - Type 2 diabetes mellitus with diabetic chronic kidney disease; N18.4 - Chronic kidney disease, stage 4 (severe); Z79.4 - intermission coordinator (current) use of insulin PLAN: Plan #Acute on chronic hypoxic respiratory failure in the setting of COPD on 4 L home O2 with concerns for possible fluid overload -Increasing shortness of breath over the past week -BNP 296, Troponin negative -Chest x-ray read with no radiographic evidence of acute pulmonary disease however on review of films of both PA and lateral concern for possible pulmonary edema though film does have poor penetration -Lasix were held in the ED and patient was given fluids, may need IV diuresis however, fluid studies pending to assess underlying reason for LINDA and intravascular fluid status -Nebs, however no significant wheezing so we will hold off on antibiotics and steroids -We will obtain respiratory panel and COVID -Does not have signs/symptoms consistent with bacterial infection, will hold on any empiric antibiotics -Most recent echo 09/05/1931 with EF of 60% and no evidence of diastolic dysfunction and no regional wall motion abnormalities, unable to estimate PASP but remarked that it is probably normal -We will repeat echo -BiPAP nightly and as needed if any further desaturation or increased work of breathing #LINDA on CKD stage IV with uremia -Creatinine on discharge 10/22/2022 was 1.96, on admission today it was 4.28 with a BUN of 107 -Hold home losartan -Obtain renal ultrasound and urine studies -Buchanan catheter attempted to be placed in the ED due to low urine output, kidney function, I's and O's however this was not placed excessively, will bladder scan -Nephrology consulted #Hyperkalemia -Likely secondary to LINDA in addition to losartan use -Admit to tele -EKG in ED with heart rate of [address]/T wave changes from previous -Received K albuterol and insulin in ED, will also give Kayexalate -Trend BMP #Hyponatremia -Unclear chronicity as last sodium in our system was in October, asymptomatic -Will check urine studies and serum osm dependent versus underlying etiology -Trend BMP #Type 2 diabetes mellitus -Glucose checks and sliding scale insulin -Continue NPH -We will need to clarify home insulin regimen #DVT ppx: SCDs due to kidney function concern for worsening hyperkalemia with heparin Silvia Henry MD Time spent in the patient's overall evaluation,decision-making process, review of diagnostic data, adjustment of management, discussion with other providers, nursing nursing and ancillary staff involved in patient's care documentation, 75 minutes Charges/Coding Visit Charges Inpatient E&M: 37906 Init Hosp L3
[2022-12-05] MEDS: Dextrose 50%-Water 25 GM/50 ML DISP.SYRIN IV (15:35)
[2022-12-05] MEDS: Insulin Lispro 10 UNIT in Syringe 0 ML 6 UNIT IV ×2 (15:36→21:21)
--- NOTE | 2022-12-05 15:51 | US_ITS ---
STUDY: RENAL ULTRASOUND - COMPLETE REASON FOR EXAM: Female, 82 years old. Worsening renal function TECHNIQUE: Ultrasound evaluation of the kidneys was performed with real-time and static dockery-scale imaging. COMPARISON: None. FINDINGS: RIGHT KIDNEY: Normal location of the right kidney, which is normal in size. The right kidney measures 12.4 cm x 5.9 cm x 6.4 cm. There is a normal cortex of the right kidney. The renal cortex measures 1.6 cm. There is no right renal mass or cyst. There are no right renal calculi. There is no right hydronephrosis. DISTAL RIGHT URETER: There is non-visualization of the distal right ureter. There is no demonstrated right ureterovesical junction calculus. There is no demonstrated right ureteral jet. LEFT KIDNEY: Normal location of the left kidney, which is normal in size. The left kidney measures 11.7 cm x 5.5 cm x 5 cm. There is a normal cortex of the left kidney. The renal cortex measures 1.7 cm. There is a 1.9 cm x 1.3 cm x 1.4 cm cyst. There are no left renal calculi. There is no left hydronephrosis. DISTAL LEFT URETER: There is non-visualization of the distal left ureter. There is no demonstrated left ureterovesical junction calculus. There is no demonstrated left ureteral jet. BLADDER: The distended urinary bladder has a volume of 16.5 ml. There is a normal wall thickness of the distended urinary bladder. There is no demonstrated mass within the urinary bladder. There are no demonstrated bladder calculi. US/Kidney and Bladder IMPRESSION: 1.9 cm x 1.3 cm x 1.4 cm left renal cyst. Electronically Signed: Rakesh Desai MD at 9:48 EDT ,
--- NOTE | 2022-12-05 15:56 | EKG12_ITS ---
Test Reason : Blood Pressure : / mmHG Vent. Rate : 061 BPM Atrial Rate : 061 BPM P-R Int : 230 ms QRS Dur : 084 ms QT Int : 408 ms P-R-T Axes : 022 017 074 degrees QTc Int : 410 ms Sinus rhythm with 1st degree A-V block with occasional Premature ventricular complexes Low voltage QRS Borderline ECG When compared with ECG of 05-DEC-2022 15:18, MANUAL COMPARISON REQUIRED, DATA IS UNCONFIRMED Confirmed by ALFREDO DEVLIN, RIP ([id number]), commissioning editor MILLER PEREZ ([id number]) on 12/09/2022 11:45:00 AM Referred By: PAULA Confirmed By:JUAN FUENTES MD
--- NOTE | 2022-12-05 17:14 | ECHOCS_ITS ---
Reason For Study: CHF Procedure This was a 2D Doppler, Color Flow transthoracic echocardiogram. The study was technically difficult. Contrast injection was performed. Exam performed portable in patient room. Left Ventricle Normal LV size. The estimated ejection fraction is 65 %. No evidence for diastolic dysfunction. No regional wall motion abnormalities noted. Right Ventricle Normal RV size. Normal systolic function. Atria The left atrium is mildly enlarged. Normal right atrium. No doppler evidence for ASD. Mitral Valve There is mild to moderate mitral annular calcification. There is no mitral valve stenosis. No mitral valve insufficiency. Tricuspid Valve There is no tricuspid stenosis. Trivial tricuspid valve insufficiency. Unable to estimate RV systolic pressure due to insufficient tricuspid regurgitant envelope. Aortic Valve Trisinus/trileaflet aortic valve. There is no aortic stenosis. No aortic valve insufficiency. Pulmonic Valve There is no pulmonic valvular stenosis. No pulmonic valve insufficiency. Great Vessels Normal aortic root. Pericardium/Pleural No pericardial effusion. Medication Diluted definity 2ml given slow IV push to enhance endocardial definition. MMode/2D Measurements & Calculations LVIDd: 5.3 cm IVSd: 0.90 cm LAV(MOD-bp): 96.2 ml LVIDs: 3.7 cm LVPWd: 1.3 cm FS: 28.8 % LAV(MOD-bp) Indexed: 45.0 ml/m2 LAV(MOD-sp2): 102.9 ml LAV(MOD-sp4): 84.9 ml SV(MOD-sp4): 106.1 ml SV(sp4-el): 106.3 ml LVAd ap4: 42.3 cm2 LVLd ap4: 8.9 cm EDV(MOD-sp4): 168.1 ml EDV(sp4-el): 170.0 ml LVAs ap4: 23.8 cm2 LVLs ap4: 7.5 cm ESV(MOD-sp4): 62.0 ml ESV(sp4-el): 63.8 ml EF(MOD-sp4): 63.1 % EF(sp4-el): 62.5 % LA dimension(2D): 4.6 cm LA A4 area: 25.4 cm2 RA A4 area: 14.5 cm2 TAPSE: 2.2 cm Doppler Measurements & Calculations MV E max jarad: 122.4 cm/sec Lat Peak E' Jarad: 10.1 cm/sec Med Peak E' Jarad: 6.1 cm/sec MV A max jarad: 154.6 cm/sec E/E' lat: 12.1 E/E' med: 20.0 MV E/A: 0.79 MV V2 max: 166.8 cm/sec MV P1/2t max jarad: 123.8 cm/sec Ao V2 max: 186.2 cm/sec MV max P.1 mmHg MV P1/2t: 52.2 msec Ao max P.9 mmHg MV V2 mean: 112.7 cm/sec Ao V2 mean: 132.7 cm/sec MV mean P.5 mmHg MV dec slope: 694.1 cm/sec2 Ao mean P.7 mmHg MV V2 VTI: 43.9 cm MVA(P1/2t): 4.2 cm2 Ao V2 VTI: 44.9 cm AV (velocity ratio): 0.66 LV V1 max: 118.1 cm/sec LV V1 max P.6 mmHg LV V1 mean P.1 mmHg LV V1 mean: 82.8 cm/sec LV V1 VTI: 29.5 cm ECHO/Echo Complete W/ Contrast Interpretation Summary The estimated ejection fraction is 65 %. No evidence for diastolic dysfunction. The left atrium is mildly enlarged. Ordering Physician: Silvia Henry Referring Physician: ANNA MARIE WILHELM Performed By: Sushma Luque RCS
[2022-12-05 17:41] LABS: AST(SGOT) 13 U/L (15-37); Alanine Aminotransfer ALT/SGPT 17 U/L (13-56); Albumin, Serum 2.7 g/dL (3.2-5.0); Alkaline Phosphatase 77 U/L (45-117); Bilirubin, Direct 0.13 mg/dL (0.00-0.30); Magnesium 2.8 mg/dL (1.6-2.6); Phosphorus 6.2 mg/dL (2.5-4.9); Protein, Total 6.7 g/dL (6.4-8.2)
[2022-12-05] MEDS: Carvedilol 25 MG Tablet PO (18:08)
[2022-12-05] MEDS: Sodium Polystyrene Sulfonate 15 GM/60 ML UDC PO ×2 (18:08→21:12)
[2022-12-05] MEDS: Insulin NPH Human 100 UNITS/ML PEN 10 UNITS SC (18:09)
[2022-12-05] MEDS: Insulin Lispro 100 UNIT/ML INSULN.PEN SC ×2 (18:13→21:12)
[2022-12-05 18:25] LABS: Bedside Glucose 234 mg/dL (74-106)
[2022-12-05 19:18] LABS: Anion Gap 8 (5-15); BUN 106 mg/dL (7-18); BUN/Creat Ratio 25.6 RATIO (10-20); Calcium,Total 7.9 mg/dL (8.5-10.1); Chloride 103 mmol/L (98-107); Creatinine, Serum 4.14 mg/dL (0.55-1.02); EST Glomerular Filtration Rate 11 mL/min (>60); Est Glom Filt Rate - Afr Amer 13 mL/min (>60); Estimated Creatinine Clearance 8.04 ml/min; Glucose 259 mg/dL (74-106); Sodium Level 131 mmol/L (136-145)
[2022-12-05] MEDS: Furosemide 40 MG/4 ML Vial IV (19:41)
[2022-12-05 19:43] LABS: Osmolality, Serum 316 mOsm/KG (280-301)
[2022-12-05] MEDS: 0.9% Saline Lock 10 ML Syringe IV ×2 (19:44→21:35)
[2022-12-05] MEDS: Aspirin 81 MG TAB.CHEW PO (21:12)
[2022-12-05] MEDS: Sertraline 100 MG Tablet PO (21:13)
[2022-12-05] MEDS: Calcium Gluconate 1 GM/10 ML Vial IVP (21:29)
[2022-12-05 21:47] LABS: Osmolality, Urine 349 mOsm/KG
[2022-12-05 21:48] LABS: Urea Nitrogen, Urine 514 mg/dL (NO RANGE EST.); Urine Chloride 11 mmol/L (Not Establ.); Urine Sodium 8 mmol/L (Not Establ.)
[2022-12-05 22:41] LABS: Anion Gap 8 (5-15); BUN 108 mg/dL (7-18); Calcium,Total 8.5 mg/dL (8.5-10.1); Chloride 104 mmol/L (98-107); Creatinine, Serum 4.16 mg/dL (0.55-1.02); EST Glomerular Filtration Rate 11 mL/min (>60); Est Glom Filt Rate - Afr Amer 13 mL/min (>60); Glucose 188 mg/dL (74-106); Sodium Level 132 mmol/L (136-145)
[2022-12-06] VITALS (11 sets, daily range): BP systolic 148–168; BP diastolic 46–62; PULSE 68–89; RESP 12–24; TEMP 36.3–36.9; O2SAT 93–98; BMI 50.7
[2022-12-06 01:26] LABS: Bedside Glucose 234 mg/dL (74-106)
[2022-12-06] MEDS: Ondansetron 4 MG/2 ML Vial IV ×2 (04:42→22:22)
[2022-12-06] MEDS: 0.9% Saline Lock 10 ML Syringe IV ×4 (04:59→22:22)
[2022-12-06 07:01] LABS: Absolute Lymphocyte Count 0.82 X10^3/uL (0.83-4.51); Absolute Neutrophil Count 6.4 X10^3/uL (2.0-7.7); Basophil# 0.04 X10^3/uL; Basophil% 0.5 % (0-1); Eosinophils% 2.3 % (0-5); Hematocrit 28.3 % (37-47); Hemoglobin 9.1 g/dL (12.0-15.0); Lymphocyte # 0.82 X10^3/ul (0.83-4.51); Lymphocyte % 9.6 % (19-41); Mean Corp Hgb Conc 32.2 g/dL (32-36); Mean Corpuscular Hgb 30.6 pg (27.0-32.0); Mean Corpuscular Volume 95.3 fL (81-99); Mean Platelet Vol. 10.2 fl (6.2-12.0); Monocyte# 0.79 X10^3/uL; Monocyte% 9.2 % (0-10); NRBC Flagged by Analyzer 0 % (0-5); Neutrophil # 6.43 X10^3/uL (2.7-7.7); Neutrophil % 75.1 % (47-70); Platelet Count 217 K/mm3 (150-450); RBC Distribution Width CV 13.3 % (11.6-14.6); RBC Distribution Width SD 46.2 fl (35.1-43.9); Red Blood Count 2.97 M/mm3 (4.2-5.4); White Blood Count 8.6 K/mm3 (4.4-11.0)
[2022-12-06] MEDS: Ipratropium/Albuterol Sulfate 3 ML AMPUL.NEB INHALATION ×3 (07:15→19:26)
[2022-12-06 07:23] LABS: Bedside Glucose 96 mg/dL (74-106)
[2022-12-06 07:42] LABS: ALB/GLOB Ratio 0.7 RATIO (0.9-2.4); AST(SGOT) 14 U/L (15-37); Alanine Aminotransfer ALT/SGPT 15 U/L (13-56); Albumin, Serum 2.5 g/dL (3.2-5.0); Alkaline Phosphatase 67 U/L (45-117); Anion Gap 7 (5-15); BUN 105 mg/dL (7-18); BUN/Creat Ratio 25.3 RATIO (10-20); Calcium,Total 8.1 mg/dL (8.5-10.1); Chloride 105 mmol/L (98-107); Cholesterol 105 mg/dL (200); Creatinine, Serum 4.15 mg/dL (0.55-1.02); EST Glomerular Filtration Rate 11 mL/min (>60); Est Glom Filt Rate - Afr Amer 13 mL/min (>60); Estimated Creatinine Clearance 8.02 ml/min; Globulin 3.7 g/dL (2.2-4.2); Glucose 80 mg/dL (74-106); High Density Lipoprotein 55 mg/dL; Magnesium 2.8 mg/dL (1.6-2.6); Protein, Total 6.2 g/dL (6.4-8.2); Sodium Level 131 mmol/L (136-145); Thyroid Stim Hormone (TSH) 2.54 uIU/mL (0.358-3.74); Triglycerides 96 mg/dL; Very Low Density Lipoprotein 19 mg/dL (5-40)
--- NOTE | 2022-12-06 08:18 | PCM.PN.HOSP ---
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 (12/05/22) Subjective Subjective Patient reports feeling better than yesterday despite increased O2 requirements and feels her shortness of breath is slightly better, overall just says she feels tired Objective Data Objective Data Vital Signs: Vital Signs Temp Pulse Resp BP Pulse Ox O2 Del Method O2 Flow Rate 97.4 F L 82 16 148/52 H 94 High Flow 10 12/06/22 03:14 12/06/22 07:17 12/06/22 07:17 12/06/22 03:14 12/06/22 07:17 12/06/22 07:17 12/06/22 07:17 Oxygen Flow Rate (L/min) 10 Oxygen Delivery Method High Flow Weight: 121.8 kg Body Mass Index (BMI) 50.7 Intake & Output: Intake and Output for Last 24 Hours 12/04/22 12/05/22 12/06/22 23:59 23:59 23:59 Intake Total 740 / 740 Output Total 150 / 150 Balance 590 / 590 Lab / Micro Data 12/06/22 05:40 12/06/22 05:40 Labs: Laboratory Results - last 24 hr 12/05/22 13:48: WBC 7.3, RBC 3.28 L, Hgb 10.0 L, Hct 32.0 L, MCV 97.6, MCH 30.5, MCHC 31.3 L, RDW Std Deviation 46.4 H, RDW Coeff of Lucas 13.0, Plt Count 213, MPV 10.2, Neut % (Auto) Not Reportable, Absolute Neuts (auto) 6.1, Absolute Lymphs (auto) 0.51 L, Total Counted 100, Neutrophils % (Manual) 80 H, Band Neutrophils % 3, Lymphocytes % (Manual) 7 L, Monocytes % (Manual) 6, Myelocytes % 4 H, Diff Path Review May , Platelet Estimate ADEQUATE, RBC Morphology NORM C+C, Sodium 129 L, Potassium 5.9 H, Chloride 101, Carbon Dioxide 20.0 L, Anion Gap 8, BUN 107 H*, Creatinine 4.28 H, Estim Creat Clear Calc 7.78, Est GFR (MDRD) Af Amer 13 L, Est GFR (MDRD) Non-Af 11 L, BUN/Creatinine Ratio 25.0 H, Glucose 233 H, Calcium 8.6, Phosphorus 6.2 H, Magnesium 2.8 H, Total Bilirubin 0.30, Direct Bilirubin 0.13, AST 13 L, ALT 17, Alkaline Phosphatase 77, Troponin I High Sens 20, B-Natriuretic Peptide 296.3 H, Total Protein 6.7, Albumin 2.7 L, Globulin 4.0 12/05/22 17:40: Sodium 131 L, Potassium 6.0 H*, Chloride 103, Carbon Dioxide 20.0 L, Anion Gap 8, BUN 106 H*, Creatinine 4.14 H, Estim Creat Clear Calc 8.04, Est GFR (MDRD) Af Amer 13 L, Est GFR (MDRD) Non-Af 11 L, BUN/Creatinine Ratio 25.6 H, Glucose 259 H, Serum Osmolality 316 H, Calcium 7.9 L 12/05/22 18:06: POC Glucose 234 H 12/05/22 20:57: Urine Osmolality 349, Ur Random Sodium 8, Urine Creatinine 142.00, Urine Potassium 31.0, Urine Chloride 11, Urine Urea Nitrogen 514 12/05/22 21:10: POC Glucose 234 H 12/05/22 21:55: Sodium 132 L, Potassium 5.0, Chloride 104, Carbon Dioxide 20.0 L, Anion Gap 8, BUN 108 H*, Creatinine 4.16 H, Estim Creat Clear Calc 8.00, Est GFR (MDRD) Af Amer 13 L, Est GFR (MDRD) Non-Af 11 L, BUN/Creatinine Ratio 26.0 H, Glucose 188 H, Calcium 8.5 12/06/22 05:40: WBC 8.6, RBC 2.97 L, Hgb 9.1 L, Hct 28.3 L, MCV 95.3, MCH 30.6, MCHC 32.2, RDW Std Deviation 46.2 H, RDW Coeff of Lucas 13.3, Plt Count 217, MPV 10.2, Immature Gran % (Auto) 3.300 H, Neut % (Auto) 75.1 H, Lymph % (Auto) 9.6 L, Emery % (Auto) 9.2, Eos % (Auto) 2.3, Baso % (Auto) 0.5, Absolute Neuts (auto) 6.4, Absolute Lymphs (auto) 0.82 L, Nucleated RBC % 0, Sodium 131 L, Potassium 5.0, Chloride 105, Carbon Dioxide 19.0 L, Anion Gap 7, BUN 105 H*, Creatinine 4.15 H, Estim Creat Clear Calc 8.02, Est GFR (MDRD) Af Amer 13 L, Est GFR (MDRD) Non-Af 11 L, BUN/Creatinine Ratio 25.3 H, Glucose 80, Calcium 8.1 L, Magnesium 2.8 H, Total Bilirubin 0.30, AST 14 L, ALT 15, Alkaline Phosphatase 67, Total Protein 6.2 L, Albumin 2.5 L, Globulin 3.7, Albumin/Globulin Ratio 0.7 L, Triglycerides 96, Cholesterol 105, LDL Cholesterol 31, VLDL Cholesterol 19, HDL Cholesterol 55, TSH 2.54 12/06/22 06:55: POC Glucose 96 Micro: Microbiology 12/05/22 16:10 Mucosa - Nose Respiratory Panel (PCR) - Final 12/05/22 16:00 Nasal Secretion SARS-CoV-2 Antigen (Rapid) - Final Radiography Diagnostic Testing: Radiology Impression Chest X-Ray 12/05/22 13:22 IMPRESSION: No radiographic evidence of acute cardiopulmonary disease. Electronically Signed: Justin Brush MD at 14:15 EDT , Physical Exam Narrative General: Alert, no apparent distress HEENT: Atraumatic, normocephalic Eyes: Anicteric, normal conjunctiva, extraocular movements grossly intact Neck: Supple Respiratory: Normal respiratory effort when sitting and resting comfortably, not conversationally dyspneic, is diminished bilaterally with some crackles at the bases Cardiovascular: Regular rate and rhythm GI: Soft, nontender, nondistended Extremities: 1+ bilateral lower extremity pitting edema Musculoskeletal: Moving all extremities Neuro: No overt focal neurological deficits Skin: No rashes appreciated Psych: Cooperative Assessment & Plan Assessment/Plan (1) Hypoxia: (2) Acute hyponatremia: (3) Acute hyperkalemia: (4) Diabetes mellitus, type 2: QUALIFIERS: Chronic kidney disease stage: stage 4 (severe) Diabetes mellitus complication detail: with chronic kidney disease Diabetes mellitus complication status: with kidney complications Diabetes mellitus long-term insulin use: 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 Qualified Code(s): E11.22 - Type 2 diabetes mellitus with diabetic chronic kidney disease; N18.4 - Chronic kidney disease, stage 4 (severe); Z79.4 - 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 PLAN: Plan #Acute on chronic hypoxic respiratory failure in the setting of COPD on 4 L home O2 with concerns for possible fluid overload -Increasing shortness of breath over the past week -BNP 296, Troponin negative -Chest x-ray read with no radiographic evidence of acute pulmonary disease however on review of films of both PA and lateral concern for possible pulmonary edema though film does have poor penetration -Lasix were held in the ED and patient was given fluids, may need IV diuresis however, fluid studies pending to assess underlying reason for LINDA and intravascular fluid status -Nebs, however no significant wheezing so we will hold off on antibiotics and steroids -We will obtain respiratory panel and COVID -Does not have signs/symptoms consistent with bacterial infection, will hold on any empiric antibiotics -Most recent echo 09/05/1931 with EF of 60% and no evidence of diastolic dysfunction and no regional wall motion abnormalities, unable to estimate PASP but remarked that it is probably normal -We will repeat echo -BiPAP nightly and as needed if any further desaturation or increased work of breathing -12/06: Did not wear BiPAP overnight and had to go on high flow, bipap ordered, repeat chest x-ray read as bibasilar pneumonia however reviewed films and discussed with nephrology, seems to be consistent with pulmonary edema and fluid overload. Resumed on IV Lasix #LINDA on CKD stage IV with uremia -Creatinine on discharge 10/22/2022 was 1.96, on admission today it was 4.28 with a BUN of 107 -Hold home losartan -Obtain renal ultrasound and urine studies -Buchanan catheter attempted to be placed in the ED due to low urine output, kidney function, I's and O's however this was not placed excessively, will bladder scan -Nephrology consulted -12/06: FEUrea 13.9%, urine sodium 8 which all suggest prerenal, unclear if cardiorenal or intravascularly depleted however given x-ray, clinical status suspect cardiorenal. Discussed with temple meat cutter who also felt this was more fluid overload and cardiorenal, Lasix started. Got UA per nephro recs. #Hyperkalemia -Likely secondary to LINDA in addition to losartan use -Admit to tele -EKG in ED with heart rate of [address]/T wave changes from previous -Received K albuterol and insulin in ED, will also give Kayexalate -Trend BMP -7/2: Resolved #Hyponatremia -Unclear chronicity as last sodium in our system was in October, asymptomatic -Will check urine studies and serum osm dependent versus underlying etiology -Trend BMP -7/2: Suspect multifactorial, is improving #Type 2 diabetes mellitus -Glucose checks and sliding scale insulin -Continue NPH -We will need to clarify home insulin regimen -7/2: Continue current measures #DVT ppx: SCDs due to kidney function concern for worsening hyperkalemia with heparin Silvia Henry MD Time spent in the patient's overall evaluation,decision-making process, review of diagnostic data, adjustment of management, discussion with other providers, nursing nursing and ancillary staff involved in patient's care documentation, 37 minutes Charges/Coding Visit Charges Inpatient E&M: 58580 Subs Hosp L3
--- NOTE | 2022-12-06 08:19 | RAD_ITS ---
STUDY: X-RAY CHEST REASON FOR EXAM: Female, 82 years old. Inc O2 requirements TECHNIQUE: Single AP portable view of the chest. COMPARISON: 12/05/2022 FINDINGS: Status post right axillary lymph node dissection. Patchy alveolar opacities in the lower aspect of both lungs consistent with pneumonia. Elevated right hemidiaphragm which is unchanged for There is moderate cardiac enlargement. Normal mediastinum and parish. Normal visualized pulmonary arteries. Normal visualized aortic arch and descending thoracic aorta. Normal visualized thoracic spine. Normal visualized ribs, clavicles, and shoulders. There is no demonstrated abnormality of the visualized soft tissue structures of the upper abdomen. RAD/Chest 1 View (Portable) IMPRESSION: Patchy bibasilar pneumonia. Cardiomegaly. Electronically Signed: Ignacio Harry MD at 9:08 EDT ,
[2022-12-06 08:35] LABS: Hemoglobin A1c 7.1 % (3.8-5.6)
--- NOTE | 2022-12-06 08:39 | CON.PCM.RE_ITS ---
Assessment & Plan Assessment/Plan (1) Acute renal failure: (2) CKD (chronic kidney disease), stage IV: (3) HTN (hypertension): (4) Acute hyperkalemia: (5) Acute hyponatremia: PLAN: Plan Impression/Plan: 82-year-old woman with past history of CKD stage 4, T2DM, HTN, COPD on home O2 (4L nc),remote history of breast cancer and depression. The patient presented to the hospital on 12/05/2022 with 1 week history of progressive dyspnea and weight gain along with LINDA on CKD. The patient is being treated for volume overload with diuresis. Nephrology is following for LINDA on CKD. LINDA on CKD stage G4. The patient has CKD stage G4 possibly due to diabetic kidney disease. Baseline serum creatinine has been around 2.00 mg/dL as recently as October 2022. The patient presented with serum creatinine of 4.28 mg/dL on 12/05/2022. Suspect LINDA is secondary to cardiorenal syndrome along with possible progression of CKD. UA is reviewed. There is no significant RBCs. There is proteinuria, but she is diabetic. Low suspicion for GN or other causes of LINDA at this point. I would continue to diurese the patient with monitoring of renal function, electrolytes and volume status. Check daily weights. If LINDA is primarily due to CRS, we should see stability of renal function or e bettina improvement. Hold ARB for now since she has been hyperkalemic on presentation. There is no urgent need for kidney replacement therapy. So far, the patient tells me that she has been urinating. If there is further increase in creatinine in the next 24 hours, I will check renal ultrasound as well to make sure were not missing obstruction since she has a history of incontinence. Current medications are reviewed and are appropriate dose for her renal function. Hyperkalemia. Resolved with medical treatment. Diuresis should also help to attenuate further rise in serum potassium. Agree with holding ARB for now. Recheck potassium again tomorrow. Acute metabolic acidosis. Historical serum bicarbonate level has been around 33- 36 mmol/L. Serum bicarbonate level is 19 mmol/L today. There is some loose bowel movement with sodium polystyrene sulfonate. She also had some loose BM prior to admission as well. However, I suspect that acidemia is due to LINDA on CKD. We will continue to monitor serum bicarbonate. Hyponatremia. The patient is mildly hyponatremic with serum sodium 131 mmol/L today. She is without any worrisome symptoms of hyponatremia. I suspect hyponatremia is due to decreased EBV with heart failure. Continue current treatment of heart failure with diuresis. Nephrology plan discussed with Dr. Henry. HPI Consult Data Date of Consult: 12/06/22 HPI Narrative HPI Narrative: SANTIAGO WILHELM is a 82-year-old woman with past history of CKD stage 4, T2DM, HTN, COPD on home O2 (4L nc), and depression. The patient presented to the hospital on 12/05/2022 with 1 week history of increasing dyspnea and weight gain. On presentation, the patient was found to have serum creatinine of 4.28 mg/dL. Serum creatinine prior to admission had been around 2.0 mg/dL at baseline as recently as October 2022. The patient reports that her dyspnea has improved since admission. However, breathing is still not yet back to baseline. The patient reports nausea without vomiting for about 1 week prior to admission as well with decreased appetite. There has been no diarrhea. At baseline, she has occasional urinary continence. However, there has been no urgency, hesitancy or incontinence prior to this admission. The patient denies chronic use of NSAIDs. There is no gross hematuria or dysuria. The patient was on losartan at 50 mg/day prior to admission. She was taking furosemide 60 mg daily. FORMERLY [facility], [facility] Medical History CAD (coronary artery disease) CKD (chronic kidney disease), stage IV COPD (chronic obstructive pulmonary disease) Diabetes mellitus, type 2 HLD (hyperlipidemia) HTN (hypertension) Home Medications Lactobacillus acidophilus 10 billion cell capsule (Probiotic) 10,000 mmu cells PO DAILY immune health 09/03/21 [History Last Taken 09/03/21] amlodipine 5 mg tablet 5 mg PO DAILY bp 09/03/21 [History Last Taken 09/03/21] aspirin 81 mg tablet 81 mg PO QHS heart [facility] 09/03/21 [History Last Taken 08/06 02/26] budesonide-formoterol HFA 160 mcg-4.5 mcg/actuation aerosol inhaler 2 puff inhalation BID sob 09/03/21 [History Last Taken 09/03/21] carvedilol 25 mg tablet 25 mg PO BIDCM heart 09/03/21 [History Last Taken 09/03/21] cholecalciferol (vitamin D3) 25 mcg (1,000 unit) capsule 25 mcg PO BID supple ment 09/03/21 [History Last Taken 09/03/21] cholestyramine (with sugar) 4 gram powder for susp in a packet 1 ea PO DAILY 09/03/21 [History Last Taken 09/03/21] cyanocobalamin (vitamin B-12) 1,000 mcg tablet 1,000 mcg PO DAILY supplement 09/03/21 [History Last Taken 09/03/21] insulin NPH isoph U-100 human 100 unit/mL (3 mL) subcutaneous pen 6 unit subcut BREAKFAST dm 09/03/21 [History Last Taken 09/03/21] insulin NPH isoph U-100 human 100 unit/mL (3 mL) subcutaneous pen 7 - 20 unit subcut QHS dm 09/03/21 [History Last Taken 09/02/21] insulin aspart U-100 100 unit/mL (3 mL) subcutaneous pen (Novolog FlexPen U-100 Insulin aspart) 6 unit subcut LUNCH dm 09/03/21 [History Last Taken 09/02/21] insulin aspart U-100 100 unit/mL (3 mL) subcutaneous pen (Novolog FlexPen U-100 Insulin aspart) 8 unit subcut BREAKFAST dm 09/03/21 [History Last Taken 09/03/21] insulin aspart U-100 100 unit/mL (3 mL) subcutaneous pen (Novolog FlexPen U-100 Insulin aspart) 14 unit subcut DINNER dm 09/03/21 [History Last Taken 09/02/21] losartan 100 mg tablet 50 mg PO DAILY heart 09/03/21 [History Last Taken 09/03/21] mirtazapine 45 mg tablet 45 mg PO QHS sleep 09/03/21 [History Last Taken 09/02/21] pravastatin 40 mg tablet 40 mg PO DAILY cholesterol 09/03/21 [History Last Taken 09/03/21] sertraline 100 mg tablet 100 mg PO BID depression 09/03/21 [History Last Taken 09/03/21] sucralfate 1 gram tablet 1 g PO TIDCM stomach 09/03/21 [History Last Taken 09/03/21] albuterol sulfate 90 mcg/actuation aerosol inhaler 2 inh inhalation Q6H PRN shortness of breath or wheezing #8.5 grams 10/22/22 [Rx Last Taken Unknown] hydralazine 50 mg tablet 50 mg PO TID 30 days #90 tabs 10/22/22 [Rx Last Taken Unknown] prednisone 20 mg tablet 40 mg (2 x 20 mg) PO DAILY 4 days #8 tabs 10/22/22 [Rx Last Taken Unknown] furosemide 20 mg tablet 40 mg PO DINNER fluid 12/05/22 [History Last Taken Unknown] furosemide 40 mg tablet 60 mg PO DAILY 12/05/22 [History Last Taken Unknown] Allergy/AdvReac Type Severity Reaction Status Date / Time levofloxacin [From Levaquin] AdvReac Other Verified 12/05/22 13:10 procaine [From Novocain] AdvReac Other Verified 12/05/22 13:10 Family History Mother No cardiac disease Diabetes Father No cardiac disease Daughter Breast cancer Surgical History S/P breast lumpectomy S/P cholecystectomy Social History (Updated 12/05/22 @ 17:23 by Betzaida Del Valle) household members: spouse housing: house number of children: 2 current occupational status: retired Smoking Status: Never smoker alcohol intake: never substance use type: does not use ROS ROS Narrative Constitutional: There is no weight loss. The patient complains of fatigue and malaise patient was placed. HEENT: No visual change, double vision, scotomas. No rhinorrhea, epistaxis, or sinus pain. No tinnitus or hearing loss. No sore throat, odynophagia or gingival bleeding. Cardiovascular: See HPI. Respiratory: See HPI. Gastrointestinal: No abdominal pain, dysphagia, anorexia, nausea, vomiting, diarrhea, constipation, obstipation, hematemesis, hematochezia, melena, or tenesmus. Genitourinary: The patient has a history of incontinence. There is no dysuria, gross hematuria, polyuria, or hesitancy. Musculoskeletal: No stiffness, pain, joint swelling, decreased range of motion, crepitus, or functional deficit. Integumentary: She has pruritus. There is no rash, striae, wound, incision, acanthosis, tumors, or eczema. Neurological: No change in sight, smell, hearing, taste. There is no seizure, headache, numbness, poor balance, speech problem, cognitive disturbance. Psychiatric: No depression, anxiety, paranoia, anhedonia, or codie. Endocrine: No temperature intolerance, polydipsia, polyuria, polyphagia. Hematologic: No purpura, petechia, prolonged bleeding, or blood clots. Physical Exam Narrative General: Alert and oriented x3, NAD. HEENT: Normocephalic, atraumatic. Mucous membrane moist without erythema. PERRLA, EOMI. Hearing is intact. Neck: Supple, no JVD. Trachea is midline. No thyromegaly or lymphadenopathy. Cardiovascular: Normal S1, S2. No rubs, murmurs, or gallops. Respiratory: Crackles at bases on auscultation bilaterally. Abdomen: Normal bowel sounds, soft, nontender, no guarding or rebound, no org anomegaly. Extremities: No clubbing or cyanosis. There is 2+ edema of the lower extremities bilaterally. Musculoskeletal: Full passive range of motion, no joint swelling. Psychiatric: Normal mood and affect. Skin: Warm and dry, no rash. Neurologic: Cranial nerve II to XII are grossly intact. No focal neurologic deficits. Lab / Micro Data 12/06/22 05:40 12/06/22 05:40 Labs: Laboratory Results - last 24 hr 12/05/22 13:48: WBC 7.3, RBC 3.28 L, Hgb 10.0 L, Hct 32.0 L, MCV 97.6, MCH 30.5, MCHC 31.3 L, RDW Std Deviation 46.4 H, RDW Coeff of Lucas 13.0, Plt Count 213, MPV 10.2, Neut % (Auto) Not Reportable, Absolute Neuts (auto) 6.1, Absolute Lymphs (auto) 0.51 L, Total Counted 100, Neutrophils % (Manual) 80 H, Band Neutrophils % 3, Lymphocytes % (Manual) 7 L, Monocytes % (Manual) 6, Myelocytes % 4 H, Diff Path Review October, Platelet Estimate ADEQUATE, RBC Morphology NORM C+C, Sodium 129 L, Potassium 5.9 H, Chloride 101, Carbon Dioxide 20.0 L, Anion Gap 8, BUN 107 H*, Creatinine 4.28 H, Estim Creat Clear Calc 7.78, Est GFR (MDRD) Af Amer 13 L, Est GFR (MDRD) Non-Af 11 L, BUN/Creatinine Ratio 25.0 H, Glucose 233 H, Calcium 8.6, Phosphorus 6.2 H, Magnesium 2.8 H, Total Bilirubin 0.30, Direct Bilirubin 0.13, AST 13 L, ALT 17, Alkaline Phosphatase 77, Troponin I High Sens 20, B-Natriuretic Peptide 296.3 H, Total Protein 6.7, Albumin 2.7 L, Globulin 4.0 12/05/22 17:40: Sodium 131 L, Potassium 6.0 H*, Chloride 103, Carbon Dioxide 20.0 L, Anion Gap 8, BUN 106 H*, Creatinine 4.14 H, Estim Creat Clear Calc 8.04, Est GFR (MDRD) Af Amer 13 L, Est GFR (MDRD) Non-Af 11 L, BUN/Creatinine Ratio 25.6 H, Glucose 259 H, Serum Osmolality 316 H, Calcium 7.9 L 12/05/22 18:06: POC Glucose 234 H 12/05/22 20:57: Urine Osmolality 349, Ur Random Sodium 8, Urine Creatinine 142.0 0, Urine Potassium 31.0, Urine Chloride 11, Urine Urea Nitrogen 514 12/05/22 21:10: POC Glucose 234 H 12/05/22 21:55: Sodium 132 L, Potassium 5.0, Chloride 104, Carbon Dioxide 20.0 L , Anion Gap 8, BUN 108 H*, Creatinine 4.16 H, Estim Creat Clear Calc 8.00, Est GFR (MDRD) Af Amer 13 L, Est GFR (MDRD) Non-Af 11 L, BUN/Creatinine Ratio 26.0 H , Glucose 188 H, Calcium 8.5 12/06/22 05:40: WBC 8.6, RBC 2.97 L, Hgb 9.1 L, Hct 28.3 L, MCV 95.3, MCH 30.6, MCHC 32.2, RDW Std Deviation 46.2 H, RDW Coeff of Lucas 13.3, Plt Count 217, MPV 10.2, Immature Gran % (Auto) 3.300 H, Neut % (Auto) 75.1 H, Lymph % (Auto) 9.6 L , [place] % (Auto) 9.2, Eos % (Auto) 2.3, Baso % (Auto) 0.5, Absolute Neuts (auto) 6.4, Absolute Lymphs (auto) 0.82 L, Nucleated RBC % 0, Sodium 131 L, Potassium 5.0, Chloride 105, Carbon Dioxide 19.0 L, Anion Gap 7, BUN 105 H*, Creatinine 4.15 H, Estim Creat Clear Calc 8.02, Est GFR (MDRD) Af Amer 13 L, Est GFR (MDRD) Non-Af 11 L, BUN/Creatinine Ratio 25.3 H, Glucose 80, Hemoglobin A1c 7.1 H, Calcium 8.1 L, Magnesium 2.8 H, Total Bilirubin 0.30, AST 14 L, ALT 15, Alkaline Phosphatase 67, Total Protein 6.2 L, Albumin 2.5 L, Globulin 3.7, Albumin/Globulin Ratio 0.7 L, Triglycerides 96, Cholesterol 105, LDL Cholesterol 31, VLDL Cholesterol 19, HDL Cholesterol 55, TSH 2.54 12/06/22 06:55: POC Glucose 96 Micro: Microbiology 12/05/22 16:10 Mucosa - Nose Respiratory Panel (PCR) - Final 12/05/22 16:00 Nasal Secretion SARS-CoV-2 Antigen (Rapid) - Final Radiology Impression Chest X-Ray 12/05/22 13:22 IMPRESSION: No radiographic evidence of acute cardiopulmonary disease. Electronically Signed: Justin Brush MD at 14:15 EDT ,
[2022-12-06] MEDS: Furosemide 40 MG/4 ML Vial IV ×2 (09:25→18:11)
[2022-12-06] MEDS: Sertraline 100 MG Tablet PO ×2 (09:28→22:52)
[2022-12-06] MEDS: Pravastatin 40 MG Tablet PO (09:28)
[2022-12-06] MEDS: Carvedilol 25 MG Tablet PO ×2 (09:28→18:03)
[2022-12-06] MEDS: amLODIPine 5 MG Tablet PO (09:28)
[2022-12-06] MEDS: Insulin NPH Human 100 UNITS/ML PEN 6 UNITS SC (09:28)
[2022-12-06] MEDS: Insulin Lispro 100 UNIT/ML INSULN.PEN 8 UNIT SC (09:30)
[2022-12-06] MEDS: Insulin Lispro 100 UNIT/ML INSULN.PEN SC ×3 (11:57→18:04)
[2022-12-06 12:22] LABS: Bedside Glucose 162 mg/dL (74-106)
[2022-12-06 15:36] LABS: Bacteria 0 SEEN /hpf (None Seen); Mucous, Urine 0 SEEN /hpf (<or=2+)
[2022-12-06 15:40] LABS: Color, Urine Yellow (Yellow); Glucose, Dipstick 250 mg/dl (Normal); Ketone-Dipstick Negative (Negative); Leukocyte Esterase-Dipstick 500 /ul (Negative); Nitrite-Dipstick Negative (Negative); Occult Blood-Urine 50 /ul (Negative); Protein-Dipstick 500 mg/dl (Negative); Urine Bilirubin Dipstick Negative (Negative); Urine Clarity Sl. Cloudy (Clear); Urine Urobilinogen Normal (Normal)
[2022-12-06 15:58] LABS: Hyaline Cast 0-5 SEEN /lpf (0-5); Red Blood Cells-Urine 5-10 SEEN /hpf (0-5); Squamous Epithelial Cells - UA 5-10 SEEN /hpf (5-10); White Blood Cells 10-25 SEEN /hpf (0-5)
[2022-12-06 15:59] LABS: Amorphous Sediment 1+ PHOS
[2022-12-06 17:49] LABS: Bedside Glucose 167 mg/dL (74-106)
[2022-12-06] MEDS: Insulin Lispro 100 UNIT/ML INSULN.PEN 12 UNIT SC (18:04)
[2022-12-06] MEDS: Insulin NPH Human 100 UNITS/ML PEN 10 UNITS SC (18:05)
[2022-12-06] MEDS: Budesonide Respules 0.5 MG/2 ML AMPUL.NEB. INHALATION (19:26)
--- NOTE | 2022-12-06 19:34 | CPS ---
Bipap off Pt wearing 6L nasal o2 and is breathing comfortably
[2022-12-06] MEDS: Aspirin 81 MG TAB.CHEW PO (22:52)
[2022-12-06 23:31] LABS: Bedside Glucose 82 mg/dL (74-106)
[2022-12-07] VITALS (8 sets, daily range): BP systolic 123–158; BP diastolic 47–86; PULSE 70–84; RESP 16–19; TEMP 36.6–36.8; O2SAT 94–96; BMI 51.0; BMI 50.7
[2022-12-07 05:22] LABS: Absolute Lymphocyte Count 0.86 X10^3/uL (0.83-4.51); Absolute Neutrophil Count 5.2 X10^3/uL (2.0-7.7); Basophil# 0.05 X10^3/uL; Basophil% 0.7 % (0-1); Eosinophil# 0.28 X10^3/uL; Eosinophils% 3.8 % (0-5); Hematocrit 28.8 % (37-47); Hemoglobin 9.1 g/dL (12.0-15.0); Lymphocyte # 0.86 X10^3/ul (0.83-4.51); Lymphocyte % 11.7 % (19-41); Mean Corp Hgb Conc 31.6 g/dL (32-36); Mean Corpuscular Hgb 30.3 pg (27.0-32.0); Monocyte# 0.73 X10^3/uL; Monocyte% 9.9 % (0-10); NRBC Flagged by Analyzer 0 % (0-5); Neutrophil # 5.17 X10^3/uL (2.7-7.7); Platelet Count 236 K/mm3 (150-450); RBC Distribution Width CV 13.7 % (11.6-14.6); RBC Distribution Width SD 48.5 fl (35.1-43.9); White Blood Count 7.4 K/mm3 (4.4-11.0)
[2022-12-07 05:53] LABS: Anion Gap 8 (5-15); BUN 110 mg/dL (7-18); BUN/Creat Ratio 24.3 RATIO (10-20); Calcium,Total 7.8 mg/dL (8.5-10.1); Chloride 106 mmol/L (98-107); Creatinine, Serum 4.52 mg/dL (0.55-1.02); EST Glomerular Filtration Rate 10 mL/min (>60); Est Glom Filt Rate - Afr Amer 12 mL/min (>60); Estimated Creatinine Clearance 7.37 ml/min; Glucose 131 mg/dL (74-106); Sodium Level 135 mmol/L (136-145)
[2022-12-07] MEDS: Insulin Lispro 100 UNIT/ML INSULN.PEN SC ×5 (06:32→22:20)
[2022-12-07 06:59] LABS: Bedside Glucose 163 mg/dL (74-106)
[2022-12-07] MEDS: Ipratropium/Albuterol Sulfate 3 ML AMPUL.NEB INHALATION ×3 (07:17→19:17)
[2022-12-07] MEDS: Budesonide Respules 0.5 MG/2 ML AMPUL.NEB. INHALATION ×2 (07:18→19:17)
--- NOTE | 2022-12-07 08:05 | PN.HOSP_ITS ---
Reason for Visit Reason for Visit: Diagnoses Type 2 diabetes mellitus with diabetic chronic kidney disease (12/05/22) Hypo-osmolality and hyponatremia (12/05/22) Hyperkalemia (12/05/22) Essential (primary) hypertension (12/05/22) Acute kidney failure, unspecified (12/05/22) Chronic kidney disease, stage 4 (severe) (12/05/22) Hypoxemia (12/05/22) senior living (current) use of insulin (12/05/22) Subjective Subjective Patient sitting up in chair in no acute distress, reports she is not urinating very well, breathing at rest improved, still does have shortness of breath with exertion Objective Data Objective Data Vital Signs: Vital Signs Temp Pulse Resp BP Pulse Ox O2 Del Method O2 Flow Rate 98.2 F 79 18 158/48 H 95 Nasal Cannula 5 12/07/22 04:07 12/07/22 04:07 12/07/22 04:07 12/07/22 04:07 12/07/22 04:07 12/07/22 04:07 12/07/22 04:07 FiO2 50 12/06/22 09:30 Oxygen Flow Rate (L/min) 5 Oxygen Delivery Method Nasal Cannula Weight: 122.5 kg Body Mass Index (BMI) 51.0 Intake & Output: Intake and Output for Last 24 Hours 12/05/22 12/06/22 12/07/22 23:59 23:59 23:59 Intake Total 740 / 740 870 / 870 Output Total 150 / 150 500 / 500 100 / 100 Balance 590 / 590 370 / 370 -100 / -100 Lab / Micro Data 12/07/22 04:32 12/07/22 04:32 Labs: Laboratory Results - last 24 hr 12/05/22 20:57: Urine Color Yellow, Urine Clarity Sl. Cloudy, Urine pH 7.0, Ur Specific [place] 1.010, Urine Protein 500 H, Urine Glucose (UA) 250 H, Urine Ketones Negative, Urine Occult Blood 50 H, Urine Nitrite Negative, Urine Bilirubin Negative, Urine Urobilinogen Normal, Ur Leukocyte Esterase 500 H, Urine RBC 5-10 SEEN, Urine WBC 10-25 SEEN, Ur Squamous Epith Cells 5-10 SEEN, Amorphous Sediment 1+ PHOS, Urine Bacteria 0 SEEN, Hyaline Casts 0-5 SEEN, Urine Mucus 0 SEEN 12/06/22 05:40: Hemoglobin A1c 7.1 H 12/06/22 11:55: POC Glucose 162 H 12/06/22 17:31: POC Glucose 167 H 12/06/22 22:51: POC Glucose 82 12/07/22 04:32: WBC 7.4, RBC 3.00 L, Hgb 9.1 L, Hct 28.8 L, MCV 96.0, MCH 30.3, MCHC 31.6 L, RDW Std Deviation 48.5 H, RDW Coeff of Lucas 13.7, Plt Count 236, MPV 10.0, Immature Gran % (Auto) 3.900 H, Neut % (Auto) 70.0, Lymph % (Auto) 11.7 L, [place] % (Auto) 9.9, Eos % (Auto) 3.8, Baso % (Auto) 0.7, Absolute Neuts (auto) 5.2, Absolute Lymphs (auto) 0.86, Nucleated RBC % 0, Sodium 135 L, Potassium 5.0, Chloride 106, Carbon Dioxide 21.0, Anion Gap 8, BUN 110 H*, Creatinine 4.52 H, Estim Creat Clear Calc 7.37, Est GFR (MDRD) Af Amer 12 L, Est GFR (MDRD) Non- Af 10 L, BUN/Creatinine Ratio 24.3 H, Glucose 131 H, Calcium 7.8 L 12/07/22 06:30: POC Glucose 163 H Micro: Microbiology 12/05/22 16:10 Mucosa - Nose Respiratory Panel (PCR) - Final 12/05/22 16:00 Nasal Secretion SARS-CoV-2 Antigen (Rapid) - Final Radiography Diagnostic Testing: Radiology Impression Chest X-Ray 12/06/22 08:19 IMPRESSION: Patchy bibasilar pneumonia. Cardiomegaly. Electronically Signed: Ignacio Harry MD at 9:08 EDT , Physical Exam Narrative General: Alert, no apparent distress HEENT: Atraumatic, normocephalic Eyes: Anicteric, normal conjunctiva, extraocular movements grossly intact Neck: Supple Respiratory: Normal respiratory effort when sitting and resting comfortably, not conversationally dyspneic, is diminished bilaterally with no wheezing Cardiovascular: Regular rate and rhythm GI: Soft, nontender, nondistended Extremities: 1+ bilateral lower extremity pitting edema Musculoskeletal: Moving all extremities Neuro: No overt focal neurological deficits Skin: No rashes appreciated Psych: Cooperative Assessment & Plan Assessment/Plan (1) Hypoxia: (2) Acute hyponatremia: (3) Acute hyperkalemia: (4) Diabetes mellitus, type 2: QUALIFIERS: Chronic kidney disease stage: stage 4 (severe) Diabetes mellitus complication detail: with chronic kidney disease Diabetes mellitus complication status: with kidney complications Diabetes mellitus fdc insulin use: with fdc use Qualified Code(s): E11.22 - Type 2 diabetes mellitus with diabetic chronic kidney disease; N18.4 - Chronic kidney disease, stage 4 (severe); 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 PLAN: Plan #Acute on chronic hypoxic respiratory failure in the setting of COPD on 4 L home O2 with concerns for possible fluid overload -Increasing shortness of breath over the past week -BNP 296, Troponin negative -Chest x-ray read with no radiographic evidence of acute pulmonary disease however on review of films of both PA and lateral concern for possible pulmonary edema though film does have poor penetration -Lasix were held in the ED and patient was given fluids, may need IV diuresis however, fluid studies pending to assess underlying reason for LINDA and intravascular fluid status -Nebs, however no significant wheezing so we will hold off on antibiotics and steroids -We will obtain respiratory panel and COVID -Does not have signs/symptoms consistent with bacterial infection, will hold on any empiric antibiotics -Most recent echo 09/05/1931 with EF of 60% and no evidence of diastolic dysfunction and no regional wall motion abnormalities, unable to estimate PASP but remarked that it is probably normal -We will repeat echo -BiPAP nightly and as needed if any further desaturation or increased work of breathing -12/06: Did not wear BiPAP overnight and had to go on high flow, bipap ordered, repeat chest x-ray read as bibasilar pneumonia however reviewed films and discussed with nephrology, seems to be consistent with pulmonary edema and fluid overload. Resumed on IV Lasix -12/07: Respiratory status overall improved with sitting still however does continue to varying O2 requirements, on Lasix, alternates between high flow and then back to nasal cannula, overall more comfortable and less labored #LINDA on CKD stage IV with uremia -Creatinine on discharge 10/22/2022 was 1.96, on admission today it was 4.28 with a BUN of 107 -Hold home losartan -Obtain renal ultrasound and urine studies -Buchanan catheter attempted to be placed in the ED due to low urine output, kidney function, I's and O's however this was not placed excessively, will bladder scan -Nephrology consulted -12/06: FEUrea 13.9%, urine sodium 8 which all suggest prerenal, unclear if cardiorenal or intravascularly depleted however given x-ray, clinical status s uspect cardiorenal. Discussed with enterprise integration architect who also felt this was more fluid overload and cardiorenal, Lasix started. Got UA per nephro recs. -12/07: Kidney function worsened overnight with BUN of 110 and creatinine 4.52 but bicarb normalized, patient on Lasix IV, nephrology following, I's and O's, did gain a kilogram, low bladder scan and official kidney ultrasound pending #Hyperkalemia -Likely secondary to LINDA in addition to losartan use -Admit to tele -EKG in ED with heart rate of [address]/T wave changes from previous -Received K albuterol and insulin in ED, will also give Kayexalate -Trend BMP -2: Resolved #Hyponatremia -Unclear chronicity as last sodium in our system was in October, asymptomatic -Will check urine studies and serum osm dependent versus underlying etiology -Trend BMP -2: Suspect multifactorial, is improving #Type 2 diabetes mellitus -Glucose checks and sliding scale insulin -Continue NPH -We will need to clarify home insulin regimen -2: Continue current measures #DVT ppx: SCDs due to kidney function concern for worsening hyperkalemia with heparin Silvia Henry MD Time spent in the patient's overall evaluation,decision-making process, review of diagnostic data, adjustment of management, discussion with other providers, nursing nursing and ancillary staff involved in patient's care documentation, 37 minutes Charges/Coding Visit Charges Inpatient E&M: [id number] [facility] Hosp L3
[2022-12-07] MEDS: Carvedilol 25 MG Tablet PO ×2 (09:41→16:35)
[2022-12-07] MEDS: Furosemide 100 MG/10 ML Vial 80 MG IV ×2 (09:42→16:34)
[2022-12-07] MEDS: Nystatin Powder 15gm Bottle 1 APPLIC TOPICAL ×2 (09:42→22:24)
[2022-12-07] MEDS: Pravastatin 40 MG Tablet PO (09:42)
[2022-12-07] MEDS: Sertraline 100 MG Tablet PO ×2 (09:42→22:23)
[2022-12-07] MEDS: amLODIPine 5 MG Tablet PO (09:42)
[2022-12-07] MEDS: Insulin NPH Human 100 UNITS/ML PEN 6 UNITS SC (09:44)
[2022-12-07 10:07] LABS: Pathologist Review Reviewed
--- NOTE | 2022-12-07 11:15 | CASEMGMT ---
LISSETH FERRER Discharge Planning Assessment: Face to Face with patient for initial transition planning/care coordination assessment.?LISSETH FERRER introduced self and role at [facility], pt alert, sitting up in chair, answering questions appropriately, pt voices understanding of LISSETH FERRER role and is agreeable to participating in assessment.? Care providers, pharmacy,?and demographics verified. Admitting dx: LINDA, COPD, fluid overload PCP: Domingo Specialists: America (multi care technician), Brianna (endocrinology) Preferred Pharmacy: [facility] Insurance: [facility] A/B, MMO Prescription Benefit:?yes Living Will/HPOA: yes, her children are her HPOA. Pt states she provided staff a copy to be included in her EMR. LNOK: spouse Perico Living Arrangements: Pt lives with her spouse in a single story home with one step w/handrail to enter. Pt states she is independent with ADLs. Her spouse supervises her while in the shower but can bathe herself. States her spouse assists with laundry and they have hired cleaning assistance. Pt states they go out to eat often but do prepare meals at home. Transportation: pt states she can drive but does not do so often. Pt's spouse primarily drives DME: shower chair, grab bars, hand held shower, walker, scooter, pulse oximeter, home O2 2-3l/min at rest and up to 6l/min w/ambulation. States her concentrator goes to 10l/min which she has from [facility]. Pt has a glucometer with all supplies and checks her sugar 2-3x/day. SNF/HHC: none ? Plan: Pt plans to return home at discharge. Discussed possible home health at discharged which pt was undecided. Will continue to monitor pt's clinical progress and follow-up on discharge needs as determined. Suzie Mercado RN CM
[2022-12-07 11:39] LABS: Bedside Glucose 240 mg/dL (74-106)
[2022-12-07] MEDS: Insulin Lispro 100 UNIT/ML INSULN.PEN 12 UNIT SC (16:35)
[2022-12-07] MEDS: Insulin NPH Human 100 UNITS/ML PEN 10 UNITS SC (16:37)
[2022-12-07 17:08] LABS: Bedside Glucose 190 mg/dL (74-106)
--- NOTE | 2022-12-07 19:05 | PCM.PN.REN ---
Subjective Subjective Following for LINDA on CKD. The patient denies chest pain or nausea currently. She was nauseated earlier. Her appetite is marginal. She is still short of breath with exertion but none at rest. Edema is still about the same as when she was admitted. Objective Data Objective Data Vital Signs: Vital Signs Temp Pulse Resp BP Pulse Ox O2 Del Method O2 Flow Rate 97.8 F 84 18 136/86 H 95 Room Air 5 12/07/22 17:00 12/07/22 17:00 12/07/22 17:00 12/07/22 17:00 12/07/22 17:00 12/07/22 17:00 12/07/22 11:13 FiO2 50 12/06/22 09:30 Oxygen Flow Rate (L/min) 5 Oxygen Delivery Method Room Air Weight: 121.8 kg Body Mass Index (BMI) 50.7 Intake & Output: Intake and Output for Last 24 Hours 12/05/22 12/06/22 12/07/22 23:59 23:59 23:59 Intake Total 740 / 740 870 / 870 460 / 460 Output Total 150 / 150 500 / 500 213 / 213 Balance 590 / 590 370 / 370 247 / 247 Lab / Micro Data 12/07/22 04:32 12/07/22 04:32 Labs: Laboratory Results - last 24 hr 12/05/22 13:48: Diff Path Review Reviewed 12/06/22 22:51: POC Glucose 82 12/07/22 04:32: WBC 7.4, RBC 3.00 L, Hgb 9.1 L, Hct 28.8 L, MCV 96.0, MCH 30.3, MCHC 31.6 L, RDW Std Deviation 48.5 H, RDW Coeff of Lucas 13.7, Plt Count 236, MPV 10.0, Immature Gran % (Auto) 3.900 H, Neut % (Auto) 70.0, Lymph % (Auto) 11.7 L, [place] % (Auto) 9.9, Eos % (Auto) 3.8, Baso % (Auto) 0.7, Absolute Neuts (auto) 5.2, Absolute Lymphs (auto) 0.86, Nucleated RBC % 0, Sodium 135 L, Potassium 5.0, Chloride 106, Carbon Dioxide 21.0, Anion Gap 8, BUN 110 H*, Creatinine 4.52 H, Estim Creat Clear Calc 7.37, Est GFR (MDRD) Af Amer 12 L, Est GFR (MDRD) Non-Af 10 L, BUN/Creatinine Ratio 24.3 H, Glucose 131 H, Calcium 7.8 L 12/07/22 06:30: POC Glucose 163 H 12/07/22 11:11: POC Glucose 240 H 12/07/22 16:30: POC Glucose 190 H Micro: Microbiology 12/07/22 09:45 Stool Enteric Bacteriology - Final 12/05/22 16:10 Mucosa - Nose Respiratory Panel (PCR) - Final 12/05/22 16:00 Nasal Secretion SARS-CoV-2 Antigen (Rapid) - Final Radiography Diagnostic Testing: Radiology Impression Renal Ultrasound 12/05/22 15:51 IMPRESSION: 1.9 cm x 1.3 cm x 1.4 cm left renal cyst. Electronically Signed: Rakesh eDsai MD at 9:48 EDT , Echocardiogram 12/05/22 17:14 Interpretation Summary The estimated ejection fraction is 65 %. No evidence for diastolic dysfunction. The left atrium is mildly enlarged. Ordering Physician: Silvia Hnery Referring Physician: ANNA MARIE WILHELM Performed By: Sushma Luque RCS Physical Exam Narrative General: Alert and oriented x3, NAD. HEENT: Normocephalic, atraumatic. Mucous membrane moist without erythema. PERRLA, EOMI. Hearing is intact. Neck: Supple, no JVD. Trachea is midline. No thyromegaly or lymphadenopathy. Cardiovascular: Normal S1, S2. No rubs, murmurs, or gallops. Respiratory: Crackles at bases on auscultation bilaterally. Abdomen: Normal bowel sounds, soft, nontender, no guarding or rebound, no organomegaly. Extremities: No clubbing or cyanosis. There is 2+ edema of the lower extremities bilaterally. Assessment & Plan Assessment/Plan (1) Acute renal failure: (2) CKD (chronic kidney disease), stage IV: (3) HTN (hypertension): (4) Acute hyperkalemia: (5) Acute hyponatremia: PLAN: Plan Impression/Plan: 82-year-old woman with past history of CKD stage 4, T2DM, HTN, COPD on home O2 (4L nc),remote history of breast cancer and depression. The patient presented to the hospital on 12/05/2022 with 1 week history of progressive dyspnea and weight gain along with LINDA on CKD. The patient is being treated for volume overload with diuresis. Nephrology is following for LINDA on CKD. LINDA on CKD stage G4. The patient has CKD stage G4 possibly due to diabetic kidney disease. Baseline serum creatinine has been around 2.00 mg/dL as recently as October 2022. The patient presented with serum creatinine of 4.28 mg/dL on 12/05/2022. Suspect LINDA is secondary to cardiorenal syndrome along with possible progression of CKD. UA is reviewed. There is no significant RBCs. There is proteinuria, but she is diabetic. Low suspicion for GN or other causes of LINDA at this point. There is no hydronephrosis seen on renal ultrasound from 12/05/2022. I would continue to diurese the patient with monitoring of renal function, electrolytes and volume status. Although serum creatinine has increased to 4.52 mg/dL from 4.14 mg/dL on 12/05/2022, I would not yet stop diuresing the patient since she is still volume overloaded. In fact, I will increase the dose of IV loop diuretic since the patient's weight has increased since admission. Continue to check daily weights. Continue to hold ARB. There is no urgent need for kidney replacement therapy tonight. However, the patient was told that dialysis may be needed if she remains refractory to IV diuretic. Current medications are reviewed and are appropriate dose for her renal function. Hyperkalemia. Resolved with medical treatment. Potassium level is stable today at 5.0 mmol/L. Diuresis should also help to attenuate further rise in serum potassium. Agree with holding ARB for now. Recheck potassium again tomorrow. Acute metabolic acidosis. Historical serum bicarbonate level has been around 33- 36 mmol/L. Serum bicarbonate level is low but better at 21 mmol/L today. There was some loose bowel movement with sodium polystyrene sulfonate yesterday. She also had some loose BM prior to admission as well. However, I suspect that acidemia is due to LINDA on CKD. We will continue to monitor serum bicarbonate. Hyponatremia. The patient is mildly hyponatremic with serum sodium 131 mmol/L on 12/06/2022. Sodium level is stable at 135 mmol/L today, and she is without any worrisome symptoms of hyponatremia. I suspect hyponatremia is due to LINDA/CKD and from decreased EBV with heart failure. Continue current treatment of heart failure with diuresis. Nephrology plan discussed with Dr. Henry.
[2022-12-07] MEDS: MELATONIN 3 MG TABLET PO (22:23)
[2022-12-07] MEDS: Aspirin 81 MG TAB.CHEW PO (22:23)
[2022-12-07] MEDS: Ondansetron 4 MG/2 ML Vial IV (22:32)
[2022-12-07 22:45] LABS: Bedside Glucose 179 mg/dL (74-106)
[2022-12-07] MEDS: 0.9% Saline Lock 10 ML Syringe IV (22:54)
[2022-12-08] VITALS (11 sets, daily range): BP systolic 136–160; BP diastolic 52–73; PULSE 64–82; RESP 12–20; TEMP 36.6; O2SAT 86–97; BMI 50.7
[2022-12-08 05:00] LABS: Absolute Lymphocyte Count 0.86 X10^3/uL (0.83-4.51); Absolute Neutrophil Count 3.3 X10^3/uL (2.0-7.7); Basophil# 0.02 X10^3/uL; Basophil% 0.4 % (0-1); Eosinophil# 0.23 X10^3/uL; Eosinophils% 4.4 % (0-5); Hematocrit 28.8 % (37-47); Hemoglobin 8.8 g/dL (12.0-15.0); Lymphocyte # 0.86 X10^3/ul (0.83-4.51); Lymphocyte % 16.6 % (19-41); Mean Corp Hgb Conc 30.6 g/dL (32-36); Mean Corpuscular Hgb 29.8 pg (27.0-32.0); Mean Corpuscular Volume 97.6 fL (81-99); Monocyte# 0.54 X10^3/uL; Monocyte% 10.4 % (0-10); NRBC Flagged by Analyzer 0 % (0-5); Neutrophil # 3.32 X10^3/uL (2.7-7.7); Neutrophil % 64.3 % (47-70); Platelet Count 207 K/mm3 (150-450); RBC Distribution Width CV 13.4 % (11.6-14.6); RBC Distribution Width SD 48.6 fl (35.1-43.9); Red Blood Count 2.95 M/mm3 (4.2-5.4); White Blood Count 5.2 K/mm3 (4.4-11.0)
--- NOTE | 2022-12-08 05:19 | NURSING ---
pt on 3L HF, saturation went down to 86-89% during bed change. This RN bump pt's oxygen up to 5L and is now w/ saturation of 95%. LS w/ wheezes. Offered breathing treatment, pt requested to just rest for now. no further concerns at this time.
[2022-12-08 05:26] LABS: Anion Gap 6 (5-15); BUN 111 mg/dL (7-18); BUN/Creat Ratio 21.7 RATIO (10-20); Calcium,Total 7.9 mg/dL (8.5-10.1); Chloride 106 mmol/L (98-107); Creatinine, Serum 5.11 mg/dL (0.55-1.02); EST Glomerular Filtration Rate 9 mL/min (>60); Est Glom Filt Rate - Afr Amer 10 mL/min (>60); Estimated Creatinine Clearance 6.52 ml/min; Glucose 110 mg/dL (74-106); Potassium 5.1 mmol/L (3.5-5.1); Sodium Level 133 mmol/L (136-145)
[2022-12-08] MEDS: Ipratropium/Albuterol Sulfate 3 ML AMPUL.NEB INHALATION ×3 (06:53→19:39)
[2022-12-08] MEDS: Budesonide Respules 0.5 MG/2 ML AMPUL.NEB. INHALATION ×2 (06:53→19:39)
--- NOTE | 2022-12-08 08:21 | PCM.PN.HOSP ---
Reason for Visit Reason for Visit: Diagnoses Type 2 diabetes mellitus with diabetic chronic kidney disease (12/05/22) Hypo-osmolality and hyponatremia (12/05/22) Hyperkalemia (12/05/22) Essential (primary) hypertension (12/05/22) Acute kidney failure, unspecified (12/05/22) Chronic kidney disease, stage 4 (severe) (12/05/22) Hypoxemia (12/05/22) MCFP (current) use of insulin (12/05/22) Subjective Subjective Feeling roughly the same today with no new acute complaints, still minimal urine output Objective Data Objective Data Vital Signs: Vital Signs Temp Pulse Resp BP Pulse Ox O2 Del Method O2 Flow Rate 98.0 F 66 16 123/47 H 96 Nasal Cannula 4.5 12/07/22 22:32 12/08/22 06:53 12/08/22 06:53 12/07/22 22:32 12/08/22 06:53 12/08/22 06:53 12/08/22 06:53 FiO2 50 12/06/22 09:30 Oxygen Flow Rate (L/min) 4.5 Oxygen Delivery Method Nasal Cannula Weight: 121.8 kg Body Mass Index (BMI) 50.7 Intake & Output: Intake and Output for Last 24 Hours 12/06/22 12/07/22 12/08/22 23:59 23:59 23:59 Intake Total 870 / 870 460 / 460 Output Total 500 / 500 213 / 213 Balance 370 / 370 247 / 247 Lab / Micro Data 12/08/22 04:25 12/08/22 04:25 Labs: Laboratory Results - last 24 hr 12/05/22 13:48: Diff Path Review Reviewed 12/07/22 11:11: POC Glucose 240 H 12/07/22 16:30: POC Glucose 190 H 12/07/22 22:18: POC Glucose 179 H 12/08/22 04:25: WBC 5.2, RBC 2.95 L, Hgb 8.8 L, Hct 28.8 L, MCV 97.6, MCH 29.8, MCHC 30.6 L, RDW Std Deviation 48.6 H, RDW Coeff of Lucas 13.4, Plt Count 207, MPV 10.0, Immature Gran % (Auto) 3.900 H, Neut % (Auto) 64.3, Lymph % (Auto) 16.6 L, [place] % (Auto) 10.4 H, Eos % (Auto) 4.4, Baso % (Auto) 0.4, Absolute Neuts (auto) 3.3, Absolute Lymphs (auto) 0.86, Nucleated RBC % 0, Sodium 133 L, Potassium 5.1, Chloride 106, Carbon Dioxide 21.0, Anion Gap 6, BUN 111 H*, Creatinine 5.11 H, Estim Creat Clear Calc 6.52, Est GFR (MDRD) Af Amer 10 L, Est GFR (MDRD) Non-Af 9 L, BUN/Creatinine Ratio 21.7 H, Glucose 110 H, Calcium 7.9 L Micro: Microbiology 12/07/22 09:45 Stool Enteric Bacteriology - Final 12/05/22 16:10 Mucosa - Nose Respiratory Panel (PCR) - Final 12/05/22 16:00 Nasal Secretion SARS-CoV-2 Antigen (Rapid) - Final Radiography Diagnostic Testing: Radiology Impression Renal Ultrasound 12/05/22 15:51 IMPRESSION: 1.9 cm x 1.3 cm x 1.4 cm left renal cyst. Electronically Signed: Rakesh Desai MD at 9:48 EDT , Echocardiogram 12/05/22 17:14 Interpretation Summary The estimated ejection fraction is 65 %. No evidence for diastolic dysfunction. The left atrium is mildly enlarged. Ordering Physician: Silvia Henry Referring Physician: ANNA MARIE WILHELM Performed By: Sushma Luque RCS Physical Exam Narrative General: Alert, no apparent distress HEENT: Atraumatic, normocephalic Eyes: Anicteric, normal conjunctiva, extraocular movements grossly intact Neck: Supple Respiratory: Normal respiratory effort when sitting and resting comfortably, not conversationally dyspneic, is diminished bilaterally with no wheezing Cardiovascular: Regular rate and rhythm GI: Soft, nontender, nondistended Extremities: 1+ bilateral lower extremity pitting edema Musculoskeletal: Moving all extremities Neuro: No overt focal neurological deficits Skin: No rashes appreciated Psych: Cooperative Assessment & Plan Assessment/Plan (1) Hypoxia: (2) Acute hyponatremia: (3) Acute hyperkalemia: (4) Diabetes mellitus, type 2: QUALIFIERS: Chronic kidney disease stage: stage 4 (severe) Diabetes mellitus complication detail: with chronic kidney disease Diabetes mellitus complication status: with kidney complications Diabetes mellitus rodent exterminator insulin use: with assisted use Qualified Code(s): E11.22 - Type 2 diabetes mellitus with diabetic chronic kidney disease; N18.4 - Chronic kidney disease, stage 4 (severe); 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 PLAN: Plan #Acute on chronic hypoxic respiratory failure in the setting of COPD on 4 L home O2 with concerns for possible fluid overload -Increasing shortness of breath over the past week -BNP 296, Troponin negative -Chest x-ray read with no radiographic evidence of acute pulmonary disease however on review of films of both PA and lateral concern for possible pulmonary edema though film does have poor penetration -Lasix were held in the ED and patient was given fluids, may need IV diuresis however, fluid studies pending to assess underlying reason for LINDA and intravascular fluid status -Nebs, however no significant wheezing so we will hold off on antibiotics and steroids -We will obtain respiratory panel and COVID -Does not have signs/symptoms consistent with bacterial infection, will hold on any empiric antibiotics -Most recent echo 09/05/1931 with EF of 60% and no evidence of diastolic dysfunction and no regional wall motion abnormalities, unable to estimate PASP but remarked that it is probably normal -We will repeat echo -BiPAP nightly and as needed if any further desaturation or increased work of breathing -12/06: Did not wear BiPAP overnight and had to go on high flow, bipap ordered, repeat chest x-ray read as bibasilar pneumonia however reviewed films and discussed with nephrology, seems to be consistent with pulmonary edema and fluid overload. Resumed on IV Lasix -12/07: Respiratory status overall improved with sitting still however does continue to varying O2 requirements, on Lasix, alternates between high flow and then back to nasal cannula, overall more comfortable and less labored -12/08: Respiratory status continues to have varying requirements, 96% on 4.5 L nasal cannula this a.m. #LINDA on CKD stage IV with uremia -Creatinine on discharge 10/22/2022 was 1.96, on admission today it was 4.28 with a BUN of 107 -Hold home losartan -Obtain renal ultrasound and urine studies -Buchanan catheter attempted to be placed in the ED due to low urine output, kidney function, I's and O's however this was not placed excessively, will bladder scan -Nephrology consulted -12/06: FEUrea 13.9%, urine sodium 8 which all suggest prerenal, unclear if cardiorenal or intravascularly depleted however given x-ray, clinical status suspect cardiorenal. Discussed with mushroom spawn maker who also felt this was more fluid overload and cardiorenal, Lasix started. Got UA per nephro recs. -12/07: Kidney function worsened overnight with BUN of 110 and creatinine 4.52 but bicarb normalized, patient on Lasix IV, nephrology following, I's and O's, did gain a kilogram, low bladder scan and official kidney ultrasound pending -12/08: Decreasing urine output with continued worsening of creatinine and BUN, nephrology following, may need dialysis given worsening but do not note any indication for urgent dialysis at this time #Hyperkalemia -Likely secondary to LINDA in addition to losartan use -Admit to tele -EKG in ED with heart rate of [address]/T wave changes from previous -Received K albuterol and insulin in ED, will also give Kayexalate -Trend BMP -/2: Resolved #Hyponatremia -Unclear chronicity as last sodium in our system was in October, asymptomatic -Will check urine studies and serum osm dependent versus underlying etiology -Trend BMP -7/2: Suspect multifactorial, is improving #Type 2 diabetes mellitus -Glucose checks and sliding scale insulin -Continue NPH -We will need to clarify home insulin regimen -12/06: Continue current measures #DVT ppx: SCDs due to kidney function concern for worsening hyperkalemia with heparin Silvia Henry MD Time spent in the patient's overall evaluation,decision-making process, review of diagnostic data, adjustment of management, discussion with other providers, nursing nursing and ancillary staff involved in patient's care documentation, 37 minutes Charges/Coding Visit Charges Inpatient E&M: 54738 Subs Hosp L3
[2022-12-08] MEDS: Carvedilol 25 MG Tablet PO ×2 (09:01→16:45)
[2022-12-08] MEDS: Insulin Lispro 100 UNIT/ML INSULN.PEN 8 UNIT SC (09:02)
[2022-12-08] MEDS: Insulin NPH Human 100 UNITS/ML PEN 6 UNITS SC (09:02)
[2022-12-08] MEDS: Nystatin Powder 15gm Bottle 1 APPLIC TOPICAL ×2 (09:03→21:48)
[2022-12-08] MEDS: amLODIPine 5 MG Tablet PO (09:03)
[2022-12-08] MEDS: Pravastatin 40 MG Tablet PO (09:03)
[2022-12-08] MEDS: Sertraline 100 MG Tablet PO ×2 (09:03→21:47)
[2022-12-08 09:24] LABS: Bedside Glucose 130 mg/dL (74-106)
--- NOTE | 2022-12-08 10:44 | PN.RENAL_ITS ---
Subjective Subjective Continues to have shortness of breath. Objective Data Objective Data Vital Signs: Vital Signs Temp Pulse Resp BP Pulse Ox O2 Del Method O2 Flow Rate 97.8 F 64 14 160/72 H 93 Nasal Cannula 3 12/08/22 09:30 12/08/22 09:30 12/08/22 09:30 12/08/22 09:30 12/08/22 09:30 12/08/22 09:31 12/08/22 09:31 FiO2 50 12/06/22 09:30 Oxygen Flow Rate (L/min) 3 Oxygen Delivery Method Nasal Cannula Weight: 121.8 kg Body Mass Index (BMI) 50.7 Intake & Output: Intake and Output for Last 24 Hours 12/06/22 12/07/22 12/08/22 23:59 23:59 23:59 Intake Total 870 / 870 460 / 460 Output Total 500 / 500 213 / 213 Balance 370 / 370 247 / 247 Lab / Micro Data 12/08/22 04:25 12/08/22 04:25 Labs: Laboratory Results - last 24 hr 12/07/22 11:11: POC Glucose 240 H 12/07/22 16:30: POC Glucose 190 H 12/07/22 22:18: POC Glucose 179 H 12/08/22 04:25: WBC 5.2, RBC 2.95 L, Hgb 8.8 L, Hct 28.8 L, MCV 97.6, MCH 29.8, MCHC 30.6 L, RDW Std Deviation 48.6 H, RDW Coeff of Lucas 13.4, Plt Count 207, MPV 10.0, Immature Gran % (Auto) 3.900 H, Neut % (Auto) 64.3, Lymph % (Auto) 16.6 L, [place] % (Auto) 10.4 H, Eos % (Auto) 4.4, Baso % (Auto) 0.4, Absolute Neuts (auto) 3.3, Absolute Lymphs (auto) 0.86, Nucleated RBC % 0, Sodium 133 L, Potassium 5.1, Chloride 106, Carbon Dioxide 21.0, Anion Gap 6, BUN 111 H*, Creatinine 5.11 H, Estim Creat Clear Calc 6.52, Est GFR (MDRD) Af Amer 10 L, Est GFR (MDRD) Non- Af 9 L, BUN/Creatinine Ratio 21.7 H, Glucose 110 H, Calcium 7.9 L 12/08/22 09:00: POC Glucose 130 H Micro: Microbiology 12/07/22 09:45 Stool Enteric Bacteriology - Final 12/05/22 16:10 Mucosa - Nose Respiratory Panel (PCR) - Final 12/05/22 16:00 Nasal Secretion SARS-CoV-2 Antigen (Rapid) - Final Radiography Diagnostic Testing: Radiology Impression Echocardiogram 12/05/22 17:14 Interpretation Summary The estimated ejection fraction is 65 %. No evidence for diastolic dysfunction. The left atrium is mildly enlarged. Ordering Physician: Silvia Henry Referring Physician: ANNA MARIE WILHELM Performed By: Sushma Luque RCS Physical Exam Narrative General: Alert and oriented x3, NAD. HEENT: Normocephalic, atraumatic. Mucous membrane moist without erythema. PERRLA, EOMI. Hearing is intact. Neck: Supple, no JVD. Trachea is midline. No thyromegaly or lymphadenopathy. Cardiovascular: Normal S1, S2. No rubs, murmurs, or gallops. Respiratory: Crackles at bases on auscultation bilaterally. Abdomen: Normal bowel sounds, soft, nontender, no guarding or rebound, no organomegaly. Extremities: No clubbing or cyanosis. There is 2+ edema of the lower extremities bilaterally. Assessment & Plan Assessment/Plan (1) Acute renal failure: (2) CKD (chronic kidney disease), stage IV: (3) HTN (hypertension): (4) Acute hyperkalemia: (5) Acute hyponatremia: PLAN: Plan 82-year-old female here for shortness of breath. CKD stage IIIb. Baseline creatinine as of October 2022 was around 1.7 Acute renal failure. Presented with a creatinine of 4, worsening now. Renal ultrasound without any hydronephrosis. Urine analysis shows some protein, RBC, WBC. Urine sodium 8. However she had signs of congestive heart failure hence presumably this was thought to be related to cardiorenal syndrome. Echocardiogram reviewed. Ejection fraction is normal 65%, no diastolic dysfunc tion. She does have mild to moderate mitral valve issues. BNP is 200-300. These objective findings are not necessarily consistent with congestive heart failure. She continues to have significant shortness of breath. We need to consider alternative diagnoses such as pulmonary renal syndromes. I have sent serologies. She may even need a kidney biopsy With respect to renal failure she has advanced azotemia, ongoing shortness of breath. Explained about potential dialysis. She advised me to call her daughter Argenis who is a nurse in [place]. Called and spoke to Argenis over the phone. Explained ongoing events, current plan. She is agreeable for dialysis tomorrow. We will have a tunneled dialysis catheter placed tomorrow and start dialysis. Depending on the serologies she may even need a kidney biopsy.
[2022-12-08 11:25] LABS: Bedside Glucose 192 mg/dL (74-106)
[2022-12-08] MEDS: Insulin Lispro 100 UNIT/ML INSULN.PEN SC ×3 (12:26→16:45)
[2022-12-08] MEDS: Insulin Lispro 100 UNIT/ML INSULN.PEN 12 UNIT SC (16:45)
[2022-12-08] MEDS: Insulin NPH Human 100 UNITS/ML PEN 10 UNITS SC (16:46)
[2022-12-08 17:28] LABS: Bedside Glucose 168 mg/dL (74-106)
[2022-12-08] MEDS: Aspirin 81 MG TAB.CHEW PO (21:47)
[2022-12-08 23:37] LABS: Bedside Glucose 141 mg/dL (74-106)
[2022-12-09] VITALS (21 sets, daily range): BP systolic 21–182; BP diastolic 43–96; PULSE 63–97; RESP 14–18; TEMP 36.6–36.8; O2SAT 92–99; BMI 51.0; BMI 50.2
[2022-12-09] MEDS: 0.9% Saline Lock 10 ML Syringe IV ×6 (02:57→21:20)
[2022-12-09] MEDS: Ondansetron 4 MG/2 ML Vial IV ×2 (02:57→16:06)
--- NOTE | 2022-12-09 05:55 | EKG12_ITS ---
Test Reason : am EKG Blood Pressure : / mmHG Vent. Rate : 073 BPM Atrial Rate : 073 BPM P-R Int : 218 ms QRS Dur : 078 ms QT Int : 364 ms P-R-T Axes : 016 -01 090 degrees QTc Int : 401 ms Sinus rhythm with 1st degree A-V block Low voltage QRS Nonspecific ST and T wave abnormality Abnormal ECG When compared with ECG of 05-DEC-2022 16:40, MANUAL COMPARISON REQUIRED, DATA IS UNCONFIRMED Confirmed by DECLAN DEVLIN, MARCO ([id number]), assistant production editor MILLER PEREZ ([id number]) on 12/10/2022 10:37:27 AM Referred By: Carl Confirmed By:MARCO MANRIQUEZ MD
[2022-12-09 06:07] LABS: Hematocrit 28.2 % (37-47); Hemoglobin 8.8 g/dL (12.0-15.0); Mean Corp Hgb Conc 31.2 g/dL (32-36); Mean Corpuscular Hgb 30.3 pg (27.0-32.0); Mean Corpuscular Volume 97.2 fL (81-99); POSITIVE COUNT YES; POSITIVE MORPHOLOGY YES; Platelet Count 247 K/mm3 (150-450); RBC Distribution Width CV 13.4 % (11.6-14.6); RBC Distribution Width SD 48.1 fl (35.1-43.9); White Blood Count 6.5 K/mm3 (4.4-11.0)
[2022-12-09 06:17] LABS: Differential Indicated MANUAL DIFF
[2022-12-09 06:36] LABS: Bedside Glucose 110 mg/dL (74-106)
[2022-12-09 06:43] LABS: Eosinophil 7 % (0-5); Lymphocyte 16 % (19-41); Metamyelocyte 1 % (0-1); Monocyte 4 % (0-10); Myelocyte 3 % (0-0); Neutrophil-Band 4 % (0-5); Neutrophil-Segmented 65 % (47-70); Total Cells Counted 100 (MANUAL DIFF)
[2022-12-09 06:44] LABS: Absolute Lymphocyte Count 1.04 X10^3/uL (0.83-4.51); Absolute Neutrophil Count 4.5 X10^3/uL (2.0-7.7); Hypochromasia 1+; Lymphocyte # 1.04 X10^3/ul (0.83-4.51); Neutrophil # 4.47 X10^3/uL (2.7-7.7); Platelet Estimate ADEQUATE (ADEQ); Red Cell Morphology N CYTIC NORMAL (NORM C&C)
[2022-12-09] MEDS: Budesonide Respules 0.5 MG/2 ML AMPUL.NEB. INHALATION ×2 (06:44→18:55)
[2022-12-09] MEDS: Ipratropium/Albuterol Sulfate 3 ML AMPUL.NEB INHALATION ×2 (06:44→18:55)
[2022-12-09 07:09] LABS: Anion Gap 8 (5-15); BUN 119 mg/dL (7-18); BUN/Creat Ratio 20.7 RATIO (10-20); Chloride 104 mmol/L (98-107); Creatinine, Serum 5.75 mg/dL (0.55-1.02); EST Glomerular Filtration Rate 8 mL/min (>60); Est Glom Filt Rate - Afr Amer 9 mL/min (>60); Estimated Creatinine Clearance 5.79 ml/min; Glucose 102 mg/dL (74-106); Potassium 5.2 mmol/L (3.5-5.1); Sodium Level 132 mmol/L (136-145)
--- NOTE | 2022-12-09 07:55 | PN.HOSP_ITS ---
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 (12/05/22) Subjective Subjective Feels slightly nauseous today and feels like her breathing is slightly worse and also feels worse more swollen overall Objective Data Objective Data Vital Signs: Vital Signs Temp Pulse Resp BP Pulse Ox O2 Del Method O2 Flow Rate 97.9 F 70 18 136/44 H 93 Nasal Cannula 4 12/09/22 02:51 12/09/22 06:45 12/09/22 06:45 12/09/22 02:51 12/09/22 06:45 12/09/22 06:45 12/09/22 06:45 FiO2 50 12/06/22 09:30 Oxygen Flow Rate (L/min) 4 Oxygen Delivery Method Nasal Cannula Weight: 122.7 kg Body Mass Index (BMI) 51.0 Intake & Output: Intake and Output for Last 24 Hours 12/07/22 12/08/22 12/09/22 23:59 23:59 23:59 Intake Total 460 / 460 360 / 360 Output Total 213 / 213 0 / 0 0 / 0 Balance 247 / 247 0 / 0 360 / 360 Lab / Micro Data 12/09/22 05:25 12/09/22 05:25 Labs: Laboratory Results - last 24 hr 12/08/22 09:00: POC Glucose 130 H 12/08/22 11:01: POC Glucose 192 H 12/08/22 16:44: POC Glucose 168 H 12/08/22 21:58: POC Glucose 141 H 12/09/22 05:25: WBC 6.5, RBC 2.90 L, Hgb 8.8 L, Hct 28.2 L, MCV 97.2, MCH 30.3, MCHC 31.2 L, RDW Std Deviation 48.1 H, RDW Coeff of Lucas 13.4, Plt Count 247, MPV 10.0, Neut % (Auto) Not Reportable, Absolute Neuts (auto) 4.5, Absolute Lymphs (auto) 1.04, Total Counted 100, Neutrophils % (Manual) 65, Band Neutrophils % 4, Lymphocytes % (Manual) 16 L, Monocytes % (Manual) 4, Eosinophils % (Manual) 7 H, Metamyelocytes % 1, Myelocytes % 3 H, Diff Path Review October, Platelet Estimate ADEQUATE, RBC Morphology N CYTIC, Hypochromasia 1+, Sodium 132 L, Potassium 5.2 H, Chloride 104, Carbon Dioxide 20.0 L, Anion Gap 8, BUN 119 H*, Creatinine 5.75 H, Estim Creat Clear Calc 5.79, Est GFR (MDRD) Af Amer 9 L, Est GFR (MDRD) Non-Af 8 L, BUN/Creatinine Ratio 20.7 H, Glucose 102, Calcium 8.0 L 12/09/22 06:14: POC Glucose 110 H Micro: Microbiology 12/07/22 09:45 Stool Enteric Bacteriology - Final 12/05/22 16:10 Mucosa - Nose Respiratory Panel (PCR) - Final 12/05/22 16:00 Nasal Secretion SARS-CoV-2 Antigen (Rapid) - Final Physical Exam Narrative General: Alert, no apparent distress HEENT: Atraumatic, normocephalic Eyes: Anicteric, normal conjunctiva, extraocular movements grossly intact Neck: Supple Respiratory: Slight increased respiratory effort today, no wheezes or rhonchi, diminished Cardiovascular: Regular rate and rhythm GI: Soft, nontender, nondistended Extremities: 1+ bilateral lower extremity pitting edema Musculoskeletal: Moving all extremities Neuro: No overt focal neurological deficits Skin: No rashes appreciated Psych: Cooperative Assessment & Plan Assessment/Plan (1) Hypoxia: (2) Acute hyponatremia: (3) Acute hyperkalemia: (4) Diabetes mellitus, type 2: QUALIFIERS: Chronic kidney disease stage: stage 4 (severe) Diabetes mellitus complication detail: with chronic kidney disease Diabetes mellitus complication status: with kidney complications Diabetes mellitus spike maker insulin use: with penitentiary use Qualified Code(s): E11.22 - Type 2 diabetes mellitus with diabetic chronic kidney disease; N18.4 - Chronic kidney disease, stage 4 (severe); 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 PLAN: Plan #Acute on chronic hypoxic respiratory failure in the setting of COPD on 4 L home O2 with concerns for possible fluid overload -Increasing shortness of breath over the past week -BNP 296, Troponin negative -Chest x-ray read with no radiographic evidence of acute pulmonary disease however on review of films of both PA and lateral concern for possible pulmonary edema though film does have poor penetration -Lasix were held in the ED and patient was given fluids, may need IV diuresis however, fluid studies pending to assess underlying reason for LINDA and intravascular fluid status -Nebs, however no significant wheezing so we will hold off on antibiotics and steroids -We will obtain respiratory panel and COVID -Does not have signs/symptoms consistent with bacterial infection, will hold on any empiric antibiotics -Most recent echo 09/05/1931 with EF of 60% and no evidence of diastolic dysfunction and no regional wall motion abnormalities, unable to estimate PASP but remarked that it is probably normal -We will repeat echo -BiPAP nightly and as needed if any further desaturation or increased work of breathing -12/06: Did not wear BiPAP overnight and had to go on high flow, bipap ordered, repeat chest x-ray read as bibasilar pneumonia however reviewed films and discussed with nephrology, seems to be consistent with pulmonary edema and fluid overload. Resumed on IV Lasix -12/07: Respiratory status overall improved with sitting still however does continue to varying O2 requirements, on Lasix, alternates between high flow and then back to nasal cannula, overall more comfortable and less labored -12/08: Respiratory status continues to have varying requirements, 96% on 4.5 L nasal cannula this a.m. -12/09: Has been on NC, not on high flow and respiratory status was improving but now with patient not making urine she is retaining more fluid and feels like she is more short of breath, patient for dialysis #LINDA on CKD stage IV with uremia -Creatinine on discharge 10/22/2022 was 1.96, on admission today it was 4.28 with a BUN of 107 -Hold home losartan -Obtain renal ultrasound and urine studies -Buchanan catheter attempted to be placed in the ED due to low urine output, kidney function, I's and O's however this was not placed excessively, will bladder scan -Nephrology consulted -12/06: FEUrea 13.9%, urine sodium 8 which all suggest prerenal, unclear if cardiorenal or intravascularly depleted however given x-ray, clinical status suspect cardiorenal. Discussed with emergency services director who also felt this was more fluid overload and cardiorenal, Lasix started. Got UA per nephro recs. -12/07: Kidney function worsened overnight with BUN of 110 and creatinine 4.52 but bicarb normalized, patient on Lasix IV, nephrology following, I's and O's, did gain a kilogram, low bladder scan and official kidney ultrasound pending -12/08: Decreasing urine output with continued worsening of creatinine and BUN, n ephrology following, may need dialysis given worsening but do not note any indication for urgent dialysis at this time -12/09: K 5.2 today, Cr continues to worsen. Surg c/s for HD catheter, will need to start HD, plan is for today. Anca and spep ordered and pending. #Hyperkalemia -Likely secondary to LINDA in addition to losartan use -Admit to tele -EKG in ED with heart rate of [address]/T wave changes from previous -Received K albuterol and insulin in ED, will also give Kayexalate -Trend BMP -12/06: Resolved -12/09: Slightly elevated 5.2, will give kayexalate, albuterol, calcium, patient to begin dialysis #Hyponatremia -Unclear chronicity as last sodium in our system was in October, asymptomatic -Will check urine studies and serum osm dependent versus underlying etiology -Trend BMP -12/06: Suspect multifactorial, is improving -12/09: Continue to monitor and treat underlying condition #Type 2 diabetes mellitus -Glucose checks and sliding scale insulin -Continue NPH -We will need to clarify home insulin regimen -12/06: Continue current measures #DVT ppx: SCDs due to kidney function concern for worsening hyperkalemia with heparin Silvia Henry MD Time spent in the patient's overall evaluation,decision-making process, review of diagnostic data, adjustment of management, discussion with other providers, nursing nursing and ancillary staff involved in patient's care documentation, 37 minutes Charges/Coding Visit Charges Inpatient E&M: 78255 [facility] H[facility] L3
--- NOTE | 2022-12-09 08:07 | EX.PCM.CON.S ---
Assessment & Plan Assessment/Plan (1) Fluid overload: QUALIFIERS: Hypervolemia type: unspecified Qualified Code(s): E87.70 - Fluid overload, unspecified PLAN: The patient has fluid overload and kidney failure. I discussed tunneled right chest temporary dialysis catheter placement with the patient in detail. I discussed the risks including but not limited to bleeding, infection, pneumothorax or DVT. Patient understands the risks and I will place the catheter this afternoon. If I am unable to place the right I will place the left. aD Abreu MD Pager: [facility] [address] [place] [address], [address] [place] [address] Office: HPI Consult Data Date of Consult: 12/09/22 HPI Narrative HPI Narrative: SANTIAGO WILHELM, is a 82 F who is admitted with fluid overload. I was consulted for dialysis catheter placement. [facility] Medical History (Updated 12/09/22 @ 08:[address] Da Abreu MD) CAD (coronary artery disease) CKD (chronic kidney disease), stage IV COPD (chronic obstructive pulmonary disease) Diabetes mellitus, type 2 HLD (hyperlipidemia) HTN (hypertension) Home Medications Lactobacillus acidophilus 10 billion cell capsule (Probiotic) 10,000 mmu cells PO DAILY immune health 09/03/21 [History Last Taken 09/03/21] amlodipine 5 mg tablet 5 mg PO DAILY bp 09/03/21 [History Last Taken 09/03/21] aspirin 81 mg tablet 81 mg PO QHS heart health 09/03/21 [History Last Taken 09/02/21] budesonide-formoterol HFA 160 mcg-4.5 mcg/actuation aerosol inhaler 2 puff inhalation BID sob 09/03/21 [History Last Taken 09/03/21] carvedilol 25 mg tablet 25 mg PO BIDCM heart 09/03/21 [History Last Taken 09/03/21] cholecalciferol (vitamin D3) 25 mcg (1,000 unit) capsule 25 mcg PO BID supplement 09/03/21 [History Last Taken 09/03/21] cholestyramine (with sugar) 4 gram powder for susp in a packet 1 ea PO DAILY 09/03/21 [History Last Taken 09/03/21] cyanocobalamin (vitamin B-12) 1,000 mcg tablet 1,000 mcg PO DAILY supplement 09/03/21 [History Last Taken 09/03/21] insulin NPH isoph U-100 human 100 unit/mL (3 mL) subcutaneous pen 6 unit subcut BREAKFAST dm 09/03/21 [History Last Taken 09/03/21] insulin NPH isoph U-100 human 100 unit/mL (3 mL) subcutaneous pen 7 - 20 unit subcut QHS dm 09/03/21 [History Last Taken 09/02/21] insulin aspart U-100 100 unit/mL (3 mL) subcutaneous pen (Novolog FlexPen U-100 Insulin aspart) 6 unit subcut LUNCH dm 09/03/21 [History Last Taken 09/02/21] insulin aspart U-100 100 unit/mL (3 mL) subcutaneous pen (Novolog FlexPen U-100 Insulin aspart) 8 unit subcut BREAKFAST dm 09/03/21 [History Last Taken 09/03/21] insulin aspart U-100 100 unit/mL (3 mL) subcutaneous pen (Novolog FlexPen U-100 Insulin aspart) 14 unit subcut DINNER dm 09/03/21 [History Last Taken 09/02/21] losartan 100 mg tablet 50 mg PO DAILY heart 09/03/21 [History Last Taken 09/03/21] mirtazapine 45 mg tablet 45 mg PO QHS sleep 09/03/21 [History Last Taken 09/02/21] pravastatin 40 mg tablet 40 mg PO DAILY cholesterol 09/03/21 [History Last Taken 09/03/21] sertraline 100 mg tablet 100 mg PO BID depression 09/03/21 [History Last Taken 09/03/21] sucralfate 1 gram tablet 1 g PO TIDCM stomach 09/03/21 [History Last Taken 09/03/21] albuterol sulfate 90 mcg/actuation aerosol inhaler 2 inh inhalation Q6H PRN shortness of breath or wheezing #8.5 grams 10/22/22 [Rx Last Taken Unknown] hydralazine 50 mg tablet 50 mg PO TID 30 days #90 tabs 10/22/22 [Rx Last Taken Unknown] prednisone 20 mg tablet 40 mg (2 x 20 mg) PO DAILY 4 days #8 tabs 10/22/22 [Rx Last Taken Unknown] furosemide 20 mg tablet 40 mg PO DINNER fluid 12/05/22 [History Last Taken Unknown] furosemide 40 mg tablet 60 mg PO DAILY 12/05/22 [History Last Taken Unknown] Allergy/AdvReac Type Severity Reaction Status Date / Time levofloxacin [From Levaquin] AdvReac Other Verified 12/05/22 13:10 procaine [From Novocain] AdvReac Other Verified 12/05/22 13:10 Family History Mother No cardiac disease Diabetes Father No cardiac disease Daughter Breast cancer Surgical History S/P breast lumpectomy S/P cholecystectomy Social History (Updated 12/05/22 @ 17:23 by Betzaida Del Valle) household members: spouse housing: house number of children: 2 current occupational status: retired Smoking Status: Never smoker alcohol intake: never substance use type: does not use ROS Constitutional Constitutional: Denies anorexia, chills or fatigue Eyes Eyes: Denies blurry vision ENT HEENT: Denies abnormal hearing Respiratory/Chest Respiratory/Chest: Reports dyspnea Gastrointestinal Gastrointestinal: Denies abdominal pain Genitourinary Genitourinary: Denies change in urinary stream Musculoskeletal Musculoskeletal: Denies abnormal gait Integumentary Integumentary: Denies jaundice Neurologic Neurologic: Denies abnormal gait Psychiatric Psychiatric: Denies anxiety Endocrine Endocrinology: Denies flushing Physical Exam Const alert and oriented x3 HEENT normocephalic Resp normal respiratory effort Cardio Rate: regular rate Rhythm: regular rhythm GI soft to palpation, non-tender and non-distended Lab / Micro Data 12/09/22 05:25 12/09/22 05:25 Labs: Laboratory Results - last 24 hr 12/08/22 09:00: POC Glucose 130 H 12/08/22 11:01: POC Glucose 192 H 12/08/22 16:44: POC Glucose 168 H 12/08/22 21:58: POC Glucose 141 H 12/09/22 05:25: WBC 6.5, RBC 2.90 L, Hgb 8.8 L, Hct 28.2 L, MCV 97.2, MCH 30.3, MCHC 31.2 L, RDW Std Deviation 48.1 H, RDW Coeff of Lucas 13.4, Plt Count 247, MPV 10.0, Neut % (Auto) Not Reportable, Absolute Neuts (auto) 4.5, Absolute Lymphs (auto) 1.04, Total Counted 100, Neutrophils % (Manual) 65, Band Neutrophils % 4, Lymphocytes % (Manual) 16 L, Monocytes % (Manual) 4, Eosinophils % (Manual) 7 H, Metamyelocytes % 1, Myelocytes % 3 H, Diff Path Review May foll, Platelet Estimate ADEQUATE, RBC Morphology N CYTIC, Hypochromasia 1+, Sodium 132 L, Potassium 5.2 H, Chloride 104, Carbon Dioxide 20.0 L, Anion Gap 8, BUN 119 H*, Creatinine 5.75 H, Estim Creat Clear Calc 5.79, Est GFR (MDRD) Af Amer 9 L, Est GFR (MDRD) Non-Af 8 L, BUN/Creatinine Ratio 20.7 H, Glucose 102, Calcium 8.0 L 12/09/22 06:14: POC Glucose 110 H
[2022-12-09 08:56] LABS: Hemoglobin A1c 7.1 % (3.8-5.6)
[2022-12-09] MEDS: Lidocaine 1% (20 ml mdv) 20 ML Vial (11:35)
[2022-12-09] MEDS: Heparin 10,000 UNITS/10 ML Vial 10000 UNITS (11:37)
--- NOTE | 2022-12-09 11:52 | PCM.OPRPT ---
Report of Operation Date of Procedure: 12/09/22 Pre-Operative Diagnosis: Renal failure and volume overload Post-Operative Diagnosis: Same Surgery/Procedure Performed:: Ultrasound and fluoroscopy right chest tunneled dialysis catheter utilizing right IJ Description of Procedure: Patient was brought back to the operating room and MAC anesthesia was induced. The right neck and chest were prepped and draped in usual sterile fashion. Ultrasound was used to localize the right IJ. Area overlying the right IJ was injected with local anesthetic as well as a small spot on the chest. An incision was made in the neck and the chest. Using ultrasound guidance the right IJ was accessed through the neck incision. Guidewire was placed under fluoroscopy guidance. The needle was removed and then serial dilators and the peel-away sheath were placed over the guidewire and the guidewire was removed. Next the catheter was tunneled from the chest incision to the neck incision and then placed into the peel-away sheath and then the peel-away sheath was removed. Fluoroscopy confirmed good placement with no kinking. Next each catheter was aspirated and flushed with saline. Both catheters aspirated and flushed easily. Both catheters were then instilled with heparinized saline and then capped and locked. The neck incision was closed with 3-0 Vicryl suture. The catheter was sutured to the skin using 3-0 nylon. Dressings were applied. Chest x-ray will be obtained in PACU. Grafts/Implants Used: 19 cm curved palindrome temporary dialysis catheters Admit VTE Documentation VTE Mechan Device Prophylaxis: SCD's
--- NOTE | 2022-12-09 12:08 | PN.RENAL_ITS ---
Subjective Subjective No new complaints. Objective Data Objective Data Vital Signs: Vital Signs Temp Pulse Resp BP Pulse Ox O2 Del Method O2 Flow Rate 98.2 F 71 18 139/53 H 95 Nasal Cannula 4 12/09/22 09:00 12/09/22 09:00 12/09/22 09:00 12/09/22 09:00 12/09/22 09:00 12/09/22 09:00 12/09/22 09:00 FiO2 50 12/06/22 09:30 Oxygen Flow Rate (L/min) 4 Oxygen Delivery Method Nasal Cannula Weight: 122.7 kg Body Mass Index (BMI) 51.0 Intake & Output: Intake and Output for Last 24 Hours 12/07/22 12/08/22 12/09/22 23:59 23:59 23:59 Intake Total 460 / 460 475 / 475 Output Total 213 / 213 0 / 0 0 / 0 Balance 247 / 247 0 / 0 475 / 475 Lab / Micro Data 12/09/22 05:25 12/09/22 05:25 Labs: Laboratory Results - last 24 hr 12/08/22 16:44: POC Glucose 168 H 12/08/22 21:58: POC Glucose 141 H 12/09/22 05:25: WBC 6.5, RBC 2.90 L, Hgb 8.8 L, Hct 28.2 L, MCV 97.2, MCH 30.3, MCHC 31.2 L, RDW Std Deviation 48.1 H, RDW Coeff of Lucas 13.4, Plt Count 247, MPV 10.0, Neut % (Auto) Not Reportable, Absolute Neuts (auto) 4.5, Absolute Lymphs (auto) 1.04, Total Counted 100, Neutrophils % (Manual) 65, Band Neutrophils % 4, Lymphocytes % (Manual) 16 L, Monocytes % (Manual) 4, Eosinophils % (Manual) 7 H, Metamyelocytes % 1, Myelocytes % 3 H, Diff Path Review May , Platelet Estimate ADEQUATE, RBC Morphology N CYTIC, Hypochromasia 1+, Sodium 132 L, Potassium 5.2 H, Chloride 104, Carbon Dioxide 20.0 L, Anion Gap 8, BUN 119 H*, Creatinine 5.75 H, Estim Creat Clear Calc 5.79, Est GFR (MDRD) Af Amer 9 L, Est GFR (MDRD) Non-Af 8 L, BUN/Creatinine Ratio 20.7 H, Glucose 102, Hemoglobin A1c 7.1 H, Calcium 8.0 L 12/09/22 06:14: POC Glucose 110 H Micro: Microbiology 12/07/22 09:45 Stool Enteric Bacteriology - Final 12/05/22 16:10 Mucosa - Nose Respiratory Panel (PCR) - Final 12/05/22 16:00 Nasal Secretion SARS-CoV-2 Antigen (Rapid) - Final Physical Exam Narrative General: Alert and oriented x3, NAD. HEENT: Normocephalic, atraumatic. Mucous membrane moist without erythema. PERRLA, EOMI. Hearing is intact. Neck: Supple, no JVD. Trachea is midline. No thyromegaly or lymphadenopathy. Cardiovascular: Normal S1, S2. No rubs, murmurs, or gallops. Respiratory: Crackles at bases on auscultation bilaterally. Abdomen: Normal bowel sounds, soft, nontender, no guarding or rebound, no organomegaly. Extremities: No clubbing or cyanosis. There is 2+ edema of the lower extremities bilaterally. Assessment & Plan Assessment/Plan (1) Acute renal failure: (2) CKD (chronic kidney disease), stage IV: (3) HTN (hypertension): (4) Acute hyperkalemia: (5) Acute hyponatremia: PLAN: Plan 82-year-old female here for shortness of breath. CKD stage IIIb. Baseline creatinine as of October 2022 was around 1.7 Acute renal failure. Presented with a creatinine of 4, worsening now. Renal ultrasound without any hydronephrosis. Urine analysis shows some protein, RBC, WBC. Urine sodium 8. However she had signs of congestive heart failure hence presumably this was thought to be related to cardiorenal syndrome. Echocardiogram reviewed. Ejection fraction is normal 65%, no diastolic dysfunction. She does have mild to moderate mitral valve issues. BNP is 200- 300. These objective findings are not necessarily consistent with congestive heart failure. She continues to have significant shortness of breath. We need to consider alternative diagnoses such as pulmonary renal syndromes. I have sent serologies. She may even need a kidney biopsy To be started on dialysis today after line placement. Discussed with dialysis staff.
--- NOTE | 2022-12-09 12:10 | RAD_ITS ---
STUDY: X-RAY CHEST REASON FOR EXAM: Female, 82 years old. line placement -- in pacu TECHNIQUE: Single AP portable view of the chest. COMPARISON: December 06, 2022 FINDINGS: Right central venous catheter tip terminates in the mid SVC. Redemonstration of hilar and bilateral lower lobe interstitial scarring. No infiltrates or acute consolidation is seen. There is no demonstrated pleural abnormality. Normal size heart. Normal mediastinum and parish. Normal visualized pulmonary arteries. There is atherosclerotic calcification of the aortic arch with tortuosity. There are diffuse degenerative changes of the visualized thoracic spine. Normal visualized ribs, clavicles, and shoulders. Right axillary surgical clips noted. There is no demonstrated abnormality of the visualized soft tissue structures of the upper abdomen. RAD/CXR for Line Placement IMPRESSION: Degenerative changes, as described above. No demonstrated acute cardiopulmonary process. Electronically Signed: Estevan Monahan MD at 14:18 EDT ,
--- NOTE | 2022-12-09 13:07 | VDUE_ITS ---
Reason For Study: CKD, Possible fistula/graft placement Right Arm Left Arm Right Cephalic Vein at the wrist measures Left Cephalic Vein at the wrist measures 0.30 0.33 x 0.33 cm. x 0.30 cm. Right Cephalic Vein in the forearm measures Left Cephalic Vein in the forearm measures 0.36 x 0.35 cm. 0.37 x 0.36 cm. Right Cephalic Vein below antecub measures Left Cephalic Vein below antecub measures 0.34 x 0.33 cm. 0.35 x 0.37 cm. Right Cephalic Vein above antecub measures Acute superficial hugo thrombosis is noted in 0.48 x 0.46 cm. the left cephalic vein from distal upper arm Right Cephalic Vein mid bicep measures 0.42 to antecube. It is NONCOMPRESSIBLE. Appears x 0.41 cm. to be at recent IV site. Right Cephalic Vein at the shoulder measures Left Cephalic Vein at mid bicep measures 0.44 0.36 x 0.36 cm. x 0.47 cm. Cephalic vein below antecube branch, 0.23 x Left Cephalic Vein at the shoulder measures 0.24 cm. 0.42 x 0.41 cm. Cpehalic vein above antecube branch, 0.33 x Basilic vein at origin measures 0.48 x 0.44 0.30 cm. cm. Right cephalic vein is compressible. Basilic vein at bicep measures 0.56 x 0.53 Right Basilic Vein at the origin measures cm. 0.48 x 0.42 cm. Basilic vein above antecub measures 0.50 x Right Basilic Vein mid bicep measures 0.22 x 0.48 cm. 0.20 cm. Left basilic vein is compressible. Right Basilic Vein above antecub measures Left Brachial artery measures 0.43 x 0.46 cm, 0.40 x 0.40 cm. with a velocity of 170.7 cm/sec. Right basilic vein is compressible. Left Radial artery measures 0.21 x 0.22 cm, Multiple branches noted coming off the with a velocity of 100.8 cm/sec. basilic vein. Right Brachial artery measures 0.42 x 0.41 cm, with a velocity of 163 cm/sec. Right Radial artery measures 0.23 x 0.21 cm, with a velocity of 118.9 cm/sec. Patient Safety Preliminary rpeort given to Betzaida MONTANEZ. VL/Dialysis Vein Map PRE-OP BILAT Interpretation Summary Right upper extremity veins patent with measurements above. Left upper extremity with acute superficial vein thrombus noted in the cephalic vein in the upper arm. Veins otherwise patent with measurements above. Right upper extremity arterial inflow patent with no evidence of stenosis/occlu candace. Right upper extremity arterial inflow patent with no evidence of stenosis/occlu candace. Ordering Physician: Delores Morales Referring Physician: Mitchell Lane Performed By: Chitra Heard RVT ???
--- NOTE | 2022-12-09 13:48 | CASEMGMT ---
Addendum entered by Earl Zafar 12/09/22 17:07: A list of SNF and HHC providers including quality and resource use data and consistent with the patient?s preferred geographic region, medical needs, and insurance network were provided from the [facility] Guide were provided to pt and family earlier today. Addendum entered by Earl Zafar 12/09/22 16:51: Tentative OP HD schedule received for MWF @ 0530 w/1st treatment on Thursday 12/14. Addendum entered by Earl Zafar 12/09/22 16:50: Hep B surface antigen results uploaded in [facility] portal. Addendum entered by Earl Zafar 12/09/22 15:45: Call received from manny Norwood coordinator @ [facility]. She states she has received the referral for OP HD but has not received the uploaded documents in the portal. LISSETH FERRER resent referral documents in [facility] portal at this time. Original Note: LISSETH FERRER NOTE: Pt had tunneled HD catheter placed and will need OP HD after discharge per Dr Henry. LISSETH FERRER to room. Introduced self and role to pt, who is resting in bed, and and dtr who are at bedside. Discussed OP HD and verbal list of OP HD co's provided. They chose [facility]. Questions answered. states, if pt strong enough to discharge home, then he would prefer MWF afternoon schedule, if possible, and can transport. Discussed further discharge planning re: HHC and SNF, as pt only able to ambulate 3 ft yesterday d/t weakness and SOB. Pt and family wish to see how she does with therapy each day before making decision. They were made aware SNF and HHC lists will be provided so they can review options. They voice appreciation. Aristides IRVIN RN, CM
[2022-12-09] MEDS: Albuterol 2.5 MG/3 ML VIAL.NEB. 20 MG INHALATION (14:23)
--- NOTE | 2022-12-09 14:25 | CASEMGMT ---
Discharge Planning SNF and HH list created and given to RN CM. Simin Goldstein, Discharge Planning Asst.
[2022-12-09 14:32] LABS: Hepatitis B Surface Antigen Non-Reactive (Nonreactive)
[2022-12-09] MEDS: PureFlow B 2K Dialysis Soln 1 BAG 6 BAG PF (14:46)
[2022-12-09] MEDS: 0.9% Normal Saline 1,000 ML IV.SOLN. 1000 ML OPERA.SITE (14:46)
--- NOTE | 2022-12-09 15:48 | CASEMGMT ---
VM received from patients daughter, Selam Arnett. Patients would like referral made to [facility] should she need SNF. RN CM notified. Simin Goldstein, Discharge Planning Asst.
[2022-12-09] MEDS: Calcium Gluconate 1 GM/10 ML Vial IVP (15:53)
[2022-12-09] MEDS: Sodium Polystyrene Sulfonate 15 GM/60 ML UDC PO (15:54)
[2022-12-09] MEDS: Carvedilol 25 MG Tablet PO ×2 (15:54→18:34)
[2022-12-09] MEDS: Sertraline 100 MG Tablet PO ×2 (15:54→21:19)
[2022-12-09] MEDS: Pravastatin 40 MG Tablet PO (15:54)
[2022-12-09] MEDS: amLODIPine 5 MG Tablet PO (15:54)
[2022-12-09] MEDS: Albuterol 2.5 MG/3 ML VIAL.NEB. INHALATION (15:55)
[2022-12-09 17:59] LABS: Bedside Glucose 155 mg/dL (74-106)
[2022-12-09] MEDS: Insulin NPH Human 100 UNITS/ML PEN 8 UNITS SC (18:31)
--- NOTE | 2022-12-09 18:55 | CPS ---
Pt refusing BiPAP.
[2022-12-09] MEDS: MELATONIN 3 MG TABLET PO (21:17)
[2022-12-09] MEDS: Menthol/Lanolin/Calamine/Znox 113 GM Tube 1 APPLIC TOPICAL (21:18)
[2022-12-09] MEDS: Nystatin Powder 15gm Bottle 1 APPLIC TOPICAL (21:19)
[2022-12-09] MEDS: Aspirin 81 MG TAB.CHEW PO (21:19)
[2022-12-09] MEDS: Insulin Lispro 100 UNIT/ML INSULN.PEN SC (21:27)
[2022-12-09] MEDS: Heparin Injection (Vial) 5,000 UNIT/ML VIAL 5000 UNIT SC (21:29)
[2022-12-09 22:28] LABS: Bedside Glucose 205 mg/dL (74-106)
[2022-12-10] VITALS (15 sets, daily range): BP systolic 27–178; BP diastolic 53–81; PULSE 60–87; RESP 14–18; TEMP 36.4–36.7; O2SAT 92–100; BMI 50.1; BMI 51.0
[2022-12-10] MEDS: Heparin Injection (Vial) 5,000 UNIT/ML VIAL 5000 UNIT SC ×3 (05:27→22:32)
[2022-12-10 05:51] LABS: Absolute Neutrophil Count 5.2 X10^3/uL (2.0-7.7); Basophil# 0.03 X10^3/uL; Basophil% 0.4 % (0-1); Eosinophils% 2.8 % (0-5); Hemoglobin 8.7 g/dL (12.0-15.0); Lymphocyte % 11.3 % (19-41); Mean Corp Hgb Conc 32.2 g/dL (32-36); Mean Corpuscular Hgb 30.5 pg (27.0-32.0); Mean Corpuscular Volume 94.7 fL (81-99); Mean Platelet Vol. 9.9 fl (6.2-12.0); Monocyte# 0.62 X10^3/uL; Monocyte% 8.8 % (0-10); NRBC Flagged by Analyzer 0 % (0-5); Neutrophil # 5.17 X10^3/uL (2.7-7.7); Neutrophil % 73.2 % (47-70); Platelet Count 220 K/mm3 (150-450); RBC Distribution Width CV 13.5 % (11.6-14.6); RBC Distribution Width SD 46.9 fl (35.1-43.9); Red Blood Count 2.85 M/mm3 (4.2-5.4); White Blood Count 7.1 K/mm3 (4.4-11.0)
[2022-12-10 06:39] LABS: Anion Gap 9 (5-15); BUN 103 mg/dL (7-18); BUN/Creat Ratio 17.2 RATIO (10-20); Calcium,Total 7.9 mg/dL (8.5-10.1); Chloride 102 mmol/L (98-107); EST Glomerular Filtration Rate 7 mL/min (>60); Est Glom Filt Rate - Afr Amer 9 mL/min (>60); Estimated Creatinine Clearance 5.55 ml/min; Glucose 150 mg/dL (74-106); Potassium 4.9 mmol/L (3.5-5.1); Sodium Level 131 mmol/L (136-145)
[2022-12-10 06:46] LABS: Bedside Glucose 157 mg/dL (74-106)
[2022-12-10] MEDS: Ipratropium/Albuterol Sulfate 3 ML AMPUL.NEB INHALATION ×2 (07:10→19:40)
[2022-12-10] MEDS: Budesonide Respules 0.5 MG/2 ML AMPUL.NEB. INHALATION ×2 (07:10→19:42)
[2022-12-10] MEDS: 0.9% Normal Saline 1,000 ML IV.SOLN. 1000 ML OPERA.SITE (08:11)
[2022-12-10] MEDS: 0.9% Saline Lock 10 ML Syringe IV ×3 (08:12→22:33)
[2022-12-10] MEDS: PureFlow B 2K Dialysis Soln 1 BAG 6 BAG PF (08:13)
--- NOTE | 2022-12-10 08:57 | CASEMGMT ---
Discharge Planning Call placed to patients daughter, Selam, to inform her that [facility] has bed availability. Although they are still not certain if they will want SNF placement, she asked that referral be made. updated and referral sent to [facility]. Simin Goldstein, Discharge Planning Asst.
[2022-12-10] MEDS: Ondansetron 4 MG/2 ML Vial IV (09:26)
[2022-12-10] MEDS: Menthol/Lanolin/Calamine/Znox 113 GM Tube 1 APPLIC TOPICAL ×2 (09:31→22:35)
[2022-12-10] MEDS: Nystatin Powder 15gm Bottle 1 APPLIC TOPICAL ×2 (09:32→22:36)
--- NOTE | 2022-12-10 09:39 | PN.HOSP_ITS ---
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 (12/05/22) Subjective Subjective Still some nausea, breathing fair and when she is lying flat, about to start second dialysis Objective Data Objective Data Vital Signs: Vital Signs Temp Pulse Resp BP Pulse Ox O2 Del Method O2 Flow Rate 97.9 F 62 18 178/54 H 100 Nasal Cannula 2.5 12/10/22 09:35 12/10/22 09:35 12/10/22 09:35 12/10/22 09:35 12/10/22 09:35 12/10/22 09:35 12/10/22 09:35 FiO2 50 12/06/22 09:30 Oxygen Flow Rate (L/min) 2.5 Oxygen Delivery Method Nasal Cannula Weight: 122.7 kg Body Mass Index (BMI) 51.0 Intake & Output: Intake and Output for Last 24 Hours 12/08/22 12/09/22 12/10/22 23:59 23:59 23:59 Intake Total 695 / 695 Output Total 0 / 0 1999 / 1999 0 / 0 Balance 0 / 0 -1305 / -1305 0 / 0 Lab / Micro Data 12/10/22 04:50 12/10/22 04:50 Labs: Laboratory Results - last 24 hr 12/09/22 05:25: Hep Bs Antigen Non-Reactive 12/09/22 17:00: POC Glucose 155 H 12/09/22 21:26: POC Glucose 205 H 12/10/22 04:50: WBC 7.1, RBC 2.85 L, Hgb 8.7 L, Hct 27.0 L, MCV 94.7, MCH 30.5, MCHC 32.2, RDW Std Deviation 46.9 H, RDW Coeff of Lucas 13.5, Plt Count 220, MPV 9.9, Immature Gran % (Auto) 3.500 H, Neut % (Auto) 73.2 H, Lymph % (Auto) 11.3 L , [place] % (Auto) 8.8, Eos % (Auto) 2.8, Baso % (Auto) 0.4, Absolute Neuts (auto) 5.2, Absolute Lymphs (auto) 0.80 L, Nucleated RBC % 0, Sodium 131 L, Potassium 4.9, Chloride 102, Carbon Dioxide 20.0 L, Anion Gap 9, BUN 103 H*, Creatinine 6.00 H, Estim Creat Clear Calc 5.55, Est GFR (MDRD) Af Amer 9 L, Est GFR (MDRD) Non-Af 7 L, BUN/Creatinine Ratio 17.2, Glucose 150 H, Calcium 7.9 L 12/10/22 06:15: POC Glucose 157 H Micro: Microbiology 12/07/22 09:45 Stool Enteric Bacteriology - Final 12/05/22 16:10 Mucosa - Nose Respiratory Panel (PCR) - Final 12/05/22 16:00 Nasal Secretion SARS-CoV-2 Antigen (Rapid) - Final Radiography Diagnostic Testing: Radiology Impression Chest X-Ray 12/09/22 12:10 IMPRESSION: Degenerative changes, as described above. No demonstrated acute cardiopulmonary process. Electronically Signed: Estevan Monahan MD at 14:18 EDT Reading Location ID and State: [facility] / [place] , Service support , Vessel Mapping-Hemodialysis Access 12/09/22 13:07 Interpretation Summary Right upper extremity veins patent with measurements above. Left upper extremity with acute superficial vein thrombus noted in the cephalic vein in the upper arm. Veins otherwise patent with measurements above. Right upper extremity arterial inflow patent with no evidence of stenosis/occlu candace. Right upper extremity arterial inflow patent with no evidence of stenosis/occlusion. Ordering Physician: Delores Morales Referring Physician: Mitchell Lane Performed By: Chitra Heard RVT ??? Physical Exam Narrative General: Alert, no apparent distress HEENT: Atraumatic, normocephalic Eyes: Anicteric, normal conjunctiva, extraocular movements grossly intact Neck: Supple Respiratory: Improved respiratory effort, diminished bilaterally Cardiovascular: Regular rate and rhythm GI: Soft, nontender, nondistended Extremities: 1+ bilateral lower extremity pitting edema Musculoskeletal: Moving all extremities Neuro: No overt focal neurological deficits Skin: No rashes appreciated Psych: Cooperative Assessment & Plan Assessment/Plan (1) Hypoxia: (2) Acute hyponatremia: (3) Acute hyperkalemia: (4) Diabetes mellitus, type 2: QUALIFIERS: 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 Diabetes mellitus complication status: with kidney complications Diabetes mellitus complication detail: with chronic kidney disease Chronic kidney disease stage: stage 4 (severe) Qualified Code(s): E11.22 - Type 2 diabetes mellitus with diabetic chronic kidney disease; N18.4 - Chronic kidney disease, stage 4 (severe); 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 PLAN: Plan #Acute on chronic hypoxic respiratory failure in the setting of COPD on 4 L home O2 with concerns for possible fluid overload -Increasing shortness of breath over the past week -BNP 296, Troponin negative -Chest x-ray read with no radiographic evidence of acute pulmonary disease however on review of films of both PA and lateral concern for possible pulmonary edema though film does have poor penetration -Lasix were held in the ED and patient was given fluids, may need IV diuresis however, fluid studies pending to assess underlying reason for LINDA and intravascular fluid status -Nebs, however no significant wheezing so we will hold off on antibiotics and steroids -We will obtain respiratory panel and COVID -Does not have signs/symptoms consistent with bacterial infection, will hold on any empiric antibiotics -Most recent echo 09/05/1931 with EF of 60% and no evidence of diastolic dysfunction and no regional wall motion abnormalities, unable to estimate PASP but remarked that it is probably normal -We will repeat echo -BiPAP nightly and as needed if any further desaturation or increased work of breathing -12/06: Did not wear BiPAP overnight and had to go on high flow, bipap ordered, repeat chest x-ray read as bibasilar pneumonia however reviewed films and discussed with nephrology, seems to be consistent with pulmonary edema and fluid overload. Resumed on IV Lasix -12/07: Respiratory status overall improved with sitting still however does continue to varying O2 requirements, on Lasix, alternates between high flow and then back to nasal cannula, overall more comfortable and less labored -12/08: Respiratory status continues to have varying requirements, 96% on 4.5 L nasal cannula this a.m. -12/09: Has been on NC, not on high flow and respiratory status was improving but now with patient not making urine she is retaining more fluid and feels like she is more short of breath, patient for dialysis -12/10: Continue with dialysis, monitor O2 sats and wean O2 as tolerated #LINDA on CKD stage IV with uremia?with right-sided tunneled dialysis catheter and HD started 12/09 -Creatinine on discharge 10/22/2022 was 1.96, on admission today it was 4.28 with a BUN of 107 -Hold home losartan -Obtain renal ultrasound and urine studies -Buchanan catheter attempted to be placed in the ED due to low urine output, kidney function, I's and O's however this was not placed excessively, will bladder scan -Nephrology consulted -12/06: FEUrea 13.9%, urine sodium 8 which all suggest prerenal, unclear if cardiorenal or intravascularly depleted however given x-ray, clinical status suspect cardiorenal. Discussed with pipe production worker who also felt this was more fluid overload and cardiorenal, Lasix started. Got UA per nephro recs. -12/07: Kidney function worsened overnight with BUN of 110 and creatinine 4.52 but bicarb normalized, patient on Lasix IV, nephrology following, I's and O's, did gain a kilogram, low bladder scan and official kidney ultrasound pending -12/08: Decreasing urine output with continued worsening of creatinine and BUN, nephrology following, may need dialysis given worsening but do not note any indication for urgent dialysis at this time -12/09: K 5.2 today, Cr continues to worsen. Surg c/s for HD catheter, will need to start HD, plan is for today. Anca and spep ordered and pending. -12/10: First dialysis with right-sided tunneled HD catheter 12/10, dialysis again today #LUE w/ acute superficial vein thrombus noted in the cephalic vein in upper arm -On vein mapping -Possibly secondary to IV access -Typically self-limited, will treat symptomatically as symptoms not severe -Had been using SCDs, will initiate heparin subcu for DVT prophylaxis #Hyperkalemia -Likely secondary to LINDA in addition to losartan use -Admit to tele -EKG in ED with heart rate of [address]/T wave changes from previous -Received K albuterol and insulin in ED, will also give Kayexalate -Trend BMP -12/06: Resolved -12/09: Slightly elevated 5.2, will give kayexalate, albuterol, calcium, patient to begin dialysis -12/10: Resolved #Hyponatremia -Unclear chronicity as last sodium in our system was in October, asymptomatic -Will check urine studies and serum osm dependent versus underlying etiology -Trend BMP -12/06: Suspect multifactorial, is improving -12/09: Continue to monitor and treat underlying condition -12/10: May be due to fluid overload, patient had dialysis with fluid removal again today #Type 2 diabetes mellitus -Glucose checks and sliding scale insulin -Continue NPH -We will need to clarify home insulin regimen -12/06: Continue current measures -12/10: We will hold Premeal as she is largely not been getting it due to glucose levels and concern that she may become hypoglycemic and this would be more detrimental than slightly elevated blood glucose, will continue NPH #DVT ppx: Heparin subcu Silvia Henry MD Time spent in the patient's overall evaluation,decision-making process, review of diagnostic data, adjustment of management, discussion with other providers, nursing nursing and ancillary staff involved in patient's care documentation, 37 minutes Charges/Coding Visit Charges Inpatient E&M: [id number] [facility] [place] [facility] L3
[2022-12-10] MEDS: amLODIPine 5 MG Tablet PO (11:51)
[2022-12-10] MEDS: Carvedilol 25 MG Tablet PO ×2 (11:52→16:58)
[2022-12-10] MEDS: Insulin Lispro 100 UNIT/ML INSULN.PEN SC ×3 (11:53→22:33)
[2022-12-10 12:19] LABS: Bedside Glucose 188 mg/dL (74-106)
[2022-12-10] MEDS: Sertraline 100 MG Tablet PO ×2 (13:04→22:32)
[2022-12-10] MEDS: Pravastatin 40 MG Tablet PO (13:04)
--- NOTE | 2022-12-10 14:25 | CASEMGMT ---
Addendum entered by Earl Zafar 12/10/22 15:35: Pt and family provided w/[facility] tentative dialysis schedule for MWF @ 0530. Original Note: 0830: Call received from Rama @ [facility] re: referral. She states 0530 chair time is the only available chair time for now, but they may have an opening for a later time in the future. She was made aware pt and prefer a later appt time and she states she will place them on a waiting list. 1430: LISSETH FERRER to room. Pt, , and dtr/Selam, made aware of chair time @ 0530 and that pt is on waiting list for a later time if it should become available. Questions answered re: SNF and transportation. They were made aware SNF may be able to transport pt to/from OP HD, but this would need to be checked on @ their facility of choice. They state they are not sure yet if they want pt to return home w/HHC or go to a SNF, as it will depend on pt's strength when she works w/therapy today. PT/OT tx's pending for today. Aristides IRVIN RN, CM
--- NOTE | 2022-12-10 15:32 | PN.RENAL_ITS ---
Subjective Subjective S/p dialysis x2 today. Tolerated fluid removal. Had some nausea. Breathing looks better. Still has moderate lower extremity edema. Blood pressure is still on the higher side. She states urine output is somewhat better today compared to before. Objective Data Objective Data Vital Signs: Vital Signs Temp Pulse Resp BP Pulse Ox O2 Del Method O2 Flow Rate 97.9 F 65 14 165/74 H 100 Nasal Cannula 2.5 12/10/22 10:27 12/10/22 10:27 12/10/22 10:12/10/22 10:27 12/10/22 10:12/10/22 10:12/10/22 10:27 FiO2 50 12/06/22 09:30 Oxygen Flow Rate (L/min) 2.5 Oxygen Delivery Method Nasal Cannula Weight: 120.4 kg Body Mass Index (BMI) 50.1 Intake & Output: Intake and Output for Last 24 Hours 12/08/22 12/09/22 12/10/22 23:59 23:59 23:59 Intake Total 695 / 695 240 / 240 Output Total 0 / 0 1999 / 1999 2500 / 2500 Balance 0 / 0 -1305 / -1305 -2260 / -2260 Lab / Micro Data 12/10/22 04:50 12/10/22 04:50 Labs: Laboratory Results - last 24 hr 12/09/22 17:00: POC Glucose 155 H 12/09/22 21:26: POC Glucose 205 H 12/10/22 04:50: WBC 7.1, RBC 2.85 L, Hgb 8.7 L, Hct 27.0 L, MCV 94.7, MCH 30.5, MCHC 32.2, RDW Std Deviation 46.9 H, RDW Coeff of Lucas 13.5, Plt Count 220, MPV 9.9, Immature Gran % (Auto) 3.500 H, Neut % (Auto) 73.2 H, Lymph % (Auto) 11.3 L , [place] % (Auto) 8.8, Eos % (Auto) 2.8, Baso % (Auto) 0.4, Absolute Neuts (auto) 5.2, Absolute Lymphs (auto) 0.80 L, Nucleated RBC % 0, Sodium 131 L, Potassium 4.9, Chloride 102, Carbon Dioxide 20.0 L, Anion Gap 9, BUN 103 H*, Creatinine 6.00 H, Estim Creat Clear Calc 5.55, Est GFR (MDRD) Af Amer 9 L, Est GFR (MDRD) Non-Af 7 L, BUN/Creatinine Ratio 17.2, Glucose 150 H, Calcium 7.9 L 12/10/22 06:15: POC Glucose 157 H 12/10/22 11:40: POC Glucose 188 H Micro: Microbiology 12/07/22 09:45 Stool Enteric Bacteriology - Final 12/05/22 16:10 Mucosa - Nose Respiratory Panel (PCR) - Final 12/05/22 16:00 Nasal Secretion SARS-CoV-2 Antigen (Rapid) - Final Radiography Diagnostic Testing: Radiology Impression Vessel Mapping-Hemodialysis Access 12/09/22 13:07 Interpretation Summary Right upper extremity veins patent with measurements above. Left upper extremity with acute superficial vein thrombus noted in the cephalic vein in the upper arm. Veins otherwise patent with measurements above. Right upper extremity arterial inflow patent with no evidence of mickey nosis/occlusion. Right upper extremity arterial inflow patent with no evidence of stenos is/occlusion. Ordering Physician: Delores Morales Referring Physician: Mitchell Lane Performed By: Chitra Heard RVT ??? Physical Exam Narrative General: Alert and oriented x3, NAD. HEENT: Normocephalic, atraumatic. Mucous membrane moist without erythema. PERRLA, EOMI. Hearing is intact. Neck: Supple, no JVD. Trachea is midline. No thyromegaly or lymphadenopathy. Cardiovascular: Normal S1, S2. No rubs, murmurs, or gallops. Respiratory: Crackles at bases on auscultation bilaterally. Abdomen: Normal bowel sounds, soft, nontender, no guarding or rebound, no organomegaly. Extremities: No clubbing or cyanosis. There is 2+ edema of the lower extremities bilaterally. Assessment & Plan Assessment/Plan (1) Acute renal failure: (2) CKD (chronic kidney disease), stage IV: (3) HTN (hypertension): (4) Acute hyperkalemia: (5) Acute hyponatremia: PLAN: Plan 82-year-old female here for shortness of breath. CKD stage IIIb. Baseline creatinine as of October 2022 was around 1.7 Acute renal failure. Presented with a creatinine of 4, worsening Renal ultrasound without any hydronephrosis. Urine analysis shows some protein, RBC, WBC. Urine sodium 8. However she had signs of congestive heart failure hence presumably this was thought to be related to cardiorenal syndrome. Echocardiogram reviewed. Ejection fraction is normal 65%, no diastolic dysfunction. She does have mild to moderate mitral valve issues. BNP is 200- 300. These objective findings are not necessarily consistent with congestive heart failure. Breathing has improved significantly with fluid removal, likely fluid related shortness of breath in the setting of renal failure. Discussed with family members. She was started on 2 new medications within the last 1 month including Ozempic and Farxiga. Its possible that she had volume depletion from lack of intake and volume depletion from Farxiga. Both of these medications are on hold right now. We will plan for dialysis tomorrow again. Serologies will probably come back next week. If serologies are negative, I will wait 3 to 4 weeks for recovery and then consider kidney biopsy if no recovery. If serologies are positive, she will need kidney biopsy right away. Discharge plan yet to be determined. Physical therapy to see her today. She may need a temporary rehab stay. Discussed with family at bedside. Discussed with hospitalist.
[2022-12-10 16:09] LABS: Complement C3 133 mg/dL (82-167); Cytoplasmic Ab (C-ANCA) <1:20 titer (Neg:<1:20); PROEL- A/G Ratio 1.1 (0.7-1.7); PROEL- Albumin 2.8 g/dL (2.9-4.4); PROEL- Alpha-1 Globulin 0.2 g/dL (0.0-0.4); PROEL- Alpha-2 Globulin 0.7 g/dL (0.4-1.0); PROEL- Gamma Globulin 0.7 g/dL (0.4-1.8); PROEL- Globulin, Total 2.6 g/dL (2.2-3.9); PROEL- TOTAL PROTEIN 5.4 g/dL (6.0-8.5); Perinuclear Ab (P-ANCA) <1:20 titer (Neg:<1:20)
--- NOTE | 2022-12-10 16:37 | CASEMGMT ---
LISSETH FERRER NOTE: Therapy has worked w/pt today. Per Heidi, pt amb 25 ft w/CGA and HHC is recommended. Per Simin, tool and production planner, she has spoken w/pt's dtr and [facility] is 1st choice. Call to Larisa @ [facility] and referral made. She was made aware Dr Henry anticipates pt to discharge home over the w/e. Aristides IRVIN RN CM
--- NOTE | 2022-12-10 16:38 | CASEMGMT ---
Discharge Planning Therapy recommends patient return home with HH. Spoke with patient, her , and her daughter. They are agreeable with this. They would like a referral made to [facility]. RN NABIL notified and referral sent via [facility]. Relayed to family that RN NABIL will call [facility] regarding chair times and would follow up with them in the morning. Simin Goldstein, Discharge Planning Asst.
[2022-12-10] MEDS: Insulin NPH Human 100 UNITS/ML PEN 8 UNITS SC (17:00)
[2022-12-10 17:08] LABS: Bedside Glucose 223 mg/dL (74-106)
[2022-12-10 20:07] LABS: Anti-Glomerular Basement Memb < 0.2 units (0.0-0.9)
[2022-12-10] MEDS: Aspirin 81 MG TAB.CHEW PO (22:32)
[2022-12-10] MEDS: MELATONIN 3 MG TABLET PO (22:32)
[2022-12-10] MEDS: Mag Hydrox/Al Hydrox/Simeth 30 ML UDC PO (22:33)
[2022-12-11] VITALS (16 sets, daily range): BP systolic 115–178; BP diastolic 45–79; PULSE 58–84; RESP 12–18; TEMP 36.3–36.7; O2SAT 95–100; BMI 50.1; BMI 50.4; BMI 49.4
[2022-12-11 00:22] LABS: Bedside Glucose 184 mg/dL (74-106)
[2022-12-11] MEDS: Heparin Injection (Vial) 5,000 UNIT/ML VIAL 5000 UNIT SC ×3 (07:00→21:47)
[2022-12-11 07:14] LABS: Anion Gap 9 (5-15); BUN 88 mg/dL (7-18); BUN/Creat Ratio 16.8 RATIO (10-20); Calcium,Total 7.8 mg/dL (8.5-10.1); Chloride 101 mmol/L (98-107); Creatinine, Serum 5.23 mg/dL (0.55-1.02); EST Glomerular Filtration Rate 8 mL/min (>60); Est Glom Filt Rate - Afr Amer 10 mL/min (>60); Estimated Creatinine Clearance 6.37 ml/min; Glucose 153 mg/dL (74-106); Potassium 4.5 mmol/L (3.5-5.1); Sodium Level 133 mmol/L (136-145)
[2022-12-11 07:22] LABS: Bedside Glucose 160 mg/dL (74-106)
[2022-12-11] MEDS: 0.9% Saline Lock 10 ML Syringe IV ×2 (07:55→10:45)
[2022-12-11] MEDS: PureFlow B 2K Dialysis Soln 1 BAG 6 BAG PF (07:56)
[2022-12-11] MEDS: 0.9% Normal Saline 1,000 ML IV.SOLN. 1000 ML OPERA.SITE ×2 (07:56→09:38)
--- NOTE | 2022-12-11 08:28 | PCM.PN.HOSP ---
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 (12/05/22) Subjective Subjective Feeling slightly better today, was seen again on dialysis Objective Data Objective Data Vital Signs: Vital Signs Temp Pulse Resp BP Pulse Ox O2 Del Method O2 Flow Rate 98.0 F 60 14 147/58 H 99 Nasal Cannula 3 12/11/22 07:30 12/11/22 07:55 12/11/22 07:55 12/11/22 07:55 12/11/22 07:55 12/11/22 07:55 12/11/22 07:55 FiO2 50 12/06/22 09:30 Oxygen Flow Rate (L/min) 3 Oxygen Delivery Method Nasal Cannula Weight: 121.1 kg Body Mass Index (BMI) 50.4 Intake & Output: Intake and Output for Last 24 Hours 12/09/22 12/10/22 12/11/22 23:59 23:59 23:59 Intake Total 695 / 695 480 / 480 Output Total 1999 2500 / 2500 Balance -1305 / -1305 -2019 / -2019 Lab / Micro Data 12/10/22 04:50 12/11/22 05:08 Labs: Laboratory Results - last 24 hr 12/09/22 05:25: Total Protein (PEP) 5.4 L, Albumin (PEP) 2.8 L, Globulin (PEP) 2.6, Albumin/Globulin (PEP) 1.1, Qvdun-5-Qwzerxiqm 0.2, Hkqqf-7-Obirkevkh 0.7, Beta Globulins 1.0, Gamma Globulins 0.7, M-Ash , PEP Note Comment:, PEP Interpretation Comment, c-ANCA Antibody <1:20, Atypical p-ANCA <1:20, p-ANCA Antibody <1:20, Glomerular Base Memb Ab < 0.2, Complement C3 133 12/10/22 04:50: Complement C4 30 12/10/22 11:40: POC Glucose 188 H 12/10/22 16:39: POC Glucose 223 H 12/10/22 22:29: POC Glucose 184 H 12/11/22 05:08: Sodium 133 L, Potassium 4.5, Chloride 101, Carbon Dioxide 23.0, Anion Gap 9, BUN 88 H, Creatinine 5.23 H, Estim Creat Clear Calc 6.37, Est GFR (MDRD) Af Amer 10 L, Est GFR (MDRD) Non-Af 8 L, BUN/Creatinine Ratio 16.8, Glucose 153 H, Calcium 7.8 L 12/11/22 06:57: POC Glucose 160 H Micro: Microbiology 12/07/22 09:45 Stool Enteric Bacteriology - Final 12/05/22 16:10 Mucosa - Nose Respiratory Panel (PCR) - Final 12/05/22 16:00 Nasal Secretion SARS-CoV-2 Antigen (Rapid) - Final Physical Exam Narrative General: Alert, no apparent distress HEENT: Atraumatic, normocephalic Eyes: Anicteric, normal conjunctiva, extraocular movements grossly intact Neck: Supple Respiratory: Improved respiratory effort, diminished bilaterally Cardiovascular: Regular rate and rhythm GI: Soft, nontender, nondistended Extremities: Legs beginning to have wrinkles Musculoskeletal: Moving all extremities Neuro: No overt focal neurological deficits Skin: No rashes appreciated Psych: Cooperative Assessment & Plan Assessment/Plan (1) Hypoxia: (2) Acute hyponatremia: (3) Acute hyperkalemia: (4) Diabetes mellitus, type 2: QUALIFIERS: Chronic kidney disease stage: stage 4 (severe) Diabetes mellitus complication detail: with chronic kidney disease Diabetes mellitus complication status: with kidney complications Diabetes mellitus snf insulin use: with snf use Qualified Code(s): E11.22 - Type 2 diabetes mellitus with diabetic chronic kidney disease; N18.4 - Chronic kidney disease, stage 4 (severe); 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 PLAN: Plan #Acute on chronic hypoxic respiratory failure in the setting of COPD on 4 L home O2 with concerns for possible fluid overload -Increasing shortness of breath over the past week -BNP 296, Troponin negative -Chest x-ray read with no radiographic evidence of acute pulmonary disease however on review of films of both PA and lateral concern for possible pulmonary edema though film does have poor penetration -Lasix were held in the ED and patient was given fluids, may need IV diuresis however, fluid studies pending to assess underlying reason for LINDA and intravascular fluid status -Nebs, however no significant wheezing so we will hold off on antibiotics and steroids -We will obtain respiratory panel and COVID -Does not have signs/symptoms consistent with bacterial infection, will hold on any empiric antibiotics -Most recent echo 09/05/1931 with EF of 60% and no evidence of diastolic dysfunction and no regional wall motion abnormalities, unable to estimate PASP but remarked that it is probably normal -We will repeat echo -BiPAP nightly and as needed if any further desaturation or increased work of breathing -12/06: Did not wear BiPAP overnight and had to go on high flow, bipap ordered, repeat chest x-ray read as bibasilar pneumonia however reviewed films and discussed with nephrology, seems to be consistent with pulmonary edema and fluid overload. Resumed on IV Lasix -12/07: Respiratory status overall improved with sitting still however does continue to varying O2 requirements, on Lasix, alternates between high flow and then back to nasal cannula, overall more comfortable and less labored -12/08: Respiratory status continues to have varying requirements, 96% on 4.5 L nasal cannula this a.m. -12/09: Has been on NC, not on high flow and respiratory status was improving but now with patient not making urine she is retaining more fluid and feels like she is more short of breath, patient for dialysis -12/10: Continue with dialysis, monitor O2 sats and wean O2 as tolerated -12/11: Respiratory status improving with hemodialysis, wean O2 as tolerated. Before discharge would benefit from O2 walk test to assess level of home O2 need, from baseline reportedly 4 L #LINDA on CKD stage IV with uremia?with right-sided tunneled dialysis catheter and HD started 12/09 -Creatinine on discharge 10/22/2022 was 1.96, on admission today it was 4.28 with a BUN of 107 -Hold home losartan -Obtain renal ultrasound and urine studies -Buchanan catheter attempted to be placed in the ED due to low urine output, kidney function, I's and O's however this was not placed excessively, will bladder scan -Nephrology consulted -12/06: FEUrea 13.9%, urine sodium 8 which all suggest prerenal, unclear if cardiorenal or intravascularly depleted however given x-ray, clinical status suspect cardiorenal. Discussed with technical research scientist who also felt this was more fluid overload and cardiorenal, Lasix started. Got UA per nephro recs. -12/07: Kidney function worsened overnight with BUN of 110 and creatinine 4.52 but bicarb normalized, patient on Lasix IV, nephrology following, I's and O's, did gain a kilogram, low bladder scan and official kidney ultrasound pending -12/08: Decreasing urine output with continued worsening of creatinine and BUN, nephrology following, may need dialysis given worsening but do not note any indication for urgent dialysis at this time -12/09: K 5.2 today, Cr continues to worsen. Surg c/s for HD catheter, will need to start HD, plan is for today. Anca and spep ordered and pending. -12/10: First dialysis with right-sided tunneled HD catheter 12/10, dialysis again today -12/11: BUN, potassium, sodium improving, continue HD per nephrology recommendations. C4 and C3 within normal limits, ANCA is negative. Nephrology suspects most likely ATN. If kidney function does not recover may need biopsy in the future #LUE w/ acute superficial vein thrombus noted in the cephalic vein in upper arm -On vein mapping -Possibly secondary to IV access -Typically self-limited, will treat symptomatically as symptoms not severe -Had been using SCDs, will initiate heparin subcu for DVT prophylaxis #Hyperkalemia -Likely secondary to LINDA in addition to losartan use -Admit to tele -EKG in ED with heart rate of [address]/T wave changes from previous -Received K albuterol and insulin in ED, will also give Kayexalate -Trend BMP -7/2: Resolved -12/09: Slightly elevated 5.2, will give kayexalate, albuterol, calcium, patient to begin dialysis -12/10: Resolved #Hyponatremia -Unclear chronicity as last sodium in our system was in October, asymptomatic -Will check urine studies and serum osm dependent versus underlying etiology -Trend BMP -12/06: Suspect multifactorial, is improving -12/09: Continue to monitor and treat underlying condition -12/10: May be due to fluid overload, patient had dialysis with fluid removal again today -12/11: Improving with fluid removal #Type 2 diabetes mellitus -Glucose checks and sliding scale insulin -Continue NPH -We will need to clarify home insulin regimen -12/06: Continue current measures -12/10: We will hold Premeal as she is largely not been getting it due to glucose levels and concern that she may become hypoglycemic and this would be more detrimental than slightly elevated blood glucose, will continue NPH -12/11: Fairly well controlled on present management, continue current insulin regimen #Chronic normocytic anemia -Has been stable for several days and appears chronically anemic -Given CKD/kidney function may need iron versus EPO moving forward, will defer to nephrology in that regard at this time #DVT ppx: Heparin subcu Silvia Henry MD Time spent in the patient's overall evaluation,decision-making process, review of diagnostic data, adjustment of management, discussion with other providers, nursing nursing and ancillary staff involved in patient's care documentation, 37 minutes Charges/Coding Visit Charges Inpatient E&M: 77752 Subs Hosp L2
--- NOTE | 2022-12-11 08:50 | CASEMGMT ---
Addendum entered by Earl Zafar 12/11/22 18:22: HD tx run sheets from today sent to [facility] via on-line portal. Addendum entered by Earl Zafar 12/11/22 18:20: 1450: [facility] has accepted pt per Simin d/c inventory control planner, and states [facility] will transport pt to/from OP HD @ [facility]. Call placed to Caitlin @ [facility] and she was made aware pt will be going to [facility] and anticipated discharge tomorrow. Call placed to Enma @ [facility] and she was made aware of same. She verifies pt has been medically and financially cleared for OP HD and 1st tx scheduled for Thursday 12/14 @ 0530. Call to [facility] and spoke w/Saranya. She was also made aware plan is for discharge to [facility], most likely tomorrow, and that [facility] will transport pt. She confirms. 1st tx scheduled for Thursday 12/14 @ 0530. LISSETH FERRER to room. Spoke w/pt and @ bedside. They are agreeable to above plan. Questions answered and they voice appreciation and deny having further questions or concerns. Addendum entered by Earl Zafar 12/11/22 11:25: RN NABIL spoke w/Shayy Tucker rep re: pt and family requesting later chair time. There is a [facility] OP HD center in [place], which is near pt's home also. She states they have the following chair times available there: TTS @ 1030 or 1115. She states, if Dr Morales would like pt to receive next tx earlier than after discharge, then they may be able to have tx scheduled for tomorrow/Sat or on Wednesday, if needed. RN NABIL to room to notify pt/family about [facility] being able to accept pt and re: [place] location as stated above and chair times. Selam/milton, stopped RN NABIL in [facility] and states they have a change of plans. She states her dad/pt's has voiced he is uncomfortable taking pt home and they would now like pt to go to a SNF. She states they have spoken w/pt about this and although she prefers to return home, she is agreeable to going to a SNF @ discharge. Selam states [facility] is 1st preference and [facility] is 2nd. Simin, business planner, made aware. [facility] is unable to transport pt to OP HD and states she will notify pt/family. Larisa @ [facility] notified to cx referral for HHC. HD orders and run sheets from Wed and uploaded to [employer] via portal this AM. Call received from Enma @ [facility] requesting this info. She states medical clearance is still pending, as they are awaiting information. She was made aware these have been uploaded in the portal. She states she will check again and to call this RN NABIL back if further info is needed. Original Note: LISSETH FERRER NOTE: Message received from Larisa @ [facility]. They are able to accept pt w/SOC slated for 12/15. This was added to discharge plan. Per request of pt/family to try and find a later chair time for OP HD: Call placed to Rama @ [facility] to inquire if a later chair time (than 0530) has opened yet. She verifies there is still currently no later chair times available. Call placed to Rosy @ [facility] to inquire about chair time availability. She states they may have an 0730, 0845, or 0915 chair time available. Referral will need to be sent to them and accepted to verify. Will notify pt and family of above. Aristides IRVIN RN, CM
[2022-12-11 10:20] LABS: Pathologist Review Reviewed
--- NOTE | 2022-12-11 10:40 | CASEMGMT ---
Discharge Planning Referral sent to [facility] via [facility]. Simin Goldstein, Discharge Planning Asst.
[2022-12-11] MEDS: Menthol/Lanolin/Calamine/Znox 113 GM Tube 1 APPLIC TOPICAL (11:15)
[2022-12-11] MEDS: Pravastatin 40 MG Tablet PO (11:15)
[2022-12-11] MEDS: Carvedilol 25 MG Tablet PO ×2 (11:15→17:22)
[2022-12-11] MEDS: amLODIPine 5 MG Tablet PO (11:15)
[2022-12-11] MEDS: Sertraline 100 MG Tablet PO ×2 (11:15→21:47)
[2022-12-11] MEDS: Nystatin Powder 15gm Bottle 1 APPLIC TOPICAL (11:16)
[2022-12-11] MEDS: Insulin Lispro 100 UNIT/ML INSULN.PEN SC ×3 (11:19→21:47)
[2022-12-11 11:45] LABS: Bedside Glucose 160 mg/dL (74-106)
--- NOTE | 2022-12-11 12:21 | PN.RENAL_ITS ---
Subjective Subjective No new complaints. Breathing looks better. Objective Data Objective Data Vital Signs: Vital Signs Temp Pulse Resp BP Pulse Ox O2 Del Method O2 Flow Rate 97.7 F L 74 12 166/61 H 100 Nasal Cannula 3 12/11/22 11:02 12/11/22 11:15 12/11/22 11:02 12/11/22 11:02 12/11/22 11:02 12/11/22 11:02 12/11/22 11:02 FiO2 50 12/06/22 09:30 Oxygen Flow Rate (L/min) 3 Oxygen Delivery Method Nasal Cannula Weight: 118.5 kg Body Mass Index (BMI) 49.4 Intake & Output: Intake and Output for Last 24 Hours 12/09/22 12/10/22 12/11/22 23:59 23:59 23:59 Intake Total 695 / 695 480 / 480 Output Total 1999 / 1999 2500 / 2500 3000 / 3000 Balance -1305 / -1305 -2020 / -2020 -3000 / -3000 Lab / Micro Data 12/10/22 04:50 12/11/22 05:08 Labs: Laboratory Results - last 24 hr 12/09/22 05:25: Diff Path Review Reviewed, Total Protein (PEP) 5.4 L, Albumin (PEP) 2.8 L, Globulin (PEP) 2.6, Albumin/Globulin (PEP) 1.1, Dgjlt-7-Qournwswp 0.2, Sioza-5-Gtsgtcxyq 0.7, Beta Globulins 1.0, Gamma Globulins 0.7, M-Ash , PEP Note Comment:, PEP Interpretation Comment, c-ANCA Antibody <1:20, Atypical p-ANCA <1:20, p-ANCA Antibody <1:20, Glomerular Base Memb Ab < 0.2, Complement C3 133 12/10/22 04:50: Complement C4 30 12/10/22 16:39: POC Glucose 223 H 12/10/22 22:29: POC Glucose 184 H 12/11/22 05:08: Sodium 133 L, Potassium 4.5, Chloride 101, Carbon Dioxide 23.0, Anion Gap 9, BUN 88 H, Creatinine 5.23 H, Estim Creat Clear Calc 6.37, Est GFR (MDRD) Af Amer 10 L, Est GFR (MDRD) Non-Af 8 L, BUN/Creatinine Ratio 16.8, Glucose 153 H, Calcium 7.8 L 12/11/22 06:57: POC Glucose 160 H 12/11/22 11:11: POC Glucose 160 H Micro: Microbiology 12/07/22 09:45 Stool Enteric Bacteriology - Final 12/05/22 16:10 Mucosa - Nose Respiratory Panel (PCR) - Final 12/05/22 16:00 Nasal Secretion SARS-CoV-2 Antigen (Rapid) - Final Physical Exam Narrative General: Alert and oriented x3, NAD. HEENT: Normocephalic, atraumatic. Mucous membrane moist without erythema. PERRLA, EOMI. Hearing is intact. Neck: Supple, no JVD. Trachea is midline. No thyromegaly or lymphadenopathy. Cardiovascular: Normal S1, S2. No rubs, murmurs, or gallops. Respiratory: Crackles at bases on auscultation bilaterally. Abdomen: Normal bowel sounds, soft, nontender, no guarding or rebound, no organomegaly. Extremities: No clubbing or cyanosis. There is 2+ edema of the lower extremities bilaterally. Assessment & Plan Assessment/Plan (1) Acute renal failure: (2) CKD (chronic kidney disease), stage IV: (3) HTN (hypertension): (4) Acute hyperkalemia: (5) Acute hyponatremia: PLAN: Plan 82-year-old female here for shortness of breath. CKD stage IIIb. Baseline creatinine as of October 2022 was around 1.7 Acute renal failure. Presented with a creatinine of 4 Renal ultrasound without any hydronephrosis. Urine analysis shows some protein, RBC, WBC. Urine sodium 8. However she had signs of congestive heart failure hence presumably this was thought to be related to cardiorenal syndrome. Echocardiogram reviewed. Ejection fraction is normal 65%, no diastolic dysfunction. She does have mild to moderate mitral valve issues. BNP is 200- 300. These objective findings are not necessarily consistent with congestive heart failure. Breathing has improved significantly with fluid removal, likely fluid related shortness of breath in the setting of renal failure. Discussed with family members. She was started on 2 new medications within the last 1 month including Ozempic and Farxiga. Its possible that she had volume depletion from lack of intake and volume depletion from Farxiga. Both of these medications are on hold right now. Dialysis again today, seen on dialysis. Breathing has improved significantly. Not much urine output yet. All serologies are negative. Most likely ATN at this point. Plan is to continue dialysis and monitor for recovery for about a month or so. If she does not recover by then, we will revisit the topic of biopsy.
--- NOTE | 2022-12-11 14:12 | CASEMGMT ---
Discharge Planning Spoke with patient, her , and her daughter about [facility] acceptance. Informed them that transfer would likely take place tomorrow. Simin Goldstein, Discharge Planning Asst.
--- NOTE | 2022-12-11 15:21 | CASEMGMT ---
Patient will discharge to [place] under skilled level of care on a PASRR. Ledy Miller [employer] JUSTICE CHITO
[2022-12-11] MEDS: Budesonide Respules 0.5 MG/2 ML AMPUL.NEB. INHALATION (15:43)
[2022-12-11] MEDS: Ipratropium/Albuterol Sulfate 3 ML AMPUL.NEB INHALATION (15:43)
[2022-12-11] MEDS: Insulin NPH Human 100 UNITS/ML PEN 8 UNITS SC (16:48)
[2022-12-11 17:10] LABS: Bedside Glucose 211 mg/dL (74-106)
[2022-12-11] MEDS: Aspirin 81 MG TAB.CHEW PO (21:47)
[2022-12-11] MEDS: Mag Hydrox/Al Hydrox/Simeth 30 ML UDC PO (21:47)
[2022-12-12 02:02] LABS: Bedside Glucose 204 mg/dL (74-106)
[2022-12-12 03:13] VITALS: BMI 49.2
[2022-12-12 03:39] VITALS: BP 157/55; PULSE 64; RESP 18; TEMP 36.5; O2SAT 96
[2022-12-12 03:40] VITALS: O2SAT 96
[2022-12-12] MEDS: Mag Hydrox/Al Hydrox/Simeth 30 ML UDC PO ×2 (03:47→15:51)
[2022-12-12 06:24] LABS: Absolute Lymphocyte Count 0.97 X10^3/uL (0.83-4.51); Basophil# 0.04 X10^3/uL; Basophil% 0.6 % (0-1); Eosinophil# 0.27 X10^3/uL; Eosinophils% 3.7 % (0-5); Hematocrit 26.9 % (37-47); Hemoglobin 8.6 g/dL (12.0-15.0); Lymphocyte # 0.97 X10^3/ul (0.83-4.51); Lymphocyte % 13.4 % (19-41); Mean Corpuscular Volume 93.7 fL (81-99); Mean Platelet Vol. 10.2 fl (6.2-12.0); Monocyte# 0.63 X10^3/uL; Monocyte% 8.7 % (0-10); NRBC Flagged by Analyzer 0 % (0-5); Neutrophil # 5.02 X10^3/uL (2.7-7.7); Neutrophil % 69.5 % (47-70); Platelet Count 208 K/mm3 (150-450); RBC Distribution Width CV 13.2 % (11.6-14.6); RBC Distribution Width SD 45.1 fl (35.1-43.9); Red Blood Count 2.87 M/mm3 (4.2-5.4); White Blood Count 7.2 K/mm3 (4.4-11.0)
[2022-12-12] MEDS: Insulin Lispro 100 UNIT/ML INSULN.PEN SC ×3 (06:44→17:09)
[2022-12-12] MEDS: Heparin Injection (Vial) 5,000 UNIT/ML VIAL 5000 UNIT SC ×2 (06:44→15:51)
[2022-12-12 06:58] LABS: Anion Gap 5 (5-15); BUN 67 mg/dL (7-18); BUN/Creat Ratio 15.1 RATIO (10-20); Calcium,Total 7.8 mg/dL (8.5-10.1); Chloride 99 mmol/L (98-107); Creatinine, Serum 4.43 mg/dL (0.55-1.02); EST Glomerular Filtration Rate 10 mL/min (>60); Est Glom Filt Rate - Afr Amer 12 mL/min (>60); Estimated Creatinine Clearance 7.52 ml/min; Glucose 169 mg/dL (74-106); Potassium 4.5 mmol/L (3.5-5.1); Sodium Level 130 mmol/L (136-145)
[2022-12-12 07:04] LABS: Bedside Glucose 169 mg/dL (74-106)
--- NOTE | 2022-12-12 08:13 | PCM.PN.HOSP ---
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 Morbid obesity. PT on home oxygen. Objective Data Objective Data Vital Signs: Vital Signs Temp Pulse Resp BP Pulse Ox O2 Del Method O2 Flow Rate 97.7 F L 64 18 157/55 H 96 Nasal Cannula 2 12/12/22 03:39 12/12/22 03:39 12/12/22 03:39 12/12/22 03:39 12/12/22 03:40 12/12/22 07:05 12/12/22 07:05 FiO2 50 12/06/22 09:30 Oxygen Flow Rate (L/min) 2 Oxygen Delivery Method Nasal Cannula Weight: 260 lb 9.382 oz Body Mass Index (BMI) 49.2 Intake & Output: Intake and Output for Last 24 Hours 12/10/22 12/11/22 12/12/22 23:59 23:59 23:59 Intake Total 480 / 480 660 / 660 Output Total 2500 / 2500 3000 / 3000 0 / 0 Balance -2020 / -2019 -2339 / -234 0 / 0 Lab / Micro Data 12/12/22 05:40 12/12/22 05:40 Labs: Laboratory Results - last 24 hr 12/09/22 05:25: Diff Path Review Reviewed 12/11/22 11:11: POC Glucose 160 H 12/11/22 16:46: POC Glucose 211 H 12/11/22 21:42: POC Glucose 204 H 12/12/22 05:40: WBC 7.2, RBC 2.87 L, Hgb 8.6 L, Hct 26.9 L, MCV 93.7, MCH 30.0, MCHC 32.0, RDW Std Deviation 45.1 H, RDW Coeff of Lucas 13.2, Plt Count 208, MPV 10.2, Immature Gran % (Auto) 4.100 H, Neut % (Auto) 69.5, Lymph % (Auto) 13.4 L, [place] % (Auto) 8.7, Eos % (Auto) 3.7, Baso % (Auto) 0.6, Absolute Neuts (auto) 5.0, Absolute Lymphs (auto) 0.97, Nucleated RBC % 0, Sodium 130 L, Potassium 4.5, Chloride 99, Carbon Dioxide 26.0, Anion Gap 5, BUN 67 H, Creatinine 4.43 H, Estim Creat Clear Calc 7.52, Est GFR (MDRD) Af Amer 12 L, Est GFR (MDRD) Non-Af 10 L, BUN/Creatinine Ratio 15.1, Glucose 169 H, Calcium 7.8 L 12/12/22 06:43: POC Glucose 169 H Micro: Microbiology 12/07/22 09:45 Stool Enteric Bacteriology - Final 12/05/22 16:10 Mucosa - Nose Respiratory Panel (PCR) - Final 12/05/22 16:00 Nasal Secretion SARS-CoV-2 Antigen (Rapid) - Final Physical Exam Narrative Patient could not sleep well, nonadherent to BiPAP. Very less amount of urine. Physical exam: General: Alert, Oriented x3, Cooperative, morbid obesity BMI 49.2 kg/m?. HEENT: Atraumatic, PERRLA, EOMI, Normocephalic Oral: Deep oropharyngeal structures could not be visualized. No oral ulcer. Neck: Supple, No JVD, Negative Carotid Bruits Lungs: Air entry severely diminished in bilateral lung bases. Mild bilateral expiratory rhonchi. Cardiovascular: Regular rate, Regular Rhythm, Normal S1, Normal S2, No murmurs Abdomen: Flat abdomen. Bowel Sounds Present, Soft, Non Tender, Non-Distended : On hemodialysis through right permacath. No renal angle tenderness. No suprapubic tenderness. Extremities: No edema, Capillary Refill Less than 3 Seconds Skin: Mild yeast infection in groin and abdominal fold of his skin. Musculoskeletal: No Tenderness to Palpation of Joints or Extremities ROM severely restricted at hip and knee joints. Neurological: Cranial nerves II-XII grossly intact, DTR 2+/4 l, Neuro grossly intact Psych/Mental Status: Flat affect. 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 PLAN: Plan #Acute on chronic hypoxic respiratory failure in the setting of COPD on 4 L home O2 with concerns for possible fluid overload -Increasing shortness of breath over the past week -BNP 296, Troponin negative -Chest x-ray read with no radiographic evidence of acute pulmonary disease however on review of films of both PA and lateral concern for possible pulmonary edema though film does have poor penetration -Most recent echo 09/03/2021 with EF of 60% and no evidence of diastolic dysfunction and no regional wall motion abnormalities, unable to estimate PASP but remarked that it is probably normal Repeat echo shows EF 65%, no diastolic dysfunction. Mild to moderate MR. -BiPAP nightly and as needed if any further desaturation or increased work of breathing 12/12: Significant improvement in shortness of breath after start of hemodialysis. Nonadherent to BiPAP. Patient denies waking up at night/respiratory distress. #LINDA on CKD stage IV with uremia?with right-sided tunneled dialysis catheter and HD started 12/09 -Creatinine on discharge 10/22/2022 was 1.96, on admission today it was 4.28 with a BUN of 107 -Hold home losartan. Patient was given IV fluid in ED. -Obtain renal ultrasound and urine studies -Buchanan catheter attempted to be placed in the ED due to low urine output, kidney function, I's and O's however this was not placed excessively, will bladder scan -Nephrology consulted FEUrea 13.9%, urine sodium 8 which all suggest prerenal, unclear if cardiorenal or intravascularly depleted Farxiga and Ozempic. Discussed with associate professor of theatre who also felt this was more fluid overload and cardiorenal, Lasix started. Got UA per nephro recs. Kidney function Worsening Ultimately Patient Required Permacath and Hemodialysis Was Started on 12/10. -12/12: BUN, potassium, sodium improving, C4 and C3 within normal limits, ANCA is negative. Imitation Marble Mechanic impression is most likely ATN progressed from volume depletion from Farxiga or cardiorenal syndrome. Laboratory Results #LUE w/ acute superficial vein thrombus noted in the cephalic vein in upper arm -On vein mapping -Possibly secondary to IV access -Typically self-limited, will treat symptomatically as symptoms not severe -Had been using SCDs, will initiate heparin subcu for DVT prophylaxis #Hyperkalemia -Likely secondary to LINDA in addition to losartan use -Admit to tele -EKG in ED with heart rate of [address]/T wave changes from previous -Received K albuterol and insulin in ED, will also give Kayexalate Hypokalemia resolved. #Hyponatremia -Unclear chronicity as last sodium in our system was in October, asymptomatic -Will check urine studies and serum osm dependent versus underlying etiology -Trend BMP -/: Sodium 130. #Type 2 diabetes mellitus -Glucose checks and sliding scale insulin -Continue NPH -We will need to clarify home insulin regimen - glucose 169 in BMP. Fairly controlled. #Chronic normocytic anemia -Has been stable for several days and appears chronically anemic -Given CKD/kidney function may need iron versus EPO moving forward, will defer to nephrology in that regard at this time #DVT ppx: Heparin subcu 12/09/22 05:25: Diff Path Review Reviewed 12/11/22 11:11: POC Glucose 160 H 12/11/22 16:46: POC Glucose 211 H 12/11/22 21:42: POC Glucose 204 H 12/12/22 05:40: WBC 7.2, RBC 2.87 L, Hgb 8.6 L, Hct 26.9 L, MCV 93.7, MCH 30.0, MCHC 32.0, RDW Std Deviation 45.1 H, RDW Coeff of Lucas 13.2, Plt Count 208, MPV 10.2, Immature Gran % (Auto) 4.100 H, Neut % (Auto) 69.5, Lymph % (Auto) 13.4 L, [place] % (Auto) 8.7, Eos % (Auto) 3.7, Baso % (Auto) 0.6, Absolute Neuts (auto) 5.0, Absolute Lymphs (auto) 0.97, Nucleated RBC % 0, Sodium 130 L, Potassium 4.5, Chloride 99, Carbon Dioxide 26.0, Anion Gap 5, BUN 67 H, Creatinine 4.43 H, Estim Creat Clear Calc 7.52, Est GFR (MDRD) Af Amer 12 L, Est GFR (MDRD) Non-Af 10 L, BUN/Creatinine Ratio 15.1, Glucose 169 H, Calcium 7.8 L 12/12/22 06:43: POC Glucose 169 H Charges/Coding Visit Charges Inpatient E&M: 65018 Subs Hosp L2
[2022-12-12 09:40] VITALS: BP 169/72; PULSE 70; RESP 16; TEMP 36.4; O2SAT 97
[2022-12-12] MEDS: Sertraline 100 MG Tablet PO (10:11)
[2022-12-12] MEDS: Carvedilol 25 MG Tablet PO ×2 (10:11→17:08)
[2022-12-12] MEDS: amLODIPine 5 MG Tablet PO (10:11)
[2022-12-12] MEDS: Pravastatin 40 MG Tablet PO (10:11)
[2022-12-12] MEDS: Menthol/Lanolin/Calamine/Znox 113 GM Tube 1 APPLIC TOPICAL (10:13)
[2022-12-12] MEDS: Nystatin Powder 15gm Bottle 1 APPLIC TOPICAL (10:13)
[2022-12-12] MEDS: Insulin NPH Human 100 UNITS/ML PEN SC (10:23)
[2022-12-12 10:40] VITALS: O2SAT 93
[2022-12-12 10:45] LABS: Bedside Glucose 199 mg/dL (74-106)
[2022-12-12 11:54] LABS: Bedside Glucose 221 mg/dL (74-106)
--- NOTE | 2022-12-12 14:03 | CPS ---
pt states the breathing treatments are making her feel nauseous.
--- NOTE | 2022-12-12 14:47 | TREXTCAR_ITS ---
Diet Diet Order/Speech Therapy: 12/09/22 16:52 Diet: Renal - ConsCHO - José Cont Dietary Modifications:: Potassium Restricted Protein Restricted Phosphorus Restricted Sodium Restricted Is pt able to select menu?: Yes Fluid restriction:: 1750 mL How many daily calories?: 1600 calorie Routine Orders/Code Status Suppository Type: Dulcolax 10mg Suppository Frequency: Daily PRN Wound(s) RIGHT SUBCLAVIAN: Wound Type: Surgical Incision Therapies Weight Bearing: Weight bearing as tolerated Extremity Affected:: Bilateral Lower Physical Therapy: Eval and Treat Occupational Therapy: Eval and Treat Speech Therapy: Eval and Treat Problem/Diagnosis (1) Acute hyponatremia: Status: Acute Code(s): E87.1 - Hypo-osmolality and hyponatremia (2) Acute hyperkalemia: Status: Acute Code(s): E87.5 - Hyperkalemia (3) Diabetes mellitus, type 2: Status: Acute Code(s): E11.9 - Type 2 diabetes mellitus without complications Plan #Acute on chronic hypoxic respiratory failure in the setting of COPD on 4 L home O2 with concerns for possible fluid overload -Increasing shortness of breath over the past week -BNP 296, Troponin negative -Chest x-ray read with no radiographic evidence of acute pulmonary disease however on review of films of both PA and lateral concern for possible pulmonary edema though film does have poor penetration -Most recent echo 09/03/2021 with EF of 60% and no evidence of diastolic dysfunction and no regional wall motion abnormalities, unable to estimate PASP but remarked that it is probably normal Repeat echo shows EF 65%, no diastolic dysfunction. Mild to moderate MR. -BiPAP nightly and as needed if any further desaturation or increased work of breathing 12/12: Significant improvement in shortness of breath after start of hemodialysis. Nonadherent to BiPAP. Patient denies waking up at night/respiratory distress. #LINDA on CKD stage IV with uremia?with right-sided tunneled dialysis catheter and HD started 12/09 -Creatinine on discharge 10/22/2022 was 1.96, on admission today it was 4.28 with a BUN of 107 -Hold home losartan. Patient was given IV fluid in ED. -Obtain renal ultrasound and urine studies -Buchanan catheter attempted to be placed in the ED due to low urine output, kidney function, I's and O's however this was not placed excessively, will bladder scan -Nephrology consulted FEUrea 13.9%, urine sodium 8 which all suggest prerenal, unclear if cardiorenal or intravascularly depleted Farxiga and Ozempic. Discussed with pastor who also felt this was more fluid overload and cardiorenal, Lasix started. Got UA per nephro recs. Kidney function Worsening Ultimately Patient Required Permacath and Hemodialysis Was Started on 12/10. -12/12: BUN, potassium, sodium improving, C4 and C3 within normal limits, ANCA is negative. Layer Out Plate Glass impression is most likely ATN progressed from volume depletion from Farxiga or cardiorenal syndrome. Laboratory Results #LUE w/ acute superficial vein thrombus noted in the cephalic vein in upper arm -On vein mapping -Possibly secondary to IV access -Typically self-limited, will treat symptomatically as symptoms not severe -Had been using SCDs, will initiate heparin subcu for DVT prophylaxis #Hyperkalemia -Likely secondary to LINDA in addition to losartan use -Admit to tele -EKG in ED with heart rate of [address]/T wave changes from previous -Received K albuterol and insulin in ED, will also give Kayexalate Hypokalemia resolved. #Hyponatremia -Unclear chronicity as last sodium in our system was in October, asymptomatic -Will check urine studies and serum osm dependent versus underlying etiology -Trend BMP -/8: Sodium 130. #Type 2 diabetes mellitus -Glucose checks and sliding scale insulin -Continue NPH -We will need to clarify home insulin regimen - glucose 169 in BMP. Fairly controlled. #Chronic normocytic anemia -Has been stable for several days and appears chronically anemic -Given CKD/kidney function may need iron versus EPO moving forward, will defer to nephrology in that regard at this time #DVT ppx: Heparin subcu 12/09/22 05:25: Diff Path Review Reviewed 12/11/22 11:11: POC Glucose 160 H 12/11/22 16:46: POC Glucose 211 H 12/11/22 21:42: POC Glucose 204 H 12/12/22 05:40: WBC 7.2, RBC 2.87 L, Hgb 8.6 L, Hct 26.9 L, MCV 93.7, MCH 30.0, MCHC 32.0, RDW Std Deviation 45.1 H, RDW Coeff of Lucas 13.2, Plt Count 208, MPV 10.2, Immature Gran % (Auto) 4.100 H, Neut % (Auto) 69.5, Lymph % (Auto) 13.4 L, [place] % (Auto) 8.7, Eos % (Auto) 3.7, Baso % (Auto) 0.6, Absolute Neuts (auto) 5.0, Absolute Lymphs (auto) 0.97, Nucleated RBC % 0, Sodium 130 L, Potassium 4.5, Chloride 99, Carbon Dioxide 26.0, Anion Gap 5, BUN 67 H, Creatinine 4.43 H, Estim Creat Clear Calc 7.52, Est GFR (MDRD) Af Amer 12 L, Est GFR (MDRD) Non-Af 10 L, BUN/Creatinine Ratio 15.1, Glucose 169 H, Calcium 7.8 L 12/12/22 06:43: POC Glucose 169 H Allergies/Procedures Done in Hospital Allergies levofloxacin [From Levaquin] Adverse Reaction (Verified 12/05/22 13:10) Other procaine [From Novocain] Adverse Reaction (Verified 12/05/22 13:10) Other Type of Care/Length of Stay Estimated LOS: Convalescent Care Less Than 30 days Type of Care Needed: Skilled Rehab Potential: Good Prognosis: Good Additional Orders/Day of Discharge Day of Discharge: 12/12/22 Dietary and Speech Recommendations Dietitian Recommendations/Changes: Resume PO as tolerated with 1600 calorie/consistent carbohydrate; Renal diet with fluid restriction 1500 mL/day or as per physician orders. Defer ONS due to BMI and fluid restriction; offer if PO fails at meals---discussed use of Nepro PO. Will provide 1 sample of Nepro for family to keep for reference. Discharge Plan Admission Admit Date/Time: 12/05/22 15:34 Primary Reason for Your Visit: Acute on chronic hypoxic respiratory failure. Attending Provider: aJmes Soriano Primary Care Provider: Mitchell Lane Consulting Providers: Delores Morales; Da Abreu; Silvia Henry Instructions Additional Instructions / Restrictions: Patient needs BiPAP at night. Discharge Orders/Prescriptions Prescriptions: New insulin lispro [Humalog KwikPen Insulin] 100 unit/mL Insulin Pen See Protocol subcut ACHS Qty: 0 0RF Protocol: 2. Sliding Scale Insulin Low-Med Dosing Condition: 150-209 mg/dl = 1 unit Condition: 210-269 mg/dl = 2 units Condition: 270-329 mg/dl = 3 units Condition: 330-389 mg/dl = 4 units Condition: 390-449 mg/dl = 5 units Condition: Greater than 449 call physician Protocol Text: - Use for Total Daily Dose of Insulin 28-36 units - Average size patients LOW MEDIUM DOSING ALGORITHM ipratropium-albuterol 0.5 mg-3 mg(2.5 mg base)/3 mL Solution For Nebulization 3 ml inhalation [id number] Qty: 0 0RF menthol-zinc oxide [Calmoseptine] 0.44-20.6 % Ointment 1 applic topical BID Qty: 0 0RF Protocol: *Topical Application Instructions APPLICATION INSTRUCTIONS: apply to affected areas sennosides-docusate sodium [Stool Softener-Stimulant Laxat] 8.6-50 mg Tablet 2 tab PO BID PRN PRN (Reason: Constipation) Qty: 0 0RF Continued carvedilol 25 mg tablet 25 mg PO BIDCM Patient Comments: TAKE 1 TABLET BY MOUTH TWICE A DAY WITH MEALS pravastatin 40 mg tablet 40 mg PO DAILY Patient Comments: TAKE 1 TABLET BY MOUTH EVERY DAY sucralfate 1 gram tablet 1 g PO TIDCM Patient Comments: TAKE 1 TABLET BY MOUTH 3 TIMES A DAY BEFORE MEALS sertraline 100 mg tablet 100 mg PO BID Patient Comments: TAKE 1 TABLET BY MOUTH TWICE A DAY cyanocobalamin (vitamin B-12) 1,000 mcg Tablet 1,000 mcg PO DAILY amlodipine 5 mg tablet 5 mg PO DAILY Patient Comments: TAKE 1 TABLET BY MOUTH EVERY DAY mirtazapine 45 mg tablet 45 mg PO QHS Patient Comments: TAKE 1 TABLET BY MOUTH NIGHTLY losartan 100 mg tablet 50 mg PO DAILY Hold Instructions: Hold for 3 days. Patient Comments: TAKE 1 TABLET BY MOUTH EVERY DAY Rx Instructions: orally daily; cholecalciferol (vitamin D3) 25 mcg (1,000 unit) Capsule 25 mcg PO BID insulin NPH isoph U-100 human 100 unit/mL (3 mL) Insulin Pen 6 unit SUBCUT BREAKFAST insulin aspart U-100 [Novolog FlexPen U-100 Insulin] 100 unit/mL (3 mL) insulin pen 8 unit SUBCUT BREAKFAST Patient Comments: INJECT SUBCUTANEOUSLY 8 UNITS EVERY MORNING, 4 UNITS AT LUNCH, 12 UNITS AT DINNER insulin aspart U-100 [Novolog FlexPen U-100 Insulin] 100 unit/mL (3 mL) insulin pen 6 unit SUBCUT LUNCH Patient Comments: INJECT SUBCUTANEOUSLY 8 UNITS EVERY MORNING, 4 UNITS AT LUNCH, 12 UNITS AT DINNER insulin aspart U-100 [Novolog FlexPen U-100 Insulin] 100 unit/mL (3 mL) insulin pen 14 unit SUBCUT DINNER Patient Comments: INJECT SUBCUTANEOUSLY 8 UNITS EVERY MORNING, 4 UNITS AT LUNCH, 12 UNITS AT DINNER cholestyramine (with sugar) 4 gram powder in packet 1 ea PO DAILY budesonide-formoterol 160-4.5 mcg/actuation HFA aerosol inhaler 2 puff INHALATION BID Patient Comments: INHALE 2 PUFFS INTO THE LUNGS TWICE DAILY Probiotic 10 billion cell Capsule 10,000 mmu cells PO DAILY Rx Instructions: takes at lunch time aspirin 81 mg Tablet 81 mg PO QHS hydralazine 50 mg Tablet 50 mg PO TID 30 Days Qty: 90 0RF Rx Instructions: Hold for SBP less than 130 mmHg albuterol sulfate 90 mcg/actuation HFA aerosol inhaler 2 inh inhalation Q6H PRN (Reason: shortness of breath or wheezing) Qty: 8.5 0RF Changed insulin NPH isoph U-100 human 100 unit/mL (3 mL) Insulin Pen 10 unit SUBCUT QHS 30 Days Qty: 0 0RF Discontinued prednisone 20 mg tablet 40 mg PO DAILY 4 Days Qty: 8 0RF Hold Instructions: dc furosemide 40 mg tablet 60 mg PO DAILY furosemide 20 mg tablet 40 mg PO DINNER Patient Comments: TAKE 2 TABLETS BY MOUTH EVERY DAY Rx Instructions: pt takes at supper time Referrals / Follow Up: Lee Johnson MD [Med Staff - Active Staff] - Within 2 Weeks (FOR COPD, ANDREA) Mitchell Lane MD [Primary Care Provider] - Delores Morales MD [Med Staff - Consulting] - Within 2 Weeks Disposition Disposition (needs filled in before D/C Order can be placed): Care Home Facility (3) Diabetes mellitus, type 2 Qualifiers: 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
--- NOTE | 2022-12-12 14:56 | DS.PCM_ITS ---
Providers Date of Admission: 12/05/22 Date of Discharge: 12/12/22 Primary Care Physician: Dr. Mitchell Lane MD Consultations 12/05/22 17:14 Consult: Nephrology Routine Consulting Provider: Delores Morales Reason for Consult: LINDA on CKDIV, hyperkalemia, uremia EMERGENT Consult: No Notified: Yes Date Notified: 12/05/22 Time Notified: 17:53 Method of Notification: Answering Service 12/08/22 15:39 Consult: General Surgery Routine Consulting Provider: Da Abreu Reason for Consult: Needs tunneled HD catheter placed to begin HD EMERGENT Consult: No Notified: Yes Date Notified: 12/08/22 Time Notified: 15:40 Method of Notification: Text Reason For Visit: LINDA ON CKD, WORSENING HYPOXIA Diagnosis Discharge Diagnosis (1) Acute hyponatremia: Status: Acute Code(s): E87.1 - Hypo-osmolality and hyponatremia (2) Acute hyperkalemia: Status: Acute Code(s): E87.5 - Hyperkalemia (3) Diabetes mellitus, type 2: Status: Acute Code(s): E11.9 - Type 2 diabetes mellitus without complications 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 use Diabetes mellitus complication status: with kidney complications Diabetes mellitus complication detail: with chronic kidney disease Chronic kidney disease stage: stage 4 (severe) Qualified Code(s): E11.22 - Type 2 diabetes mellitus with diabetic chronic kidney disease; N18.4 - Chronic kidney disease, stage 4 (severe); 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 Plan #Acute on chronic hypoxic respiratory failure in the setting of COPD on 4 L home O2 with concerns for possible fluid overload -Increasing shortness of breath over the past week -BNP 296, Troponin negative -Chest x-ray read with no radiographic evidence of acute pulmonary disease however on review of films of both PA and lateral concern for possible pulmonary edema though film does have poor penetration -Most recent echo 09/03/2021 with EF of 60% and no evidence of diastolic dysfunction and no regional wall motion abnormalities, unable to estimate PASP but remarked that it is probably normal Repeat echo shows EF 65%, no diastolic dysfunction. Mild to moderate MR. -BiPAP nightly and as needed if any further desaturation or increased work of breathing 12/12: Significant improvement in shortness of breath after start of hemodialysis. Nonadherent to BiPAP. Patient denies waking up at night/respiratory distress. Patient emphasized the importance of BiPAP. Being discharged to SNF. #LINDA on CKD stage IV with uremia?with right-sided tunneled dialysis catheter and HD started 12/09 -Creatinine on discharge 10/22/2022 was 1.96, on admission today it was 4.28 with a BUN of 107 -Hold home losartan. Patient was given IV fluid in ED. -Obtain renal ultrasound and urine studies -Buchanan catheter attempted to be placed in the ED due to low urine output, kidney function, I's and O's however this was not placed excessively, will bladder scan -Nephrology consulted FEUrea 13.9%, urine sodium 8 which all suggest prerenal, unclear if cardiorenal or intravascularly depleted Farxiga and Ozempic. 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 Got UA per nephro recs. Kidney function Worsening Ultimately Patient Required Permacath and Hemodialysis Was Started on 12/10. -12/12: BUN, potassium, sodium improving, C4 and C3 within normal limits, ANCA is negative. Food [employer] Bever[employer] Lead impression is most likely ATN progressed from volume depletion from Farxiga or cardiorenal syndrome. #LUE w/ acute superficial vein thrombus noted in the cephalic vein in upper arm -On vein mapping -Possibly secondary to IV access -Typically self-limited, will treat symptomatically as symptoms not severe -Had been using SCDs, will initiate heparin subcu for DVT prophylaxis #Hyperkalemia -Likely secondary to LINDA in addition to losartan use -Admit to tele -EKG in ED with heart rate of [address]/T wave changes from previous -Received K albuterol and insulin in ED, will also give Kayexalate Hypokalemia resolved. #Hyponatremia -Unclear chronicity as last sodium in our system was in October, asymptomatic -Will check urine studies and serum osm dependent versus underlying etiology -Trend [facility] 12/12: Sodium 130. #Type 2 diabetes mellitus -Glucose checks and sliding scale insulin -Continue NPH -We will need to clarify home insulin regimen - glucose 169 in BMP. Fairly controlled. Patient on NPH insulin and Humalog insulin. #Chronic normocytic anemia -Has been stable for several days and appears chronically anemic -Given CKD/kidney function may need iron versus EPO moving forward, will defer to nephrology in that regard at this time #DVT ppx: Heparin subcu Discharge medication reconciliation done. Discharge follow-up instructions completed. Discharge process discussed with the patient and all questions were answered to patient's satisfaction. Total time spent, exact 35 minutes on discharge meds reconciliation, examination, coordination of care with nurses and ancillary staff, review of imaging and blood test and discussion with the patient on follow-up instructions. 12/09/22 05:25: Diff Path Review Reviewed 12/11/22 11:11: POC Glucose 160 H 12/11/22 16:46: POC Glucose 211 H 12/11/22 21:42: POC Glucose 204 H 12/12/22 05:40: WBC 7.2, RBC 2.87 L, Hgb 8.6 L, Hct 26.9 L, MCV 93.7, MCH 30.0, MCHC 32.0, RDW Std Deviation 45.1 H, RDW Coeff of Lucas 13.2, Plt Count 208, MPV 10.2, Immature Gran % (Auto) 4.100 H, Neut % (Auto) 69.5, Lymph % (Auto) 13.4 L, Josephine % (Auto) 8.7, Eos % (Auto) 3.7, Baso % (Auto) 0.6, Absolute Neuts (auto) 5.0, Absolute Lymphs (auto) 0.97, Nucleated RBC % 0, Sodium 130 L, Potassium 4.5, Chloride 99, Carbon Dioxide 26.0, Anion Gap 5, BUN 67 H, Creatinine 4.43 H, Estim Creat Clear Calc 7.52, Est GFR (MDRD) Af Amer 12 L, Est GFR (MDRD) Non-Af 10 L, BUN/Creatinine Ratio 15.1, Glucose 169 H, Calcium 7.8 L 12/12/22 06:43: POC Glucose 169 H Medications at Discharge Home Medications Lactobacillus acidophilus 10 billion cell capsule (Probiotic) 10,000 mmu cells PO DAILY immune health 09/03/21 amlodipine 5 mg tablet 5 mg PO DAILY bp 09/03/21 aspirin 81 mg tablet 81 mg PO QHS heart health 09/03/21 budesonide-formoterol HFA 160 mcg-4.5 mcg/actuation aerosol inhaler 2 puff inhalation BID sob 09/03/21 carvedilol 25 mg tablet 25 mg PO BIDCM heart 09/03/21 cholecalciferol (vitamin D3) 25 mcg (1,000 unit) capsule 25 mcg PO BID supplement 09/03/21 cholestyramine (with sugar) 4 gram powder for susp in a packet 1 ea PO DAILY 09/03/21 cyanocobalamin (vitamin B-12) 1,000 mcg tablet 1,000 mcg PO DAILY supplement 09/03/21 insulin NPH isoph U-100 human 100 unit/mL (3 mL) subcutaneous pen 6 unit subcut BREAKFAST dm 09/03/21 insulin aspart U-100 100 unit/mL (3 mL) subcutaneous pen (Novolog FlexPen U-100 Insulin aspart) 6 unit subcut LUNCH dm 09/03/21 insulin aspart U-100 100 unit/mL (3 mL) subcutaneous pen (Novolog FlexPen U-100 Insulin aspart) 8 unit subcut BREAKFAST dm 09/03/21 insulin aspart U-100 100 unit/mL (3 mL) subcutaneous pen (Novolog FlexPen U-100 Insulin aspart) 14 unit subcut DINNER dm 09/03/21 losartan 100 mg tablet 50 mg PO DAILY heart 09/03/21 mirtazapine 45 mg tablet 45 mg PO QHS sleep 09/03/21 pravastatin 40 mg tablet 40 mg PO DAILY cholesterol 09/03/21 sertraline 100 mg tablet 100 mg PO BID depression 09/03/21 sucralfate 1 gram tablet 1 g PO TIDCM stomach 09/03/21 albuterol sulfate 90 mcg/actuation aerosol inhaler 2 inh inhalation Q6H PRN shortness of breath or wheezing #8.5 grams 10/22/22 hydralazine 50 mg tablet 50 mg PO TID 30 days #90 tabs 10/22/22 insulin NPH isoph U-100 human 100 unit/mL (3 mL) subcutaneous pen 10 unit (0.1 mL) subcut QHS dm 30 days #0 mL 12/12/22 insulin lispro 100 unit/mL subcutaneous pen (Humalog KwikPen (U-100) Insulin) See Protocol subcut ACHS #0 mL 12/12/22 ipratropium 0.5 mg-albuterol 3 mg (2.5 mg base)/3 mL nebulization soln 3 ml inhalation Q6HWA.RT #0 mL 12/12/22 menthol 0.44 %-zinc oxide 20.6 % topical ointment (Calmoseptine) 1 applic topical BID #0 grams 12/12/22 sennosides 8.6 mg-docusate sodium 50 mg tablet (Stool Softener-Stimulant Laxative) 2 tab PO BID PRN PRN Constipation #0 tabs 12/12/22 Physical Exam Narrative See progress note same date. Weight / BMI Weight Weight: 260 lb 9.382 oz Body Mass Index (BMI) 49.2 ABG / Lab / Microbiology Data 12/12/22 05:40 12/12/22 05:40 Laboratory: Laboratory Results - last 24 hr 12/11/22 16:46: POC Glucose 211 H 12/11/22 21:42: POC Glucose 204 H 12/12/22 05:40: WBC 7.2, RBC 2.87 L, Hgb 8.6 L, Hct 26.9 L, MCV 93.7, MCH 30.0, MCHC 32.0, RDW Std Deviation 45.1 H, RDW Coeff of Lucas 13.2, Plt Count 208, MPV 10.2, Immature Gran % (Auto) 4.100 H, Neut % (Auto) 69.5, Lymph % (Auto) 13.4 L, Josephine % (Auto) 8.7, Eos % (Auto) 3.7, Baso % (Auto) 0.6, Absolute Neuts (auto) 5.0, Absolute Lymphs (auto) 0.97, Nucleated RBC % 0, Sodium 130 L, Potassium 4.5, Chloride 99, Carbon Dioxide 26.0, Anion Gap 5, BUN 67 H, Creatinine 4.43 H, Estim Creat Clear Calc 7.52, Est GFR (MDRD) Af Amer 12 L, Est GFR (MDRD) Non-Af 10 L, BUN/Creatinine Ratio 15.1, Glucose 169 H, Calcium 7.8 L 12/12/22 06:43: POC Glucose 169 H 12/12/22 10:21: POC Glucose 199 H 12/12/22 11:32: POC Glucose 221 H Microbiology: Microbiology 12/07/22 09:45 Stool Enteric Bacteriology - Final 12/05/22 16:10 Mucosa - Nose Respiratory Panel (PCR) - Final 12/05/22 16:00 Nasal Secretion SARS-CoV-2 Antigen (Rapid) - Final Meaningful Use Info Meaningful Use Diagnoses (Choose all that apply): None applicable Discharge Plan Admission Admit Date/Time: 12/05/22 15:34 Primary Reason for Your Visit: Acute on chronic hypoxic respiratory failure. Attending Provider: James Soriano Primary Care Provider: Mitchell Lane Consulting Providers: Delores Morales; Da Abreu; Silvia Henry Instructions Additional Instructions / Restrictions: Patient needs BiPAP at night. Discharge Orders/Prescriptions Prescriptions: New insulin lispro [Humalog KwikPen Insulin] 100 unit/mL Insulin Pen See Protocol subcut ACHS Qty: 0 0RF Protocol: 2. Sliding Scale Insulin Low-Med Dosing Condition: 150-209 mg/dl = 1 unit Condition: 210-269 mg/dl = 2 units Condition: 270-329 mg/dl = 3 units Condition: 330-389 mg/dl = 4 units Condition: 390-449 mg/dl = 5 units Condition: Greater than 449 call physician Protocol Text: - Use for Total Daily Dose of Insulin 28-36 units - Average size patients LOW MEDIUM DOSING ALGORITHM ipratropium-albuterol 0.5 mg-3 mg(2.5 mg base)/3 mL Solution For Nebulization 3 ml inhalation Q6HWA.RT Qty: 0 0RF menthol-zinc oxide [Calmoseptine] 0.44-20.6 % Ointment 1 applic topical BID Qty: 0 0RF Protocol: *Topical Application Instructions APPLICATION INSTRUCTIONS: apply to affected areas sennosides-docusate sodium [Stool Softener-Stimulant Laxat] 8.6-50 mg Tablet 2 tab PO BID PRN PRN (Reason: Constipation) Qty: 0 0RF Continued carvedilol 25 mg tablet 25 mg PO BIDCM Patient Comments: TAKE 1 TABLET BY MOUTH TWICE A DAY WITH MEALS pravastatin 40 mg tablet 40 mg PO DAILY Patient Comments: TAKE 1 TABLET BY MOUTH EVERY DAY sucralfate 1 gram tablet 1 g PO TIDCM Patient Comments: TAKE 1 TABLET BY MOUTH 3 TIMES A DAY BEFORE MEALS sertraline 100 mg tablet 100 mg PO BID Patient Comments: TAKE 1 TABLET BY MOUTH TWICE A DAY cyanocobalamin (vitamin B-12) 1,000 mcg Tablet 1,000 mcg PO DAILY amlodipine 5 mg tablet 5 mg PO DAILY Patient Comments: TAKE 1 TABLET BY MOUTH EVERY DAY mirtazapine 45 mg tablet 45 mg PO QHS Patient Comments: TAKE 1 TABLET BY MOUTH NIGHTLY losartan 100 mg tablet 50 mg PO DAILY Hold Instructions: Hold for 3 days. Patient Comments: TAKE 1 TABLET BY MOUTH EVERY DAY Rx Instructions: orally daily; cholecalciferol (vitamin D3) 25 mcg (1,000 unit) Capsule 25 mcg PO BID insulin NPH isoph U-100 human 100 unit/mL (3 mL) Insulin Pen 6 unit SUBCUT BREAKFAST insulin aspart U-100 [Novolog FlexPen U-100 Insulin] 100 unit/mL (3 mL) insulin pen 8 unit SUBCUT BREAKFAST Patient Comments: INJECT SUBCUTANEOUSLY 8 UNITS EVERY MORNING, 4 UNITS AT LUNCH, 12 UNITS AT DINNER insulin aspart U-100 [Novolog FlexPen U-100 Insulin] 100 unit/mL (3 mL) insulin pen 6 unit SUBCUT LUNCH Patient Comments: INJECT SUBCUTANEOUSLY 8 UNITS EVERY MORNING, 4 UNITS AT LUNCH, 12 UNITS AT DINNER insulin aspart U-100 [Novolog FlexPen U-100 Insulin] 100 unit/mL (3 mL) insulin pen 14 unit SUBCUT DINNER Patient Comments: INJECT SUBCUTANEOUSLY 8 UNITS EVERY MORNING, 4 UNITS AT LUNCH, 12 UNITS AT DINNER cholestyramine (with sugar) 4 gram powder in packet 1 ea PO DAILY budesonide-formoterol 160-4.5 mcg/actuation HFA aerosol inhaler 2 puff INHALATION BID Patient Comments: INHALE 2 PUFFS INTO THE LUNGS TWICE DAILY Probiotic 10 billion cell Capsule 10,000 mmu cells PO DAILY Rx Instructions: takes at lunch time aspirin 81 mg Tablet 81 mg PO QHS hydralazine 50 mg Tablet 50 mg PO TID 30 Days Qty: 90 0RF Rx Instructions: Hold for SBP less than 130 mmHg albuterol sulfate 90 mcg/actuation HFA aerosol inhaler 2 inh inhalation Q6H PRN (Reason: shortness of breath or wheezing) Qty: 8.5 0RF Changed insulin NPH isoph U-100 human 100 unit/mL (3 mL) Insulin Pen 10 unit SUBCUT QHS 30 Days Qty: 0 0RF Discontinued prednisone 20 mg tablet 40 mg PO DAILY 4 Days Qty: 8 0RF Hold Instructions: dc furosemide 40 mg tablet 60 mg PO DAILY furosemide 20 mg tablet 40 mg PO DINNER Patient Comments: TAKE 2 TABLETS BY MOUTH EVERY DAY Rx Instructions: pt takes at supper time Referrals / Follow Up: Lee Johnson MD [Med Staff - Active Staff] - Within 2 Weeks (FOR COPD, ANDREA) Mitchell Lane MD [Primary Care Provider] - Delores Morales MD [Med Staff - Consulting] - Within 2 Weeks Disposition Disposition (needs filled in before D/C Order can be placed): [facility] Charges/Coding Visit Charges Inpatient E&M: 09048 Disch Hosp >30min
[2022-12-12 15:14] VITALS: BP 171/65; PULSE 66; RESP 18; TEMP 36.4; O2SAT 96
[2022-12-12 17:05] VITALS: BP 169/72; PULSE 66; RESP 18; TEMP 36.6; O2SAT 96
[2022-12-12 17:30] LABS: Bedside Glucose 194 mg/dL (74-106)
--- NOTE | 2022-12-12 17:34 | NURSING ---
Phone call made to [facility], message left to return call back for report.
--- NOTE | 2022-12-12 17:53 | NURSING ---
Report called and given to RN at [facility]
== END 2022-12-12 18:02 | disposition skilled nursing facility (03) | DRG 291 ==
LOC: ED 15:40 → PCU 16:03
PROVIDERS: Anesthesiology; Internal Medicine Nephrology; Nurse Practitioner; Surgery; Admitting Provider Internal Medicine; Emergency Provider Emergency Medicine; PCP Family Medicine; Visit Provider Internal Medicine
PROC: 02HV33Z Insertion of Infusion Device into Superior Vena Cava, Percutaneous Approach (ICD-10-PCS; principal; 2022-12-09 11:10)
DX: I13.0 Hypertensive heart and chronic kidney disease with heart failure and stage 1 through stage 4 chronic kidney disease, or unspecified chronic kidney disease (principal); J96.21 Acute and chronic respiratory failure with hypoxia; N17.0 Acute kidney failure with tubular necrosis; I50.33 Acute on chronic diastolic (congestive) heart failure; Z68.42 Body mass index [BMI] 45.0-49.9, adult; N18.4 Chronic kidney disease, stage 4 (severe); E87.1 Hypo-osmolality and hyponatremia; I82.612 Acute embolism and thrombosis of superficial veins of left upper extremity; E87.21 Acute metabolic acidosis; E11.22 Type 2 diabetes mellitus with diabetic chronic kidney disease; J44.9 Chronic obstructive pulmonary disease, unspecified; E11.29 Type 2 diabetes mellitus with other diabetic kidney complication; Z79.4 Long term (current) use of insulin; Z99.2 Dependence on renal dialysis; E66.01 Morbid (severe) obesity due to excess calories; I34.0 Nonrheumatic mitral (valve) insufficiency; I25.10 Atherosclerotic heart disease of native coronary artery without angina pectoris; E78.5 Hyperlipidemia, unspecified; E87.5 Hyperkalemia; E87.6 Hypokalemia; E87.70 Fluid overload, unspecified; N28.89 Other specified disorders of kidney and ureter; Z79.82 Long term (current) use of aspirin; Z85.3 Personal history of malignant neoplasm of breast
CPT/HCPCS: 36415; 71045; 71046; 76770; 77001; 80048; 80053; 80061; 80076; 81001; 82436; 82570; 82962; 83036; 83520; 83735; 83880; 83930; 83935; 84100; 84133; 84165; 84300; 84443; 84484; 84540; 85025; 86160; 86256; 87340; 87506; 87633; 87811; 90937; 93005; 93306; 93985; 94002; 94640; 94668; 94762; 97110; 97162; 97165; 97530; 97535; 97802; 99252; 99285; J7030; J7040; Q9957; A4216; C1750; C8929; G0257; G0463; J0612; J1940; J2405

== ENCOUNTER 2023-01-25 14:11 | Emergency (ER) | payer MEDICARE, OTHER, SELFPAY ==
[2023-01-25 14:14] VITALS: BP 150/65; PULSE 71; RESP 18; TEMP 36.6; O2SAT 96
--- NOTE | 2023-01-25 14:23 | ED.VIS.CHEST ---
HPI History of Present Illness Chief Complaint: Chest Other [facility] Medical History (Updated 01/25/23 @ 19:[address] Antonio Kim, DO) CAD (coronary artery disease) CKD (chronic kidney disease), stage IV COPD (chronic obstructive pulmonary disease) Diabetes mellitus, type 2 HLD (hyperlipidemia) HTN (hypertension) Home Medications Lactobacillus acidophilus 10 billion cell capsule (Probiotic) 10,000 mmu cells PO DAILY immune health 09/03/21 [History Last Taken 09/03/21] amlodipine 5 mg tablet 5 mg PO DAILY bp 09/03/21 [History Last Taken 09/03/21] aspirin 81 mg tablet 81 mg PO QHS heart health 09/03/21 [History Last Taken 09/02/21] budesonide-formoterol HFA 160 mcg-4.5 mcg/actuation aerosol inhaler 2 puff inhalation BID sob 09/03/21 [History Last Taken 09/03/21] carvedilol 25 mg tablet 25 mg PO BIDCM heart 09/03/21 [History Last Taken 09/03/21] cholecalciferol (vitamin D3) 25 mcg (1,000 unit) capsule 25 mcg PO BID supplement 09/03/21 [History Last Taken 09/03/21] cholestyramine (with sugar) 4 gram powder for susp in a packet 1 ea PO DAILY 09/03/21 [History Last Taken 09/03/21] cyanocobalamin (vitamin B-12) 1,000 mcg tablet 1,000 mcg PO DAILY supplement 09/03/21 [History Last Taken 09/03/21] insulin NPH isoph U-100 human 100 unit/mL (3 mL) subcutaneous pen 6 unit subcut BREAKFAST dm 09/03/21 [History Last Taken 09/03/21] insulin aspart U-100 100 unit/mL (3 mL) subcutaneous pen (Novolog FlexPen U-100 Insulin aspart) 6 unit subcut LUNCH dm 09/03/21 [History Last Taken 09/02/21] insulin aspart U-100 100 unit/mL (3 mL) subcutaneous pen (Novolog FlexPen U-100 Insulin aspart) 8 unit subcut BREAKFAST dm 09/03/21 [History Last Taken 09/03/21] insulin aspart U-100 100 unit/mL (3 mL) subcutaneous pen (Novolog FlexPen U-100 Insulin aspart) 14 unit subcut DINNER dm 09/03/21 [History Last Taken 09/02/21] losartan 100 mg tablet 50 mg PO DAILY heart 09/03/21 [History Last Taken 09/03/21] mirtazapine 45 mg tablet 45 mg PO QHS sleep 09/03/21 [History Last Taken 09/02/21] pravastatin 40 mg tablet 40 mg PO DAILY cholesterol 09/03/21 [History Last Taken 09/03/21] sertraline 100 mg tablet 100 mg PO BID depression 09/03/21 [History Last Taken 09/03/21] sucralfate 1 gram tablet 1 g PO TIDCM stomach 09/03/21 [History Last Taken 09/03/21] albuterol sulfate 90 mcg/actuation aerosol inhaler 2 inh inhalation Q6H PRN shortness of breath or wheezing #8.5 grams 10/22/22 [Rx Last Taken Unknown] hydralazine 50 mg tablet 50 mg PO TID 30 days #90 tabs 10/22/22 [Rx Last Taken Unknown] insulin NPH isoph U-100 human 100 unit/mL (3 mL) subcutaneous pen 10 unit (0.1 mL) subcut QHS dm 30 days #0 mL 12/12/22 [Rx Last Taken 09/02/21] insulin lispro 100 unit/mL subcutaneous pen (Humalog KwikPen (U-100) Insulin) See Protocol subcut ACHS #0 mL 12/12/22 [Rx Last Taken Unknown] ipratropium 0.5 mg-albuterol 3 mg (2.5 mg base)/3 mL nebulization soln 3 ml inhalation Q6HWA.RT #0 mL 12/12/22 [Rx Last Taken Unknown] menthol 0.44 %-zinc oxide 20.6 % topical ointment (Calmoseptine) 1 applic topical BID #0 grams 12/12/22 [Rx Last Taken Unknown] sennosides 8.6 mg-docusate sodium 50 mg tablet (Stool Softener-Stimulant Laxative) 2 tab PO BID PRN PRN Constipation #0 tabs 12/12/22 [Rx Last Taken Unknown] lorazepam 0.5 mg tablet 0.5 mg PO .COMPLEX PRN anxiety #30 tabs 01/22/23 [Rx Last Taken Unknown] tramadol 50 mg tablet 50 mg PO .COMPLEX pain #30 tabs 01/22/23 [Rx Last Taken Unknown] Allergy/AdvReac Type Severity Reaction Status Date / Time levofloxacin [From Levaquin] AdvReac Other Verified 01/25/23 14:14 procaine [From Novocain] AdvReac Other Verified 01/25/23 14:14 Family History Mother No cardiac disease Diabetes Father No cardiac disease Daughter Breast cancer Surgical History S/P breast lumpectomy S/P cholecystectomy Social History (Updated 12/05/22 @ 17:23 by Betzaida Del Valle) household members: spouse housing: house number of children: 2 current occupational status: retired Smoking Status: Never smoker alcohol intake: never substance use type: does not use EXAM Physical Exam Const Vital Signs: 01/25/23 14:14 01/25/23 14:50 01/25/23 16:00 Temperature 98 F Temperature Source Temporal Pulse Rate 71 69 70 Respiratory Rate 18 15 Blood Pressure 150/65 H 105/64 Blood Pressure Mean 93 77 Pulse Ox 96 96 98 Oxygen Delivery Method Nasal Cannula Nasal Cannula Nasal Cannula Oxygen Flow Rate (L/min) 4 4 4 01/25/23 16:00 01/25/23 20:00 Temperature Temperature Source Pulse Rate 79 Respiratory Rate 18 Blood Pressure 104/62 Blood Pressure Mean 76 Pulse Ox 95 Oxygen Delivery Method Nasal Cannula Nasal Cannula Oxygen Flow Rate (L/min) 4 4 MDM MDM MDM Narrative Medical decision making narrative: HISTORY OF PRESENT ILLNESS: 82-year-old female here with concern for dialysis catheter malfunction. States dialysis catheter site working on Wednesday. She further states she receives dialysis Wednesday. Her last full session was . She underwent partial session on Wednesday. She states she does have some shortness of breath that is exertional. She notes stable lower extremity edema. Denies any chest pain. REVIEW OF SYSTEMS: Pertinent positives: Dialysis catheter malfunction, shortness of breath Pertinent negatives: Chest pain PHYSICAL EXAM: Nursing triage notes reviewed, Vital signs reviewed Constitutional: please see mdm HENT: MMM Eyes: Pupils equal round and reactive to light, Extraocular muscles intact Neck: No stridor, no JVD, full neck ROM Lungs: Clear to auscultation, No wheezing or rales. No increased work of breathing, no conversational dyspnea, no accessory muscle use, no nasal flaring. No respiratory distress noted Heart: Regular rate and rhythm, No murmurs, No rubs and No gallops, 2+ distal pulses (radial, femoral, posterior tibial) in all extremities Abdomen: Soft, there is no tenderness, rigidity, rebound or guarding, no obvious peritoneal signs, no palpable pulsatile abdominal masses, no auscultated abdominal bruit : No CVAT Extremities: 2+ pitting edema noted in bilateral lower extremities Neuro: No focal neurological deficits, cranial nerves II through XII intact, 5/5 strength in all extremities. Intact sensation to light touch in all extremities, 2+ reflexes bilateral patella tendons. Normal gait. No ataxia. Skin: No rash or lesions noted MEDICAL DECISION MAKING: Chief Complaint: Dialysis catheter malfunction External records reviewed: Last ED evaluation in December 2022 for acute exacerbation of congestive heart failure Factors affecting care: Acute renal failure, CHF, hypertension history of COPD (on 2 to 4 L baseline at home ) Social determinants of health: Elderly History obtained from others: Spouse Consults: none ALL IMAGES (IF OBTAINED) HAVE BEEN PERSONALLY REVIEWED AND INTERPRETED BY MYSELF. EKG with normal sinus rhythm, normal axis, no intervals, no STEMI no signs of hyperkalemic changes V BG with out signs of significant acidosis BMP without significant electrolyte abnormalities Chest x-ray was read and reviewed by myself shows no evidence of obvious volume overload MDM Narrative: Patient was hemodynamically stable, afebrile, nontoxic-appearing. Exam with lower extremity edema, no rales, no hypoxia. I considered the following differential diagnosis: Acidosis, volume overload, electrolyte abnormalities, I obtained a broad lab and imaging work-up to further elucidate etiology of patient complaint specifically ruling out signs of significant electrolyte abnormality secondary to severe disease and lack of dialysis, volume overload or acidosis. Labs images were remarkable for no signs of severe abnormalities that would require emergent dialysis. discussed with Dr. Abreu who recommended cathflo to unclog catheter. Per nursing staff they are not allowed to place cathflo in a Dialysis Catheter. Dr. Abreu then recommend the patient be admitted for him to see them in the morning. Patient refused admission stating he like to go home and come back to the ED at 7 AM tomorrow morning to see Dr. Abreu rather than being admitted to the hospital. There is also communicated Dr. Abreu. The patient and/or family, caregivers express understanding. The patient and/or family, caregivers agrees with the plan. Shared decision making: I will have a discussion with the patient and or visitors regarding risk/benefits of further testing or admission. They will be made aware of of the risk/benefits inherent in this decision they will be given the opportunity to voice understanding. Total critical care time today provided was at least 0 minutes. This excludes separately billable procedures. Critical care time (if documented) is secondary to the patient having high probability of clinically significant/life threatening deterioration in the patient's condition which required my urgent intervention. Lab Data Attestation: I reviewed the patient's lab results. Lab results narrative: CBC with no leukocytosis, anemia of chronic disease, no thrombocytopenia BMP without significant electrolyte abnormalities, potassium 3.8, no anion gap, noted ESRD Labs: Laboratory Results - last 24 hr 01/25/23 15:00 WBC 5.7 RBC 2.81 L Hgb 8.8 L Hct 29.8 L MCV 106.0 H MCH 31.3 MCHC 29.5 L RDW Std Deviation 61.1 H RDW Coeff of Lucas 15.5 H Plt Count 189 MPV 10.5 Neut % (Auto) Not Reportable Absolute Neuts (auto) 4.0 Absolute Lymphs (auto) 0.51 L Total Counted 100 Neutrophils % (Manual) 68 Band Neutrophils % 3 Lymphocytes % (Manual) 9 L Monocytes % (Manual) 8 Eosinophils % (Manual) 6 H Metamyelocytes % 2 H Myelocytes % 4 H Diff Path Review May foll Platelet Estimate ADEQUATE RBC Morphology NORM C+C Sodium 138 Potassium 3.8 Chloride 104 Carbon Dioxide 27.0 Anion Gap 7 BUN 61 H Creatinine 5.55 H Estim Creat Clear Calc 6.00 Est GFR (MDRD) Af Amer 10 L Est GFR (MDRD) Non-Af 8 L BUN/Creatinine Ratio 11.0 Glucose 241 H Calcium 8.1 L ABG Data ABG results: ABG 01/25/23 15:08 Specimen Type ÁNGEL VBG pH 7.26 L VBG pO2 39 VBG HCO3 27 H VBG Total CO2 29 VBG O2 Sat (Calc) 64 VBG Base Excess 0 POC Mix VBG pCO2 Pt Tmp 61.0 H Liter Flow 4.0 Radiography Chest X-Ray - ED: Read by ED Physician Diagnostic Testing: Clinical Impression(s) from Imaging Studies Chest X-Ray 01/25/23 15:16 IMPRESSION: No acute disease. Electronically Signed: Greg Olivas MD at 17:12 EDT , I have personally reviewed the patient's chest x-ray. Chest x-ray is unremarkable for pulmonary edema, pneumothorax, pneumonia or focal cardiopulmonary abnormality. Discharge Plan Triage Chief Complaint: Chest Other ED Provider: Antonio Kim Dx/Rx/DC Orders Clinical Impression: End stage chronic kidney disease Instructions: Hemodialysis Prescriptions: No Action carvedilol 25 mg tablet 25 mg PO BIDCM Patient Comments: TAKE 1 TABLET BY MOUTH TWICE A DAY WITH MEALS pravastatin 40 mg tablet 40 mg PO DAILY Patient Comments: TAKE 1 TABLET BY MOUTH EVERY DAY sucralfate 1 gram tablet 1 g PO TIDCM Patient Comments: TAKE 1 TABLET BY MOUTH 3 TIMES A DAY BEFORE MEALS sertraline 100 mg tablet 100 mg PO BID Patient Comments: TAKE 1 TABLET BY MOUTH TWICE A DAY cyanocobalamin (vitamin B-12) 1,000 mcg Tablet 1,000 mcg PO DAILY amlodipine 5 mg tablet 5 mg PO DAILY Patient Comments: TAKE 1 TABLET BY MOUTH EVERY DAY mirtazapine 45 mg tablet 45 mg PO QHS Patient Comments: TAKE 1 TABLET BY MOUTH NIGHTLY losartan 100 mg tablet 50 mg PO DAILY Hold Instructions: Hold for 3 days. Patient Comments: TAKE 1 TABLET BY MOUTH EVERY DAY Rx Instructions: orally daily; cholecalciferol (vitamin D3) 25 mcg (1,000 unit) Capsule 25 mcg PO BID insulin NPH isoph U-100 human 100 unit/mL (3 mL) Insulin Pen 6 unit SUBCUT BREAKFAST insulin aspart U-100 [Novolog FlexPen U-100 Insulin] 100 unit/mL (3 mL) insulin pen 8 unit SUBCUT BREAKFAST Patient Comments: INJECT SUBCUTANEOUSLY 8 UNITS EVERY MORNING, 4 UNITS AT LUNCH, 12 UNITS AT DINNER insulin aspart U-100 [Novolog FlexPen U-100 Insulin] 100 unit/mL (3 mL) insulin pen 6 unit SUBCUT LUNCH Patient Comments: INJECT SUBCUTANEOUSLY 8 UNITS EVERY MORNING, 4 UNITS AT LUNCH, 12 UNITS AT DINNER insulin aspart U-100 [Novolog FlexPen U-100 Insulin] 100 unit/mL (3 mL) insulin pen 14 unit SUBCUT DINNER Patient Comments: INJECT SUBCUTANEOUSLY 8 UNITS EVERY MORNING, 4 UNITS AT LUNCH, 12 UNITS AT DINNER cholestyramine (with sugar) 4 gram powder in packet 1 ea PO DAILY budesonide-formoterol 160-4.5 mcg/actuation HFA aerosol inhaler 2 puff INHALATION BID Patient Comments: INHALE 2 PUFFS INTO THE LUNGS TWICE DAILY Probiotic 10 billion cell Capsule 10,000 mmu cells PO DAILY Rx Instructions: takes at lunch time aspirin 81 mg Tablet 81 mg PO QHS hydralazine 50 mg Tablet 50 mg PO TID 30 Days Qty: 90 0RF Rx Instructions: Hold for SBP less than 130 mmHg albuterol sulfate 90 mcg/actuation HFA aerosol inhaler 2 inh inhalation Q6H PRN (Reason: shortness of breath or wheezing) Qty: 8.5 0RF insulin lispro [Humalog KwikPen Insulin] 100 unit/mL Insulin Pen See Protocol subcut ACHS Qty: 0 0RF Protocol: 2. Sliding Scale Insulin Low-Med Dosing Condition: 150-209 mg/dl = 1 unit Condition: 210-269 mg/dl = 2 units Condition: 270-329 mg/dl = 3 units Condition: 330-389 mg/dl = 4 units Condition: 390-449 mg/dl = 5 units Condition: Greater than 449 call physician Protocol Text: - Use for Total Daily Dose of Insulin 28-36 units - Average size patients LOW MEDIUM DOSING ALGORITHM ipratropium-albuterol 0.5 mg-3 mg(2.5 mg base)/3 mL Solution For Nebulization 3 ml inhalation Q6HWA.RT Qty: 0 0RF menthol-zinc oxide [Calmoseptine] 0.44-20.6 % Ointment 1 applic topical BID Qty: 0 0RF Protocol: *Topical Application Instructions APPLICATION INSTRUCTIONS: apply to affected areas sennosides-docusate sodium [Stool Softener-Stimulant Laxat] 8.6-50 mg Tablet 2 tab PO BID PRN PRN (Reason: Constipation) Qty: 0 0RF insulin NPH isoph U-100 human 100 unit/mL (3 mL) Insulin Pen 10 unit SUBCUT QHS 30 Days Qty: 0 0RF lorazepam 0.5 mg tablet 0.5 mg PO .COMPLEX PRN (Reason: anxiety) Qty: 30 0RF Rx Instructions: 0.5 mg orally 0.5 mg Wednesday, , Wednesday prior to dialysis and 0.5mg Q6h PRN anxiety PRN; tramadol 50 mg tablet 50 mg PO .COMPLEX Qty: 30 0RF Rx Instructions: 50 mg orally 50mg (1 tab) Wednesday, , Wednesday prior to dialysis and Q6hr PRN pain; Primary Care Provider: Mitchell Lane Referrals: Mitchell Lane MD [Primary Care Provider] - Activity Restrictions/Additional Instructions: Thank you for trusting us with your care today! Please return to the emergency department tomorrow morning at 7 AM to be evaluated by Dr. Abreu. Please follow with your primary care physician for further outpatient evaluation and management. Disposition Disposition: Home, Self Care Discharge Date/Time: 01/25/23 20:30
[2023-01-25 14:50] VITALS: PULSE 69; O2SAT 96; BMI 46.9
[2023-01-25 15:12] LABS: Blood Gas Specimen Type VEN; VBG BASE EXCESS 0 mmol/L (-1.0-3.5); VBG Bicarbonate 27 mmol/L (22-26); VBG PO2 39 mmHg (25-40); VBG SO2 64 % (50-70); VBG TCO2 29 mmol/L (23-33); VBG pH 7.26 (7.32-7.42)
[2023-01-25 15:15] LABS: Hematocrit 29.8 % (37-47); Hemoglobin 8.8 g/dL (12.0-15.0); Mean Corp Hgb Conc 29.5 g/dL (32-36); Mean Corpuscular Hgb 31.3 pg (27.0-32.0); Mean Platelet Vol. 10.5 fl (6.2-12.0); POSITIVE COUNT YES; POSITIVE MORPHOLOGY YES; Platelet Count 189 K/mm3 (150-450); RBC Distribution Width CV 15.5 % (11.6-14.6); RBC Distribution Width SD 61.1 fl (35.1-43.9); Red Blood Count 2.81 M/mm3 (4.2-5.4); White Blood Count 5.7 K/mm3 (4.4-11.0)
[2023-01-25 15:16] LABS: Differential Indicated MANUAL DIFF
--- NOTE | 2023-01-25 15:16 | RAD_ITS ---
STUDY: X-RAY CHEST REASON FOR EXAM: Female, 82 years old. SOB TECHNIQUE: Single frontal view of the chest. COMPARISON: December 06, 2022 image and December 09, 2022 report FINDINGS: dual-lumen right IJ catheter terminates in the SVC. Patient is somewhat rotated. Elevated right hemidiaphragm. Surgical clips right axilla. The lungs are clear and expanded. There is no demonstrated pleural abnormality. Normal size heart. Normal mediastinum and parish. Normal visualized pulmonary arteries. Normal visualized aortic arch and descending thoracic aorta. Normal visualized thoracic spine. Normal visualized ribs, clavicles, and shoulders. There is no demonstrated abnormality of the visualized soft tissue structures of the upper abdomen. RAD/Chest 1 View (Portable) IMPRESSION: No acute disease. Electronically Signed: Greg Olivas MD at 17:12 EDT ,
[2023-01-25 15:36] LABS: Anion Gap 7 (5-15); BUN 61 mg/dL (7-18); Calcium,Total 8.1 mg/dL (8.5-10.1); Chloride 104 mmol/L (98-107); Creatinine, Serum 5.55 mg/dL (0.55-1.02); EST Glomerular Filtration Rate 8 mL/min (>60); Est Glom Filt Rate - Afr Amer 10 mL/min (>60); Glucose 241 mg/dL (74-106); Potassium 3.8 mmol/L (3.5-5.1); Sodium Level 138 mmol/L (136-145)
[2023-01-25 16:00] VITALS: BP 105/64; PULSE 70; RESP 15; O2SAT 98
[2023-01-25 16:01] LABS: Eosinophil 6 % (0-5); Lymphocyte 9 % (19-41); Metamyelocyte 2 % (0-1); Monocyte 8 % (0-10); Myelocyte 4 % (0-0); Neutrophil-Band 3 % (0-5); Neutrophil-Segmented 68 % (47-70); Red Cell Morphology NORM C+C NORMAL (NORM C&C); Total Cells Counted 100 (MANUAL DIFF)
[2023-01-25 16:02] LABS: Absolute Lymphocyte Count 0.51 X10^3/uL (0.83-4.51); Platelet Estimate ADEQUATE (ADEQ)
--- NOTE | 2023-01-25 17:24 | ED.RN ---
Nursing Craft Recruiter waiting superintendent distribution back from Dialysis nurse regarding Cathflo order.
[2023-01-25 20:00] VITALS: BP 104/62; PULSE 79; RESP 18; O2SAT 95
[2023-01-27 13:05] LABS: Pathologist Review Reviewed
== END 2023-01-25 20:30 | disposition home or self-care (01) ==
PROVIDERS: Emergency Provider Emergency Medicine; PCP Family Medicine; Visit Provider Emergency Medicine
DX: I13.2 Hypertensive heart and chronic kidney disease with heart failure and with stage 5 chronic kidney disease, or end stage renal disease (principal); N17.9 Acute kidney failure, unspecified; J44.9 Chronic obstructive pulmonary disease, unspecified; I50.9 Heart failure, unspecified; E11.22 Type 2 diabetes mellitus with diabetic chronic kidney disease; N18.6 End stage renal disease; Z79.4 Long term (current) use of insulin; E78.5 Hyperlipidemia, unspecified; I25.10 Atherosclerotic heart disease of native coronary artery without angina pectoris; Z79.899 Other long term (current) drug therapy; Z79.82 Long term (current) use of aspirin; Z79.51 Long term (current) use of inhaled steroids; Z90.49 Acquired absence of other specified parts of digestive tract; Z99.81 Dependence on supplemental oxygen
CPT/HCPCS: 71045; 80048; 82803; 85025; 93005; 99283; J2997

== ENCOUNTER 2023-01-26 06:41 | Observation (INO) | payer MEDICARE, OTHER, SELFPAY ==
[2023-01-26] VITALS (19 sets, daily range): BP systolic 87–172; BP diastolic 33–97; PULSE 56–81; RESP 12–20; TEMP 36.2–36.6; O2SAT 91–100; BMI 45.5; BMI 47.3; BMI 46.3
--- NOTE | 2023-01-26 07:23 | EX.ED.DYSGE1 ---
HPI History of Present Illness Chief Complaint: Other, Pain/Inj Detail of Chief Complaint: Clogged dialysis catheter Informant: patient and spouse/S.O. Onset/Context/Timing Onset: Days Context: Gradual Onset Timing: Continuous Narrative Narrative: 82-year-old female history of CAD, CKD receiving dialysis on Wednesday and Wednesday. Wednesday went to get her dialysis and a problem with the catheter. She came in last night to have it unclogged and they were unable to do that. Denies any complaints. Prior similar symptoms: No Recent Illness/Hospitalization: Yes [facility] Medical History CAD (coronary artery disease) CKD (chronic kidney disease), stage IV COPD (chronic obstructive pulmonary disease) Diabetes mellitus, type 2 HLD (hyperlipidemia) HTN (hypertension) Home Medications Lactobacillus acidophilus 10 billion cell capsule (Probiotic) 10,000 mmu cells PO DAILY immune health 09/03/21 [History Last Taken 09/03/21] amlodipine 5 mg tablet 5 mg PO DAILY bp 09/03/21 [History Last Taken 09/03/21] aspirin 81 mg tablet 81 mg PO QHS heart health 09/03/21 [History Last Taken 09/02/21] budesonide-formoterol HFA 160 mcg-4.5 mcg/actuation aerosol inhaler 2 puff inhalation BID sob 09/03/21 [History Last Taken 09/03/21] carvedilol 25 mg tablet 25 mg PO BID heart 09/03/21 [History Last Taken 09/03/21] cholecalciferol (vitamin D3) 25 mcg (1,000 unit) capsule 25 mcg PO BID supplement 09/03/21 [History Last Taken 09/03/21] cholestyramine (with sugar) 4 gram powder for susp in a packet 1 ea PO DAILY 09/03/21 [History Last Taken 09/03/21] cyanocobalamin (vitamin B-12) 1,000 mcg tablet 1,000 mcg PO DAILY supplement 09/03/21 [History Last Taken 09/03/21] insulin NPH isoph U-100 human 100 unit/mL (3 mL) subcutaneous pen 6 unit subcut BREAKFAST dm 09/03/21 [History Last Taken 09/03/21] insulin aspart U-100 100 unit/mL (3 mL) subcutaneous pen (Novolog FlexPen U-100 Insulin aspart) 6 unit subcut LUNCH dm 09/03/21 [History Last Taken 09/02/21] insulin aspart U-100 100 unit/mL (3 mL) subcutaneous pen (Novolog FlexPen U-100 Insulin aspart) 8 unit subcut BREAKFAST dm 09/03/21 [History Last Taken 09/03/21] insulin aspart U-100 100 unit/mL (3 mL) subcutaneous pen (Novolog FlexPen U-100 Insulin aspart) 14 unit subcut DINNER dm 09/03/21 [History Last Taken 09/02/21] losartan 100 mg tablet 50 mg PO DAILY heart 09/03/21 [History Last Taken 09/03/21] mirtazapine 45 mg tablet 45 mg PO QHS sleep 09/03/21 [History Last Taken 09/02/21] pravastatin 40 mg tablet 40 mg PO DAILY cholesterol 09/03/21 [History Last Taken 09/03/21] sertraline 100 mg tablet 100 mg PO BID depression 09/03/21 [History Last Taken 09/03/21] sucralfate 1 gram tablet 1 g PO TIDCM stomach 09/03/21 [History Last Taken 09/03/21] albuterol sulfate 90 mcg/actuation aerosol inhaler 2 inh inhalation Q6H PRN shortness of breath or wheezing #8.5 grams 10/22/22 [Rx Last Taken Unknown] hydralazine 50 mg tablet 50 mg PO TID 30 days #90 tabs 10/22/22 [Rx Last Taken Unknown] insulin NPH isoph U-100 human 100 unit/mL (3 mL) subcutaneous pen 10 unit (0.1 mL) subcut QHS dm 30 days #0 mL 12/12/22 [Rx Last Taken 09/02/21] insulin lispro 100 unit/mL subcutaneous pen (Humalog KwikPen (U-100) Insulin) See Protocol subcut ACHS #0 mL 12/12/22 [Rx Last Taken Unknown] ipratropium 0.5 mg-albuterol 3 mg (2.5 mg base)/3 mL nebulization soln 3 ml inhalation Q6HWA.RT #0 mL 12/12/22 [Rx Last Taken Unknown] menthol 0.44 %-zinc oxide 20.6 % topical ointment (Calmoseptine) 1 applic topical BID #0 grams 12/12/22 [Rx Last Taken Unknown] sennosides 8.6 mg-docusate sodium 50 mg tablet (Stool Softener-Stimulant Laxative) 2 tab PO BID PRN PRN Constipation #0 tabs 12/12/22 [Rx Last Taken Unknown] lorazepam 0.5 mg tablet 0.5 mg PO .COMPLEX PRN anxiety #30 tabs 01/22/23 [Rx Last Taken Unknown] tramadol 50 mg tablet 50 mg PO .COMPLEX pain #30 tabs 01/22/23 [Rx Last Taken Unknown] Allergy/AdvReac Type Severity Reaction Status Date / Time levofloxacin [From Levaquin] AdvReac Other Verified 01/25/23 14:14 procaine [From Novocain] AdvReac Other Verified 01/25/23 14:14 Family History Mother No cardiac disease Diabetes Father No cardiac disease Daughter Breast cancer Surgical History S/P breast lumpectomy S/P cholecystectomy Social History household members: spouse housing: house number of children: 2 current occupational status: retired Smoking Status: Never smoker alcohol intake: never substance use type: does not use ROS ROS ED ROS Narrative Denies. Review of Systems ROS Unobtainable: Denies due to encephalopathy Constitutional Constitutional ED: Denies chills or fever(s) Eyes Eyes: Denies blurry vision ENT ENT ED: Denies ear pain Cardiovascular Cardiovascular: Denies chest pain Respiratory/Chest Respiratory/Chest: Denies cough Gastrointestinal Gastrointestinal: Denies abdominal pain Genitourinary Genitourinary ED: Denies dysuria or hematuria Musculoskeletal Musculoskeletal: Denies arthralgias Integumentary Denies abscess Neurologic Neurologic: Denies headache(s) Psychiatric Psychiatric: Denies anxiety Endocrine Endocrinology: Denies cold intolerance Hematologic/Lymphatic Hematologic/Lymphatic: Reports none Allergic/Immunologic Allergic/Immunologic ED: Denies mouth swelling, tongue swelling or urticaria EXAM Physical Exam Narrative Exam Narrative: 82-year-old female no acute distress. Vital signs stable afebrile. HEENT exam unremarkable. Lungs clear. Heart regular rhythm no murmur. Right chest wall she has a tunneled Vas-Cath. Abdomen soft nontender. Moving all 4 extremities. Nontender no significant edema. Const Vital Signs: 01/26/23 06:44 01/26/23 07:00 Temperature 97.4 F L Temperature Source Temporal Pulse Rate 75 Respiratory Rate 20 H Respiratory Effort Normal Respiratory Pattern Normal Blood Pressure 154/46 H Blood Pressure Mean 82 Pulse Ox 91 Oxygen Delivery Method Nasal Cannula Oxygen Flow Rate (L/min) 3 Positive well nourished and well developed; Negative for cachectic, contractures or unkempt General Appearance ED: well developed and NAD; Negative for unkempt, cachectic, contractures, cyanotic, diaphoretic or pallor Nutritional Appearance: Negative for cachectic HEENT Reports moist mucous membranes Negative for trauma or tenderness Eyes PERRL and EOMs intact bilaterally General Eye ED: Negative for pale conjunctiva or scleral icterus Neck no lymphadenopathy, supple and no JVD General: Negative for tenderness Lymph Lymphatic: Negative for other Chest Wall inspection of chest normal and palpation of chest normal Chest: Negative for other Resp normal respiratory effort and clear to auscultation bilaterally Effort and Inspection: Negative for retractions Auscultation: Negative for rales, rhonchi or wheezes Cardio regular rate, regular rhythm, S1 normal heart sound, S2 normal heart sound and no murmurs GI normal to inspection, nondistended, normoactive bowel sounds, non-tender, non-distended and no masses Inspection: Negative for abdominal distention Auscultation: normoactive bowel sounds Palpation: soft; Negative for tender or guarding Back/Spine no CVA tenderness General Back: Negative for CVA tenderness Cervical Spine: Negative for cervical spine tenderness Thoracic Spine / Upper Back: Negative for thoracic spinal tenderness Lumbar Spine / Lower Back: Negative for lumbar spinal tenderness Extremity normal to inspection General Extremety ED: Negative for edema or tenderness General Extremity: Negative for edema Neuro oriented x3 and CN's II-XII intact bilaterally Sensorium / Orientation: alert; Negative for orientation impaired or lethargic Motor Exam: strength 5/5 throughout Psych mental status grossly normal Appearance: Negative for unkempt Attitude: No agitated Mood & Affect: Negative for depressed, anxious or tearful Skin no rashes or lesions noted, no wounds and skin turgor normal General Skin Exam: elasticity normal; Negative for jaundice or pallor Lesions: No lesion noted Rashes: No rashes noted Trauma: Negative for abrasion Wounds: Negative for wounds noted MDM MDM MDM Narrative Medical decision making narrative: 82-year-old female who receives dialysis. Has a right chest wall tunneled Vas-Cath its been clogged. Presents today to have it unclogged. Cathflo has been ordered. I spoke to the patient's surgeon Dr. Da Thakur who put in her right-sided Vas-Cath 2 months ago. He came down to evaluate her. She ate breakfast this morning so he can take her directly to the OR she will be admitted. May or may not need dialysis before the surgery. And then have the catheter exchanged. I have already spoken to the hospitalist is down to evaluate the patient for admission. History & Record Review Discussion w/independent historian: Patient and Family Additional record(s) reviewed:: Prior inpatient record, Prior outpatient record, Prior ED visit and Prior labs Lab Data Attestation: I reviewed the patient's lab results. Discharge Plan Triage Chief Complaint: Other, Pain/Inj ED Provider: Joshua Castillo Dx/Rx/DC Orders Clinical Impression: History of end stage renal disease, History of diabetes mellitus, Complication, dialysis catheter clot or failure Prescriptions: No Action carvedilol 25 mg tablet 25 mg PO BIDCM Patient Comments: TAKE 1 TABLET BY MOUTH TWICE A DAY WITH MEALS pravastatin 40 mg tablet 40 mg PO DAILY Patient Comments: TAKE 1 TABLET BY MOUTH EVERY DAY sucralfate 1 gram tablet 1 g PO TIDCM Patient Comments: TAKE 1 TABLET BY MOUTH 3 TIMES A DAY BEFORE MEALS sertraline 100 mg tablet 100 mg PO BID Patient Comments: TAKE 1 TABLET BY MOUTH TWICE A DAY cyanocobalamin (vitamin B-12) 1,000 mcg Tablet 1,000 mcg PO DAILY amlodipine 5 mg tablet 5 mg PO DAILY Patient Comments: TAKE 1 TABLET BY MOUTH EVERY DAY mirtazapine 45 mg tablet 45 mg PO QHS Patient Comments: TAKE 1 TABLET BY MOUTH NIGHTLY losartan 100 mg tablet 50 mg PO DAILY Hold Instructions: Hold for 3 days. Patient Comments: TAKE 1 TABLET BY MOUTH EVERY DAY Rx Instructions: orally daily; cholecalciferol (vitamin D3) 25 mcg (1,000 unit) Capsule 25 mcg PO BID insulin NPH isoph U-100 human 100 unit/mL (3 mL) Insulin Pen 6 unit SUBCUT BREAKFAST insulin aspart U-100 [Novolog FlexPen U-100 Insulin] 100 unit/mL (3 mL) insulin pen 8 unit SUBCUT BREAKFAST Patient Comments: INJECT SUBCUTANEOUSLY 8 UNITS EVERY MORNING, 4 UNITS AT LUNCH, 12 UNITS AT DINNER insulin aspart U-100 [Novolog FlexPen U-100 Insulin] 100 unit/mL (3 mL) insulin pen 6 unit SUBCUT LUNCH Patient Comments: INJECT SUBCUTANEOUSLY 8 UNITS EVERY MORNING, 4 UNITS AT LUNCH, 12 UNITS AT DINNER insulin aspart U-100 [Novolog FlexPen U-100 Insulin] 100 unit/mL (3 mL) insulin pen 14 unit SUBCUT DINNER Patient Comments: INJECT SUBCUTANEOUSLY 8 UNITS EVERY MORNING, 4 UNITS AT LUNCH, 12 UNITS AT DINNER cholestyramine (with sugar) 4 gram powder in packet 1 ea PO DAILY budesonide-formoterol 160-4.5 mcg/actuation HFA aerosol inhaler 2 puff INHALATION BID Patient Comments: INHALE 2 PUFFS INTO THE LUNGS TWICE DAILY Probiotic 10 billion cell Capsule 10,000 mmu cells PO DAILY Rx Instructions: takes at lunch time aspirin 81 mg Tablet 81 mg PO QHS hydralazine 50 mg Tablet 50 mg PO TID 30 Days Qty: 90 0RF Rx Instructions: Hold for SBP less than 130 mmHg albuterol sulfate 90 mcg/actuation HFA aerosol inhaler 2 inh inhalation Q6H PRN (Reason: shortness of breath or wheezing) Qty: 8.5 0RF insulin lispro [Humalog KwikPen Insulin] 100 unit/mL Insulin Pen See Protocol subcut ACHS Qty: 0 0RF Protocol: 2. Sliding Scale Insulin Low-Med Dosing Condition: 150-209 mg/dl = 1 unit Condition: 210-269 mg/dl = 2 units Condition: 270-329 mg/dl = 3 units Condition: 330-389 mg/dl = 4 units Condition: 390-449 mg/dl = 5 units Condition: Greater than 449 call physician Protocol Text: - Use for Total Daily Dose of Insulin 28-36 units - Average size patients LOW MEDIUM DOSING ALGORITHM ipratropium-albuterol 0.5 mg-3 mg(2.5 mg base)/3 mL Solution For Nebulization 3 ml inhalation Q6HWA.RT Qty: 0 0RF menthol-zinc oxide [Calmoseptine] 0.44-20.6 % Ointment 1 applic topical BID Qty: 0 0RF Protocol: *Topical Application Instructions APPLICATION INSTRUCTIONS: apply to affected areas sennosides-docusate sodium [Stool Softener-Stimulant Laxat] 8.6-50 mg Tablet 2 tab PO BID PRN PRN (Reason: Constipation) Qty: 0 0RF insulin NPH isoph U-100 human 100 unit/mL (3 mL) Insulin Pen 10 unit SUBCUT QHS 30 Days Qty: 0 0RF lorazepam 0.5 mg tablet 0.5 mg PO .COMPLEX PRN (Reason: anxiety) Qty: 30 0RF Rx Instructions: 0.5 mg orally 0.5 mg Wednesday, , Wednesday prior to dialysis and 0.5mg Q6h PRN anxiety PRN; tramadol 50 mg tablet 50 mg PO .COMPLEX Qty: 30 0RF Rx Instructions: 50 mg orally 50mg (1 tab) Wednesday, , Wednesday prior to dialysis and Q6hr PRN pain; Primary Care Provider: Mitchell Lane Referrals: Mitchell Lane MD [Primary Care Provider] - Disposition Disposition: Acute Care Hospital [facility]
--- NOTE | 2023-01-26 08:03 | PCM.HP.STD ---
HPI - General General Date of Admission: 01/26/23 Date of Service: 01/26/23 Chief Complaint: malfunctioning dialysis catheter HPI Narrative SANTIAGO WILHELM, is a 82 F with a PMH as outlined who presents via the ED on 01/26/2023 with a complaitn of malfunctioning dialysis catheter. She has a right chest wall tunneled dialysis catheter. She went to have dialysis on Wednesday and couldn't have a full session because of malfunctioning dialysis catheter. She therefore came into the ED the day before admission and was told to come in this morning for it to be unclogged. She denied any shortness of breath, palpitations, dizziness, chest pain, nausea vomiting or any other symptoms. Review of systems otherwise negative. She has remained hemodynamically stable. Vitals in the ED this morning where temperature of 97.8 with pulse rate of 56, blood pressure 186/43, respirate rate of 18 and pulse ox of 93% on 3 L of oxygen. CBC was significant for hemoglobin of 9 with WBC of 6.3 and platelets of 202. Chemistry was significant for creatinine of 5.61 but was otherwise unremarkable. She was admitted to be managed for malfunctioning dialysis catheter. [facility] Medical History (Updated 01/26/23 @ 13:51 by RAE Lopez) Breast cancer CAD (coronary artery disease) CKD (chronic kidney disease), stage IV COPD (chronic obstructive pulmonary disease) Diabetes mellitus, type 2 HLD (hyperlipidemia) HTN (hypertension) Home Medications Lactobacillus acidophilus 10 billion cell capsule (Probiotic) 10,000 mmu cells PO DAILY immune health 09/03/21 [History Last Taken 09/03/21] amlodipine 5 mg tablet 5 mg PO DAILY bp 09/03/21 [History Last Taken 09/03/21] aspirin 81 mg tablet 81 mg PO QHS heart health 09/03/21 [History Last Taken 09/02/21] budesonide-formoterol HFA 160 mcg-4.5 mcg/actuation aerosol inhaler 2 puff inhalation BID sob 09/03/21 [History Last Taken 09/03/21] carvedilol 25 mg tablet 25 mg PO BID heart 09/03/21 [History Last Taken 09/03/21] cholecalciferol (vitamin D3) 25 mcg (1,000 unit) capsule 25 mcg PO BID supplement 09/03/21 [History Last Taken 09/03/21] cholestyramine (with sugar) 4 gram powder for susp in a packet 1 ea PO DAILY 09/03/21 [History Last Taken 09/03/21] cyanocobalamin (vitamin B-12) 1,000 mcg tablet 1,000 mcg PO DAILY supplement 09/03/21 [History Last Taken 09/03/21] insulin NPH isoph U-100 human 100 unit/mL (3 mL) subcutaneous pen 6 unit subcut BREAKFAST dm 09/03/21 [History Last Taken 09/03/21] insulin aspart U-100 100 unit/mL (3 mL) subcutaneous pen (Novolog FlexPen U-100 Insulin aspart) 6 unit subcut BREAKFAST dm 09/03/21 [History Last Taken 09/03/21] insulin aspart U-100 100 unit/mL (3 mL) subcutaneous pen (Novolog FlexPen U-100 Insulin aspart) 6 unit subcut LUNCH dm 09/03/21 [History Last Taken 09/02/21] insulin aspart U-100 100 unit/mL (3 mL) subcutaneous pen (Novolog FlexPen U-100 Insulin aspart) 14 unit subcut DINNER dm 09/03/21 [History Last Taken 09/02/21] losartan 100 mg tablet 50 mg PO DAILY heart 09/03/21 [History Last Taken 09/03/21] mirtazapine 45 mg tablet 45 mg PO QHS sleep 09/03/21 [History Last Taken 09/02/21] pravastatin 40 mg tablet 40 mg PO DAILY cholesterol 09/03/21 [History Last Taken 09/03/21] sertraline 100 mg tablet 100 mg PO BID depression 09/03/21 [History Last Taken 09/03/21] sucralfate 1 gram tablet 1 g PO TIDCM stomach 09/03/21 [History Last Taken 09/03/21] albuterol sulfate 90 mcg/actuation aerosol inhaler 2 inh inhalation Q6H PRN shortness of breath or wheezing #8.5 grams 10/22/22 [Rx Last Taken Unknown] hydralazine 50 mg tablet 50 mg PO TID 30 days #90 tabs 10/22/22 [Rx Last Taken Unknown] insulin NPH isoph U-100 human 100 unit/mL (3 mL) subcutaneous pen 10 unit (0.1 mL) subcut QHS dm 30 days #0 mL 12/12/22 [Rx Last Taken 09/02/21] insulin lispro 100 unit/mL subcutaneous pen (Humalog KwikPen (U-100) Insulin) See Protocol subcut ACHS #0 mL 12/12/22 [Rx Last Taken Unknown] ipratropium 0.5 mg-albuterol 3 mg (2.5 mg base)/3 mL nebulization soln 3 ml inhalation Q6HWA.RT #0 mL 12/12/22 [Rx Last Taken Unknown] menthol 0.44 %-zinc oxide 20.6 % topical ointment (Calmoseptine) 1 applic topical BID #0 grams 12/12/22 [Rx Last Taken Unknown] sennosides 8.6 mg-docusate sodium 50 mg tablet (Stool Softener-Stimulant Laxative) 2 tab PO BID PRN PRN Constipation #0 tabs 12/12/22 [Rx Last Taken Unknown] lorazepam 0.5 mg tablet 0.5 mg PO .COMPLEX PRN anxiety #30 tabs 01/22/23 [Rx Last Taken Unknown] tramadol 50 mg tablet 50 mg PO .COMPLEX pain #30 tabs 01/22/23 [Rx Last Taken Unknown] acetaminophen 500 mg tablet 500 mg PO TID PRN PRN pain/fever 01/26/23 [History Last Taken Unknown] ondansetron HCl 4 mg tablet 4 mg PO Q6H PRN nausea and vomiting 01/26/23 [History Last Taken Unknown] Allergy/AdvReac Type Severity Reaction Status Date / Time levofloxacin [From Levaquin] AdvReac Other Verified 01/26/23 08:37 procaine [From Novocain] AdvReac Other Verified 01/26/23 08:37 Family History Mother No cardiac disease Diabetes Father No cardiac disease Daughter Breast cancer Surgical History S/P breast lumpectomy S/P cholecystectomy Social History household members: spouse housing: house number of children: 2 current occupational status: retired Smoking Status: Never smoker alcohol intake: never substance use type: does not use ROS Constitutional Constitutional: Denies anorexia, change in weight, chills, fatigue, fever(s), malaise, night sweats, weakness, weight gain or weight loss Eyes Eyes: Denies blurry vision, change in vision, discharge from eye(s), double vision, erythema, eye pain, irritation or itchy eyes ENT HEENT: Denies dysphagia or headache(s) Cardiovascular Cardiovascular: Denies chest pain, edema, orthopnea, palpitations or paroxysmal nocturnal dyspnea Respiratory/Chest Respiratory/Chest: Denies cough, shortness of breath at rest or shortness of breath with exertion Gastrointestinal Gastrointestinal: Denies abdominal pain, nausea or vomiting Genitourinary Genitourinary: Denies dysuria Musculoskeletal Musculoskeletal: Denies back pain, joint pain or muscle weakness Integumentary Integumentary: Denies dry skin Neurologic Neurologic: Denies confusion, dizziness, focal weakness, headache(s), lack of coordination or weakness Psychiatric Psychiatric: Denies anxiety Endocrine Endocrinology: Denies change in body appearance Vital Signs Vital Signs Vital Signs: 01/26/23 06:44 01/26/23 07:00 Temperature 97.4 F L Temperature Source Temporal Pulse Rate 75 Respiratory Rate 20 H Respiratory Effort Normal Respiratory Pattern Normal Blood Pressure 154/46 H Blood Pressure Mean 82 Pulse Ox 91 Oxygen Delivery Method Nasal Cannula Oxygen Flow Rate (L/min) 3 Weight Weight: 240 lb 15.444 oz Body Mass Index (BMI) 45.5 Physical Exam Const alert, oriented x3 and no apparent distress HEENT normocephalic, head/scalp atraumatic, moist oral mucous membranes and oropharynx normal Eyes PERRL and EOMs intact bilaterally Neck no lymphadenopathy, supple and no JVD Lymph Lymphatic: no lymphadenopathy noted and no lymphedema noted Resp normal respiratory effort, normal air movement and clear to auscultation bilaterally Cardio regular rate, regular rhythm, S1 normal heart sound, S2 normal heart sound and no murmurs GI normal to inspection, nondistended, normoactive bowel sounds, soft to palpation, non-tender and non-distended Extremity normal capillary refill, no clubbing, cyanosis or edema and no calf tenderness Extremity Narrative: dialysis catheter in chest Skin General Skin Exam: no breakdown Neuro CN's II-XII intact bilaterally, no focal motor deficits, no sensory deficits noted and deep tendon reflexes 2+ bilaterally Motor Exam: strength 5/5 throughout and general weakness Psych thought process normal and cooperative Appearance: appropriate Results Lab / Micro Data 01/26/23 08:30 01/26/23 08:30 Assessment & Plan Assessment/Plan (1) CKD stage 4 due to type 2 diabetes mellitus: (2) Complication, dialysis catheter clot or failure: PLAN: Plan #Malfunctioning dialysis catheter unable to have dialysis Wednesday as catheter wasnt functioning well general surgery consulted. To have dialysis catheter exchanged today. consult nephrology also #ESRD o dialysis TTS consult nephrology for dialysis doesn't have a fistula or graft; says she was told that nephrology is hoping her kidneys will recover, so she is currently on temporary dialysis. #Hypertension: on amlodipine and carvedilol as well as hydralazine #TYpe 2 diabetes mellitus: on NPH insulin 6 units in the morning, 10 units in the evening. ISS. Accuchecks ACHS. #Hyperlipidemia: on statin #Depression: on mirtazapine. DVT prophylaxis: heparin 5000 q8. 3:06pm: I was informed by general surgery that she had the dialysis catheter successfully exchanged. She is therefore being discharged home , follow up with her PCP and spout positioner on outpatient basis within 1 week. This note serves as both an admit H&P and discharge summary. Total time spent on the care of the patient today: 82 minutes. Charges/Coding Visit Charges OBSV E&M: 12514 Observ/hosp same date L3
--- NOTE | 2023-01-26 08:19 | NURSING ---
MED SURG OBS [facility] CATHETER CLOTTED, CATHETER EXCHANGE, ESRD, DM
--- NOTE | 2023-01-26 08:47 | CON.PCM.SX_ITS ---
Assessment & Plan Assessment/Plan (1) Complication, dialysis catheter clot or failure: PLAN: The patient's dialysis catheter is nonfunctional. I discussed removing the nonfunctional right tunneled dialysis catheter and replacing another 1 on the right. If it is unable to be placed on the right I will change to place a new 1 on the left. I discussed the risks of the procedure such as bleeding, infection, pneumothorax. Patient or stands the risks and is willing to proceed. The patient ate this morning so she will not be able to have the surgery until this afternoon. Hospitalist will consult nephrology for dialysis following the procedure. Da Abreu MD Pager: [facility] [address] [place] [address], [address] [place] [address] Office: HPI Consult Data Date of Consult: 01/26/23 HPI Narrative HPI Narrative: SANTIAGO WILHELM, is a 82 F who presents with none for nonfunctional right tunneled dialysis catheter. Patient was due for dialysis today. [facility] Medical History CAD (coronary artery disease) CKD (chronic kidney disease), stage IV COPD (chronic obstructive pulmonary disease) Diabetes mellitus, type 2 HLD (hyperlipidemia) HTN (hypertension) Home Medications Lactobacillus acidophilus 10 billion cell capsule (Probiotic) 10,000 mmu cells PO DAILY immune health 09/03/21 [History Last Taken 09/03/21] amlodipine 5 mg tablet 5 mg PO DAILY bp 09/03/21 [History Last Taken 09/03/21] aspirin 81 mg tablet 81 mg PO QHS heart health 09/03/21 [History Last Taken 09/02/21] budesonide-formoterol HFA 160 mcg-4.5 mcg/actuation aerosol inhaler 2 puff inhalation BID sob 09/03/21 [History Last Taken 09/03/21] carvedilol 25 mg tablet 25 mg PO BID heart 09/03/21 [History Last Taken 09/03/21] cholecalciferol (vitamin D3) 25 mcg (1,000 unit) capsule 25 mcg PO BID supplement 09/03/21 [History Last Taken 09/03/21] cholestyramine (with sugar) 4 gram powder for susp in a packet 1 ea PO DAILY 09/03/21 [History Last Taken 09/03/21] cyanocobalamin (vitamin B-12) 1,000 mcg tablet 1,000 mcg PO DAILY supplement 09/03/21 [History Last Taken 09/03/21] insulin NPH isoph U-100 human 100 unit/mL (3 mL) subcutaneous pen 6 unit subcut BREAKFAST dm 09/03/21 [History Last Taken 09/03/21] insulin aspart U-100 100 unit/mL (3 mL) subcutaneous pen (Novolog FlexPen U-100 Insulin aspart) 6 unit subcut LUNCH dm 09/03/21 [History Last Taken 09/02/21] insulin aspart U-100 100 unit/mL (3 mL) subcutaneous pen (Novolog FlexPen U-100 Insulin aspart) 8 unit subcut BREAKFAST dm 09/03/21 [History Last Taken 09/03/21] insulin aspart U-100 100 unit/mL (3 mL) subcutaneous pen (Novolog FlexPen U-100 Insulin aspart) 14 unit subcut DINNER dm 09/03/21 [History Last Taken 09/02/21] losartan 100 mg tablet 50 mg PO DAILY heart 09/03/21 [History Last Taken 09/03/21] mirtazapine 45 mg tablet 45 mg PO QHS sleep 09/03/21 [History Last Taken 09/02/21] pravastatin 40 mg tablet 40 mg PO DAILY cholesterol 09/03/21 [History Last Taken 09/03/21] sertraline 100 mg tablet 100 mg PO BID depression 09/03/21 [History Last Taken 09/03/21] sucralfate 1 gram tablet 1 g PO TIDCM stomach 09/03/21 [History Last Taken 09/03/21] albuterol sulfate 90 mcg/actuation aerosol inhaler 2 inh inhalation Q6H PRN shortness of breath or wheezing #8.5 grams 10/22/22 [Rx Last Taken Unknown] hydralazine 50 mg tablet 50 mg PO TID 30 days #90 tabs 10/22/22 [Rx Last Taken Unknown] insulin NPH isoph U-100 human 100 unit/mL (3 mL) subcutaneous pen 10 unit (0.1 mL) subcut QHS dm 30 days #0 mL 12/12/22 [Rx Last Taken 09/02/21] insulin lispro 100 unit/mL subcutaneous pen (Humalog KwikPen (U-100) Insulin) See Protocol subcut ACHS #0 mL 12/12/22 [Rx Last Taken Unknown] ipratropium 0.5 mg-albuterol 3 mg (2.5 mg base)/3 mL nebulization soln 3 ml inhalation Q6HWA.RT #0 mL 12/12/22 [Rx Last Taken Unknown] menthol 0.44 %-zinc oxide 20.6 % topical ointment (Calmoseptine) 1 applic topical BID #0 grams 12/12/22 [Rx Last Taken Unknown] sennosides 8.6 mg-docusate sodium 50 mg tablet (Stool Softener-Stimulant Laxative) 2 tab PO BID PRN PRN Constipation #0 tabs 12/12/22 [Rx Last Taken Unknown] lorazepam 0.5 mg tablet 0.5 mg PO .COMPLEX PRN anxiety #30 tabs 01/22/23 [Rx Last Taken Unknown] tramadol 50 mg tablet 50 mg PO .COMPLEX pain #30 tabs 01/22/23 [Rx Last Taken Unknown] Allergy/AdvReac Type Severity Reaction Status Date / Time levofloxacin [From Levaquin] AdvReac Other Verified 01/26/23 08:37 procaine [From Novocain] AdvReac Other Verified 01/26/23 08:37 Family History Mother No cardiac disease Diabetes Father No cardiac disease Daughter Breast cancer Surgical History S/P breast lumpectomy S/P cholecystectomy Social History household members: spouse housing: house number of children: 2 current occupational status: retired Smoking Status: Never smoker alcohol intake: never substance use type: does not use ROS Constitutional Constitutional: Denies anorexia or fatigue Eyes Eyes: Denies blurry vision ENT HEENT: Denies abnormal hearing Cardiovascular Cardiovascular: Denies chest pain Respiratory/Chest Respiratory/Chest: Denies cough or dyspnea Gastrointestinal Gastrointestinal: Denies abdominal pain Genitourinary Genitourinary: Denies change in urinary stream Musculoskeletal Musculoskeletal: Denies abnormal gait Integumentary Integumentary: Denies jaundice Physical Exam Const alert and oriented x3 HEENT normocephalic Head and Scalp: normal to inspection Eyes PERRL Neck full ROM Resp normal respiratory effort Cardio Rate: regular rate Rhythm: regular rhythm GI soft to palpation, non-tender and non-distended Extremity normal to inspection
[2023-01-26 09:00] LABS: Absolute Lymphocyte Count 0.65 X10^3/uL (0.83-4.51); Absolute Neutrophil Count 4.8 X10^3/uL (2.0-7.7); Basophil# 0.03 X10^3/uL; Basophil% 0.5 % (0-1); Eosinophil# 0.12 X10^3/uL; Eosinophils% 1.9 % (0-5); Hematocrit 30.7 % (37-47); Lymphocyte # 0.65 X10^3/ul (0.83-4.51); Lymphocyte % 10.3 % (19-41); Mean Corp Hgb Conc 29.3 g/dL (32-36); Mean Corpuscular Volume 105.9 fL (81-99); Mean Platelet Vol. 10.2 fl (6.2-12.0); Monocyte# 0.42 X10^3/uL; Monocyte% 6.6 % (0-10); NRBC Flagged by Analyzer 0 % (0-5); Platelet Count 202 K/mm3 (150-450); RBC Distribution Width CV 15.8 % (11.6-14.6); White Blood Count 6.3 K/mm3 (4.4-11.0)
[2023-01-26 09:13] LABS: Anion Gap 8 (5-15); BUN 70 mg/dL (7-18); BUN/Creat Ratio 12.5 RATIO (10-20); Calcium,Total 8.2 mg/dL (8.5-10.1); Chloride 105 mmol/L (98-107); Creatinine, Serum 5.61 mg/dL (0.55-1.02); EST Glomerular Filtration Rate 8 mL/min (>60); Est Glom Filt Rate - Afr Amer 9 mL/min (>60); Estimated Creatinine Clearance 5.93 ml/min; Glucose 167 mg/dL (74-106); Sodium Level 140 mmol/L (136-145)
[2023-01-26 09:31] LABS: Partial Thromboplast Time 26.5 Seconds (24.1-36.2); Prothrombin Time (Protime)PT. 12.9 SECONDS (11.7-14.9)
[2023-01-26] MEDS: 0.9% Normal Saline 1,000 ML IV.SOLN. 1000 ML OPERA.SITE (10:57)
[2023-01-26] MEDS: 0.9% Saline Lock 10 ML Syringe IV ×2 (10:58→12:37)
[2023-01-26] MEDS: PureFlow B 3K Dialysis Soln 1 BAG 6 BAG PF (11:26)
[2023-01-26 13:26] LABS: Bedside Glucose 156 mg/dL (74-106)
--- NOTE | 2023-01-26 13:47 | PCM.CONS.R ---
Assessment & Plan Assessment/Plan (1) Acute renal failure: QUALIFIERS: Acute renal failure type: with acute tubular necrosis Qualified Code(s): N17.0 - Acute kidney failure with tubular necrosis (2) CKD stage 4 due to type 2 diabetes mellitus: (3) Anemia in chronic illness: PLAN: Plan This is an 82-year-old female with past medical history significant for dialysis requiring acute kidney injury stage III/IV (baseline serum creatinine around 1.6-2 mg/dL as of October 2022) who was brought to the emergency room for evaluation of poorly functioning tunneled hemodialysis catheter and admitted for further evaluation and treatment. Patient currently dialyzes at [facility] Wednesday schedule. She is compliant with dialysis. She is being monitored closely for possible regain of kidney function at [facility] [address]. Patient sustained dialysis requiring LINDA secondary to possible cardiorenal syndrome physiology and unresolved ATN (p-ANCA, c-ANCA, GB membrane AB, C4 and C3 all normal December 2022); no noted renal recovery at this time. Serum creatinine today 5.61 mg/dL. Surgery team consulted for placement of new tunneled HD catheter. Blood pressures acceptable. Patient does have a history of anemia of chronic disease in which she receives iron and NATALIYA at [facility]. We will continue monitor hemoglobin trends. Further orders forthcoming as hospitalization evolves, thank you for allowing us to participate in the care of Ms. Lane. HPI Consult Data Date of Consult: 01/26/23 HPI Narrative HPI Narrative: SANTIAGO LANE, is a 82 F with past medical history significant for diabetes mellitus type 2, hypertension, COPD on home O2 4 L nasal cannula, depression, and history of dialysis requiring acute kidney injury superimposed on CKD stage IV (baseline creatinine had been 2 mg/dL as recently as October 2022) who was brought to the emergency room for evaluation of poorly function tunneled hemodialysis catheter. Patient was admitted for further evaluation and treatment. Patient underwent hemodialysis today using tunneled hemodialysis catheter however blood flow rate was very sluggish. Patient denies any nausea or vomiting. No recent fevers or chills. Patient is compliant with her outpatient dialysis. [facility] Medical History (Updated 01/26/23 @ 13:51 by RAE Lopez) Breast cancer CAD (coronary artery disease) CKD (chronic kidney disease), stage IV COPD (chronic obstructive pulmonary disease) Diabetes mellitus, type 2 HLD (hyperlipidemia) HTN (hypertension) Home Medications Lactobacillus acidophilus 10 billion cell capsule (Probiotic) 10,000 mmu cells PO DAILY immune health 09/03/21 [History Last Taken 09/03/21] amlodipine 5 mg tablet 5 mg PO DAILY bp 09/03/21 [History Last Taken 09/03/21] aspirin 81 mg tablet 81 mg PO QHS heart health 09/03/21 [History Last Taken 09/02/21] budesonide-formoterol HFA 160 mcg-4.5 mcg/actuation aerosol inhaler 2 puff inhalation BID sob 09/03/21 [History Last Taken 09/03/21] carvedilol 25 mg tablet 25 mg PO BIDCM heart 09/03/21 [History Last Taken 09/03/21] cholecalciferol (vitamin D3) 25 mcg (1,000 unit) capsule 25 mcg PO BID supplement 09/03/21 [History Last Taken 09/03/21] cholestyramine (with sugar) 4 gram powder for susp in a packet 1 ea PO DAILY 09/03/21 [History Last Taken 09/03/21] cyanocobalamin (vitamin B-12) 1,000 mcg tablet 1,000 mcg PO DAILY supplement 09/03/21 [History Last Taken 09/03/21] insulin NPH isoph U-100 human 100 unit/mL (3 mL) subcutaneous pen 6 unit subcut BREAKFAST dm 09/03/21 [History Last Taken 09/03/21] insulin aspart U-100 100 unit/mL (3 mL) subcutaneous pen (Novolog FlexPen U-100 Insulin aspart) 6 unit subcut BREAKFAST dm 09/03/21 [History Last Taken 09/03/21] insulin aspart U-100 100 unit/mL (3 mL) subcutaneous pen (Novolog FlexPen U-100 Insulin aspart) 6 unit subcut LUNCH dm 09/03/21 [History Last Taken 09/02/21] insulin aspart U-100 100 unit/mL (3 mL) subcutaneous pen (Novolog FlexPen U-100 Insulin aspart) 14 unit subcut DINNER dm 09/03/21 [History Last Taken 09/02/21] losartan 100 mg tablet 50 mg PO DAILY heart 09/03/21 [History Last Taken 09/03/21] mirtazapine 45 mg tablet 45 mg PO QHS sleep 09/03/21 [History Last Taken 09/02/21] pravastatin 40 mg tablet 40 mg PO DAILY cholesterol 09/03/21 [History Last Taken 09/03/21] sertraline 100 mg tablet 100 mg PO BID depression 09/03/21 [History Last Taken 09/03/21] sucralfate 1 gram tablet 1 g PO TIDCM stomach 09/03/21 [History Last Taken 09/03/21] albuterol sulfate 90 mcg/actuation aerosol inhaler 2 inh inhalation Q6H PRN shortness of breath or wheezing #8.5 grams 10/22/22 [Rx Last Taken Unknown] hydralazine 50 mg tablet 50 mg PO TID 30 days #90 tabs 10/22/22 [Rx Last Taken Unknown] insulin NPH isoph U-100 human 100 unit/mL (3 mL) subcutaneous pen 10 unit (0.1 mL) subcut QHS dm 30 days #0 mL 12/12/22 [Rx Last Taken 09/02/21] insulin lispro 100 unit/mL subcutaneous pen (Humalog KwikPen (U-100) Insulin) See Protocol subcut ACHS #0 mL 12/12/22 [Rx Last Taken Unknown] ipratropium 0.5 mg-albuterol 3 mg (2.5 mg base)/3 mL nebulization soln 3 ml inhalation Q6HWA.RT #0 mL 12/12/22 [Rx Last Taken Unknown] menthol 0.44 %-zinc oxide 20.6 % topical ointment (Calmoseptine) 1 applic topical BID #0 grams 12/12/22 [Rx Last Taken Unknown] sennosides 8.6 mg-docusate sodium 50 mg tablet (Stool Softener-Stimulant Laxative) 2 tab PO BID PRN PRN Constipation #0 tabs 12/12/22 [Rx Last Taken Unknown] lorazepam 0.5 mg tablet 0.5 mg PO .COMPLEX PRN anxiety #30 tabs 01/22/23 [Rx Last Taken Unknown] tramadol 50 mg tablet 50 mg PO .COMPLEX pain #30 tabs 01/22/23 [Rx Last Taken Unknown] acetaminophen 500 mg tablet 500 mg PO TID PRN PRN pain/fever 01/26/23 [History Last Taken Unknown] ondansetron HCl 4 mg tablet 4 mg PO Q6H PRN nausea and vomiting 01/26/23 [History Last Taken Unknown] Allergy/AdvReac Type Severity Reaction Status Date / Time levofloxacin [From Levaquin] AdvReac Other Verified 01/26/23 08:37 procaine [From Novocain] AdvReac Other Verified 01/26/23 08:37 Family History Mother No cardiac disease Diabetes Father No cardiac disease Daughter Breast cancer Surgical History S/P breast lumpectomy S/P cholecystectomy Social History household members: spouse housing: house number of children: 2 current occupational status: retired Smoking Status: Never smoker alcohol intake: never substance use type: does not use ROS ROS Narrative As in HPI past medical history Physical Exam Narrative Alert and oriented, no apparent distress S1, S2, RRR Lung sounds clear anteriorly, diminished breath sounds posterior bases Abdomen soft, nontender Trace edema bilateral legs Tunneled HD catheter dressing clean, dry and intact Lab / Micro Data 01/26/23 08:30 01/26/23 08:30 Labs: Laboratory Results - last 24 hr 01/26/23 08:30: WBC 6.3, RBC 2.90 L, Hgb 9.0 L, Hct 30.7 L, MCV 105.9 H, MCH 31.0, MCHC 29.3 L, RDW Std Deviation 61.0 H, RDW Coeff of Lucsa 15.8 H, Plt Count 202, MPV 10.2, Immature Gran % (Auto) 4.700 H, Neut % (Auto) 76.0 H, Lymph % (Auto) 10.3 L, [place] % (Auto) 6.6, Eos % (Auto) 1.9, Baso % (Auto) 0.5, Absolute Neuts (auto) 4.8, Absolute Lymphs (auto) 0.65 L, Nucleated RBC % 0, PT 12.9, INR 1.0, APTT 26.5, Sodium 140, Potassium 4.0, Chloride 105, Carbon Dioxide 27.0, Anion Gap 8, BUN 70 H, Creatinine 5.61 H, Estim Creat Clear Calc 5.93, Est GFR (MDRD) Af Amer 9 L, Est GFR (MDRD) Non-Af 8 L, BUN/Creatinine Ratio 12.5, Glucose 167 H, Calcium 8.2 L 01/26/23 12:22: POC Glucose 156 H
[2023-01-26] MEDS: Lidocaine 1% (30 ml sdv) 30 ML Vial (14:41)
[2023-01-26] MEDS: Heparin 10,000 UNITS/10 ML Vial 10000 UNITS (14:51)
--- NOTE | 2023-01-26 15:05 | PCM.OPRPT ---
Report of Operation Date of Procedure: 01/26/23 Pre-Operative Diagnosis: Nonfunctional right chest dialysis catheter Post-Operative Diagnosis: Same Surgery/Procedure Performed:: 1. Removal of tunneled right chest dialysis catheter 2. Ultrasound and fluoroscopy guided right tunneled chest dialysis catheter placement utilizing right IJ Type of Anesthesia: Local MAC Specimen's removed: Nonfunctional dialysis catheter Estimated Blood Loss (mL): 10 Description of Procedure: Patient was brought back to the operating room and MAC anesthesia was induced. The right chest was prepped and then the prior dialysis catheter was dissected free from the cuff and removed. The right neck and chest were then prepped again. Ultrasound was used to localize the right IJ. An area overlying the right IJ was injected with local anesthetic as well as a new area on the right chest. An incision was made in the right neck and the right chest. Using ultrasound the right IJ was accessed with a needle and a guidewire was placed without resistance. Fluoroscopy confirmed wire placement. Serial dilators and the peel-away sheath were placed over the guidewire and the guidewire was removed. Was placed over the peel-away sheath. Next the catheter was placed from the lower incision to the upper incision and tunneled. The cuff was placed under the skin. The distal catheter was placed into the peel-away sheath and it was removed. Fluoroscopy confirmed good placement. Both of the catheters were drawn and flushed and they both tiffany and flushed well. They were then instilled with 2 cc of heparinized saline each and then clamped and capped. The neck incision was closed with a 3-0 Vicryl suture. The catheter was sutured to the skin using 3-0 nylon suture. Steri-Strips and dressings were applied. Patient tolerated the procedure well. Grafts/Implants Used: Curved palindrome temporary dialysis catheters Admit VTE Documentation VTE Mechan Device Prophylaxis: SCD's
--- NOTE | 2023-01-26 15:10 | RAD_ITS ---
STUDY: X-RAY CHEST REASON FOR EXAM: Female, 82 years old. Mild placement. TECHNIQUE: Single frontal view of the chest. COMPARISON: Chest dated January 25, 2023. FINDINGS: Right internal jugular catheter tip is now slightly lower than on the prior study, at the lower SVC level. Stable cardiomegaly, marked aortic tortuosity with calcification, marked elevation of the right hemidiaphragm with right lower and middle lobe atelectasis and mild diffuse interstitial pattern. Incidentally noted are right axillary clips, unchanged. No complication from line placement and no acute or active cardiopulmonary disease. No abnormality of the visualized soft tissue structures of the upper abdomen. RAD/CXR for Line Placement IMPRESSION: Stable chest with tip of right internal jugular line slightly lower. No other change and no acute or active cardiopulmonary disease. Electronically Signed: Cristian Castorena MD at 15:30 EDT ,
[2023-01-26] MEDS: Insulin Lispro 100 UNIT/ML INSULN.PEN 15 UNIT SC (18:13)
[2023-01-26 20:51] LABS: Bedside Glucose 171 mg/dL (74-106)
== END 2023-01-26 15:13 | disposition home or self-care (01) ==
LOC: ED 08:17 → PCU 09:25
PROVIDERS: Surgery; Admitting Provider Student in an Organized Health Care Education/Training Program; Emergency Provider Emergency Medicine; PCP Family Medicine; Visit Provider Student in an Organized Health Care Education/Training Program
PROC: (CPT 36561; principal; 2023-01-26 10:10)
DX: T82.868A Thrombosis due to vascular prosthetic devices, implants and grafts, initial encounter (principal); N17.0 Acute kidney failure with tubular necrosis; Z49.01 Encounter for fitting and adjustment of extracorporeal dialysis catheter; J44.9 Chronic obstructive pulmonary disease, unspecified; E11.22 Type 2 diabetes mellitus with diabetic chronic kidney disease; N18.6 End stage renal disease; I12.0 Hypertensive chronic kidney disease with stage 5 chronic kidney disease or end stage renal disease; Z79.4 Long term (current) use of insulin; D63.8 Anemia in other chronic diseases classified elsewhere; I25.10 Atherosclerotic heart disease of native coronary artery without angina pectoris; E78.5 Hyperlipidemia, unspecified; Z79.82 Long term (current) use of aspirin; Z79.899 Other long term (current) drug therapy; F32.A Depression, unspecified; Y71.2 Prosthetic and other implants, materials and accessory cardiovascular devices associated with adverse incidents; Z99.81 Dependence on supplemental oxygen
CPT/HCPCS: 36561; 00532; 71045; 77001; 80048; 82962; 85025; 85610; 85730; 90937; 99221; 99284; J2997; J7030; J7040; A4216; G0257; G0378; J2405

== ENCOUNTER → 2023-05-12 | Outpatient (CLI) | payer MEDICARE, OTHER, SELFPAY ==
--- NOTE | 2023-05-12 12:57 | VDUE_ITS ---
Reason For Study: Pre op Right Lower Arm Left Arm Proximal Radial artery diameter 1.6 x 1.4 Left Brachial artery diameter 4.0 x 3.7 mm. mm. Left Brachial artery waveform is triphasic . Proximal Radial artery waveform is Lateral Brachial vein diameter 2.2 x 1.8 mm. triphasic . Medial Brachial vein diameter 1.6 x 1.6 mm. Proximal Lateral Radial vein diameter 1.2 x Manager Payment Vein is present. 1.0 mm. Manager Payment Vein measures 2.2 mm. Proximal Medial Radial vein diameter 1.7 x Cephalic Vein at proximal upper arm measures 1.7 mm. 3.4 x 3.3 mm. Distal Radial artery diameter 1.8 x 1.8 mm. Cephalic vein at proximal upper arm depth Distal Lateral Radial vein diameter 0.9 x measures 15.1 mm. 0.8 mm. Cephalic Vein at mid upper arm measures 3.7 Distal Medial Radial vein diameter 1.0 x 1.0 x 3.6 mm. mm. Cephalic vein at mid upper arm depth Proximal Ulnar artery diameter 3.9 x 3.7 mm. measures 7.3 mm. Proximal Ulnar artery waveform is Cephalic Vein distal upper arm measures 4.7 triphasic . x 4.8 mm. Proximal Lateral Ulnar vein diameter 2.8 x Cephalic vein at distal upper arm depth 2.8 mm. measures 4.0 mm. Proximal Medial Ulnar vein diameter 2.1 x Cephalic Vein proximal forearm measures 2.9 2.0 mm. x 2.6 mm. Distal Ulnar artery diameter 1.5 x 1.7 mm. Cephalic Vein at mid forearm measures 3.2 x Distal Lateral Ulnar vein diameter 0.9 x 0.9 3.2 mm. mm. Cephalic Vein at distal forearm measures 2.8 Distal Medial Ulnar vein diameter 0.8 x 0.6 x 2.7 mm. mm. Proximal Basilic vein measures 4.4 x 3.9 mm. Right Arm Proximal Basilic vein depth measures 16.7 Right Brachial artery diameter 4.1 x 4.1 mm. mm. Right Brachial artery waveform is Mid Basilic vein measures 4.2 x 3.9 mm. triphasic . Mid Basilic vein depth measures 16.4 mm. Lateral Brachial vein diameter 2.7 x 2.9 mm. Distal Basilic vein measures 3.0 x 2.9 mm. Medial Brachial vein diameter 2.7 x 2.6 mm. Distal Basilic vein depth measures 7.6 mm. Manager Payment Vein is present. Left Lower Arm Manager Payment Vein measures 2.9 mm. Proximal Radial artery diameter 2.1 x 1.9 Cephalic Vein at proximal upper arm measures mm. 3.8 x 4.4 mm. Proximal Radial artery waveform is Cephalic vein at proximal upper arm depth triphasic . measures 8.6 mm. Proximal Lateral Radial vein diameter 0.9 x Cephalic Vein at mid upper arm measures 3.8 1.0 mm. x 4.7 mm. Proximal Medial Radial vein diameter 1.0 x Cephalic vein at mid upper arm depth 0.9 mm. measures 3.0 mm. Distal Radial artery diameter 1.4 x 1.5 mm. Cephalic Vein distal upper arm measures 4.7 Distal Lateral Radial vein diameter 0.9 x x 4.7 mm. 0.8 mm. Cephalic vein at distal upper arm depth Distal Medial Radial vein diameter 0.8 x 0.8 measures 2.3 mm. mm. Cephalic Vein proximal forearm measures 3.2 Proximal Ulnar artery diameter 4.3 x 2.9 mm. x 3.4 mm. Proximal Ulnar artery waveform is Cephalic Vein at mid forearm measures 2.9 x triphasic . 2.7 mm. Proximal Lateral Ulnar vein diameter 2.8 x Cephalic Vein at distal forearm measures 2.7 2.5 mm. x 2.6 mm. Proximal Medial Ulnar vein diameter 2.1 x Proximal Basilic vein measures 3.9 x 4.1 mm. 2.4 mm. Proximal Basilic vein depth measures 16.0 Distal Ulnar artery diameter 0.11 x 0.8 mm. mm. Distal Lateral Ulnar vein diameter 0.7 x 0.7 Mid Basilic vein measures 2.2 x 2.5 mm. mm. Mid Basilic vein depth measures 15.7 mm. Distal Medial Ulnar vein diameter 0.9 x 1.0 Distal Basilic vein measures 3.3 x 3.5 mm. mm. Distal Basilic vein depth measures 14.7 mm. VL/Dialysis Vein Map PRE-OP BILAT Interpretation Summary Bilateral upper extremity deep and superficial veins patent with measurements a tong. Bilateral upper extremity arteries patent with normal waveforms throughout and measurements above. Ordering Physician: Delores Morales Referring Physician: Mitchell Lane Performed By: Chitra Heard RVT ???
== END | disposition home or self-care (01) ==
LOC: CVS 12:54
PROVIDERS: PCP Family Medicine; Referring Provider Internal Medicine Nephrology; Visit Provider Internal Medicine Nephrology
DX: Z01.818 Encounter for other preprocedural examination (principal); N18.6 End stage renal disease
CPT/HCPCS: 93985

== ENCOUNTER 2023-08-24 09:17 | Day surgery (SDC) | payer MEDICARE, OTHER, SELFPAY ==
[2023-08-18 15:08] LABS: Hematocrit 38.7 % (37-47); Hemoglobin 12.1 g/dL (12.0-15.0); Mean Corp Hgb Conc 31.3 g/dL (32-36); Mean Corpuscular Hgb 31.7 pg (27.0-32.0); Mean Corpuscular Volume 101.3 fL (81-99); Mean Platelet Vol. 10.3 fl (6.2-12.0); Platelet Count 177 K/mm3 (150-450); RBC Distribution Width CV 14.2 % (11.6-14.6); Red Blood Count 3.82 M/mm3 (4.2-5.4)
[2023-08-18 15:36] LABS: Anion Gap 8 (5-15); BUN 58 mg/dL (7-18); BUN/Creat Ratio 10.1 RATIO (10-20); Calcium,Total 8.7 mg/dL (8.5-10.1); Chloride 98 mmol/L (98-107); Creatinine, Serum 5.72 mg/dL (0.55-1.02); EST Glomerular Filtration Rate 8 mL/min (>60); Est Glom Filt Rate - Afr Amer 9 mL/min (>60); Glucose 239 mg/dL (74-106); Potassium 4.1 mmol/L (3.5-5.1); Sodium Level 138 mmol/L (136-145)
[2023-08-24] VITALS (7 sets, daily range): BP systolic 110–148; BP diastolic 35–60; PULSE 55–81; RESP 16–18; TEMP 36.3–36.7; O2SAT 98–100; BMI 43.4
[2023-08-24] MEDS: Bupivacaine 0.25% 30 ML Vial (10:09)
[2023-08-24] MEDS: Lidocaine 1% (30 ml sdv) 30 ML Vial (10:09)
[2023-08-24] MEDS: 0.9% Normal Saline (500mL Bag) 500 ML 15 ML IV (10:14)
[2023-08-24 10:21] LABS: Bedside Glucose 210 mg/dL (74-106)
--- NOTE | 2023-08-24 10:27 | PCM.PN.BLA ---
Progress Note The patient has appointment today to have a fistula created in her left arm. I was consulted as the dialysis center reports that a lot of difficulty with her dialysis catheter yesterday. This was placed in January by myself on the right. I discussed this with her briefly in preop. I consented her for a private branch exchange service advisor of the right dialysis catheter if that is not plausible I will place a new 1 on the left. I discussed this with her in detail. I discussed the risks including but limited to bleeding, infection, pneumothorax or need for further surgery. Patient understands the risks and is willing to add this to her procedure. Da Abreu MD Pager: [facility] [address] [place] [address] [address] [place] [address] Office:
--- NOTE | 2023-08-24 10:42 | HP.PCM_ITS ---
History and Physical Allergies procaine [From Novocain] Adverse Reaction (Intermediate, Verified 08/04/23 15:17) Otherlevofloxacin [From Levaquin] Adverse Reaction (Verified 08/04/23 15:17) Nausea/Vom/Diarrhea Medications Lactobacillus acidophilus 10 billion cell capsule (Probiotic) 10,000 mmu cells PO DAILY immune health 09/03/21 [History Confirmed 08/04/23] aspirin 81 mg tablet 81 mg PO QHS heart health 09/03/21 [History Confirmed 08/04/23] budesonide-formoterol HFA 160 mcg-4.5 mcg/actuation aerosol inhaler 2 puff inhalation BID sob 09/03/21 [History Confirmed 08/04/23] cholecalciferol (vitamin D3) 25 mcg (1,000 unit) capsule 25 mcg PO BID supplement 09/03/21 [History Confirmed 08/04/23] cholestyramine (with sugar) 4 gram powder for susp in a packet 1 ea PO DAILY 09/03/21 [History Confirmed 08/04/23] cyanocobalamin (vitamin B-12) 1,000 mcg tablet 1,000 mcg PO DAILY supplement 09/03/21 [History Confirmed 08/04/23] insulin NPH isoph U-100 human 100 unit/mL (3 mL) subcutaneous pen 6 unit subcut BREAKFAST dm 09/03/21 [History Confirmed 08/04/23] losartan 100 mg tablet 50 mg PO DAILY heart 09/03/21 [History Confirmed 08/04/23] mirtazapine 45 mg tablet 45 mg PO QHS sleep 09/03/21 [History Confirmed 08/04/23] pravastatin 40 mg tablet 40 mg PO DAILY cholesterol 09/03/21 [History Confirmed 08/04/23] sertraline 100 mg tablet 100 mg PO BID depression 09/03/21 [History Confirmed 08/04/23] sucralfate 1 gram tablet 1 g PO TIDCM stomach 09/03/21 [History Confirmed 08/04/23] albuterol sulfate 90 mcg/actuation aerosol inhaler 2 inh inhalation Q6H PRN shortness of breath or wheezing #8.5 grams 10/22/22 [Rx Confirmed 08/04/23] insulin NPH isoph U-100 human 100 unit/mL (3 mL) subcutaneous pen 10 unit (0.1 mL) subcut QHS dm 30 days #0 mL 12/12/22 [Rx Confirmed 08/04/23] insulin lispro 100 unit/mL subcutaneous pen (Humalog KwikPen (U-100) Insulin) See Protocol subcut ACHS #0 mL 12/12/22 [Rx Confirmed 08/04/23] ipratropium 0.5 mg-albuterol 3 mg (2.5 mg base)/3 mL nebulization soln 3 ml inhalation Q6HWA.RT #0 mL 12/12/22 [Rx Confirmed 08/04/23] menthol 0.44 %-zinc oxide 20.6 % topical ointment (Calmoseptine) 1 applic topical BID #0 grams 12/12/22 [Rx Confirmed 08/04/23] sennosides 8.6 mg-docusate sodium 50 mg tablet (Stool Softener-Stimulant Laxative) 2 tab PO BID PRN PRN Constipation #0 tabs 12/12/22 [Rx Confirmed 08/04/23] lorazepam 0.5 mg tablet 0.5 mg PO .COMPLEX PRN anxiety #30 tabs 01/22/23 [Rx Confirmed 08/04/23] tramadol 50 mg tablet 50 mg PO .COMPLEX pain #30 tabs 01/22/23 [Rx Confirmed ] acetaminophen 500 mg tablet 500 mg PO TID PRN PRN pain/fever 01/26/23 [History Confirmed 08/04/23] ondansetron HCl 4 mg tablet 4 mg PO Q6H PRN nausea and vomiting 01/26/23 [History Confirmed 08/04/23] carvedilol 25 mg tablet 12.5 mg PO BIDCM heart 07/30/23 [History Confirmed 08/04/23] mirtazapine 45 mg tablet 45 mg PO QHS 07/30/23 [History Confirmed 08/04/23] tiotropium 2.5 mcg-olodaterol 2.5 mcg/actuation mist for inhalation (Stiolto Respimat) 2 puff inhalation Q24H 07/30/23 [History Confirmed 08/04/23] PFSH Medical History Acute renal failure Anemia in chronic illness Anxiety Breast cancer CAD (coronary artery disease) Chronic heart failure CKD (chronic kidney disease), 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 COPD (chronic obstructive pulmonary disease) Cor pulmonale Diabetes mellitus Diabetes mellitus, type 2 Dialysis patient History of diabetes mellitus History of end stage renal disease HLD (hyperlipidemia) HTN (hypertension) Morbid obesity ANDREA (obstructive sleep apnea) Surgical History S/P breast lumpectomy S/P cholecystectomy Family History Mother Diabetes CVA (cerebral vascular accident) Cancer HypertensionFather No cardiac diseaseDauter Breast cancer Social History household members: spouse housing: house number of children: 2 current occupational status: retired Smoking Status: Never smoker alcohol intake: never substance use type: does not use HPI HPI HPI: SANTIAGO WILHELM, is a 82 F who presents to the office today for further discussion of left arm AV fistula plans. She has been seen by cardiology (who si nce retired), referred to cardiology at [facility] and now is about to establish care in [place]. She believes she wore a monitor for 2-3 days recently but not sure of findings. ROS General General: Yes fatigue and weakness; No weight change, appetite, colon cancer or breast cancer HEENT HEENT: No difficulty swallowing, eye injury, eye surgery, swollen glands or hoarseness Endo Endocrine: Yes diabetes mellitus; No thyroid disease, thyroid cancer, Hair loss, heat intolerance or cold intolerance Skin Skin: No rash or changing moles Musc Musculoskeletal: No back problems, arthritis, rheumatoid arthritis, gout or joint pain Cardio Cardiovascular: Yes shortness of breat with exertion; No murmur, pacemaker, heart disease, atrial fibrillation, high blood pressure, heart attack, heart stent, palpitations or chest pain Psych Psychiatric: No depression, anxiety or hearing voices Resp Respiratory: Yes shortness of breath, No sleep apnea, No cough, No COPD, No asthma, No emphysema and No wheezing Gastro Gastrointestinal: No abdominal pain, No nausea or vomiting, No diarrhea, No constipation, No blood in stool, No acid reflux, No hemorrhoids, No ulcers, No gallbladder problem and No black,tarry stools Ariel Hematologic: No blood thinners, No blood disorders, No bleeding, No anemia and No blood clots Neuro Neurologic: No system reviewed and no additional complaints, except as documented, No as per HPI, No abnormal gait, No abnormal hearing, No abnormal movements, No abnormal speech, No behavioral changes, No burning sensations, No confusion, No convulsions, Yes disequilibrium, No dizziness, No localized weakness, No frequent falls, No headache(s), No lack of coordination, No loss of vision, No memory loss, Yes numbness, No other visual disturbances, No radicular pain, No restless legs, No sensory deficit, No syncope, Yes tingling, No tremor(s), Yes weakness and No other Exam Const General: cooperative, healthy appearing, comfortable, no acute distress and well developed Nutritional Appearance: well nourished Orientation: alert, awake and oriented x3 HENMT Head: normocephalic and atraumatic Ears: hearing grossly normal bilaterally Nose: external nose normal Eyes General: appearance normal, both eyes and all related structures EOM: EOM intact bilaterally Neck Neck: normal visual inspection, full ROM, no lymphadenopathy and trachea midline Thyroid: thyroid normal Lymphatic: no lymphadenopathy noted Resp Effort & Inspection: normal respiratory effort, able to speak in complete sentences, symmetric chest movement, no audible wheezes, not labored, no stridor and no use of accessory muscles Cardio Rate: regular rate Rhythm: regular rhythm Pulses: brachial pulses present and radial pulses present Skin General: no rashes or lesions noted and no erythema Wounds: no wounds Neuro Cranial Nerves: CN's II-XI intact bilaterally and EOM intact bilaterally Speech: speech normal Gait: normal gait Motor: strength 5/5 throughout Sensory Exam: no sensory deficits noted Psych Appearance: grossly normal and well kempt Mental Status: mental status grossly normal Mood: congruent mood Speech and Movement: speech and movement normal Thought Content: normal Judgment: judgment good Coding Level of Care Code Off vis,est,level 3 Diagnoses ESRD (end stage renal disease) on dialysis N18.6; Z99.2 Assessment and Plan Assessment and Plan (1) ESRD (end stage renal disease) on dialysis: Status: Chronic Comment: Vein mapping- left upper arm cephalic and basilic adequate; right upper arm cephalic and basilic adequate Plan: -plan left brach-ceph fistula -dialysis unit informed us of catheter issues at session yesterday; D/W Dr. Abreu, will attempt to rewire today while in OR vs move to left
[2023-08-24] MEDS: Cefazolin 2 GM in 0.9% Normal Saline (100mL Bag) 100 ML IV (10:57)
[2023-08-24] MEDS: Heparin 10,000 UNITS/10 ML Vial 10000 UNITS (11:44)
--- NOTE | 2023-08-24 12:15 | OP.PCM_ITS ---
Problems Associated Problem List Diagnoses (1) ESRD (end stage renal disease) on dialysis: Report of Operation Date of Procedure: 08/24/23 Pre-Operative Diagnosis: ESRD Post-Operative Diagnosis: Same Surgery/Procedure Performed:: Left brach-ceph fistula creation Surgeon: Abel Lemus Type of Anesthesia: Local and MAC Estimated Blood Loss (mL): 8 Description of Procedure: HPI: Patient is an 83-year-old female with end-stage renal disease currently on dialysis via a right IJ tunnel catheter. She had vein mapping which revealed satisfactory left upper arm basilic and cephalic veins. She presents now for fistula creation. Description of procedure: Upon obtaining form consent and verification correct patient procedure site patient was taken to the operating room where she was positioned prepped and draped in usual sterile fashion. Time was then performed and deep sedation ministered by anesthesia. Ultrasound used to evaluate the cephalic vein and the antecubital branches in relation to the brachial artery. They were in close proximity to the brachial bifurcation just beyond the antecubital crease so the skin was anesthetized with 1% lidocaine. Transverse incision was made 1 fingerbreadth distal to the antecubital crease and Bovie electrocautery was dissect down through subcutaneous tissue. Self-retaining retractors then put in position and further dissection carried down to the antecubital veins were visualized. These were then dissected free with sharp dissection and retracted laterally. Next Bovie was used to dissect down to the fascia which was then incised exposing the brachial artery and its bifurcation. Sharp dissection was then used to dissect free the brachial artery down onto the radial and ulnar nerve origins and self-retaining retractors placed on each of these vessels individually. Patient was then heparinized allowed circulate for 3 minutes after which the distal branches of the antecubital veins were then ligated with silk ties and divided. A medial cubital branch and the deep correspondence review clerk was felt to provide the best reach to the artery and were of satisfactory caliber. These were then dilated up to 3-1/2 mm with Tye dilators and then flushed with heparinized saline. The brachial, radial, ulnar arteries and occluded with Vesseloops and a longitudinal arteriotomy created on the proximal radial artery extended to the bifurcation proximally. The vein was then beveled to match the arteriotomy and anastomosis performed using a 6-0 Prolene in running fashion. Prior to completing suture line vessels were backbled and after completing the suture line clamps removed and satisfactory stasis was noted. There is a palpable pulse in the radial artery at the wrist and a palpable thrill in the cephalic vein to the mid upper arm. Incision was then inspected for hemostasis and heparin reversed with protamine. The incision was then closed with 3-0 Vicryl followed by 4 Monocryl and Dermabond for the skin.
--- NOTE | 2023-08-24 12:18 | DCINST_ITS ---
Discharge Instructions Diet Discharge Diet: No restrictions Activity Lifting Restrictions: not > 20 lbs with left arm for 3 weeks Additional Activity Instructions:: do not submerge incision for 3 weeks Dressing / Incision Call your doctor if your incision/area has: Sudden Increased Bleeding, Increased Pain/ Swelling, Increased Redness and Foul Smelling Discharge Call your doctor if you observe: Fever of 101 or Higher Remove Dressing in: 2 days Cleanse incision/area with: Soap & Water Follow Up Care Test Results: Test results from this visit will be discussed in further detail at your follow- up appointment, if applicable. Discharge Plan Admission Attending Provider: Abel Lemus Primary Care Provider: Mitchlel Lane Discharge Orders/Prescriptions Prescriptions: New oxycodone 5 mg tablet 5 mg PO Q8H PRN (Reason: pain) 3 Days Qty: 9 0RF Continued pravastatin 40 mg tablet 40 mg PO QHS Patient Comments: TAKE 1 TABLET BY MOUTH EVERY DAY sucralfate 1 gram tablet 1 g PO DAILY Patient Comments: TAKE 1 TABLET BY MOUTH 3 TIMES A DAY BEFORE MEALS sertraline 100 mg tablet 100 mg PO BID Patient Comments: TAKE 1 TABLET BY MOUTH TWICE A DAY mirtazapine 45 mg tablet 45 mg PO QHS Patient Comments: TAKE 1 TABLET BY MOUTH NIGHTLY cholecalciferol (vitamin D3) 25 mcg (1,000 unit) Capsule 25 mcg PO BID insulin NPH isoph U-100 human 100 unit/mL (3 mL) Insulin Pen 6 unit SUBCUT BREAKFAST cholestyramine (with sugar) 4 gram powder in packet 1 ea PO DAILY budesonide-formoterol 160-4.5 mcg/actuation HFA aerosol inhaler 2 puff INHALATION BID Patient Comments: INHALE 2 PUFFS INTO THE LUNGS TWICE DAILY Probiotic 10 billion cell Capsule 10,000 mmu cells PO DAILY Rx Instructions: takes at lunch time aspirin 81 mg Tablet 81 mg PO QHS albuterol sulfate 90 mcg/actuation HFA aerosol inhaler 2 inh inhalation Q6H PRN (Reason: shortness of breath or wheezing) Qty: 8.5 0RF ipratropium-albuterol 0.5 mg-3 mg(2.5 mg base)/3 mL Solution For Nebulization 3 ml inhalation Q6HWA.RT Qty: 0 0RF metoprolol succinate 25 mg tablet extended release 24 hr 25 mg PO DAILY buspirone 7.5 mg tablet 7.5 mg PO BID furosemide 80 mg tablet 80 mg PO DAILY calcium acetate(phosphat bind) 667 mg capsule 1,334 mg PO DAILY insulin lispro [Humalog KwikPen Insulin] 100 unit/mL Insulin Pen 1 sliding scale dose subcut QHS Protocol: 2. Sliding Scale Insulin Low-Med Dosing Condition: 150-209 mg/dl = 1 unit Condition: 210-269 mg/dl = 2 units Condition: 270-329 mg/dl = 3 units Condition: 330-389 mg/dl = 4 units Condition: 390-449 mg/dl = 5 units Condition: Greater than 449 call physician Protocol Text: - Use for Total Daily Dose of Insulin 28-36 units - Average size patients LOW MEDIUM DOSING ALGORITHM insulin NPH isoph U-100 human 100 unit/mL (3 mL) Insulin Pen 20 unit SUBCUT QHS dicyclomine 10 mg capsule 20 mg PO BID PRN (Reason: abdominal pain) lorazepam 0.5 mg tablet 0.5 mg PO .COMPLEX PRN (Reason: anxiety) Qty: 30 0RF Rx Instructions: 0.5 mg orally 0.5 mg Wednesday, , Wednesday prior to dialysis and 0.5mg Q6h PRN anxiety PRN; Referrals / Follow Up: Mitchell Lane MD [Primary Care Provider] - Disposition Disposition (needs filled in before D/C Order can be placed): Home, Self Care
[2023-08-24] MEDS: Heparin Injection (Vial) 5,000 UNIT/ML VIAL 5000 UNIT (12:20)
--- NOTE | 2023-08-24 13:08 | OP.PCM_ITS ---
Report of Operation Date of Procedure: 08/24/23 Pre-Operative Diagnosis: Nonfunctioning right chest tunneled dialysis catheter Post-Operative Diagnosis: Same Surgery/Procedure Performed:: Removal of right chest tunneled dialysis catheter and fluoroscopy guided replacement of right chest tunneled dialysis catheter utilizing right IJ Type of Anesthesia: Local MAC Estimated Blood Loss (mL): 10 Description of Procedure: The patient had left forearm fistula placed by Dr. Lemus. I was called to change the catheter as it did not work well and dialysis yesterday. After he was done with his portion I came in and we prepped the right neck and chest in the usual sterile fashion. The prior catheter was draped out of the way. Next an area of skin over the catheter at the clavicle was injected with local anesthetic as well as a small chest incision. Small chest incision was made with a scalpel as well as over the clavicle. The old catheter was dissected free and removed a little bit enough to grab. The catheter was then cut and the guidewire was placed down the distal end of the catheter under fluoroscopy guidance. The catheter remnant was removed over the guidewire. Next a new c atheter was tunneled from the chest incision to the neck incision and the peel- away sheath was placed over the guidewire under fluoroscopy down into the superior vena cava. The peel-away sheath was removed. The new catheter was sutured to the chest wall skin using 3-0 nylon suture. Each catheter was aspirated and flushed and both aspirated and flushed easily. They were both flushed with 2 cc of heparinized saline and clamped and capped. Antimycobacterial dressing was applied over the insertion site. The neck site was closed with 2 interrupted 3-0 Vicryl sutures. Steri-Strips were applied. After dressings were applied the old catheter was removed through the chest incision and the area was bandaged. Patient tolerated procedure well was brought to PACU in stable condition. Grafts/Implants Used: 23 cm curved palindrome tunneled temporary dialysis catheter Admit VTE Documentation VTE Mechan Device Prophylaxis: SCD's
--- NOTE | 2023-08-24 13:40 | RAD_ITS ---
STUDY: X-RAY CHEST REASON FOR EXAM: Female, 83 years old. DIALYSIS PORT PLACEMENT TECHNIQUE: Single AP portable view of the chest. COMPARISON: Comparison is made with prior study dated January 26, 2023. FINDINGS: A right-sided Port-A-Cath has been placed with tip at the junction of the superior vena cava and right atrium. Surgical clips are seen in the right axilla. Stable elevation of the right hemidiaphragm. Mild increased interstitial markings more prominent in the right lung suggestive of possible scarring. There is no demonstrated pleural abnormality. There is borderline cardiomegaly. Normal mediastinum and parish. Normal visualized pulmonary arteries. There is atherosclerotic calcification of the aortic arch with tortuosity. Normal visualized thoracic spine. Normal visualized ribs, clavicles, and shoulders. There is no demonstrated abnormality of the visualized soft tissue structures of the upper abdomen. RAD/Chest 1 View (Portable) IMPRESSION: The tip of the right uyen catheter is at the junction of the superior vena cava and right atrium. Mild increased interstitial markings as described suggesting mild scarring. Elevation of the right hemidiaphragm. Electronically Signed: Rakesh Desai MD at 14:17 EDT ,
--- NOTE | 2023-08-24 14:00 | SUR.PHASEII ---
RADIOLOGY CALLED ABOUT CHEST XRAY REPORT SINCE MACHINE IS DOWN TO GET REPORT TRANSPORT- RIGHT PORT AT SVC AND RA JUNCTION
== END 2023-08-24 14:19 | disposition home or self-care (01) ==
LOC: SDC 09:18 → AC 09:18
PROVIDERS: Surgery; PCP Family Medicine; Referring Provider Surgery Trauma Surgery; Visit Provider Surgery Trauma Surgery
PROC: (CPT 36818; principal; 2023-08-24 10:45)
DX: I13.2 Hypertensive heart and chronic kidney disease with heart failure and with stage 5 chronic kidney disease, or end stage renal disease (principal); Z99.2 Dependence on renal dialysis; J44.9 Chronic obstructive pulmonary disease, unspecified; I50.9 Heart failure, unspecified; E11.22 Type 2 diabetes mellitus with diabetic chronic kidney disease; N18.6 End stage renal disease; Z82.3 Family history of stroke; E78.5 Hyperlipidemia, unspecified; I25.10 Atherosclerotic heart disease of native coronary artery without angina pectoris; Z90.49 Acquired absence of other specified parts of digestive tract; Z85.3 Personal history of malignant neoplasm of breast
CPT/HCPCS: 36818; 36581; 01844; 36415; 71045; 76000; 80048; 82962; 85027; A4648; J7040; C1769; J2405

== ENCOUNTER → 2023-12-06 | Outpatient (CLI) | payer MEDICARE, OTHER, SELFPAY ==
--- NOTE | 2023-12-06 09:44 | AVDS_ITS ---
Reason For Study: AV fistula infilitration LEFT Inflow, 379.1/142.3 cm/sec. Inflow, 976.5 ml/min. Prox anastomosis, 1031 cm/sec. Prox anastomosis, 717.1 ml/min. Prox graft, 351.2/128.4 cm/sec. Prox graft, 5232 ml/min. Mid graft, 85.2/30.4 cm/sec. Mid graft, 831.2 ml/min. Distal graft, 164.9/58.7 cm/sec. Distal graft, 1313 ml/min. Outflow, 117.8/49.7 cm/sec. Outflow, 833.9 ml/min. Nonvascularized structures noted at the distal graft. Preliminary report given to Aurelia WADE. VL/AV Fistula/Dialysis Graft Scan Interpretation Summary Patent left brachio-cephalic fistula with adjacent hematoma. Elevated velocity mid fistula may represent stenosis or compression from hemato ma. Vessel with increasing depth mid to upper arm Ordering Physician: Darshana Underwood Referring Physician: Mitchell Lane Performed By: Chitra Heard RVT
== END | disposition home or self-care (01) ==
PROVIDERS: PCP Family Medicine; Referring Provider Physician Assistant; Visit Provider Physician Assistant
DX: I77.0 Arteriovenous fistula, acquired (principal)
CPT/HCPCS: 93990

== ENCOUNTER 2024-01-07 13:41 | Emergency (ER) | payer MEDICARE, OTHER, SELFPAY ==
--- NOTE | 2024-01-07 13:43 | EX.ED.DYSGE1 ---
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 COPD (chronic obstructive pulmonary disease) Cor pulmonale Diabetes mellitus Diabetes mellitus, type 2 Dialysis patient GERD (gastroesophageal reflux disease) High cholesterol History of diabetes mellitus History of edema History of end stage renal disease History of renal dialysis History of renal disease HLD (hyperlipidemia) HTN (hypertension) Insulin dependent diabetes mellitus Leg cramps Morbid obesity Non-smoker ANDREA (obstructive sleep apnea) Post-menopausal Shortness of breath on exertion Walker as ambulation aid Wears glasses Wears hearing aid Home Medications ?Medication ?Instructions ?Recorded ?Last Taken ?Type Lactobacillus acidophilus 10 10,000 mmu cells PO DAILY immune 09/03/21 08/23/23 History billion cell capsule (Probiotic) health aspirin 81 mg tablet 81 mg PO QHS heart health 09/03/21 08/23/23 History budesonide-formoterol HFA 160 2 puff inhalation BID sob 09/03/21 09/03/21 History mcg-4.5 mcg/actuation aerosol inhaler cholecalciferol (vitamin D3) 25 25 mcg PO BID supplement 09/03/21 09/03/21 History mcg (1,000 unit) capsule cholestyramine (with sugar) 4 gram 1 ea PO DAILY 09/03/21 09/03/21 History powder for susp in a packet insulin NPH isoph U-100 human 100 6 unit subcut BREAKFAST dm 09/03/21 08/23/23 History unit/mL (3 mL) subcutaneous pen mirtazapine 45 mg tablet 45 mg PO QHS sleep 09/03/21 08/23/23 History pravastatin 40 mg tablet 40 mg PO QHS cholesterol 09/03/21 08/23/23 History sertraline 100 mg tablet 100 mg PO BID depression 09/03/21 08/24/23 07:00 History sucralfate 1 gram tablet 1 g PO DAILY stomach 09/03/21 08/24/23 07:00 History albuterol sulfate 90 mcg/actuation 2 inh inhalation Q6H PRN shortness 10/22/22 Unknown Rx aerosol inhaler of breath or wheezing #8.5 grams ipratropium 0.5 mg-albuterol 3 mg 3 ml inhalation Q6HWA.RT #0 mL 12/12/22 Unknown Rx (2.5 mg base)/3 mL nebulization soln lorazepam 0.5 mg tablet 0.5 mg PO .COMPLEX PRN anxiety #30 01/22/23 08/23/23 Rx tabs calcium acetate(phosphat bind) 667 1,334 mg PO DAILY 08/11/23 Unknown History mg capsule furosemide 80 mg tablet 80 mg PO DAILY 08/11/23 Unknown History insulin NPH isoph U-100 human 100 20 unit subcut QHS dm 08/11/23 08/23/23 History unit/mL (3 mL) subcutaneous pen insulin lispro 100 unit/mL 1 sliding scale dose subcut QHS 08/11/23 08/23/23 History subcutaneous pen (Humalog KwikPen (U-100) Insulin) metoprolol succinate 25 mg 25 mg PO DAILY 08/11/23 08/24/23 07:00 History tablet,extended release 24 hr dicyclomine 10 mg capsule 20 mg PO BID PRN abdominal pain 08/18/23 Unknown History oxycodone 5 mg tablet 5 mg PO Q8H PRN pain 3 days #9 tabs 08/24/23 Unknown Rx amoxicillin 875 mg-potassium 1 tab PO BID #14 tabs 01/07/24 Unknown Rx clavulanate 125 mg tablet buspirone 30 mg tablet 30 mg PO TID 01/07/24 Unknown History insulin aspart U-100 100 unit/mL subcut 01/07/24 Unknown History (3 mL) subcutaneous pen (Novolog FlexPen U-100 Insulin aspart) ondansetron 4 mg disintegrating 4 mg PO Q8H PRN PRN Nausea #10 tabs 01/07/24 Unknown Rx tablet Allergy/AdvReac Type Severity Reaction Status Date / Time procaine (From Novocain) AdvReac Intermediate Other Verified 01/07/24 13:52 levofloxacin (From Levaquin) AdvReac Nausea/Vom/ Verified 01/07/24 13:52 Diarrhea Family History Mother Diabetes CVA (cerebral vascular accident) Cancer Hypertension Father No cardiac disease Daughter Breast cancer Surgical History S/P breast lumpectomy S/P cholecystectomy Social History household members: spouse housing: house number of children: 2 current occupational status: retired Smoking Status: Never smoker alcohol intake: never substance use type: does not use EXAM Physical Exam Const Vital Signs: 01/07/24 13:48 01/07/24 13:55 01/07/24 15:42 Temperature 98.2 F Temperature Source Temporal Pulse Rate 111 H 86 Respiratory Rate 13 16 Respiratory Effort Normal Non-Labored Respiratory Pattern Normal Blood Pressure 159/40 H 96/72 Blood Pressure Mean 79 80 Pulse Ox 96 97 Oxygen Delivery Method Nasal Cannula Nasal Cannula Oxygen Flow Rate (L/min) 3 3 01/07/24 16:42 Temperature 97.8 F Temperature Source Pulse Rate 82 Respiratory Rate 17 Respiratory Effort Respiratory Pattern Blood Pressure 145/100 H Blood Pressure Mean 115 Pulse Ox 95 Oxygen Delivery Method Oxygen Flow Rate (L/min) MDM MDM MDM Narrative Medical decision making narrative: HISTORY OF PRESENT ILLNESS: 83-year-old female history of ESRD, hypertension, hyperlipidemia, COPD (chronically 3 L oxygen requirement), CAD, GERD, presents with concern for cough, shortness of breath, nausea vomiting diarrhea and diffuse weakness for the past week. She notes several episodes of nonbloody nonbilious vomitus as well as diarrhea. No hematemesis, hematochezia or melena reported. Denies recent travel, new foods or sick contacts. Denies focal abdominal pain notes diffuse weakness but no focal weakness. Denies any syncope. Denies chest pain. Denies any leg swelling. Notes dialysis yesterday. Notes a full session yesterday. The patient denies recent surgery in the last 4 weeks or immobilization in the last 3 days, denies previous diagnosis of DVT or PE, hemoptysis, unilateral leg swelling or malignancy with treatment the last 6 months or palliative. No estrogen use noted. REVIEW OF SYSTEMS: As per HPI PHYSICAL EXAM: Nursing triage notes reviewed, Vital signs reviewed Constitutional: please see mdm HENT: MMM Eyes: Pupils equal round and reactive to light, Extraocular muscles intact Neck: No stridor, no JVD, full neck ROM Lungs: Clear to auscultation, No wheezing or rales. No increased work of breathing, no conversational dyspnea, no accessory muscle use, no nasal flaring. No respiratory distress noted Heart: Regular rate and rhythm, No murmurs, No rubs and No gallops, 2+ distal pulses (radial, femoral, posterior tibial) in all extremities Abdomen: Soft, there is no tenderness, rigidity, rebound or guarding, no obvious peritoneal signs, no palpable pulsatile abdominal masses, no auscultated abdominal bruit : No CVAT Extremities: No edema Neuro: No focal neurological deficits, cranial nerves II through XII intact, 5/5 strength in all extremities. Intact sensation to light touch in all extremities, 2+ reflexes bilateral patella tendons. Normal gait. No ataxia. Skin: No rash or lesions noted MEDICAL DECISION MAKING: Chief Complaint: Weakness External records reviewed: Reviewed prior vascular surgery notes: She has a left brachiocephalic AVF created on 08/24/23. Reviewed prior ED visit. At that time she was undergoing dialysis Wednesday and Wednesday Factors affecting care: As per HPI Social determinants of health: none History obtained from others: none Consults: none [facility] Narrative: The patient was initially tachycardic at a rate of 111, hypertensive with a blood pressure 159/40, was afebrile otherwise on 3 L nasal cannula. I considered the following differential diagnosis: Pneumonia, COVID, PE, volume overload, CHF exacerbation, COPD exacerbation I obtained a broad lab and imaging workup to further elucidate the etiology of the patient complaint. ALL IMAGES (IF OBTAINED) HAVE BEEN PERSONALLY REVIEWED AND INTERPRETED BY MYSELF. EKG with sinus rhythm normal axis, frequent PVCs, no obvious STEMI. Similar morphology to prior EKG from July 2023 COVID-positive CT scan of the pelvis shows patchy infiltrates concerning for COVID given cough. No evidence of intra-abdominal pathology. Mild acute sigmoid diverticulitis. CBC with no leukocytosis, noted mild anemia, no thrombocytopenia VBG without evidence of metabolic acidosis BMP with ESRD, no elevated anion gap suggest endorgan hypoperfusion, no evidence of metabolic acidosis Lipase is wnl indicating no pancreatic inflammation. I have personally reviewed the patient's chest x-ray. Chest x-ray is unremarkable for pneumothorax, pneumonia shows interstitial edema consistent with ESRD patient undergo dialysis tomorrow. On reevaluation the patient's heart rate improved. Patient still saturating well on her home oxygen 3 L per. She is able to tolerate p.o. in the form of metoprolol and Augmentin The synthesis of the patient's history, physical exam, labs images suggest COVID-19, end-stage renal disease and diverticulitis as potential etiologies. Patient resuscitated initially with gentle IV fluids. She is on her home oxygen. She saturating well. Despite COVID-19. She does not require admission. Given end-stage renal disease is not a candidate for Paxlovid. Will give Augmentin for home-going to treat diverticulitis is found her CT scan. Strict return precautions were discussed. The patient and/or family, caregivers express understanding. The patient and/or family, caregivers agrees with the plan. Shared decision making: I will have a discussion with the patient and or visitors regarding risk/benefits of further testing or admission. They will be made aware of of the risk/benefits inherent in this decision they will be given the opportunity to voice understanding. Total critical care time today provided was at least 0 minutes. This excludes separately billable procedures. Critical care time (if documented) is secondary to the patient having high probability of clinically significant/life threatening deterioration in the patient's condition which required my urgent intervention. Impression: 1. COVID-19 2. ESRD 3. Nausea vomiting and diarrhea 4. Diverticulitis Dispo: Discharge home This note was generated with Stellar dictation software. It may contain incorrect words, spelling, and punctuation that were not noted in review of the chart prior to signing. Lab Data Labs: Laboratory Results - last 24 hr 01/07/24 01/07/24 14:20 16:05 WBC 6.5 RBC 3.55 L Hgb 11.2 L Hct 36.1 L MCV 101.7 H MCH 31.5 MCHC 31.0 L RDW Std Deviation 50.1 H RDW Coeff of Lucas 13.4 Plt Count 179 MPV 10.6 Immature Gran % (Auto) SENIOR GIS ANALYST Neut % (Auto) SENIOR GIS ANALYST Lymph % (Auto) SENIOR GIS ANALYST [place] % (Auto) SENIOR GIS ANALYST Eos % (Auto) SENIOR GIS ANALYST Baso % (Auto) SENIOR GIS ANALYST Absolute Neuts (auto) 4.9 Absolute Lymphs (auto) 1.24 Total Counted 100 Neutrophils % (Manual) 72 H Band Neutrophils % 3 Lymphocytes % (Manual) 19 Monocytes % (Manual) 2 Metamyelocytes % 3 H Myelocytes % 1 H Nucleated RBC % 0 [address] Review May foll Anisocytosis 1+ Tear Drop Cells 1+ Ovalocytes 1+ Sodium 137 Potassium 3.7 Chloride 100 Carbon Dioxide 31.0 Anion Gap 6 BUN 30 H Creatinine 4.49 H Estim Creat Clear Calc 11.11 Est GFR (MDRD) Af Amer 12 L Est GFR (MDRD) Non-Af 10 L BUN/Creatinine Ratio 6.7 L Glucose 153 H Calcium 7.8 L Total Bilirubin 0.30 AST 36 ALT 32 Alkaline Phosphatase 91 Total Protein 6.4 Albumin 2.6 L Globulin 3.8 Albumin/Globulin Ratio 0.7 L Lipase 22 POC Glucose 175 H ABG Data ABG results: ABG 01/07/24 14:42 Specimen Type ÁNGEL Sample Site Not entered VBG pH 7.48 H VBG pO2 71 H VBG HCO3 28 H VBG Total CO2 29 VBG O2 Sat (Calc) 95 H VBG Base Excess 4 H POC Mix VBG pCO2 Pt Tmp 37.4 L O2 Delivery Device Not entered Radiography Diagnostic Testing: Clinical Impression(s) from Imaging Studies Abdomen/Pelvis CT 01/07/24 14:24 IMPRESSION: Patchy bibasilar infiltrates. Minimal left pleural effusion. Left adrenal adenoma. Mild degree of sigmoid diverticulitis. Left inguinal hernia containing fat. Electronically Signed: Rakesh Desai MD at 15:05 EDT , Chest X-Ray 01/07/24 15:00 IMPRESSION: Mild vascular congestion with bibasilar atelectasis and/or infiltrates. Follow-up recommended. Electronically Signed: Rakesh Desai MD at 15:10 EDT , Discharge Plan Triage Chief Complaint: General Illness ED Provider: Antonio Kim Dx/Rx/DC Orders Clinical Impression: Dialysis patient, COVID-19 Instructions: Coronavirus Disease 2019 (COVID-19): Overview, ED Diverticulitis Prescriptions: New amoxicillin-pot clavulanate 875-125 mg tablet 1 tab PO BID Qty: 14 0RF ondansetron 4 mg tablet,disintegrating 4 mg PO Q8H PRN PRN (Reason: Nausea) Qty: 10 0RF No Action pravastatin 40 mg tablet 40 mg PO QHS Patient Comments: TAKE 1 TABLET BY MOUTH EVERY DAY sucralfate 1 gram tablet 1 g PO DAILY Patient Comments: TAKE 1 TABLET BY MOUTH 3 TIMES A DAY BEFORE MEALS sertraline 100 mg tablet 100 mg PO BID Patient Comments: TAKE 1 TABLET BY MOUTH TWICE A DAY mirtazapine 45 mg tablet 45 mg PO QHS Patient Comments: TAKE 1 TABLET BY MOUTH NIGHTLY cholecalciferol (vitamin D3) 25 mcg (1,000 unit) Capsule 25 mcg PO BID insulin NPH isoph U-100 human 100 unit/mL (3 mL) Insulin Pen 6 unit SUBCUT BREAKFAST cholestyramine (with sugar) 4 gram powder in packet 1 ea PO DAILY budesonide-formoterol 160-4.5 mcg/actuation HFA aerosol inhaler 2 puff INHALATION BID Patient Comments: INHALE 2 PUFFS INTO THE LUNGS TWICE DAILY Probiotic 10 billion cell Capsule 10,000 mmu cells PO DAILY Rx Instructions: takes at lunch time aspirin 81 mg Tablet 81 mg PO QHS albuterol sulfate 90 mcg/actuation HFA aerosol inhaler 2 inh inhalation Q6H PRN (Reason: shortness of breath or wheezing) Qty: 8.5 0RF ipratropium-albuterol 0.5 mg-3 mg(2.5 mg base)/3 mL Solution For Nebulization 3 ml inhalation Q6HWA.RT Qty: 0 0RF metoprolol succinate 25 mg tablet extended release 24 hr 25 mg PO DAILY furosemide 80 mg tablet 80 mg PO DAILY calcium acetate(phosphat bind) 667 mg capsule 1,334 mg PO DAILY insulin lispro [Humalog KwikPen Insulin] 100 unit/mL Insulin Pen 1 sliding scale dose subcut QHS Protocol: 2. Sliding Scale Insulin Low-Med Dosing Condition: 150-209 mg/dl = 1 unit Condition: 210-269 mg/dl = 2 units Condition: 270-329 mg/dl = 3 units Condition: 330-389 mg/dl = 4 units Condition: 390-449 mg/dl = 5 units Condition: Greater than 449 call physician Protocol Text: - Use for Total Daily Dose of Insulin 28-36 units - Average size patients LOW MEDIUM DOSING ALGORITHM insulin NPH isoph U-100 human 100 unit/mL (3 mL) Insulin Pen 20 unit SUBCUT QHS dicyclomine 10 mg capsule 20 mg PO BID PRN (Reason: abdominal pain) oxycodone 5 mg tablet 5 mg PO Q8H PRN (Reason: pain) 3 Days Qty: 9 0RF buspirone 30 mg tablet 30 mg PO TID insulin aspart U-100 [Novolog FlexPen U-100 Insulin] 100 unit/mL (3 mL) insulin pen subcut lorazepam 0.5 mg tablet 0.5 mg PO .COMPLEX PRN (Reason: anxiety) Qty: 30 0RF Rx Instructions: 0.5 mg orally 0.5 mg Wednesday, , Wednesday prior to dialysis and 0.5mg Q6h PRN anxiety PRN; Primary Care Provider: Mitchell Lane Referrals: Mitchell Lane MD [Primary Care Provider] - Activity Restrictions/Additional Instructions: Thank you for trusting us with your care today! Given diagnosed COVID-19. Your CT scan of your abdomen pelvis also showed evidence of diverticulitis You received antibiotics to treat diverticulitis. Please take as directed. Please take Tylenol (2 pills, 650 mg), ibuprofen (2 pills, 400 mg) every 6 hours as needed for pain and fever control. Please return to the emergency department if your symptoms change or worsen. Please follow with your primary care physician for further outpatient evaluation and management. Print Language: Japanese Disposition Disposition: Home, Self Care
--- NOTE | 2024-01-07 13:47 | EKG12_ITS ---
Test Reason : sob Blood Pressure : / mmHG Vent. Rate : 077 BPM Atrial Rate : 077 BPM P-R Int : 178 ms QRS Dur : 072 ms QT Int : 420 ms P-R-T Axes : -27 003 085 degrees QTc Int : 475 ms Sinus rhythm with frequent Premature ventricular complexes + PAC'S Abnormal ECG Confirmed by Chirag Cadena ([id number]), continuity editor ZHENG SHAH ([id number]) on 01/10/2024 2:08:54 PM Referred By: Judy Confirmed By:Chirag Cadena
[2024-01-07 13:48] VITALS: BP 159/40; PULSE 111; RESP 13; TEMP 36.8; O2SAT 96; BMI 46.0
--- NOTE | 2024-01-07 14:24 | CT_ITS ---
STUDY: CT ABDOMEN AND PELVIS WITHOUT CONTRAST REASON FOR EXAM: Female, 83 years old. Abdominal pain, n/v RADIATION DOSAGE (If Supplied By Facility): CTDIvol = ( 22.69 ) mGy, DLP = ( 1286.71 ) mGycm TECHNIQUE: Transaxial images were obtained from the dome of the diaphragm to the symphysis pubis without oral contrast, and without intravenous contrast. Sagittal and coronal images were reconstructed. Individualized dose optimization techniques were used for this CT. COMPARISON: None. FINDINGS: Patchy infiltrates at the lung bases. Minimal left pleural effusion. Coronary artery calcification. Normal liver. There are surgical clips in the gallbladder fossa consistent with a prior cholecystectomy. Normal spleen. Normal pancreas. There is a small, circumscribed, smooth, low attenuation left adrenal mass, consistent with an adrenal adenoma. This measures 2.4 cm. Normal right adrenal gland. Normal right kidney. Normal left kidney. Normal visualized stomach. Normal small intestine. There is diverticulosis, with mild thickening of the colon wall, and pericolonic inflammation changes consistent with mild degree of acute diverticulitis. The appendix is visualized and appears normal. There is diffuse atherosclerotic calcification of the abdominal aorta and its major visceral branches, without a demonstrated aneurysm. Normal inferior vena cava. Normal retroperitoneum. Normal urinary bladder. Calcified fibroid uterus. There is a left-sided inguinal hernia containing adipose tissue. There are diffuse degenerative changes of the visualized lumbar spine. CT/Abdomen/Pelvis without Cont IMPRESSION: Patchy bibasilar infiltrates. Minimal left pleural effusion. Left adrenal adenoma. Mild degree of sigmoid diverticulitis. Left inguinal hernia containing fat. Electronically Signed: Rakesh Desai MD at 15:05 EDT ,
[2024-01-07 14:35] LABS: Hematocrit 36.1 % (37-47); Hemoglobin 11.2 g/dL (12.0-15.0); Mean Corpuscular Hgb 31.5 pg (27.0-32.0); Mean Corpuscular Volume 101.7 fL (81-99); Mean Platelet Vol. 10.6 fl (6.2-12.0); NRBC Flagged by Analyzer 0 % (0-5); POSITIVE COUNT YES; POSITIVE MORPHOLOGY YES; Platelet Count 179 K/mm3 (150-450); RBC Distribution Width CV 13.4 % (11.6-14.6); RBC Distribution Width SD 50.1 fl (35.1-43.9); Red Blood Count 3.55 M/mm3 (4.2-5.4); White Blood Count 6.5 K/mm3 (4.4-11.0)
[2024-01-07 14:38] LABS: Differential Indicated SCAN CRITERIA MET
[2024-01-07] MEDS: Ondansetron 4 MG/2 ML Vial IV (14:39)
[2024-01-07] MEDS: 0.9% Normal Saline (500mL Bag) 500 ML 1000 ML IV (14:39)
[2024-01-07 14:46] LABS: Blood Gas Specimen Type VEN; O2 Delivery Device Not entered; SITE Not entered; VBG BASE EXCESS 4 mmol/L (-1.0-3.5); VBG Bicarbonate 28 mmol/L (22-26); VBG PO2 71 mmHg (25-40); VBG SO2 95 % (50-70); VBG TCO2 29 mmol/L (23-33); VBG pCO2 37.4 mmHg (41-51); VBG pH 7.48 (7.32-7.42)
[2024-01-07 14:54] LABS: ALB/GLOB Ratio 0.7 RATIO (0.9-2.4); AST(SGOT) 36 U/L (15-37); Alanine Aminotransfer ALT/SGPT 32 U/L (13-56); Albumin, Serum 2.6 g/dL (3.2-5.0); Alkaline Phosphatase 91 U/L (45-117); Anion Gap 6 (5-15); BUN 30 mg/dL (7-18); BUN/Creat Ratio 6.7 RATIO (10-20); Calcium,Total 7.8 mg/dL (8.5-10.1); Chloride 100 mmol/L (98-107); Creatinine, Serum 4.49 mg/dL (0.55-1.02); EST Glomerular Filtration Rate 10 mL/min (>60); Est Glom Filt Rate - Afr Amer 12 mL/min (>60); Estimated Creatinine Clearance 11.11 ml/min; Globulin 3.8 g/dL (2.2-4.2); Glucose 153 mg/dL (74-106); Lipase 22 U/L (13-75); Potassium 3.7 mmol/L (3.5-5.1); Protein, Total 6.4 g/dL (6.4-8.2); Sodium Level 137 mmol/L (136-145)
--- NOTE | 2024-01-07 15:00 | RAD_ITS ---
STUDY: X-RAY CHEST REASON FOR EXAM: Female, 83 years old. SOB, cough, r/o PNA TECHNIQUE: Single AP portable view of the chest. COMPARISON: Comparison is made with prior study dated August 24, 2023. FINDINGS: A right-sided dialysis catheter is seen with the tip at the junction of the superior vena cava and right atrium. EKG electrodes are seen. Surgical clips are seen in the right axilla. There is elevation of the right hemidiaphragm. Increased markings at the lung bases suggest either atelectasis and/or infiltrate. Mild degree of vascular congestion. There is no demonstrated pleural abnormality. There is mild cardiac enlargement. Normal mediastinum and parish. Normal visualized pulmonary arteries. There is atherosclerotic calcification of the aortic arch with tortuosity. There are diffuse degenerative changes of the visualized thoracic spine. Normal visualized ribs, clavicles, and shoulders. There is no demonstrated abnormality of the visualized soft tissue structures of the upper abdomen. RAD/Chest 1 View (Portable) IMPRESSION: Mild vascular congestion with bibasilar atelectasis and/or infiltrates. Follow-up recommended. Electronically Signed: Rakesh Desai MD at 15:10 EDT ,
[2024-01-07 15:06] LABS: Scan Smear per Review Criteria MANUAL DIFF
[2024-01-07 15:12] LABS: Lymphocyte 19 % (19-41); Metamyelocyte 3 % (0-1); Monocyte 2 % (0-10); Myelocyte 1 % (0-0); Neutrophil-Band 3 % (0-5); Neutrophil-Segmented 72 % (47-70); Total Cells Counted 100 (MANUAL DIFF)
[2024-01-07 15:15] LABS: Absolute Neutrophil Count 4.9 X10^3/uL (2.0-7.7)
[2024-01-07 15:16] LABS: Absolute Lymphocyte Count 1.24 X10^3/uL (0.83-4.51)
[2024-01-07 15:18] LABS: Anisocytosis 1+; Tear Drop Cell 1+
[2024-01-07 15:19] LABS: Ovalocyte 1+
[2024-01-07 15:42] VITALS: BP 96/72; PULSE 86; RESP 16; O2SAT 97
[2024-01-07 16:25] LABS: Bedside Glucose 175 mg/dL (74-106)
[2024-01-07] MEDS: Amox/Clavulanate 875 MG Tablet PO (16:27)
[2024-01-07 16:42] VITALS: BP 145/100; PULSE 82; RESP 17; TEMP 36.6; O2SAT 95
[2024-01-10 13:43] LABS: Pathologist Review Reviewed
== END 2024-01-07 17:05 | disposition home or self-care (01) ==
PROVIDERS: Emergency Provider Emergency Medicine; PCP Family Medicine; Visit Provider Emergency Medicine
DX: U07.1 COVID-19 (principal); I13.2 Hypertensive heart and chronic kidney disease with heart failure and with stage 5 chronic kidney disease, or end stage renal disease; N18.6 End stage renal disease; I50.9 Heart failure, unspecified; J44.9 Chronic obstructive pulmonary disease, unspecified; E11.22 Type 2 diabetes mellitus with diabetic chronic kidney disease; Z79.4 Long term (current) use of insulin; K57.32 Diverticulitis of large intestine without perforation or abscess without bleeding; E78.00 Pure hypercholesterolemia, unspecified; I25.10 Atherosclerotic heart disease of native coronary artery without angina pectoris; R53.1 Weakness; J93.9 Pneumothorax, unspecified; G47.33 Obstructive sleep apnea (adult) (pediatric); K21.9 Gastro-esophageal reflux disease without esophagitis; Z99.81 Dependence on supplemental oxygen; Z99.2 Dependence on renal dialysis; Z79.82 Long term (current) use of aspirin; Z79.899 Other long term (current) drug therapy
CPT/HCPCS: 71045; 74176; 80053; 82803; 82962; 83690; 85025; 87631; 93005; 99284; J7040; A4216; J2405

== ENCOUNTER 2024-01-31 08:45 | Day surgery (SDC) | payer MEDICARE, OTHER, SELFPAY ==
[2024-01-31 09:35] VITALS: BP 153/58; PULSE 75; RESP 18; TEMP 36.6; O2SAT 97; BMI 43.7
[2024-01-31] MEDS: 0.9% Normal Saline (500mL Bag) 500 ML 15 ML IV (09:48)
[2024-01-31 09:52] LABS: Bedside Glucose 193 mg/dL (74-106)
--- NOTE | 2024-01-31 10:17 | PCM.PRE.AN2 ---
ASA Classification* ASA Classification ASA Classification: 4 Assessment & Plan Anesthesia* Anesthesia Assessment Anesthesia Assessment: Discussed sedation and/or anesthesia options, risks, benefits, and alternatives with patient/parents/legal guardian/POA. Questions invited. The patient/parents/legal guardian/POA seems to understand and agrees to proceed with anesthesia plan. Reviewed the physical assessment, medical history, allergy history and patient home medications list prior to surgery/procedure/anesthetic and documented any changes. Performed airway and anesthesia risk assessments. Anesthesia Type Anesthesia Type: MAC History Source History Obtained from:: Patient and Chart Anesthesia Focused Assessment* Temperature: 97.8 F Pulse Rate: 75 Blood Pressure: 153/58 Respiratory Rate: 18 Pulse Ox: 97 Oxygen Delivery Method: Nasal Cannula (Patient is on 3 L of oxygen at home) Airway Assessment Mouth opens: >3 cm Mallampati Score: IV Teeth Condition: Caps/Crowns (Patient has a bridge #01/13/10) Neck Range of motion (ROM): Limited ROM (Slight decrease in extension) Focused Labs Anesthesia Preop lab: CBC WBC 6.5 K/mm3 (4.4-11.0) 01/07/24 14:20 RBC 3.55 M/mm3 (4.2-5.4) L 01/07/24 14:20 Hgb 11.2 g/dL (12.0-15.0) L 01/07/24 14:20 Hct 36.1 % (37-47) L 01/07/24 14:20 Plt Count 179 K/mm3 (150-450) 01/07/24 14:20 CHEMISTRY Potassium 3.7 mmol/L (3.5-5.1) 01/07/24 14:20 Sodium 137 mmol/L (136-145) 01/07/24 14:20 Magnesium 2.8 mg/dL (1.6-2.6) H 12/06/22 05:40 Phosphorus 6.2 mg/dL (2.5-4.9) H 12/05/22 13:48 BUN 30 mg/dL (7-18) H 01/07/24 14:20 Creatinine 4.49 mg/dL (0.55-1.02) H 01/07/24 14:20 Glucose 153 mg/dL (74-106) H 01/07/24 14:20 POC Glucose 193 mg/dL (74-106) H 01/31/24 09:33 TSH 2.54 uIU/mL (0.358-3.74) 12/06/22 05:40 COAG PT 12.9 SECONDS (11.7-14.9) 01/26/23 08:30 Pre-Assessment Diagnosis/Proposed Procedure Planned Operative Procedure(s): (L) left upper extremity Arteriovenous Fistula Elevation Anesthesia History 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 When Was Last Pacemaker Check QUESTION #4 FULL TEXT: You/Your Family Experience fever (hyperthermia) with Anesthesia Last Oral Intake Last Oral intake: Last Oral Intake NPO since 08:15 01/31/24 09:35 Meds taken in AM with sips of Yes 01/31/24 09:35 water? Meds patient instructed to see medlist 01/31/24 09:35 take am of surgery PONV PONV - animal bounty hunter: PONV - animal bounty hunter Female Yes 01/25/24 14:10 HX of Motion Sickness No 01/25/24 14:10 HX of N/V After Surgery No 01/25/24 14:10 Non-Smoker Yes 01/25/24 14:10 Duration of Surgery greater Yes 01/25/24 14:10 than 60 minutes Number of Risk Factors 3 01/25/24 14:10 PONV Score Moderate Risk 01/25/24 14:10 Height & Weight Height & Weight: Anesthesia: Height & Weight Height 5 ft 1 in 01/31/24 09:35 Weight: 105 kg 01/31/24 09:35 Body Mass Index (BMI) 43.7 01/31/24 09:35 Respiratory Assessment Respiratory Assessment - animal bounty hunter: Respiratory Tract Infection Hx - animal bounty hunter Hx Respiratory Tract Infection No 01/25/24 14:10 STOP Sleep Apnea STOP Sleep Apnea - animal bounty hunter: STOP Sleep Apnea - animal bounty hunter Hx Hypertension Yes: CONTROLLED WITH MED 01/25/24 14:10 Hx Sleep Apnea No 01/25/24 14:10 CPAP BIPAP Do you snore loudly (louder No 01/25/24 14:10 than talking or can be heard Do you often feel tired/ No 01/25/24 14:10 fatigued/ sleepy during daytime? Has anyone observed you stop No 01/25/24 14:10 breathing during sleep? STOP Results Negative 01/25/24 14:10 QUESTION #5 FULL TEXT : Do you snore loudly (louder than talking or can be heard through closed doors)? Tobacco Use History Tobacco Use History - animal bounty hunter: Tobacco Use History - animal bounty hunter Tobacco Use Smoking Status Never smoker 01/25/24 14:10 Hx Tobacco Use No 01/25/24 14:10 Years Smoking Packs Smoked per Day Smoking Cessation Date was within the last 15 years Hx Smoking Cessation Date Hx Smoking Cessation Counseling Hematologic Medial History Hematologic Hx - animal bounty hunter: Hematologic Medical Hx - health manager Hx of Blood Transfusion No 01/25/24 14:10 Hx of Transfusion in last 3 No 01/25/24 14:10 Months Date of Last Transfusion (if within last 3 months) Ever experience any problems No 01/25/24 14:10 with transfusion(s)? Specify any problems Hx of Preganancy in last 3 N/A 01/25/24 14:10 Months Nurse Filling Out Transfusion NBUCHER 01/25/24 14:10 & Questions: Date: 01/25/24 01/25/24 14:10 Time: 14:13 01/25/24 14:10 Patient unable to answer at this time (ie. confused, unrespo /Reproduction History /Reproductive History - animal bounty hunter: /Reproductive Hx- animal bounty hunter Hx Now Gestational Age (in weeks): EDC: Hx Hx Para Hx Section SAB No 01/25/24 14:10 Active Medications Active Medications: Current Medications Generic Name Dose Route Start Last Admin Trade Name Freq PRN Reason Stop Dose Admin Cefazolin Sodium 2 gm/ Sodium 110 mls @ 150 mls/hr 01/31/24 10:20 Chloride IV 01/31/24 11:03 PREOP ONE Sodium Chloride 500 mls @ 0 mls/hr 01/31/24 09:00 01/31/24 09:48 IV 15 mls/hr .Q0M JULIANNA Administration KVO [facility] Medical History (Updated 01/31/24 @ 10:[address] Franklin Smith MD) Wears hearing aid Wears glasses Post-menopausal Cancer Insulin dependent diabetes mellitus Walker as ambulation aid History of renal dialysis History of renal disease High cholesterol GERD (gastroesophageal reflux disease) Non-smoker Shortness of breath on exertion Leg cramps History of edema Cardiology follow-up encounter ANDREA (obstructive sleep apnea) Cor pulmonale Dialysis patient Anxiety Diabetes mellitus Morbid obesity Chronic heart failure Anemia in chronic illness CKD stage 4 due to type 2 diabetes mellitus Breast cancer History of diabetes mellitus History of end stage renal disease CKD (chronic kidney disease), stage IV Diabetes mellitus, type 2 Acute renal failure HLD (hyperlipidemia) HTN (hypertension) COPD (chronic obstructive pulmonary disease) CAD (coronary artery disease) Home Medications ?Medication ?Instructions ?Recorded ?Last Taken ?Type Lactobacillus acidophilus 10 10,000 mmu cells PO DAILY immune 09/03/21 08/23/23 History billion cell capsule (Probiotic) health aspirin 81 mg tablet 81 mg PO QHS heart health 09/03/21 01/30/24 History budesonide-formoterol HFA 160 2 puff inhalation BID sob 09/03/21 01/31/24 History mcg-4.5 mcg/actuation aerosol inhaler cholecalciferol (vitamin D3) 25 25 mcg PO BID supplement 09/03/21 09/03/21 History mcg (1,000 unit) capsule insulin NPH isoph U-100 human 100 6 unit subcut BREAKFAST dm 09/03/21 08/23/23 History unit/mL (3 mL) subcutaneous pen mirtazapine 45 mg tablet 45 mg PO QHS sleep 09/03/21 08/23/23 History pravastatin 40 mg tablet 40 mg PO QHS cholesterol 09/03/21 08/23/23 History sertraline 100 mg tablet 100 mg PO BID depression 09/03/21 01/31/24 History albuterol sulfate 90 mcg/actuation 2 inh inhalation Q6H PRN shortness 10/22/22 Unknown Rx aerosol inhaler of breath or wheezing #8.5 grams ipratropium 0.5 mg-albuterol 3 mg 3 ml inhalation Q6HWA.RT #0 mL 12/12/22 Unknown Rx (2.5 mg base)/3 mL nebulization soln calcium acetate(phosphat bind) 667 1,334 mg PO DAILY 08/11/23 Unknown History mg capsule furosemide 80 mg tablet 80 mg PO DAILY 08/11/23 Unknown History insulin NPH isoph U-100 human 100 20 unit subcut QHS dm 08/11/23 01/30/24 History unit/mL (3 mL) subcutaneous pen insulin lispro 100 unit/mL 1 sliding scale dose subcut QHS 08/11/23 08/23/23 History subcutaneous pen (Humalog KwikPen (U-100) Insulin) metoprolol succinate 25 mg 25 mg PO DAILY 08/11/23 01/31/24 History tablet,extended release 24 hr dicyclomine 10 mg capsule 20 mg PO BID PRN abdominal pain 08/18/23 Unknown History buspirone 30 mg tablet 30 mg PO TID 01/07/24 01/31/24 History insulin aspart U-100 100 unit/mL 1 sliding scale dose subcut TID 01/07/24 Unknown History (3 mL) subcutaneous pen (Novolog FlexPen U-100 Insulin aspart) Allergy/AdvReac Type Severity Reaction Status Date / Time procaine (From Novocain) AdvReac Intermediate Other Verified 01/31/24 09:13 levofloxacin (From Levaquin) AdvReac Nausea/Vom/ Verified 01/31/24 09:13 Diarrhea Family History Mother Diabetes CVA (cerebral vascular accident) Cancer Hypertension Father No cardiac disease Daughter Breast cancer Surgical History (Updated 01/31/24 @ 10:[address] Franklin Smith MD) S/P arteriovenous (AV) fistula creation S/P breast lumpectomy S/P cholecystectomy Social History household members: spouse housing: house number of children: 2 current occupational status: retired Smoking Status: Never smoker alcohol intake: never substance use type: does not use Review of Systems (Anesthesia) ROS Narrative System reviewed and no additional complaints, except as documented.
[2024-01-31 10:36] VITALS: BP 153/58; PULSE 75; RESP 18; TEMP 36.6; O2SAT 97
[2024-01-31] MEDS: Cefazolin 2 GM in 0.9% Normal Saline (100mL Bag) 100 ML IV (11:45)
--- NOTE | 2024-01-31 11:45 | PCM.HP.STD ---
HPI - General HPI Narrative SANTIAGO WILHELM, is a 83 F who presents with prior left brach-ceph fistula that has been difficult to access. Duplex revealed increased depth beginning mid upper arm and some tortuosity. [facility] Medical History Wears hearing aid Wears glasses Post-menopausal Cancer Insulin dependent diabetes mellitus Walker as ambulation aid History of renal dialysis History of renal disease High cholesterol GERD (gastroesophageal reflux disease) Non-smoker Shortness of breath on exertion Leg cramps History of edema Cardiology follow-up encounter ANDREA (obstructive sleep apnea) Cor pulmonale Dialysis patient Anxiety Diabetes mellitus Morbid obesity Chronic heart failure Anemia in chronic illness CKD stage 4 due to type 2 diabetes mellitus Breast cancer History of diabetes mellitus History of end stage renal disease CKD (chronic kidney disease), stage IV Diabetes mellitus, type 2 Acute renal failure HLD (hyperlipidemia) HTN (hypertension) COPD (chronic obstructive pulmonary disease) CAD (coronary artery disease) Home Medications ?Medication ?Instructions ?Recorded ?Last Taken ?Type Lactobacillus acidophilus 10 10,000 mmu cells PO DAILY immune 09/03/21 08/23/23 History billion cell capsule (Probiotic) health aspirin 81 mg tablet 81 mg PO QHS heart health 09/03/21 01/30/24 History budesonide-formoterol HFA 160 2 puff inhalation BID sob 09/03/21 01/31/24 History mcg-4.5 mcg/actuation aerosol inhaler cholecalciferol (vitamin D3) 25 25 mcg PO BID supplement 09/03/21 09/03/21 History mcg (1,000 unit) capsule insulin NPH isoph U-100 human 100 6 unit subcut BREAKFAST dm 09/03/21 08/23/23 History unit/mL (3 mL) subcutaneous pen mirtazapine 45 mg tablet 45 mg PO QHS sleep 09/03/21 08/23/23 History pravastatin 40 mg tablet 40 mg PO QHS cholesterol 09/03/21 08/23/23 History sertraline 100 mg tablet 100 mg PO BID depression 09/03/21 01/31/24 History albuterol sulfate 90 mcg/actuation 2 inh inhalation Q6H PRN shortness 10/22/22 Unknown Rx aerosol inhaler of breath or wheezing #8.5 grams ipratropium 0.5 mg-albuterol 3 mg 3 ml inhalation Q6HWA.RT #0 mL 12/12/22 Unknown Rx (2.5 mg base)/3 mL nebulization soln calcium acetate(phosphat bind) 667 1,334 mg PO DAILY 08/11/23 Unknown History mg capsule furosemide 80 mg tablet 80 mg PO DAILY 08/11/23 Unknown History insulin NPH isoph U-100 human 100 20 unit subcut QHS dm 08/11/23 01/30/24 History unit/mL (3 mL) subcutaneous pen insulin lispro 100 unit/mL 1 sliding scale dose subcut QHS 08/11/23 08/23/23 History subcutaneous pen (Humalog KwikPen (U-100) Insulin) metoprolol succinate 25 mg 25 mg PO DAILY 08/11/23 01/31/24 History tablet,extended release 24 hr dicyclomine 10 mg capsule 20 mg PO BID PRN abdominal pain 08/18/23 Unknown History buspirone 30 mg tablet 30 mg PO TID 01/07/24 01/31/24 History insulin aspart U-100 100 unit/mL 1 sliding scale dose subcut TID 01/07/24 Unknown History (3 mL) subcutaneous pen (Novolog FlexPen U-100 Insulin aspart) Allergy/AdvReac Type Severity Reaction Status Date / Time procaine (From Novocain) AdvReac Intermediate Other Verified 01/31/24 09:13 levofloxacin (From Levaquin) AdvReac Nausea/Vom/ Verified 01/31/24 09:13 Diarrhea Family History Mother Diabetes CVA (cerebral vascular accident) Cancer Hypertension Father No cardiac disease Daughter Breast cancer Surgical History (Updated 01/31/24 @ 10:[address] Franklin Smith MD) S/P arteriovenous (AV) fistula creation S/P breast lumpectomy S/P cholecystectomy Social History household members: spouse housing: house number of children: 2 current occupational status: retired Smoking Status: Never smoker alcohol intake: never substance use type: does not use ROS Constitutional Constitutional: Reports fatigue; Denies chills, fever(s), frequent falls, lethargy or weakness Eyes Eyes: Denies blind spots, change in vision or loss of vision ENT HEENT: Denies bleeding gums, hoarseness or sore throat Cardiovascular Cardiovascular: Reports dyspnea on exertion; Denies abdominal pain, bluish discoloration of hand/feet, chest pain with activity, claudication, cold extremities, cyanosis, erythema on extremities, irregular heart rhythm, leg edema, leg ulcers, numbness in extremities or weakness in extremities Respiratory/Chest Respiratory/Chest: Denies cough, excessive phlegm production, shortness of breath at rest, shortness of breath with exertion or wheezing Gastrointestinal Gastrointestinal: Denies anorexia, change in stool character, constipation, diarrhea, melena or rectal bleeding Genitourinary Genitourinary: Denies dysuria or hematuria Musculoskeletal Musculoskeletal: Denies abnormal gait Integumentary Integumentary: Reports other Details: ; Denies erythema, non-healing lesions or wounds Neurologic Neurologic: Denies abnormal speech, focal weakness, headache(s), loss of vision, numbness, paresthesias or sensory deficit Hematologic/Lymphatic Hematologic/Lymphatic: Denies easy bleeding, easy bruising or lymphadenopathy Vital Signs Vital Signs Vital Signs: 01/31/24 09:35 01/31/24 09:35 01/31/24 10:36 Temperature 97.8 F 97.8 F Temperature Source Temporal Pulse Rate 75 75 Respiratory Rate 18 18 Respiratory Pattern Normal Blood Pressure 153/58 H 153/58 H Blood Pressure Mean 89 Blood Pressure Source Monitor Blood Pressure Position Semi-Fowlers Blood Pressure Location Left Leg Pulse Ox 97 97 Oxygen Delivery Method Nasal Cannula Nasal Cannula Oxygen Flow Rate (L/min) 4 4 Weight Weight: 231 lb 7.766 oz Body Mass Index (BMI) 43.7 Physical Exam Const alert, oriented x3, no apparent distress and healthy appearing General Appearance: cooperative; Negative for combative or lethargic Orientation / Consciousness: awake Exam Limitations: no limitations HEENT Head and Scalp: normocephalic and atraumatic Eyes EOMs intact bilaterally General Eye: normal appearance of both eyes Neck full ROM, no lymphadenopathy and thyroid normal General: trachea midline; Negative for lymphadenopathy or tenderness Thyroid: thyroid normal Resp normal respiratory effort and no use of accessory muscles Effort and Inspection: Negative for labored, stridor or audible wheezes Cardio regular rate and regular rhythm Peripheral Pulses: brachial pulses present and radial pulses present Back/Spine Cervical Spine: cervical ROM normal Extremity full ROM, normal capillary refill and no clubbing, cyanosis or edema Skin no rashes or lesions noted and no wounds Neuro oriented x3, CN's II-XII intact bilaterally, no focal motor deficits and no sensory deficits noted Psych thought process normal, cooperative, affect normal, speech normal and activity/motor behavior normal Results Lab / Micro Data Labs: Laboratory Results - last 24 hr 01/31/24 09:30: Blood Type O POSITIVE, Antibody Screen NEGATIVE 01/31/24 09:33: POC Glucose 193 H Assessment & Plan Assessment/Plan (1) Dialysis AV fistula malfunction: QUALIFIERS: Encounter type: subsequent encounter Qualified Code(s): T82.590D - Other mechanical complication of surgically created arteriovenous fistula, subsequent encounter PLAN: -elevate fistula
[2024-01-31] MEDS: Heparin Injection (Vial) 5,000 UNIT/ML VIAL 5000 UNIT (13:27)
[2024-01-31] MEDS: Bupivacaine 0.25% 30 ML Vial (13:28)
[2024-01-31] MEDS: Lidocaine 1% (20 ml mdv) 20 ML Vial (13:28)
--- NOTE | 2024-01-31 13:31 | DCINST_ITS ---
Discharge Instructions Diet Discharge Diet: No restrictions Activity Lifting Restrictions: do not lift > 20 lbs for 14 days with left arm Dressing / Incision Call your doctor if your incision/area has: Sudden Increased Bleeding, Increased Redness, Foul Smelling Discharge and Swelling at the incision site Call your doctor if you observe: Fever of 101 or Higher Remove Dressing in: 2 days Cleanse incision/area with: Soap & Water Follow Up Care Test Results: Test results from this visit will be discussed in further detail at your follow- up appointment, if applicable. Discharge Plan Admission Attending Provider: Abel Lemus Primary Care Provider: Mitchell Lane Instructions Print Language: [place]erratian Discharge Orders/Prescriptions Prescriptions: New oxycodone 5 mg tablet 5 mg PO Q8H PRN (Reason: pain) 3 Days Qty: 9 0RF Continued pravastatin 40 mg tablet 40 mg PO QHS Patient Comments: TAKE 1 TABLET BY MOUTH EVERY DAY sertraline 100 mg tablet 100 mg PO BID Patient Comments: TAKE 1 TABLET BY MOUTH TWICE A DAY mirtazapine 45 mg tablet 45 mg PO QHS Patient Comments: TAKE 1 TABLET BY MOUTH NIGHTLY cholecalciferol (vitamin D3) 25 mcg (1,000 unit) Capsule 25 mcg PO BID insulin NPH isoph U-100 human 100 unit/mL (3 mL) Insulin Pen 6 unit SUBCUT BREAKFAST budesonide-formoterol 160-4.5 mcg/actuation HFA aerosol inhaler 2 puff INHALATION BID Patient Comments: INHALE 2 PUFFS INTO THE LUNGS TWICE DAILY Probiotic 10 billion cell Capsule 10,000 mmu cells PO DAILY Rx Instructions: takes at lunch time aspirin 81 mg Tablet 81 mg PO QHS albuterol sulfate 90 mcg/actuation HFA aerosol inhaler 2 inh inhalation Q6H PRN (Reason: shortness of breath or wheezing) Qty: 8.5 0RF ipratropium-albuterol 0.5 mg-3 mg(2.5 mg base)/3 mL Solution For Nebulization 3 ml inhalation Q6HWA.RT Qty: 0 0RF metoprolol succinate 25 mg tablet extended release 24 hr 25 mg PO DAILY furosemide 80 mg tablet 80 mg PO DAILY calcium acetate(phosphat bind) 667 mg capsule 1,334 mg PO DAILY insulin lispro [Humalog KwikPen Insulin] 100 unit/mL Insulin Pen 1 sliding scale dose subcut QHS Protocol: 2. Sliding Scale Insulin Low-Med Dosing Condition: 150-209 mg/dl = 1 unit Condition: 210-269 mg/dl = 2 units Condition: 270-329 mg/dl = 3 units Condition: 330-389 mg/dl = 4 units Condition: 390-449 mg/dl = 5 units Condition: Greater than 449 call physician Protocol Text: - Use for Total Daily Dose of Insulin 28-36 units - Average size patients LOW MEDIUM DOSING ALGORITHM insulin NPH isoph U-100 human 100 unit/mL (3 mL) Insulin Pen 20 unit SUBCUT QHS dicyclomine 10 mg capsule 20 mg PO BID PRN (Reason: abdominal pain) buspirone 30 mg tablet 30 mg PO TID insulin aspart U-100 [Novolog FlexPen U-100 Insulin] 100 unit/mL (3 mL) insulin pen 1 sliding scale dose subcut TID Referrals / Follow Up: Mitchell Lane MD [Primary Care Provider] - Disposition Disposition (needs filled in before D/C Order can be placed): Home, Self Care
--- NOTE | 2024-01-31 13:35 | PCM.OPRPT ---
Report of Operation Date of Procedure: 01/31/24 Pre-Operative Diagnosis: malfunction arterio-venous fistula Post-Operative Diagnosis: same Surgery/Procedure Performed:: revision fistula Surgeon: Abel Lemus Type of Anesthesia: Local and MAC Estimated Blood Loss (mL): 10 Description of Procedure: HPI: Patient is an 83-year-old female with a previous left brachiocephalic AV fistula created which has been difficult access. She had a duplex which revealed satisfactory AV fistula caliber and flow volumes and no significant branches. It did reveal that the fistula was slightly deeper than ideal so she is taken now for elevation with possible revision. Description of procedure: Upon today informed consent and verification correct patient procedure site the patient was taken to the operating where she was positioned prepped and draped in usual sterile fashion. Deep sedation administered by anesthesia and timeout performed. Ultrasound used to evaluate the fistula and it was noted to be significantly tortuous in the midportion of the vessel likely in the area where they attempted their access. I also confirmed that it was slightly deeper than ideal so skin was anesthetized with 1% lidocaine and a longitudinal incision made over the fistula beginning just above the antecubital crease above the area of fistula that was shallow and straight. Bovie left cautery was then used to dissect down through subcutaneous tissue until the fistula was identified. Sharp dissection used to dissect free longitudinally along the fistula for the length of the upper arm. This confirmed that there was significant tortuosity with 2 near 90 degree turns in the midportion of the fistula. Is felt that even if we elevated the fistula with this sheath that it would be difficult to access so the patient was in heparinized allowed circulate for 3 minutes. The vein was then marked to maintain orientation and occluded proximally distally. The fascia was then divided and a 2 cm length excised and then both the proximal and distal ends beveled. Anastomosis was then performed in four-quadrant Technique with care taken to avoid any pursestring or narrowing of the anastomosis. Prior to completing suture line the vessels were backbled and after completing the suture line clamps removed with satisfactory stasis noted. There is a palpable thrill with proximal to and distal to the anastomosis. The redundancy was no longer evident in the fistula now should have a straight course the would make access easier. The incision was then inspected for hemostasis and the heparin reversed with protamine. The incision was then closed with 3-0 Vicryl, 4 Monocryl and Dermabond for the skin. Patient was then awakened anesthesia taken to the recovery room with plan discharged to home.
[2024-01-31 14:10] VITALS: BP 153/58; BP 193/68; PULSE 81; RESP 16; TEMP 36.3; O2SAT 100
[2024-01-31 14:15] VITALS: BP 153/58; BP 161/51; PULSE 77; RESP 16; O2SAT 100
[2024-01-31 14:20] VITALS: BP 153/58; BP 164/58; PULSE 69; RESP 16; TEMP 36.1; O2SAT 100
[2024-01-31 15:18] VITALS: BP 153/58
--- NOTE | 2024-02-01 09:22 | PCM.POST.ANE ---
Anesthesia: Postop Eval I Current Vital Signs Temperature: 97 F Pulse Rate: 80 Blood Pressure: 120/60 Respiratory Rate: 16 Pulse Ox: 94 Assessment Airway patent: Yes Spontaneous unlabored respirations: Yes Mental status: Awake nausea: No Vomiting: No Anesthesia Complication: No Fluid Hydration Crystalloid volume administer (ml): 400 Total IV fluid infused: 400 Progress Note Anesthesia document: Postop Eval 1 completed: Yes
[2024-02-01 09:23] VITALS: BP 120/60; PULSE 80; RESP 16; TEMP 36.1; O2SAT 94
--- NOTE | 2024-02-01 09:23 | PCM.POSTANE2 ---
Anesthesia Postop Eval I Sum Postop Eval Completion status Anesthesia document: Postop Eval 1 completed: Yes Anesthesia Postop Eval I Summary Anesthesia Postop Eval I Summary: Anesthesia Postop Eval I: Assessment Summary Airway patent Yes 02/01/24 09:23 Spontaneous unlabored Yes 02/01/24 09:23 respirations Mental status Awake 02/01/24 09:23 nausea No 02/01/24 09:23 Vomiting No 02/01/24 09:23 Anesthesia Postop Eval I: Fluid Summary Crystalloid volume administer 400 02/01/24 09:23 (ml) Colloids volume administered ( ml) Blood Product volume administered (ml) Total IV fluid infused 400 02/01/24 09:23 Anesthesia Postop Eval I: Summary Notes Anesthesia Complication No 02/01/24 09:23 Anesthesia Complication Comment: Post-operative progress note Anesthesia: Postop Eval II Evaluation Mental status: Awake Pain Level: 1 nausea: No Vomiting: No
== END 2024-01-31 15:19 | disposition home or self-care (01) ==
LOC: SDC 08:48 → AC 08:54
PROVIDERS: PCP Family Medicine; Referring Provider Surgery Trauma Surgery; Visit Provider Surgery Trauma Surgery
PROC: (CPT 36832; principal; 2024-01-31 10:05)
DX: T82.590D Other mechanical complication of surgically created arteriovenous fistula, subsequent encounter (principal); I13.2 Hypertensive heart and chronic kidney disease with heart failure and with stage 5 chronic kidney disease, or end stage renal disease; N18.6 End stage renal disease; I50.9 Heart failure, unspecified; J44.9 Chronic obstructive pulmonary disease, unspecified; E11.22 Type 2 diabetes mellitus with diabetic chronic kidney disease; Z79.4 Long term (current) use of insulin; Z79.82 Long term (current) use of aspirin; E78.00 Pure hypercholesterolemia, unspecified; I25.10 Atherosclerotic heart disease of native coronary artery without angina pectoris; G47.33 Obstructive sleep apnea (adult) (pediatric); Z85.3 Personal history of malignant neoplasm of breast; Z99.2 Dependence on renal dialysis; Z90.49 Acquired absence of other specified parts of digestive tract
CPT/HCPCS: 36832; 01844; 82962; 86850; 86900; 86901; A4648; J7040; J2405

== ENCOUNTER → 2024-03-15 | Outpatient (CLI) | payer MEDICARE, OTHER, SELFPAY ==
--- NOTE | 2024-03-15 09:51 | AVDS_ITS ---
Reason For Study: AVF Revision LEFT Inflow, 245.1/110.2 cm/sec. Inflow, 696.0 ml/min. Prox anastomosis, 705.4/248.2 cm/sec. Prox anastomosis, 1278 ml/min. Prox graft, 171.0/74.0 cm/sec. Prox graft, 1223 ml/min. Mid graft, 116.1/59.0 cm/sec. Mid graft, 504.8 ml/min. Distal graft, 177.5/67.6 cm/sec. Distal graft, 432.4 ml/min. Outflow, 105.1/50.2 cm/sec. Outflow, 691.0 ml/min. VL/AV Fistula/Dialysis Graft Scan Interpretation Summary Patent left upper arm fistula with adequate flow volume and depth to mid-distal graft sufficient for access. Ordering Physician: Darshana Underwood Referring Physician: ANNA MARIE WILHELM MD Performed By: Colby Fiore RVT and Student
== END | disposition home or self-care (01) ==
LOC: CVS 09:50
PROVIDERS: PCP Family Medicine; Referring Provider Physician Assistant; Visit Provider Physician Assistant
DX: Z99.2 Dependence on renal dialysis (principal); N18.6 End stage renal disease
CPT/HCPCS: 93990

== ENCOUNTER 2024-12-05 09:03 | Inpatient (IN) | payer MEDICARE, OTHER, SELFPAY ==
[2024-12-05] VITALS (12 sets, daily range): BP systolic 117–178; BP diastolic 68–140; PULSE 64–123; RESP 18–24; TEMP 36.2–37.2; O2SAT 93–100; BMI 45.1; BMI 44.5
--- NOTE | 2024-12-05 09:48 | EKG12_ITS ---
Test Reason : NVD Blood Pressure : */* mmHG Vent. Rate : 82 BPM Atrial Rate : 82 BPM P-R Int : 214 ms QRS Dur : 82 ms QT Int : 366 ms P-R-T Axes : -1 15 96 degrees QTcB Int : 427 ms Sinus rhythm with 1st degree A-V block with occasional and consecutive Premature ventricular complexes Nonspecific ST and T wave abnormality Abnormal ECG Confirmed by DECLAN DEVLIN, MARCO ([id number]), business editor MILLER PEREZ ([id number]) on 12/06/2024 1:42:16 PM Referred By: Confirmed By: MARCO MANRIQUEZ MD
--- NOTE | 2024-12-05 09:48 | EDS_ITS ---
HPI History of Present Illness Chief Complaint: Shortness of Breath Narrative Narrative: 84-year-old female past medical history of obstructive sleep apnea, end-stage renal disease, COPD, on 3 L of oxygen at home presents from dialysis after only receiving about an hour with increased shortness of breath and cough that she has had for the last few days. She has had subjective fever as well. She states that she has had to turn up her oxygen recently. She does use nebulizer treatments at home, but not as often as she thinks she should because the last time she had 1, caused her to vomit. She denies any leg swelling. While she was at dialysis today, was reported that her oxygen level was in the 80s and they could not get it up any higher. She denies any leg swelling. No exacerbating or alleviating factors. [facility] Medical History Wears hearing aid Wears glasses Post-menopausal Cancer Insulin dependent diabetes mellitus Walker as ambulation aid History of renal dialysis History of renal disease High cholesterol GERD (gastroesophageal reflux disease) Non-smoker Shortness of breath on exertion Leg cramps History of edema Cardiology follow-up encounter ANDREA (obstructive sleep apnea) Cor pulmonale Dialysis patient Anxiety Diabetes mellitus Morbid obesity Chronic heart failure Anemia in chronic illness CKD stage 4 due to type 2 diabetes mellitus Breast cancer History of diabetes mellitus History of end stage renal disease CKD (chronic kidney disease), stage IV Diabetes mellitus, type 2 Acute renal failure HLD (hyperlipidemia) HTN (hypertension) COPD (chronic obstructive pulmonary disease) CAD (coronary artery disease) Home Medications ?Medication ?Instructions ?Recorded ?Last Taken ?Type Lactobacillus acidophilus 10 10,000 mmu cells PO DAILY immune 09/03/21 08/23/23 History billion cell capsule (Probiotic) health aspirin 81 mg tablet 81 mg PO QHS heart health 01/30/24 History budesonide-formoterol HFA 160 2 puff inhalation BID so b 09/03/21 01/31/24 History mcg-4.5 mcg/actuation aerosol inhaler insulin NPH isoph U-100 human 100 6 unit subcut BREAKF AST dm 09/03/21 08/23/23 History unit/mL (3 mL) subcutaneous pen mirtazapine 45 mg tablet 45 mg PO QHS sleep 09/03/21 08/23/23 History pravastatin 40 mg tablet 40 mg PO QHS cholesterol 08/23/23 History sertraline 100 mg tablet 100 mg PO BID depression 01/31/24 History albuterol sulfate 90 mcg/actuation 2 inh inhalation Q6 H PRN shortness 10/22/22 Unknown Rx aerosol inhaler of breath or wheezing #8.5 g lukasz ipratropium 0.5 mg-albuterol 3 mg 3 ml inhalation Q6HW A.RT #0 mL 12/12/22 Unknown Rx (2.5 mg base)/3 mL nebulization soln calcium acetate(phosphat bind) 667 1,334 mg PO DAILY 0 08/11/23 Unknown History mg capsule furosemide 80 mg tablet 80 mg PO DAILY 08/11/23 Unkn own History insulin NPH isoph U-100 human 100 20 unit subcut QHS d m 08/11/23 01/30/24 History unit/mL (3 mL) subcutaneous pen insulin lispro 100 unit/mL 1 sliding scale dose subcut QHS 08/11/23 08/23/23 History subcutaneous pen (Humalog KwikPen (U-100) Insulin) insulin aspart U-100 100 unit/mL 1 sliding scale dose subcut TID 01/07/24 Unknown History (3 mL) subcutaneous pen (Novolog FlexPen U-100 Insulin aspart) buspirone 7.5 mg tablet 7.5 mg PO BID 03/03/24 Unkno wn History cholecalciferol (vitamin D3) 25 50 mcg PO QDAY supplem ent 03/03/24 Unknown History mcg (1,000 unit) capsule cholestyramine (with sugar) 4 gram ea PO QDAY 03/03/24 Unknown History oral powder lorazepam 0.5 mg tablet 0.5 mg PO QDAY PRN 03/03/24 Unknown History sucralfate 1 gram tablet (Carafate) 1 g PO .4 times da kashif PRN 03/03/24 Unknown History metoprolol succinate 25 mg 25 mg PO DAILY #90 tabs Unknown Rx tablet,extended release 24 hr Allergy/AdvReac Type Severity Reaction Status Date / Time procaine (From Novocain) AdvReac Intermediate Other Verified 11/29/24 13:56 levofloxacin (From Levaquin) AdvReac Nausea/Vom/ Verified 11/29/24 13:56 Diarrhea Family History Mother Diabetes CVA (cerebral vascular accident) Cancer Hypertension Father No cardiac disease Daughter Breast cancer Surgical History S/P arteriovenous (AV) fistula creation S/P breast lumpectomy S/P cholecystectomy Social History household members: spouse housing: house number of children: 2 current occupational status: retired Smoking Status: Never smoker alcohol intake: never substance use type: does not use ROS ROS ED ROS Narrative Review of systems positive for subjective fever, cough with yellow sputum production, increasing shortness of breath at rest/dyspnea. No leg swelling. No nausea or vomiting, unable to complete dialysis today. EXAM Physical Exam Narrative Exam Narrative: Afebrile. Vital signs noted. Cardiovascular examination reveals mild tachycardia. Decreased breath sounds bilateral bases with occasional expiratory wheeze. Mild tachypnea. Abdomen soft, nontender, positive bowel sounds, no guarding or rebound. No appreciable pedal edema. Neurological examination nonfocal, nonlateralizing. Const Vital Signs: 12/05/24 09:04 12/05/24 09:47 12/05/24 09:47 Temperature 98.2 F 98.9 F Temperature Source Oral Temporal Pulse Rate 114 H 123 H Respiratory Rate 18 24 H Respiratory Effort Short of Breath Respiratory Depth Normal Respiratory Pattern Blood Pressure 178/140 H 158/93 H Blood Pressure Mean 152 114 Pulse Ox 98 93 Oxygen Delivery Method Nasal Cannula Nasal Cannula Nasal Cannula Oxygen Flow Rate (L/min) 3 4 4 12/05/24 09:48 12/05/24 10:09 12/05/24 10:30 Temperature 98.9 F Temperature Source Oral Pulse Rate 91 98 Respiratory Rate 24 H 21 H Respiratory Effort Respiratory Depth Respiratory Pattern Tachypnea Blood Pressure 121/68 H Blood Pressure Mean 85 Pulse Ox 96 Oxygen Delivery Method Nasal Cannula Room Air Oxygen Flow Rate (L/min) 4 12/05/24 10:30 12/05/24 11:03 12/05/24 12:00 Temperature 98.9 F 98.5 F Temperature Source Temporal Oral Pulse Rate 97 86 Respiratory Rate 18 19 H Respiratory Effort Respiratory Depth Respiratory Pattern Blood Pressure 117/76 132/115 H Blood Pressure Mean 89 120 Pulse Ox 100 98 98 Oxygen Delivery Method Nasal Cannula Nasal Cannula Nasal Cannula Oxygen Flow Rate (L/min) 4 3 3 12/05/24 13:00 Temperature 98.4 F Temperature Source Oral Pulse Rate 64 Respiratory Rate 18 Respiratory Effort Respiratory Depth Respiratory Pattern Blood Pressure 117/78 Blood Pressure Mean 91 Pulse Ox 98 Oxygen Delivery Method Room Air Oxygen Flow Rate (L/min) MDM MDM MDM Narrative Medical decision making narrative: Differential diagnosis includes but not limited to COPD exacerbation versus pneumonia versus pneumothorax versus fluid overload with need for dialysis. Patient placed on her nasal cannula oxygen. Comprehensive workup was pursued. I reviewed her prior EMR and she does have history of chronic heart failure. While she has history of heart failure, I do not feel BNP is necessary because there is no clinical fluid overload noted in her legs. Chest x-ray will be obtained to rule out pleural effusions. History and physical does not support pneumothorax. EKG obtained and interpreted by myself independently I reviewed her laboratory work and she has a leukocytosis of 24,000, hemoglobin stable at 9.7 when compared to prior labs, hematocrit 31.0, platelet count 253. Electrolyte panel shows chloride of 93 with a normal potassium of 4.8, sodium normal at 136, BUN of 42 and creatinine elevated at 5.62 consistent with her end-stage renal disease. Glucose elevated to 42 with anion gap slightly elevated at 16. I do not think she is in diabetic ketoacidosis. Lactic acid is normal at 1.4. Blood cultures were obtained because of the leukocytosis. I ordered a urinalysis but she does not really make urine with her end-stage renal disease. I reviewed her respiratory swab and she is negative for COVID, influenza, and RSV. Chest x-ray interpreted by myself independently shows cardiomegaly and mild vascular congestion but no consolidation or pneumothorax. I reviewed the radiology report which confirms my independent interpretation. I do not feel that she is septic and requires antibiotics. She has normal lactic acid, and currently she is not really meeting any SIRS criteria. After aerosolized treatment and methylprednisolone 60 mg intravenously, she feels improved. However, on ambulation, she will desat to 81 and become very tachypneic and anxious. At this point in time, given her hypoxia and COPD exacerbation with leukocytosis, I discussed the patient with the hospitalist for at least observation if not admission. I discussed patient with Dr. Cheng. He would like blood culture and patient started on azithromycin and Rocephin for possible pneumonia. Disposition is admitted to the PCU in stable condition. History & Record Review Discussion w/independent historian: Patient Additional record(s) reviewed:: Prior labs Lab Data Attestation: I reviewed the patient's lab results. Labs: Laboratory Results - last 24 hr 12/05/24 09:57 WBC 24.8 H RBC 3.00 L Hgb 9.7 L Hct 31.0 L MCV 103.3 H MCH 32.3 H MCHC 31.3 L RDW Std Deviation 51.1 H RDW Coeff of Lucas 13.3 Plt Count 253 MPV 10.6 Neut % (Auto) Not Reportable Absolute Neuts (auto) 21.8 H Absolute Lymphs (auto) 1.49 Neutrophils % (Manual) 87 H Band Neutrophils % 1 Lymphocytes % (Manual) 6 L Monocytes % (Manual) 3 Metamyelocytes % 1 Myelocytes % 2 H Diff Path Review May foll Platelet Estimate A Sodium 136 Potassium 4.8 Chloride 93 L Carbon Dioxide 27.4 Anion Gap 16 H BUN 42 H Creatinine 5.62 H Estim Creat Clear Calc 8.28 L* Est GFR (MDRD) Non-Af 7 L BUN/Creatinine Ratio 7.4 L Glucose 242 H Lactic Acid 1.4 Calcium 8.9 Radiography Chest X-Ray - ED: 1 View, Read by ED Physician and Read by Radiologist Diagnostic Testing: Clinical Impression(s) from Imaging Studies Chest X-Ray 12/05/24 10:05 IMPRESSION: There is mild cardiomegaly. Central vascularity appears mildly increased. There is elevation of the right hemidiaphragm which can indicate paralysis, similar to the prior. There are increased interstitial markings in the right perihilar region and left lung base, similar to the prior. Reading Location: [facility] Management Discussion w/another healthcare provider: Hospitalist (Dr. Cheng) Discharge Plan Dx/Rx/DC Orders Clinical Impression: Leukocytosis, Hypoxia, COPD (chronic obstructive pulmonary disease), Dialysis patient Disposition Disposition: [facility]
--- NOTE | 2024-12-05 10:05 | RAD_ITS ---
PROCEDURE: CHEST 1 VIEW (PORTABLE) 12/05/2024 REASON FOR EXAM: SHORTNESS OF BREATH TECHNIQUE: Frontal view of the chest. COMPARISON: January 07, 2024 FINDINGS: There is mild cardiomegaly. Central vascularity appears mildly increased. There is elevation of the right hemidiaphragm which can indicate paralysis, similar to the prior. There are increased interstitial markings in the right perihilar region and left lung base, similar to the prior. There is no pneumothorax. There is no significant effusion. Surgical clips are noted in the right chest. There is no visible acute bony abnormality. Aortic calcifications are noted. RAD/Chest 1 View (Portable) IMPRESSION: There is mild cardiomegaly. Central vascularity appears mildly increased. There is elevation of the right hemidiaphragm which can indicate paralysis, sim ilar to the prior. There are increased interstitial markings in the right perihilar region and lef t lung base, similar to the prior. Reading Location: [facility]
[2024-12-05 10:18] LABS: Hematocrit 31.0 % (37-47); Hemoglobin 9.7 g/dL (12.0-15.0); Mean Corp Hgb Conc 31.3 g/dL (32-36); Mean Corpuscular Volume 103.3 fL (81-99); Mean Platelet Vol. 10.6 fl (6.2-12.0); POSITIVE COUNT YES; POSITIVE DIFFERENTIAL YES; POSITIVE MORPHOLOGY YES; Platelet Count 253 K/mm3 (150-450); RBC Distribution Width CV 13.3 % (11.6-14.6); RBC Distribution Width SD 51.1 fl (35.1-43.9); Red Blood Count 3.00 M/mm3 (4.2-5.4); White Blood Count 24.8 K/mm3 (4.4-11.0)
[2024-12-05 10:19] LABS: Differential Indicated MANUAL DIFF
[2024-12-05 11:01] LABS: Anion Gap 16 (5-15); BUN 42 mg/dL (4-19); BUN/Creat Ratio 7.4 RATIO (10-20); Calcium,Total 8.9 mg/dL (7.6-11.0); Carbon Dioxide 27.4 mmol/L (21.0-32.0); Chloride 93 mmol/L (98-108); Estimated Creatinine Clearance 8.28 ml/min (50-250); Glucose 242 mg/dL (70-99); Potassium 4.8 mmol/L (3.3-5.1)
[2024-12-05 12:09] LABS: Neutrophil-Band 1 % (0-5); Neutrophil-Segmented 87 % (47-70)
--- NOTE | 2024-12-05 12:48 | NURSING ---
patient arrived to ED from outpatient dialysis w/ fistula needles still in place. Dialysis Coordinator (DC) contacted to remove needles. DC removed fistula needles & held pressure with 4x4 gauze until hemostasis achieved. needle sites dressed with sterile 4x4 gauze & secured w/ surgical tape.
--- NOTE | 2024-12-05 13:36 | PCM.HP.STD ---
HPI - General General Date of Admission: 12/05/24 Date of Service: 12/05/24 Chief Complaint: Shortness of breath and cough HPI Narrative SANTIAGO WILHELM, is a 84 F who presented to [facility] [place] ED on 12/05/2024 with shortness of breath and cough. Patient has history of COPD and chronic respiratory failure on 3 L and ESRD on HD. She was having dialysis done today when she became more short of breath. She only completed about 1 hour of dialysis. They noted that her oxygen level was in the low to mid 80s on 3 L and they had difficulty getting her oxygen level up. Patient noted having a cough with intermittent sputum production for the past 3 to 4 days. Given concern for pneumonia and COPD exacerbation with hypoxia, she was brought to the ED for further evaluation. In the ED she was satting in the mid 90s on her home 3 L nasal cannula. Chest x-ray showed mild cardiomegaly with mild vascular congestion as well as increased interstitial markings in the right perihilar region and left lung bases that were similar to previous. Did have a significant leukocytosis of 24,000 with neutrophil predominance. No fevers noted in the ED. Labs were otherwise fairly benign. COVID/flu/RSV negative. Patient was given a breathing treatment, Solu-Medrol and IV antibiotics and hospitalist was contacted for admission. I saw the patient at bedside in the ED, was present. Patient lives at home with her and typically has fairly good functional status at baseline. However she has been on dialysis now for about 2 years and has worn supplemental oxygen for about 10 years. She has very minimal urine output. She denies any recent medication changes. Denies any shortness of breath at rest or wheezing. Denies any swelling of her legs. No other acute concerns currently. Will be admitted for further management. [facility] Medical History Wears hearing aid Wears glasses Post-menopausal Cancer Insulin dependent diabetes mellitus Walker as ambulation aid History of renal dialysis History of renal disease High cholesterol GERD (gastroesophageal reflux disease) Non-smoker Shortness of breath on exertion Leg cramps History of edema Cardiology follow-up encounter ANDREA (obstructive sleep apnea) Cor pulmonale Dialysis patient Anxiety Diabetes mellitus Morbid obesity Chronic heart failure Anemia in chronic illness CKD stage 4 due to type 2 diabetes mellitus Breast cancer History of diabetes mellitus History of end stage renal disease CKD (chronic kidney disease), stage IV Diabetes mellitus, type 2 Acute renal failure HLD (hyperlipidemia) HTN (hypertension) COPD (chronic obstructive pulmonary disease) CAD (coronary artery disease) Home Medications ?Medication ?Instructions ?Recorded ?Last Taken ?Type Lactobacillus acidophilus 10 10,000 mmu cells PO DAILY immune 09/03/21 08/23/23 History billion cell capsule (Probiotic) health aspirin 81 mg tablet 81 mg PO QHS heart health 09/03/21 01/30/24 History budesonide-formoterol HFA 160 2 puff inhalation BID sob 09/03/21 01/31/24 History mcg-4.5 mcg/actuation aerosol inhaler insulin NPH isoph U-100 human 100 6 unit subcut BREAKFAST dm 09/03/21 08/23/23 History unit/mL (3 mL) subcutaneous pen mirtazapine 45 mg tablet 45 mg PO QHS sleep 09/03/21 08/23/23 History pravastatin 40 mg tablet 40 mg PO QHS cholesterol 09/03/21 08/23/23 History sertraline 100 mg tablet 100 mg PO BID depression 09/03/21 01/31/24 History albuterol sulfate 90 mcg/actuation 2 inh inhalation Q6H PRN shortness 10/22/22 Unknown Rx aerosol inhaler of breath or wheezing #8.5 grams ipratropium 0.5 mg-albuterol 3 mg 3 ml inhalation Q6HWA.RT #0 mL 12/12/22 Unknown Rx (2.5 mg base)/3 mL nebulization soln calcium acetate(phosphat bind) 667 1,334 mg PO DAILY 08/11/23 Unknown History mg capsule furosemide 80 mg tablet 80 mg PO DAILY 08/11/23 Unknown History insulin NPH isoph U-100 human 100 20 unit subcut QHS dm 08/11/23 01/30/24 History unit/mL (3 mL) subcutaneous pen insulin lispro 100 unit/mL 1 sliding scale dose subcut QHS 08/11/23 08/23/23 History subcutaneous pen (Humalog KwikPen (U-100) Insulin) insulin aspart U-100 100 unit/mL 1 sliding scale dose subcut TID 01/07/24 Unknown History (3 mL) subcutaneous pen (Novolog FlexPen U-100 Insulin aspart) buspirone 7.5 mg tablet 7.5 mg PO BID 03/03/24 Unknown History cholecalciferol (vitamin D3) 25 50 mcg PO QDAY supplement 03/03/24 Unknown History mcg (1,000 unit) capsule cholestyramine (with sugar) 4 gram ea PO QDAY 03/03/24 Unknown History oral powder lorazepam 0.5 mg tablet 0.5 mg PO QDAY PRN 03/03/24 Unknown History sucralfate 1 gram tablet (Carafate) 1 g PO .4 times daily PRN 03/03/24 Unknown History metoprolol succinate 25 mg 25 mg PO DAILY #90 tabs 07/07/24 Unknown Rx tablet,extended release 24 hr Allergy/AdvReac Type Severity Reaction Status Date / Time procaine (From Novocain) AdvReac Intermediate Other Verified 11/29/24 13:56 levofloxacin (From Levaquin) AdvReac Nausea/Vom/ Verified 11/29/24 13:56 Diarrhea Family History Mother Diabetes CVA (cerebral vascular accident) Cancer Hypertension Father No cardiac disease Daughter Breast cancer Surgical History S/P arteriovenous (AV) fistula creation S/P breast lumpectomy S/P cholecystectomy Social History household members: spouse housing: house number of children: 2 current occupational status: retired Smoking Status: Never smoker alcohol intake: never substance use type: does not use ROS Constitutional Constitutional: Reports fatigue; Denies chills, fever(s) or weakness Eyes Eyes: Denies change in vision Cardiovascular Cardiovascular: Reports dyspnea on exertion; Denies chest pain, edema, lightheadedness, orthopnea or palpitations Respiratory/Chest Respiratory/Chest: Reports cough, productive cough and shortness of breath with exertion; Denies shortness of breath at rest or wheezing Gastrointestinal Gastrointestinal: Denies abdominal pain Musculoskeletal Musculoskeletal: Denies arthralgias or myalgias Neurologic Neurologic: Denies dizziness, focal weakness or headache(s) Vital Signs Vital Signs Vital Signs: 12/05/24 09:04 12/05/24 09:47 12/05/24 09:47 Temperature 98.2 F 98.9 F Temperature Source Oral Temporal Pulse Rate 114 H 123 H Respiratory Rate 18 24 H Respiratory Effort Short of Breath Respiratory Depth Normal Respiratory Pattern Blood Pressure 178/140 H 158/93 H Blood Pressure Mean 152 114 Pulse Ox 98 93 Oxygen Delivery Method Nasal Cannula Nasal Cannula Nasal Cannula Oxygen Flow Rate (L/min) 3 4 4 12/05/24 09:48 12/05/24 10:09 12/05/24 10:30 Temperature 98.9 F Temperature Source Oral Pulse Rate 91 98 Respiratory Rate 24 H 21 H Respiratory Effort Respiratory Depth Respiratory Pattern Tachypnea Blood Pressure 121/68 H Blood Pressure Mean 85 Pulse Ox 96 Oxygen Delivery Method Nasal Cannula Room Air Oxygen Flow Rate (L/min) 4 12/05/24 10:30 12/05/24 11:03 12/05/24 12:00 Temperature 98.9 F 98.5 F Temperature Source Temporal Oral Pulse Rate 97 86 Respiratory Rate 18 19 H Respiratory Effort Respiratory Depth Respiratory Pattern Blood Pressure 117/76 132/115 H Blood Pressure Mean 89 120 Pulse Ox 100 98 98 Oxygen Delivery Method Nasal Cannula Nasal Cannula Nasal Cannula Oxygen Flow Rate (L/min) 4 3 3 12/05/24 13:00 Temperature 98.4 F Temperature Source Oral Pulse Rate 64 Respiratory Rate 18 Respiratory Effort Respiratory Depth Respiratory Pattern Blood Pressure 117/78 Blood Pressure Mean 91 Pulse Ox 98 Oxygen Delivery Method Room Air Oxygen Flow Rate (L/min) Weight Weight: 104.7 kg Body Mass Index (BMI) 45.1 Physical Exam Const alert, oriented x3 and no apparent distress Constitutional Narrative: Elderly female, class III obesity, mildly fatigued appearing but otherwise sitting back comfortably in bed, conversing normally, in no acute distress. General Appearance: cooperative and comfortable HEENT normocephalic, head/scalp atraumatic, hearing grossly normal bilaterally, nasal mucous membranes and turbinates normal and moist oral mucous membranes Eyes PERRL, EOMs intact bilaterally and conjunctivae normal Neck full ROM Chest inspection of chest normal Resp normal respiratory effort and no use of accessory muscles Resp Narrative: Breathing comfortably on 3 L nasal cannula at rest. Mildly diminished breath sounds bilaterally with crackles noted in mid to lower lung zones. Otherwise good air movement with no wheezing noted. Cardio no murmurs and peripheral pulses 2+ throughout Cardio Narrative: Tachycardic, regular rhythm. GI normal to inspection, nondistended, normoactive bowel sounds, soft to palpation, non-tender and non-distended Back/Spine normal ROM Extremity normal to inspection, full ROM and no pedal edema Skin no rashes or lesions noted Psych mental status grossly normal Results Lab / Micro Data 12/05/24 09:57 12/05/24 09:57 Labs: Laboratory Results - last 24 hr 12/05/24 09:57: WBC 24.8 H, RBC 3.00 L, Hgb 9.7 L, Hct 31.0 L, MCV 103.3 H, MCH 32.3 H, MCHC 31.3 L, RDW Std Deviation 51.1 H, RDW Coeff of Lucas 13.3, Plt Count 253, MPV 10.6, Neut % (Auto) Not Reportable, Absolute Neuts (auto) 21.8 H, Absolute Lymphs (auto) 1.49, Neutrophils % (Manual) 87 H, Band Neutrophils % 1, Lymphocytes % (Manual) 6 L, Monocytes % (Manual) 3, Metamyelocytes % 1, Myelocytes % 2 H, Diff Path Review October, Platelet Estimate A, Sodium 136, Potassium 4.8, Chloride 93 L, Carbon Dioxide 27.4, Anion Gap 16 H, BUN 42 H, Creatinine 5.62 H, Estim Creat Clear Calc 8.28 L*, Est GFR (MDRD) Non-Af 7 L, BUN/Creatinine Ratio 7.4 L, Glucose 242 H, Lactic Acid 1.4, Calcium 8.9 Micro: Microbiology 12/05/24 09:57 Mucosa - Nasopharyngeal SARS-CoV-2, Influenza & RSV (PCR) - Final Imaging Radiology Impression Chest X-Ray 12/05/24 10:05 IMPRESSION: There is mild cardiomegaly. Central vascularity appears mildly increased. There is elevation of the right hemidiaphragm which can indicate paralysis, similar to the prior. There are increased interstitial markings in the right perihilar region and left lung base, similar to the prior. Reading Location: [facility] Assessment & Plan Assessment/Plan (1) Acute on chronic heart failure with preserved ejection fraction (HFpEF): (2) Pneumonia: PLAN: Plan Patient is an 84-year-old female who presented to [facility] [place] ED on 12/05/2024 with worsening cough and shortness of breath. 1. Concern for pneumonia with COPD exacerbation in setting of chronic hypoxic respiratory failure ? Admit under inpatient status to PCU. History of chronic respiratory failure on 3 L. Notably was diagnosed with cor pulmonale on heart cath in 2018 and has been on supplemental oxygen since that time. Presented with 3 to 4-day history of worsening productive cough. Chest x-ray showed mild cardiomegaly with vascular congestion, no pleural effusions, no consolidative pneumonia. Weaned back to home with 3 L in the ED. COVID/flu/RSV negative. Presentation seems more consistent with volume overload due to HFpEF exacerbation as below, but given WBC count of 24,000 we will treat empirically for pneumonia with IV ceftriaxone and azithromycin. Full respiratory panel, sputum culture and urine antigens ordered. Notably has no wheezing on exam and fairly good breath sounds bilaterally; will treat with DuoNebs every 6 hours while awake but hold off on treating with steroids at this time. 2. Concern for acute HFpEF exacerbation, sinus tachycardia with frequent PACs and PVCs, hypertension, hyperlipidemia ? Follows with [facility]. Had office visit recently on 11/29. Was noted that patient has a history of abnormal Holter showing 22% PVCs. Last echo in 12/2022 showed EF 65%, mildly enlarged LA, no other concerning findings. Presented here with shortness of breath and vascular congestion on chest x-ray as above. EKG showed normal sinus rhythm with frequent PACs and PVCs. However on my visit with patient, she consistently had sinus tachycardia into the 120s to 130s with frequent PVCs noted. Have concern for possible worsening heart function due to frequent ectopy. Repeat echo ordered. Will continue home Lasix 80 mg daily, though notably patient makes minimal urine. Nephrology consulted for dialysis needs as below. Continue home aspirin, statin, Toprol. Monitor cardiac telemetry. 3. ESRD on HD ? Nephrology consulted. On HD Wednesday. Only completed 1 hour of treatment on Wednesday (day of admission) and given volume overload and shortness of breath on chest x-ray, may be beneficial for her to have dialysis done again tomorrow. Appreciate nephrology recommendations. Continue home phosphate binder. 4. Mild acute debility ? PT/OT/case management consulted. Lives at home with . Fairly good functional status at baseline with recent worsening primarily due to shortness of breath. Appreciate therapy recommendations. Chronic medical conditions: ? Class III obesity with ANDREA: BMI 44 on admit. Complicates hospital course, care and prognosis. Continue home PAP therapy. ? Type 2 diabetes mellitus: Glucose 242 on admit. Last A1c 7.1% back in 2022, repeat A1c ordered. Is on home NPH twice daily and unclear dose and sliding scale insulin with meals. Will treat with Lantus 15 units at night and sliding scale insulin with meals while inpatient, adjust as needed. ? Anxiety/depression: Continue home sertraline, mirtazapine at night, Ativan daily as needed. DVT prophylaxis: Heparin subcu CODE STATUS: Full code, verified Expected disposition: TBD Total clinical time spent by myself addressing the patient's medical issues, reviewing all the data, and collaborating with patient's care team: 75 minutes. Charges/Coding Visit Charges Inpatient E&M: 92713 Init Hosp L3
--- NOTE | 2024-12-05 14:07 | ED.RN ---
ATB NOT IN ED AT THIS TIME
[2024-12-05] MEDS: Ceftriaxone 2 GM in 0.9% Normal Saline (50mL MB+) 50 ML IV (14:16)
--- NOTE | 2024-12-05 16:02 | ECHOD_ITS ---
Reason For Study Reason For Study: CHF Procedure This was a 2D Doppler, Color Flow transthoracic echocardiogram. Exam performed portable in patient room. Left Ventricle Normal left ventricle. The estimated ejection fraction is 55???60 %. Right Ventricle Normal right ventricle. Normal systolic function. Atria Normal left atrium. Normal right atrium. Mitral Valve The mitral valve is structurally normal. No prolapse or stenosis seen. Tricuspid Valve Normal tricuspid valve. Aortic Valve The aortic valve is not well visualized in the short axis view. Pulmonic Valve The pulmonic valve is not well visualized. Great Vessels The aortic root is not well visualized. Pericardium/Pleural No pericardial effusion. MMode/2D Measurements & Calculations LVIDd: 5.2 cm IVSd: 0.92 cm Ao root diam: 2.9 cm LVIDs: 3.5 cm LVPWd: 1.1 cm RVDd: 3.7 cm FS: 33.6 % LAV(MOD-bp): 61.9 ml LVAd ap4: 24.5 cm2 LVAd ap2: 24.3 cm2 LAV(MOD-bp) Indexed: 31.4 ml/m2 LVLd ap4: 7.0 cm LVLd ap2: 7.4 cm LAV(MOD-sp2): 59.7 ml EDV(MOD-sp4): 72.2 ml EDV(MOD-sp2): 67.2 ml LAV(MOD-sp4): 59.5 ml EDV(sp4-el): 72.1 ml EDV(sp2-el): 68.2 ml LVAs ap4: 13.7 cm2 LVAs ap2: 13.0 cm2 LVLs ap4: 6.0 cm LVLs ap2: 6.1 cm ESV(MOD-sp4): 29.3 ml ESV(MOD-sp2): 25.0 ml ESV(sp4-el): 26.5 ml ESV(sp2-el): 23.3 ml EF(MOD-sp4): 59.5 % EF(MOD-sp2): 62.8 % EF(sp4-el): 63.2 % SV(MOD-sp4): 42.9 ml SV(MOD-sp2): 42.2 ml SV(sp4-el): 45.6 ml SI(MOD-sp4): 21.8 ml/m2 SI(MOD-sp2): 21.4 ml/m2 LA A4 area: 20.0 cm2 LA dimension(2D): 4.1 cm RA A4 area: 19.1 cm2 TAPSE: 2.5 cm Time Measurements MV dec time: 0.26 sec Doppler Measurements & Calculations MV E max jaard: 70.5 cm/sec Lat Peak E' Jarad: 12.0 cm/sec Med Peak E' Jarad: 8.7 cm/sec MV A max jarad: 108.5 cm/sec E/E' lat: 5.9 E/E' med: 8.1 MV E/A: 0.65 MV V2 max: 128.1 cm/sec MV P1/2t max jarad: 91.2 cm/sec Ao V2 max: 150.5 cm/sec MV max P.6 mmHg MV P1/2t: 57.6 msec Ao max P.1 mmHg MV V2 mean: 67.8 cm/sec Ao V2 mean: 105.0 cm/sec MV mean P.1 mmHg MV dec slope: 464.2 cm/sec2 Ao mean P.1 mmHg MV V2 VTI: 25.7 cm MVA(P1/2t): 3.8 cm2 Ao V2 VTI: 30.0 cm AV (velocity ratio): 0.63 LV V1 max: 103.5 cm/sec LV V1 max P.3 mmHg LV V1 mean P.1 mmHg LV V1 mean: 69.3 cm/sec LV V1 VTI: 18.9 cm ECHO/Echo Complete Interpretation Summary The estimated ejection fraction is 55???60 %. Limited transthoracic echocardiogram Overall LV systolic function is preserved within normal No significant abnormality from previous echocardiogram. Ordering Physician: Hero Cheng Referring Physician: Mitchell Lane Performed By: Ashleigh Melara RDCS, RVT
[2024-12-05] MEDS: Azithromycin 500 MG in 0.9% Normal Saline (250mL Bag) 250 ML 255 MG IV (16:31)
[2024-12-05] MEDS: Budesonide Respules 0.5 MG/2 ML AMPUL.NEB. INHALATION (20:02)
[2024-12-05] MEDS: 0.9% Saline Lock 10 ML Syringe IV (21:01)
[2024-12-05] MEDS: Aspirin E.C. 81 MG Tablet PO (21:01)
[2024-12-05] MEDS: Heparin Injection (Vial) 5,000 UNIT/ML VIAL 5000 UNIT SC (21:01)
[2024-12-05] MEDS: Insulin Glargine-YFGN 100 UNIT/ML Pen 15 UNIT SC (21:02)
[2024-12-06] VITALS (16 sets, daily range): BP systolic 106–160; BP diastolic 40–87; PULSE 62–88; RESP 16–20; TEMP 36.4–36.8; O2SAT 91–100; BMI 44.8; BMI 43.7
[2024-12-06 06:45] LABS: Hematocrit 28.0 % (37-47); Hemoglobin 8.6 g/dL (12.0-15.0); Mean Corp Hgb Conc 30.7 g/dL (32-36); Mean Corpuscular Volume 104.1 fL (81-99); Mean Platelet Vol. 10.6 fl (6.2-12.0); Platelet Count 248 K/mm3 (150-450); RBC Distribution Width CV 13.2 % (11.6-14.6); RBC Distribution Width SD 49.7 fl (35.1-43.9); Red Blood Count 2.69 M/mm3 (4.2-5.4); White Blood Count 14.9 K/mm3 (4.4-11.0)
[2024-12-06] MEDS: Budesonide Respules 0.5 MG/2 ML AMPUL.NEB. INHALATION ×2 (07:00→19:45)
--- NOTE | 2024-12-06 07:28 | PN.HOSP_ITS ---
Reason for Visit Reason for Visit: Diagnoses
--- NOTE | 2024-12-06 07:28 | PCM.PN.HOSP ---
Reason for Visit Reason for Visit: Diagnoses Acute on chronic diastolic (congestive) heart failure (12/05/24) Pneumonia, unspecified organism (12/05/24) Subjective Subjective Patient is an 84-year-old female who presented to [facility] ED on 12/05/2024 with worsening cough and shortness of breath. Imaging studies demonstrated increased vascular congestion. Patient was also found to have leukocytosis. An assessment of acute on chronic hypoxic respiratory failure secondary to combination of CHF and pneumonia made admitted to a monitored bed for further management Objective Data Objective Data Vital Signs: Vital Signs Temp Pulse Resp BP Pulse Ox O2 Del Method O2 Flow Rate 97.6 F L 87 20 H 108/40 L 93 Nasal Cannula 4 12/06/24 02:09 12/06/24 07:01 12/06/24 07:01 12/06/24 02:09 12/06/24 07:01 12/06/24 07:01 12/06/24 07:01 Oxygen Flow Rate (L/min) 4 Oxygen Delivery Method Nasal Cannula Weight: 103.51 kg Body Mass Index (BMI) 44.5 Intake & Output: Intake and Output for Last 24 Hours 12/04/24 12/05/24 12/06/24 23:59 23:59 23:59 Intake Total 545 / 545 0 / 0 Balance 545 / 545 0 / 0 Lab / Micro Data 12/06/24 05:53 12/06/24 05:53 Labs: Laboratory Results - last 24 hr 12/05/24 09:57: WBC 24.8 H, RBC 3.00 L, Hgb 9.7 L, Hct 31.0 L, MCV 103.3 H, MCH 32.3 H, MCHC 31.3 L, RDW Std Deviation 51.1 H, RDW Coeff of Lucas 13.3, Plt Count 253, MPV 10.6, Neut % (Auto) Not Reportable, Absolute Neuts (auto) 21.8 H, Absolute Lymphs (auto) 1.49, Neutrophils % (Manual) 87 H, Band Neutrophils % 1, Lymphocytes % (Manual) 6 L, Monocytes % (Manual) 3, Metamyelocytes % 1, Myelocytes % 2 H, Diff Path Review October, Platelet Estimate A, Sodium 136, Potassium 4.8, Chloride 93 L, Carbon Dioxide 27.4, Anion Gap 16 H, BUN 42 H, Creatinine 5.62 H, Estim Creat Clear Calc 8.28 L*, Est GFR (MDRD) Non-Af 7 L, BUN/Creatinine Ratio 7.4 L, Glucose 242 H, Lactic Acid 1.4, Calcium 8.9 12/05/24 16:39: POC Glucose > 500 H* 12/05/24 18:48: POC Glucose > 500 H* 12/05/24 20:57: POC Glucose 296 H 12/06/24 05:53: WBC 14.9 H, RBC 2.69 L, Hgb 8.6 L, Hct 28.0 L, MCV 104.1 H, MCH 32.0, MCHC 30.7 L, RDW Std Deviation 49.7 H, RDW Coeff of Lucas 13.2, Plt Count 248, MPV 10.6 12/06/24 05:56: POC Glucose 81 Micro: Microbiology 12/05/24 17:10 Mucosa - Nose Respiratory Panel (PCR) - Final 12/05/24 09:57 Mucosa - Nasopharyngeal SARS-CoV-2, Influenza & RSV (PCR) - Final Radiography Diagnostic Testing: Radiology Impression Chest X-Ray 12/05/24 10:05 IMPRESSION: There is mild cardiomegaly. Central vascularity appears mildly increased. There is elevation of the right hemidiaphragm which can indicate paralysis, similar to the prior. There are increased interstitial markings in the right perihilar region and left lung base, similar to the prior. Reading Location: [facility] Physical Exam Narrative GENERAL: cooperative but appears ill looking HEENT: Atraumatic; normocephalic EYES; Anicteric, Normal Conjunctiva NECK; supple, normal thyroid, RESPIRATORY: Diminished to auscultation CARDIOVASCULAR: Regular S1 S2, GI: soft, normoactive bowel sounds, : No Renal angle tenderness; EXTREMITIES: No edema, no clubbing, MUSCULOSKELETAL: no muscle wasting NEURO: Awake; no lateralizing signs. SKIN: No Rash PSYCH; Flat affect Assessment & Plan Assessment/Plan (1) Acute on chronic heart failure with preserved ejection fraction (HFpEF): (2) Pneumonia: PLAN: Plan Patient is an 84-year-old female who presented to [facility] ED on 12/05/2024 with worsening cough and shortness of breath. Imaging studies demonstrated increased vascular congestion. Patient was also found to have leukocytosis. An assessment of acute on chronic hypoxic respiratory failure secondary to combination of CHF and pneumonia made admitted to a monitored bed for further management 1. Acute on chronic congestive heart failure with preserved ejection fraction ? Patient has known EF of 75%. Patient admitted to a monitored bed consult was placed to nephrology to help manage patient fluid overload with dialysis 2. End-stage renal disease ? Patient is on hemodialysis on Tuesdays and Fridays. She apparently had only 1 hour of dialysis the day prior necessitating patient having repeat dialysis on Wednesday?12/06/2024 3. Pneumonia - Suspected to be secondary to streptococcal pneumonia, Blood and sputum cultures sent. Patient also had viral respiratory panel including COVID flu and RSV sent which came back negative. Patient placed on Rocephin and Zithromax and placed on oxygen titrated to keep Pulse Ox greater than 90. Patient had marked leukocytosis on admission Daily monitoring with CBC with differential ordered 4. Anemia ? Secondary to chronic disorder monitoring as well as end-stage renal disease anemia. Patient had macrocytosis on admission. Subsequently ordered iron studies as well as B12 level with serial monitoring of H&H and transfuse if patient becomes symptomatic or hemoglobin falls below 7 5. Hyperkalemia with potassium of 5.3 ? This is being managed through dialysis 6. Physical deconditioning ? Requested for PT OT eval and social insurance specialist to assist with discharge planning 7. Class II obesity with BMI of 44.6 ? Complicating care weight loss advised 8. Obstructive sleep apnea ? Consistent use of PAP therapy encouraged 9. Diabetes mellitus type 2 ? Did continue patient long-acting insulin placed on 1800 ADA diet in addition to Accu-Cheks AC and at bedtime with sliding scale coverage 10. Dyslipidemia ?Patient is on statin therapy, continued at home dose 11. DVT prophylaxis ? Subcu heparin Charges/Coding Visit Charges Inpatient E&M: 12729 Subs Hosp L3
[2024-12-06 07:44] LABS: Anion Gap 14 (5-15); BUN 62 mg/dL (4-19); BUN/Creat Ratio 8.6 RATIO (10-20); Calcium,Total 8.6 mg/dL (7.6-11.0); Carbon Dioxide 28.1 mmol/L (21.0-32.0); Chloride 95 mmol/L (98-108); Estimated Creatinine Clearance 6.39 ml/min (50-250); Glucose 80 mg/dL (70-99); Potassium 5.3 mmol/L (3.3-5.1)
[2024-12-06] MEDS: PureFlow B 2K Dialysis Soln 1 BAG 6 BAG PF (09:11)
[2024-12-06] MEDS: 0.9% Normal Saline 1,000 ML IV.SOLN. 1000 ML OPERA.SITE (09:11)
[2024-12-06 11:56] LABS: Platelet Count 247 K/mm3 (150-450); Reticulocyte Count 2.00 % (0.5-1.5)
[2024-12-06 12:02] LABS: Immature Reticulocyte Fraction 33.60 % (3.00-15.90)
[2024-12-06] MEDS: Heparin Injection (Vial) 5,000 UNIT/ML VIAL 5000 UNIT SC ×2 (12:13→22:05)
--- NOTE | 2024-12-06 12:30 | CASEMGMT ---
RN?CM?RV TECHNICIAN?CM?to room to meet with patient for initial transition planning/care coordination?assessment.?RN?CM?introduced self and role at [facility].? Pt voices understanding and consents to?assessment?at this time.? Pt resting in bed in no distress at this time.? Pt is A/O at this time and answers all questions appropriately.?? Care providers, pharmacy, and demographics verified/updated at this time. Strata: 2 PCP: Dr Mitchell Lane Specialists: Dr Cadena, cardiology, Dr Morales-nephrology. Pt used to see [facility], endrocrinology, but wishes to start seeing [facility] in [place]. She states Dr Lane has given her info on [facility] in [place], but she does not remember the name. LISSETH FERRER provided her w/physician's directory w/Dr Neal's info. Preferred Pharmacy: [facility] Insurance:[facility], O Prescription Benefit:?yes LNOK: , [place]. 2 daughters. One is Selam Arnett. Living Arrangements: Lives w/ in one-story home w/2-3 steps to enter w/handrail. Indep w/ADL's and manages her own medications. does grocery shopping. They both prepare meals together. They hire a cleaning lady every 2 wks. Transportation:?Pt states she can drive, but prefers not to. Her does most of the driving. DME: ?States has the following DME:?functioning glucometer w/sufficient supplies and sufficient insulin and needles. Nebulizer, shower chair, grab bars, hand held shower, walker, scooter, pulse ox. Pt states she wears home O2 @ 3 L/M continuously through [facility]. Pt states her will take her home and her portable O2 tank is in her car. Pt states no need for further DME at this time.? HHC/SNF: Pt has been to [facility] in the past and has had HHC in the past. She does not think she will need HHC or OP therapy @ dc but states she has not been OOB yet. Pt wishes to return home and states has no concerns with going home at time of discharge. CM?to follow for any increase in home oxygen needs and any further discharge planning/needs.? Pt voices no further concerns/needs at this time.? Advised pt to ask for?CM?if any further questions/concerns/needs arise.? Voices understanding. PLAN:??Home. PT/OT evals pending. Follow for any recommendations. Aristides BSN?RN?CM
[2024-12-06 12:46] LABS: Iron 56 ug/dL (50-170); Iron Binding Capacity,Unsat 66 ug/dL (228-428)
[2024-12-06 12:49] LABS: Vitamin B12 376 pg/mL (180-914)
[2024-12-06 13:08] LABS: Ferritin 2848 ng/mL (22-378)
[2024-12-06] MEDS: Lactobacillis Acidophilus 1 CAP PO (13:26)
[2024-12-06] MEDS: Cholecalciferol (VIT D3) 25 MCG TABLET (1,000 UNITS) 50 MCG PO (13:26)
[2024-12-06] MEDS: Metoprolol(XL)Succ 25 MG Tablet PO (13:26)
[2024-12-06 14:56] LABS: Iron Binding Capacity,Total 122 ug/dL (250-450)
[2024-12-06] MEDS: Azithromycin 500 MG in 0.9% Normal Saline (250mL Bag) 250 ML 255 MG IV (15:25)
--- NOTE | 2024-12-06 15:39 | PCM.CONS.R ---
Assessment & Plan Assessment/Plan (1) ESRD (end stage renal disease) on dialysis: PLAN: Seen on dialysis today. Fluid removal 2 to 4 L as tolerated. Recently we have been cutting back on time since she could not stay on full treatment due to anxiety. So far no evidence of volume overload. We may have to adjust the dry weight down a little bit. HPI Consult Data Date of Consult: 12/06/24 HPI Narrative Reason for Consultation: ESRD HPI Narrative: SANTIAGO WILHELM, is a 84 F who presents To the hospital with shortness of breath. Nephrology on consultation in view of ESRD. ESRD on hemodialysis, was at dialysis yesterday, had shortness of breath. Being treated for COPD/pneumonia. Has significant anxiety issues, we have been gradually cutting back on the time. No significant peripheral edema. [facility] Medical History Wears hearing aid Wears glasses Post-menopausal Cancer Insulin dependent diabetes mellitus Walker as ambulation aid History of renal dialysis History of renal disease High cholesterol GERD (gastroesophageal reflux disease) Non-smoker Shortness of breath on exertion Leg cramps History of edema Cardiology follow-up encounter ANDREA (obstructive sleep apnea) Cor pulmonale Dialysis patient Anxiety Diabetes mellitus Morbid obesity Chronic heart failure Anemia in chronic illness CKD stage 4 due to type 2 diabetes mellitus Breast cancer History of diabetes mellitus History of end stage renal disease CKD (chronic kidney disease), stage IV Diabetes mellitus, type 2 Acute renal failure HLD (hyperlipidemia) HTN (hypertension) COPD (chronic obstructive pulmonary disease) CAD (coronary artery disease) Home Medications ?Medication ?Instructions ?Recorded ?Last Taken ?Type Lactobacillus acidophilus 10 10,000 mmu cells PO DAILY immune 09/03/21 08/23/23 History billion cell capsule (Probiotic) health aspirin 81 mg tablet 81 mg PO QHS heart health 09/03/21 01/30/24 History budesonide-formoterol HFA 160 2 puff inhalation BID sob 09/03/21 01/31/24 History mcg-4.5 mcg/actuation aerosol inhaler insulin NPH isoph U-100 human 100 6 unit subcut BREAKFAST dm 09/03/21 08/23/23 History unit/mL (3 mL) subcutaneous pen mirtazapine 45 mg tablet 45 mg PO QHS sleep 09/03/21 08/23/23 History pravastatin 40 mg tablet 40 mg PO QHS cholesterol 09/03/21 08/23/23 History sertraline 100 mg tablet 100 mg PO BID depression 09/03/21 01/31/24 History albuterol sulfate 90 mcg/actuation 2 inh inhalation Q6H PRN shortness 10/22/22 Unknown Rx aerosol inhaler of breath or wheezing #8.5 grams ipratropium 0.5 mg-albuterol 3 mg 3 ml inhalation Q6HWA.RT #0 mL 12/12/22 Unknown Rx (2.5 mg base)/3 mL nebulization soln calcium acetate(phosphat bind) 667 1,334 mg PO DAILY 08/11/23 Unknown History mg capsule furosemide 80 mg tablet 80 mg PO DAILY 08/11/23 Unknown History insulin NPH isoph U-100 human 100 20 unit subcut QHS dm 08/11/23 01/30/24 History unit/mL (3 mL) subcutaneous pen insulin lispro 100 unit/mL 1 sliding scale dose subcut QHS 08/11/23 08/23/23 History subcutaneous pen (Humalog KwikPen (U-100) Insulin) insulin aspart U-100 100 unit/mL 1 sliding scale dose subcut TID 01/07/24 Unknown History (3 mL) subcutaneous pen (Novolog FlexPen U-100 Insulin aspart) buspirone 7.5 mg tablet 7.5 mg PO BID 03/03/24 Unknown History cholecalciferol (vitamin D3) 25 50 mcg PO QDAY supplement 03/03/24 Unknown History mcg (1,000 unit) capsule cholestyramine (with sugar) 4 gram ea PO QDAY 03/03/24 Unknown History oral powder lorazepam 0.5 mg tablet 0.5 mg PO QDAY PRN 03/03/24 Unknown History sucralfate 1 gram tablet (Carafate) 1 g PO .4 times daily PRN 03/03/24 Unknown History metoprolol succinate 25 mg 25 mg PO DAILY #90 tabs 07/07/24 Unknown Rx tablet,extended release 24 hr Allergy/AdvReac Type Severity Reaction Status Date / Time procaine (From Novocain) AdvReac Intermediate Other Verified 11/29/24 13:56 levofloxacin (From Levaquin) AdvReac Nausea/Vom/ Verified 11/29/24 13:56 Diarrhea Family History Mother Diabetes CVA (cerebral vascular accident) Cancer Hypertension Father No cardiac disease Daughter Breast cancer Surgical History S/P arteriovenous (AV) fistula creation S/P breast lumpectomy S/P cholecystectomy Social History household members: spouse housing: house number of children: 2 current occupational status: retired Smoking Status: Never smoker alcohol intake: never substance use type: does not use ROS ROS Narrative negative except above Physical Exam Narrative Alert awake oriented x 3 no obvious distress no pallor no icterus no JVD s1s2 no murmurs lungs clear abdomen soft no organomegaly no edema no cyanosis Lab / Micro Data 12/06/24 05:53 12/06/24 05:53 Labs: Laboratory Results - last 24 hr 12/05/24 16:39: POC Glucose > 500 H* 12/05/24 18:48: POC Glucose > 500 H* 12/05/24 20:57: POC Glucose 296 H 12/06/24 05:53: WBC 14.9 H, RBC 2.69 L, Hgb 8.6 L, Hct 28.0 L, MCV 104.1 H, MCH 32.0, MCHC 30.7 L, RDW Std Deviation 49.7 H, RDW Coeff of Lucas 13.2, Plt Count 248, MPV 10.6, Retic Count 2.00 H, Immature Retic Fraction 33.60 H, Retic Hgb Equivalent 26.8 L, Sodium 138, Potassium 5.3 H, Chloride 95 L, Carbon Dioxide 28.1, Anion Gap 14, BUN 62 H, Creatinine 7.24 H, Estim Creat Clear Calc 6.39 L*, Est GFR (MDRD) Non-Af 5 L, BUN/Creatinine Ratio 8.6 L, Glucose 80, Calcium 8.6, Iron 56, TIBC 122 L, Iron Saturation 45.9, Unsaturated IBC 66 L, Ferritin 2848 H, Vitamin B12 376 12/06/24 05:56: POC Glucose 81 12/06/24 12:07: POC Glucose 111 H Micro: Microbiology 12/05/24 17:25 Sputum, Expectorated/Coughed Gram Stain - Final 12/05/24 17:25 Sputum, Expectorated/Coughed Respiratory Culture - Preliminary GNR lactose adobe flex developer 12/05/24 17:10 Mucosa - Nose Respiratory Panel (PCR) - Final
[2024-12-06] MEDS: Aspirin E.C. 81 MG Tablet PO (22:05)
[2024-12-06] MEDS: Insulin Glargine-YFGN 100 UNIT/ML Pen 15 UNIT SC (22:10)
[2024-12-07] VITALS (15 sets, daily range): BP systolic 125–160; BP diastolic 43–83; PULSE 60–86; RESP 14–19; TEMP 36.4–37.1; O2SAT 87–100; BMI 43.7; BMI 43.5
[2024-12-07 06:05] LABS: Hematocrit 29.3 % (37-47); Hemoglobin 9.0 g/dL (12.0-15.0); Mean Corp Hgb Conc 30.7 g/dL (32-36); Mean Corpuscular Volume 105.0 fL (81-99); Mean Platelet Vol. 10.3 fl (6.2-12.0); Platelet Count 274 K/mm3 (150-450); RBC Distribution Width CV 13.2 % (11.6-14.6); RBC Distribution Width SD 51.2 fl (35.1-43.9); Red Blood Count 2.79 M/mm3 (4.2-5.4); White Blood Count 14.6 K/mm3 (4.4-11.0)
[2024-12-07 06:35] LABS: Anion Gap 13 (5-15); BUN 48 mg/dL (4-19); BUN/Creat Ratio 8.5 RATIO (10-20); Calcium,Total 8.6 mg/dL (7.6-11.0); Carbon Dioxide 25.4 mmol/L (21.0-32.0); Chloride 98 mmol/L (98-108); Estimated Creatinine Clearance 8.08 ml/min (50-250); Glucose 218 mg/dL (70-99); Magnesium 2.0 mg/dL (1.5-2.2); Potassium 5.5 mmol/L (3.3-5.1)
[2024-12-07] MEDS: Albuterol 2.5 MG/3 ML VIAL.NEB. INHALATION ×2 (07:04→13:01)
[2024-12-07] MEDS: Budesonide Respules 0.5 MG/2 ML AMPUL.NEB. INHALATION (07:05)
--- NOTE | 2024-12-07 10:44 | DS.PCM_ITS ---
Providers Date of Admission: 12/05/24 Date of Discharge: 12/07/24 Primary Care Physician: Dr. Mitchell Lane MD Consultations 12/05/24 14:58 Consult: Nephrology Routine Consulting Provider: Delores Morales Reason for Consult: ESRD on HD EMERGENT Consult: No MD Notified: Yes Date Notified: 12/05/24 Time Notified: 13:43 Method of Notification: Answering Service Reason For Visit: CAP W/ COPD EXACERBATTION Diagnosis Discharge Diagnosis (1) ESRD (end stage renal disease) on dialysis: Status: Chronic Code(s): N18.6 - End stage renal disease; Z99.2 - Dependence on renal dialysis Plan Patient is an 84-year-old female who presented to [facility] ED on 12/05/2024 with worsening cough and shortness of breath. Imaging studies demonstrated increased vascular congestion. Patient was also found to have leukocytosis. An assessment of acute on chronic hypoxic respiratory failure secondary to combination of CHF and pneumonia made admitted to a monitored bed for further management 1. Acute on chronic congestive heart failure with preserved ejection fraction ? Patient has known EF of 75%. Patient admitted to a monitored bed consult was placed to nephrology to help manage patient fluid overload with dialysis ? 12/24/2024; patient responded to treatment 2. End-stage renal disease ? Patient is on hemodialysis on Tuesdays and Fridays. She apparently had only 1 hour of dialysis the day prior necessitating patient having repeat dialysis on Wednesday?12/06/2024 3. Pneumonia - Secondary to gram-negative pneumonia Rahnella aquatilis. Patient also had viral respiratory panel including COVID flu and RSV sent which came back negative. Patient placed on Rocephin and Zithromax and placed on oxygen titrated to keep Pulse Ox greater than 90. Patient had marked leukocytosis on admission Daily monitoring with CBC with differential ordered ? Patient cultures came back positive for Rahnella aquatilis. Discharged on oral cephalosporins based on culture result 4. Anemia ? Secondary to chronic disorder monitoring as well as end-stage renal disease anemia. Patient had macrocytosis on admission. Subsequently ordered iron studies as well as B12 level with serial monitoring of H&H and transfuse if patient becomes symptomatic or hemoglobin falls below 7 5. Hyperkalemia with potassium of 5.3 ? This is being managed through dialysis 6. Physical deconditioning ? Requested for PT OT eval and certified social workers in health care to assist with discharge planning 7. Class II obesity with BMI of 44.6 ? Complicating care weight loss advised 8. Obstructive sleep apnea ? Consistent use of PAP therapy encouraged 9. Diabetes mellitus type 2 ? Did continue patient long-acting insulin placed on 1800 ADA diet in addition to Accu-Cheks AC and at bedtime with sliding scale coverage 10. Dyslipidemia ?Patient is on statin therapy, continued at home dose 11. DVT prophylaxis ? Subcu heparin Medications at Discharge Home Medications Lactobacillus acidophilus 10 billion cell capsule (Probiotic) 10,000 mmu cells PO DAILY immune health 09/03/21 aspirin 81 mg tablet 81 mg PO QHS heart health 09/03/21 budesonide-formoterol HFA 160 mcg-4.5 mcg/actuation aerosol inhaler 2 puff inhalation BID sob 09/03/21 insulin NPH isoph U-100 human 100 unit/mL (3 mL) subcutaneous pen 6 unit subcut BREAKFAST dm 09/03/21 mirtazapine 45 mg tablet 45 mg PO QHS sleep 09/03/21 pravastatin 40 mg tablet 40 mg PO QHS cholesterol 09/03/21 sertraline 100 mg tablet 100 mg PO BID depression 09/03/21 albuterol sulfate 90 mcg/actuation aerosol inhaler 2 inh inhalation Q6H PRN shortness of breath or wheezing #8.5 grams 10/22/22 ipratropium 0.5 mg-albuterol 3 mg (2.5 mg base)/3 mL nebulization soln 3 ml inhalation Q6HWA.RT #0 mL 12/12/22 calcium acetate(phosphat bind) 667 mg capsule 1,334 mg PO DAILY 08/11/23 furosemide 80 mg tablet 80 mg PO DAILY 08/11/23 insulin NPH isoph U-100 human 100 unit/mL (3 mL) subcutaneous pen 20 unit subcut QHS dm 08/11/23 insulin lispro 100 unit/mL subcutaneous pen (Humalog KwikPen (U-100) Insulin) 1 sliding scale dose subcut QHS 08/11/23 insulin aspart U-100 100 unit/mL (3 mL) subcutaneous pen (Novolog FlexPen U-100 Insulin aspart) 1 sliding scale dose subcut TID 01/07/24 buspirone 7.5 mg tablet 7.5 mg PO BID 03/03/24 cholecalciferol (vitamin D3) 25 mcg (1,000 unit) capsule 50 mcg PO QDAY supplement 03/03/24 cholestyramine (with sugar) 4 gram oral powder ea PO QDAY 03/03/24 lorazepam 0.5 mg tablet 0.5 mg PO QDAY PRN 03/03/24 sucralfate 1 gram tablet (Carafate) 1 g PO .4 times daily PRN 03/03/24 metoprolol succinate 25 mg tablet,extended release 24 hr 25 mg PO DAILY #90 tabs 07/07/24 cefpodoxime 100 mg tablet 100 mg PO BID #14 tabs 12/07/24 Hospital Course Summary of Care Provided Minutes Spent on Discharge: 35 Physical Exam Narrative GENERAL: cooperative HEENT: Atraumatic; normocephalic EYES; Anicteric, Normal Conjunctiva NECK; supple, normal thyroid, RESPIRATORY: Diminished to auscultation CARDIOVASCULAR: Regular S1 S2, GI: soft, normoactive bowel sounds, : No Renal angle tenderness; EXTREMITIES: No edema, no clubbing, MUSCULOSKELETAL: no muscle wasting NEURO: Awake; no lateralizing signs. SKIN: No Rash PSYCH; Flat affect Weight / BMI Weight Weight: 101 kg Body Mass Index (BMI) 43.7 ABG / Lab / Microbiology Data 12/07/24 05:50 12/07/24 05:50 Laboratory: Laboratory Results - last 24 hr 12/05/24 18:35: Urine Color Cancelled, Urine Clarity Cancelled, Urine pH Cancelled, Ur Specific Centre Cancelled, U Specif Grav (Refrac) Cancelled, Urine Protein Cancelled, Urine Glucose (UA) Cancelled, Urine Ketones Cancelled, Urine Occult Blood Cancelled, Urine Nitrite Cancelled, Urine Bilirubin Cancelled, Urine Urobilinogen Cancelled, Ur Leukocyte Esterase Cancelled, Urine RBC Cancelled, Urine WBC Cancelled, Ur Squamous Epith Cells Cancelled, Ur Transition Epith Cell Cancelled, Ur Renal Epithelial Cell Cancelled, Calcium Oxalate Crystal Cancelled, Uric Acid Crystals Cancelled, Triple Phos Crystals Cancelled, Other Crystals Cancelled, Amorphous Sediment Cancelled, Urine Bacteria Cancelled, Hyaline Casts Cancelled, Fine Granular Casts Cancelled, Coarse Granular Casts Cancelled, Waxy Casts Cancelled, RBC Casts Cancelled, WBC Casts Cancelled, Urine Mucus Cancelled, Urine Trichomonas Cancelled, Urine Yeast Cancelled 12/06/24 05:53: Retic Count 2.00 H, Immature Retic Fraction 33.60 H, Retic Hgb Equivalent 26.8 L, Iron 56, TIBC 122 L, Iron Saturation 45.9, Unsaturated IBC 66 L, Ferritin 2848 H, Vitamin B12 376 12/06/24 12:07: POC Glucose 111 H 12/06/24 16:44: POC Glucose 338 H 12/06/24 22:08: POC Glucose 279 H 12/07/24 05:50: WBC 14.6 H, RBC 2.79 L, Hgb 9.0 L, Hct 29.3 L, MCV 105.0 H, MCH 32.3 H, MCHC 30.7 L, RDW Std Deviation 51.2 H, RDW Coeff of Lucas 13.2, Plt Count 274, MPV 10.3, Sodium 136, Potassium 5.5 H, Chloride 98, Carbon Dioxide 25.4, Anion Gap 13, BUN 48 H, Creatinine 5.64 H, Estim Creat Clear Calc 8.08 L*, Est GFR (MDRD) Non-Af 7 L, BUN/Creatinine Ratio 8.5 L, Glucose 218 H, Calcium 8.6, P hosphorus 4.6 H, Magnesium 2.0 12/07/24 06:25: POC Glucose 232 H Microbiology: Microbiology 12/05/24 09:57 Blood Culture (Wb) - Venous Blood Culture - Preliminary No growth in 48 hours. 12/05/24 09:57 Blood Culture (Wb) - Anticubital Left Blood Culture - Preliminary No growth in 48 hours. 12/05/24 17:25 Sputum, Expectorated/Coughed Gram Stain - Final 12/05/24 17:25 Sputum, Expectorated/Coughed Respiratory Culture - Final Rahnella aquatilis 12/05/24 17:10 Mucosa - Nose Respiratory Panel (PCR) - Final 12/05/24 09:57 Mucosa - Nasopharyngeal SARS-CoV-2, Influenza & RSV (PCR) - Final Radiography Diagnostic Testing: Radiology Impression Echocardiogram 12/05/24 16:02 Interpretation Summary The estimated ejection fraction is 55???60 %. Limited transthoracic echocardiogram Overall LV systolic function is preserved within normal No significant abnormality from previous echocardiogram. Ordering Physician: Hero Cheng Referring Physician: Mitchell Lane Performed By: Ashleigh Melara, RDCS, RVT D/C Instructions Discharge Diet: 1800 Calorie Control Diet, 8 Cup Fluid Restriction and 2000 mg Sodium Diet Discharge Activity: Return to Normal Activity Call your doctor if you observe: Fever of 101 or Higher, Shortness of breath, Fainting spells and Chest pain DC O2, CPAP, BIPAP Needs Home O2 Discharge instructions: Yes Type of respiratory needs?: Oxygen Oxygen frequency: Continuous Continuous oxygen liters per minute: 3 DC home with Oxygen: Yes Home O2 MD Review: I have reviewed the oxygen testing, and the patient qualifies for home oxygen equipment and portability. The patient is mobile in the home and the community. Meaningful Use Info Meaningful Use Meaningful Use Diagnoses (Choose all that apply): CHF CHF NAS/ARB ordered at discharge?: No Reason NAS/ARB not ordered?: Worsening renal disease Documented LVEF (%): 70 Ischemic Stroke Statin Dosing Therapy Reference: STATIN DOSE THERAPY REFERENCE: * Patients > 75 years receive moderate or high dose statin therapy. * Patients 75 years or YOUNGER should receive HIGH intensity statin dose unless contraindicated. You will be required to document reason for non-treatment if statin daily dose does not meet guidelines. HIGH DOSE STATIN THERAPY DAILY Atorvastatin > than or = to 40 mg Rosuvastatin > than or = to 20 mg Amlodipine + Atorvastatin > than or = to 2.5/40 mg Ezetimibe + Simvastatin 10/80 mg Simvastatin 80mg Discharge Plan Admission Admit Date/Time: 12/05/24 13:39 Attending Provider: Kang Oden Primary Care Provider: Mitchell Lane Consulting Providers: Delores Morales; Hero Cheng Discharge Orders/Prescriptions Prescriptions: New cefpodoxime 100 mg tablet 100 mg PO BID Qty: 14 0RF Rx Instructions: must administer with a meal/food Continued buspirone 7.5 mg tablet 7.5 mg PO BID cholestyramine (with sugar) 4 gram powder PO QDAY lorazepam 0.5 mg tablet 0.5 mg PO QDAY PRN sucralfate [Carafate] 1 gram tablet 1 g PO .4 times daily PRN pravastatin 40 mg tablet 40 mg PO QHS Patient Comments: TAKE 1 TABLET BY MOUTH EVERY DAY sertraline 100 mg tablet 100 mg PO BID Patient Comments: TAKE 1 TABLET BY MOUTH TWICE A DAY mirtazapine 45 mg tablet 45 mg PO QHS Patient Comments: TAKE 1 TABLET BY MOUTH NIGHTLY insulin NPH isoph U-100 human 100 unit/mL (3 mL) Insulin Pen 6 unit SUBCUT BREAKFAST budesonide-formoterol 160-4.5 mcg/actuation HFA aerosol inhaler 2 puff INHALATION BID Patient Comments: INHALE 2 PUFFS INTO THE LUNGS TWICE DAILY Probiotic 10 billion cell Capsule 10,000 mmu cells PO DAILY Rx Instructions: takes at lunch time aspirin 81 mg Tablet 81 mg PO QHS cholecalciferol (vitamin D3) 25 mcg (1,000 unit) capsule 50 mcg PO QDAY albuterol sulfate 90 mcg/actuation HFA aerosol inhaler 2 inh inhalation Q6H PRN (Reason: shortness of breath or wheezing) Qty: 8.5 0RF ipratropium-albuterol 0.5 mg-3 mg(2.5 mg base)/3 mL Solution For Nebulization 3 ml inhalation Q6HWA.RT Qty: 0 0RF furosemide 80 mg tablet 80 mg PO DAILY calcium acetate(phosphat bind) 667 mg capsule 1,334 mg PO DAILY insulin lispro [Humalog KwikPen Insulin] 100 unit/mL Insulin Pen 1 sliding scale dose subcut QHS Protocol: 2. Sliding Scale Insulin Low-Med Dosing Condition: 150-209 mg/dl = 1 unit Condition: 210-269 mg/dl = 2 units Condition: 270-329 mg/dl = 3 units Condition: 330-389 mg/dl = 4 units Condition: 390-449 mg/dl = 5 units Condition: Greater than 449 call physician Protocol Text: - Use for Total Daily Dose of Insulin 28-36 units - Average size patients LOW MEDIUM DOSING ALGORITHM insulin NPH isoph U-100 human 100 unit/mL (3 mL) Insulin Pen 20 unit SUBCUT QHS insulin aspart U-100 [Novolog FlexPen U-100 Insulin] 100 unit/mL (3 mL) insulin pen 1 sliding scale dose subcut TID metoprolol succinate 25 mg tablet extended release 24 hr 25 mg PO DAILY Qty: 90 3RF Referrals / Follow Up: Mitchell Lane MD [Primary Care Provider] - Within 1 Week Delores Morales MD [Med Staff - Consulting] - Within 1 Month Disposition Disposition (needs filled in before D/C Order can be placed): Home, Self Care Charges/Coding Visit Charges Inpatient E&M: 23147 Disch Hosp >30min
[2024-12-07] MEDS: PureFlow B 2K Dialysis Soln 1 BAG 6 BAG PF (12:16)
[2024-12-07] MEDS: 0.9% Normal Saline 1,000 ML IV.SOLN. 1000 ML OPERA.SITE (12:16)
[2024-12-07] MEDS: Lactobacillis Acidophilus 1 CAP PO (12:31)
[2024-12-07] MEDS: Cholecalciferol (VIT D3) 25 MCG TABLET (1,000 UNITS) 50 MCG PO (12:31)
[2024-12-07] MEDS: Metoprolol(XL)Succ 25 MG Tablet PO (12:32)
--- NOTE | 2024-12-07 14:00 | CASEMGMT ---
Patient has order for discharge. Patient is maintain on home oxygen. RN CM in to discuss needs at discharge. Patient denies needs or help at discharge. Patient had no further questions or concerns. RN CM called and updated [facility] that patient is discharging to home today and will be at next HD session.
== END 2024-12-07 15:34 | disposition home or self-care (01) | DRG 177 ==
LOC: ED 12:52 → PCU 14:12
PROVIDERS: Admitting Provider Hospitalist; Emergency Provider Emergency Medicine; PCP Family Medicine; Visit Provider Internal Medicine
DX: J15.8 Pneumonia due to other specified bacteria (principal); N18.6 End stage renal disease; I50.33 Acute on chronic diastolic (congestive) heart failure; I13.2 Hypertensive heart and chronic kidney disease with heart failure and with stage 5 chronic kidney disease, or end stage renal disease; J44.0 Chronic obstructive pulmonary disease with (acute) lower respiratory infection; Z68.41 Body mass index [BMI] 40.0-44.9, adult; J96.11 Chronic respiratory failure with hypoxia; D63.1 Anemia in chronic kidney disease; E11.22 Type 2 diabetes mellitus with diabetic chronic kidney disease; Z99.2 Dependence on renal dialysis; Z79.4 Long term (current) use of insulin; E78.00 Pure hypercholesterolemia, unspecified; I25.10 Atherosclerotic heart disease of native coronary artery without angina pectoris; G47.33 Obstructive sleep apnea (adult) (pediatric); E87.5 Hyperkalemia; F41.9 Anxiety disorder, unspecified; R53.81 Other malaise; Z79.899 Other long term (current) drug therapy; E66.812 Obesity, class 2; Z99.81 Dependence on supplemental oxygen; Z85.3 Personal history of malignant neoplasm of breast; Z79.82 Long term (current) use of aspirin; Z79.51 Long term (current) use of inhaled steroids; Z90.49 Acquired absence of other specified parts of digestive tract
CPT/HCPCS: 36415; 71045; 80048; 81001; 82607; 82728; 82962; 83540; 83550; 83605; 83735; 84100; 85025; 85027; 85045; 87040; 87070; 87077; 87186; 87205; 87631; 87633; 90937; 93005; 93306; 94640; 94668; 97161; 97166; 99285; Q9957; A4216; G0257; J0696

== ENCOUNTER → 2024-12-21 | Outpatient (CLI) | payer MEDICARE, OTHER, SELFPAY ==
--- NOTE | 2024-12-21 14:03 | RAD_ITS ---
PROCEDURE: CHEST PA AND LATERAL 12/21/2024 REASON FOR EXAM: COUGH TECHNIQUE: CHEST PA AND LATERAL COMPARISON: Chest radiograph on 12/05/2024 FINDINGS: Artifact on the frontal view slightly limits this evaluation. Hardware: None Heart: Sequelae of CABG with unchanged cardiomegaly. Mediastinum: The mediastinal contour is stable. Aortic atherosclerosis. Lungs: Elevated right hemidiaphragm. Increased interstitial markings diffusely. Bones: Degenerative changes of the shoulders and spine. Surgical clips in the right chest wall. RAD/Chest PA and Lateral IMPRESSION: Stable appearance of the chest, with diffusely increased interstitial markings which may again represent pulmonary edema or atypical/viral infection. Reading Location: [facility]
== END | disposition home or self-care (01) ==
LOC: MTRAD 13:57
PROVIDERS: PCP Family Medicine; Referring Provider Physician Assistant Surgical; Visit Provider Physician Assistant Surgical
DX: R05.9 Cough, unspecified (principal)
CPT/HCPCS: 71046